=== PATIENT | male | born 1960 | race Caucasian/White ===

== ENCOUNTER 2019-09-05 10:17 | Emergency (ER) | payer OTHER ==
[2019-09-05 10:59] LABS: Urine Blood 2+ (NEG); Urine Glucose NEGATIVE (NEG); Urine Protein 3+ (NEG); Urine Specific Gravity 1.025 (1.005-1.030)
[2019-09-05 11:03] LABS: Absolute Lymphocytes (CBC) 1.2 K/uL (0.7-4.9); Basophils % 0.6 % (0-1.3); Hematocrit 44.5 % (39.6-49.0); Lymphocytes % 8.2 % (15.3-44.8); MPV 7.9 fL (7.6-11.3); RBC Red Blood Cell Count 5.55 M/uL (4.33-5.43)
[2019-09-05] MEDS ORDERED: NA CHLORIDE 0.9% 1,000 ML ONE ×2 (11:03→12:37)
[2019-09-05] MEDS ORDERED: KETOROLAC 30 MG/ML INJ ONE (11:03)
[2019-09-05] MEDS ORDERED: CEFTRIAXONE/SWI 1gm 1 GM/10 ML SYR ONE (11:03)
[2019-09-05 11:14] LABS: Urine Bacteria >50 /HPF (NONE SEEN); Urine RBC >50 /HPF (NONE SEEN)
[2019-09-05 11:30] LABS: Albumin 2.9 g/dL (3.4-5.0); Bilirubin Direct 0.4 mg/dL (0-0.2); Bilirubin Total 1.2 mg/dL (0.2-1.0); Potassium 3.7 mmol/L (3.5-5.1); Protein, Total 7.5 g/dL (6.4-8.2)
--- NOTE | 2019-09-05 13:54 | EDPHYS ---
Physician Documentation [facility] Name: Jeb Franklin Age: 58 yrs Sex: Male : 1960 Arrival Date: 09/05/2019 Time: 10:20 Bed 25 Private MD: [facility] ED Physician James Balbuena HPI: 09/05 11:06 This 58 yrs old Male presents to ER via Ambulatory with complaints of Urinary tw4 Problem. 11:06 The patient presents with urinary symptoms, dysuria, urinary frequency. Onset: The tw4 symptoms/episode began/occurred 1 week(s) ago. Modifying factors: The symptoms are alleviated by nothing, the symptoms are aggravated by nothing. Severity of symptoms: At their worst the symptoms were mild, in the emergency department the symptoms are unchanged. The patient has experienced similar episodes in the past, a few times. 11:15 Associated signs and symptoms: Pertinent positives: dysuria, fever, chills, flank pain tw4 left, Pertinent negatives: abdominal pain, diarrhea. Historical: - Allergies: 10:22 No Known Drug Allergies; sv - PMHx: 10:22 Hypertension; sv - PSHx: 10:22 Gastric Sleeve; Knee surgery; sv - Immunization history:: Adult Immunizations up to date. - Coronavirus screen:: The patient has NOT traveled to [place] in the past 14 days. Proceed with normal triage process as indicated. The patient has NOT had contact with known/suspected case of Coronavirus? Proceed with normal triage procedures. - Social history:: Smoking status: Patient reports the use of cigarette tobacco products, smokes one-half pack cigarettes per day. - Ebola Screening: : No symptoms or risks identified at this time. ROS: 11:15 Constitutional: Negative for fever, chills, and weight loss, Eyes: Negative for injury, tw4 pain, redness, and discharge, Neck: Negative for injury, pain, and swelling, Cardiovascular: Negative for chest pain, palpitations, and edema, Respiratory: Negative for shortness of breath, cough, wheezing, and pleuritic chest pain, Abdomen/GI: Negative for abdominal pain, nausea, vomiting, diarrhea, and constipation, MS/Extremity: Negative for injury and deformity, Skin: Negative for injury, rash, and discoloration. 11:15 : Positive for urinary symptoms, Negative for injury or acute deformity, urinary frequency, small amounts, hematuria, pelvic pain, flank pain, burning with urination, difficulty urinating, bladder incontinence, penile pain, testicular pain Exam: 11:15 Constitutional: This is a well developed, well nourished patient who is awake, alert, tw4 and in no acute distress. Head/Face: Normocephalic, atraumatic. Chest/axilla: Normal chest wall appearance and motion. Nontender with no deformity. No lesions are appreciated. Cardiovascular: Regular rate and rhythm with a normal S1 and S2. No gallops, murmurs, or rubs. Normal PMI, no JVD. No pulse deficits. Respiratory: Lungs have equal breath sounds bilaterally, clear to auscultation and percussion. No rales, rhonchi or wheezes noted. No increased work of breathing, no retractions or nasal flaring. Abdomen/GI: Soft, non-tender, with normal bowel sounds. No distension or tympany. No guarding or rebound. No evidence of tenderness throughout. Back: No spinal tenderness. No costovertebral tenderness. Full range of motion. Male : Normal genitalia with no discharge or lesions. Skin: Warm, dry with normal turgor. Normal color with no rashes, no lesions, and no evidence of cellulitis. MS/ Extremity: Pulses equal, no cyanosis. Neurovascular intact. Full, normal range of motion. Neuro: Awake and alert, GCS 15, oriented to person, place, time, and situation. Cranial nerves II-XII grossly intact. Motor strength 5/5 in all extremities. Sensory grossly intact. Cerebellar exam normal. Normal gait. Vital Signs: 10:23 BP 146 / 65; Pulse 78; Resp 22; Temp 98(O); Pulse Ox 97% ; Weight 43.09 kg; Height 6 sv ft. 0 in. (182.88 cm); 11:00 BP 104 / 50; Pulse 63; Resp 16 S; Pulse Ox 93% on R/A; ca1 11:28 BP 104 / 50; Pulse 57; Resp 17 S; Pulse Ox 90% on R/A; ca1 12:18 BP 94 / 52; Pulse 57; Resp 19 S; Pulse Ox 95% on R/A; ca1 13:11 BP 90 / 50; Pulse 54; Resp 16 S; Temp 98.7(O); Pulse Ox 93% on R/A; ca1 13:43 BP 99 / 52; Pulse 55; Resp 16 S; Pulse Ox 95% on R/A; ca1 10:23 Body Mass Index 12.88 (43.09 kg, 182.88 cm) sv MDM: 10:28 Patient medically screened. tw4 13:54 Differential diagnosis: nonspecific abdominal pain, appendicitis, UTI, urinary tw4 retention. Data reviewed: vital signs, nurses notes. Data reviewed: lab test result(s), CBC, electrolytes, hepatic panel, urinalysis, bacteruria, pyuria. Data interpreted: Pulse oximetry: Interpretation: normal. Counseling: I had a detailed discussion with the patient and/or guardian regarding: the historical points, exam findings, and any diagnostic results supporting the discharge/admit diagnosis, lab results. Medication response: Response to treatment: the patient's symptoms have markedly improved after treatment, and as a result, I will discharge patient, administer antibiotics cipro. Special discussion: I discussed with the patient/guardian in detail that at this point there is no indication for admission to the hospital. It is understood, however, that if the symptoms persist or worsen the patient needs to return immediately for re-evaluation. ED course: Pt awake and alert appears nontoxic, pts BP stable and lactic acid normal doubt septicemia . 09/05 10:35 Order name: Basic Metabolic Panel; Complete Time: 12:05 09/05 12:05 Interpretation: Normal except: GLUC 118; BUN 24; CRE 1.32; GFR 56. 09/05 10:35 Order name: CBC with Diff; Complete Time: 12:05 09/05 12:05 Interpretation: Normal except: WBC 14.9; RBC 5.55; MCH 25.3; MCHC 31.6; RDW 16.8. 09/05 10:35 Order name: Creatinine for Radiology; Complete Time: 12:05 09/05 12:06 Interpretation: Normal except: GFR 57. 09/05 10:35 Order name: Hepatic Function; Complete Time: 12:05 09/05 12:06 Interpretation: Normal except: BILIT 1.2; BILID 0.4; ALB 2.9; GLOB 4.6; A/G 0.6. 09/05 10:35 Order name: Urine Microscopic Only; Complete Time: 12:05 09/05 12:06 Interpretation: Normal except: UWBC >50; URBC >50; UBACT >50. 4 09/05 10:46 Order name: Urine Dipstick--Ancillary (enter results); Complete Time: 12:05 bd 09/05 12:06 Interpretation: Normal except: UBLD 2+; UPROT 3+; U NIT POSITIVE; UESTR 1+. tw4 09/05 10:35 Order name: IV Saline Lock; Complete Time: 10:53 tw 09/05 10:35 Order name: Labs collected and sent; Complete Time: 10:53 tw 09/05 11:18 Order name: Urine Culture [facility] 09/05 12:24 Order name: Lactate; Complete Time: 13:47 [facility] 09/05 10:35 Order name: Urine Dipstick-Ancillary (obtain specimen); Complete Time: 10:53 tw4 Administered Medications: 10:58 Drug: NS 0.9% 1000 ml Route: IV; Rate: 1 bolus; Site: left antecubital; ca1 12:00 Follow up: Response: No adverse reaction; IV Status: Completed infusion ca1 11:00 Drug: Rocephin - (cefTRIAXone) 1 grams Route: IVPB; Infused Over: 30 mins; Site: left ca1 antecubital; 11:57 Follow up: Response: No adverse reaction; IV Status: Completed infusion ca1 11:03 Drug: TORadol 30 mg Route: IVP; Site: left antecubital; ca1 11:56 Follow up: Response: No adverse reaction; Pain is decreased ca1 12:34 Drug: NS 0.9% 1000 ml Route: IV; Rate: 1 bolus; Site: left antecubital; ca1 13:43 Follow up: Response: No adverse reaction; IV Status: Completed infusion ca1 Disposition: 09/05/19 13:52 Discharged to Home. Impression: Urinary tract infection, site not specified. - Condition is Stable. - Discharge Instructions: Urinary Tract Infection, Adult. - Prescriptions for Zofran 4 mg Oral Tablet - take 1 tablet by ORAL route every 12 hours As needed; 20 tablet. Cipro 500 mg Oral Tablet - take 1 tablet by ORAL route every 12 hours for 7 days; 14 tablet. - Medication Reconciliation Form, Thank You Letter, Antibiotic Education, Prescription Opioid Use form. - Follow up: Jamie Escobedo DO; When: Upon discharge from the Emergency Department; Reason: If symptoms return, Recheck today's complaints, Continuance of care, Re-evaluation by your physician. - Problem is new. - Symptoms have improved. Signatures: Dispatcher [employer] Cristal Kumar, RN RN James Ratliff MD MD tw4 Ada Foley RN RN ca1 Corrections: (The following items were deleted from the chart) 12:06 12:06 Normal except: UBLD 2+; UPROT 3+; U NIT POSITIVE. 14:12 13:52 09/05/2019 13:52 Discharged to Home. Impression: Urinary tract infection, site ca1 not specified. Condition is Stable. Forms are Medication Reconciliation Form, Thank You Letter, Antibiotic Education, Prescription Opioid Use. Follow up: Jamie Escobedo; When: Upon discharge from the Emergency Department; Reason: If symptoms return, Recheck today's complaints, Continuance of care, Re-evaluation by your physician. Problem is new. Symptoms have improved. tw4
--- NOTE | 2019-09-05 13:54 | ER ---
Nurse's Notes [facility] Name: Jeb Franklin Age: 58 yrs Sex: Male : 1960 Arrival Date: 09/05/2019 Time: 10:20 Bed 25 Private MD: Jamie Escobedo Diagnosis: Urinary tract infection, site not specified Presentation: 09/05 10:21 Presenting complaint: Patient states: chills, burning with urination x 1 week. c/o sv right flank pain. Transition of care: patient was not received from another setting of care. Onset of symptoms was August 29, 2019. Care prior to arrival: None. 10:21 Method Of Arrival: Ambulatory sv 10:21 Acuity: CHEPE 3 sv 10:35 Risk Assessment: Do you want to hurt yourself or someone else? Patient reports no ca1 desire to harm self or others. Initial Sepsis Screen: Does the patient meet any 2 criteria? No. Patient's initial sepsis screen is negative. Does the patient have a suspected source of infection? No. Patient's initial sepsis screen is negative. Triage Assessment: 10:24 General: Appears uncomfortable, Behavior is calm, cooperative, appropriate for age. sv Pain: Complains of pain in right low back and posterior aspect of right lateral abdomen. Neuro: Level of Consciousness is awake, alert, obeys commands. Respiratory: Respiratory effort is even, unlabored, Respiratory pattern is regular, symmetrical. : Reports burning with urination. Derm: Skin is diaphoretic. Historical: - Allergies: 10:22 No Known Drug Allergies; sv - PMHx: 10:22 Hypertension; sv - PSHx: 10:22 Gastric Sleeve; Knee surgery; sv - Immunization history:: Adult Immunizations up to date. - Coronavirus screen:: The patient has NOT traveled to [place] in the past 14 days. Proceed with normal triage process as indicated. The patient has NOT had contact with known/suspected case of Coronavirus? Proceed with normal triage procedures. - Social history:: Smoking status: Patient reports the use of cigarette tobacco products, smokes one-half pack cigarettes per day. - Ebola Screening: : No symptoms or risks identified at this time. Screenin:35 Abuse screen: Denies threats or abuse. Denies injuries from another. Nutritional ca1 screening: No deficits noted. Tuberculosis screening: No symptoms or risk factors identified. Fall Risk IV access (20 points). Assessment: 10:35 General: Appears in no apparent distress. comfortable, Behavior is calm, cooperative, ca1 appropriate for age. Pain: Complains of pain in posterior aspect of right lateral abdomen and right low back Pain does not radiate. Pain currently is 8 out of 10 on a pain scale. Pain began a week ago Is intermittent. Neuro: Level of Consciousness is awake, alert, obeys commands, Oriented to person, place, time, situation, Appropriate for age. Cardiovascular: Heart tones S1 S2 present Capillary refill < 3 seconds Patient's skin is warm and dry. Respiratory: Airway is patent Respiratory effort is even, unlabored, Respiratory pattern is regular, symmetrical. GI: Abdomen is round non-distended, Bowel sounds present X 4 quads. Abd is soft and non tender X 4 quads. : Reports burning with urination, since a week ago urgency, urinary frequency. EENT: No signs and/or symptoms were reported regarding the EENT system. Derm: Skin is intact, is healthy with good turgor, Skin is pink, warm \T\ dry. Musculoskeletal: Circulation, motion, and sensation intact. Capillary refill < 3 seconds. 11:28 Reassessment: Patient appears in no apparent distress at this time. Patient and/or ca1 family updated on plan of care and expected duration. Pain level reassessed. Patient is alert, oriented x 3, equal unlabored respirations, skin warm/dry/pink. 12:18 Reassessment: Patient appears in no apparent distress at this time. Patient and/or ca1 family updated on plan of care and expected duration. Pain level reassessed. Patient is alert, oriented x 3, equal unlabored respirations, skin warm/dry/pink. 13:11 Reassessment: Patient appears in no apparent distress at this time. Patient and/or ca1 family updated on plan of care and expected duration. Pain level reassessed. Patient is alert, oriented x 3, equal unlabored respirations, skin warm/dry/pink. 13:43 Reassessment: Patient appears in no apparent distress at this time. Patient is alert, ca1 oriented x 3, equal unlabored respirations, skin warm/dry/pink. Vital Signs: 10:23 BP 146 / 65; Pulse 78; Resp 22; Temp 98(O); Pulse Ox 97% ; Weight 43.09 kg; Height 6 sv ft. 0 in. (182.88 cm); 11:00 BP 104 / 50; Pulse 63; Resp 16 S; Pulse Ox 93% on R/A; ca1 11:28 BP 104 / 50; Pulse 57; Resp 17 S; Pulse Ox 90% on R/A; ca1 12:18 BP 94 / 52; Pulse 57; Resp 19 S; Pulse Ox 95% on R/A; ca1 13:11 BP 90 / 50; Pulse 54; Resp 16 S; Temp 98.7(O); Pulse Ox 93% on R/A; ca1 13:43 BP 99 / 52; Pulse 55; Resp 16 S; Pulse Ox 95% on R/A; ca1 10:23 Body Mass Index 12.88 (43.09 kg, 182.88 cm) sv ED Course: 10:20 Patient arrived in ED. mr 10:20 Jamie Escobedo DO is Private Physician. mr 10:21 Arm band placed on. sv 10:22 Triage completed. sv 10:27 James Balbuena MD is Attending Physician. tw4 10:33 Ada Foley, GERMANIA is Primary Nurse. ca1 10:35 Patient has correct armband on for positive identification. Placed in gown. Bed in low ca1 position. Call light in reach. Side rails up X 1. Pulse ox on. NIBP on. Warm blanket given. 10:35 No provider procedures requiring assistance completed. ca1 10:53 Initial lab(s) drawn, by me, sent to lab. Urine collected: clean catch specimen, clear. em1 Inserted saline lock: 20 gauge in left antecubital area, using aseptic technique. Blood collected. 13:47 Jamie Escobedo DO is Referral Physician. tw4 13:58 IV discontinued, intact, bleeding controlled, No redness/swelling at site. Pressure ca1 dressing applied. Administered Medications: 10:58 Drug: NS 0.9% 1000 ml Route: IV; Rate: 1 bolus; Site: left antecubital; ca1 12:00 Follow up: Response: No adverse reaction; IV Status: Completed infusion ca1 11:00 Drug: Rocephin - (cefTRIAXone) 1 grams Route: IVPB; Infused Over: 30 mins; Site: left ca1 antecubital; 11:57 Follow up: Response: No adverse reaction; IV Status: Completed infusion ca1 11:03 Drug: TORadol 30 mg Route: IVP; Site: left antecubital; ca1 11:56 Follow up: Response: No adverse reaction; Pain is decreased ca1 12:34 Drug: NS 0.9% 1000 ml Route: IV; Rate: 1 bolus; Site: left antecubital; ca1 13:43 Follow up: Response: No adverse reaction; IV Status: Completed infusion ca1 Outcome: 13:52 Discharge ordered by . aleena 14:02 Discharged to home ambulatory. ca1 14:02 Condition: stable 14:02 Discharge instructions given to patient, Instructed on discharge instructions, follow up and referral plans. medication usage, Demonstrated understanding of instructions, follow-up care, medications, Prescriptions given X 2. 14:12 Patient left the ED. ca1 Addendum: 09/08/2019 07:19 Addendum: Culture Results: Positive urine culture. No further action required. Bacteria e b sensitive to prescribed antibiotic. Signatures: Cristal Fernandez RN RN Carnes, Joselin Rodriges, [place] 1 James Balbuena MD MD tw4 Donya Villalpando Cheryl, RN RN ca1 Corrections: (The following items were deleted from the chart) 09/05 10:24 10:23 Pulse 78bpm; Resp 22bpm; Pulse Ox 97%; Temp 98F Oral; 43.09 kg; Height 6 ft. 0 sv in.; BMI: 12.8; sv 13:13 13:11 BP 90 / 50; Pulse 51bpm; Resp 16bpm; Spontaneous; Pulse Ox 93% RA; ca1 ca1
[2019-09-05 14:25] VITALS: TEMP 98.7
[2019-09-05 14:27] VITALS: BP 99/52; O2SAT 95
== END 2019-09-05 14:12 | disposition home or self-care (01) ==
LOC: ER 10:17
DX: N39.0 Urinary tract infection, site not specified (principal); I10 Essential (primary) hypertension; F17.210 Nicotine dependence, cigarettes, uncomplicated
CPT/HCPCS: 96365; 96361; 87088; 85025; 87086; 80048; 36415; 80076; 83605; 87077; 87186; 96375; 99284; J0696; J7030 ×2; 81003; 81015

== ENCOUNTER 2019-12-11 13:37 | Inpatient (IN) | payer OTHER ==
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
--- OUTSIDE RECORDS SUMMARY | 2019-12-12 17:55 | XMS REPORT ---
:1960 Author Organization [employer] Care Team Providers Name Role Phone EscobedoJamie Provider Role Unavailable Allergies, Adverse Reactions, Alerts Substance Reaction Event Type N.K.D.A. Info Not Available Non Drug Allergy Problems Problem Type Condition Code Onset Dates Condition Statu s Assessment Vitamin D deficiency E55.9 Active Assessment Vitamin A deficiency E50.9 Active Problem Vitamin D deficiency E55.9 Active Assessment Hyperglycemia R73.9 Active Problem Benign essential HTN I10 Active Assessment Elevated alkaline phosphatase level R74.8 Active Problem Vitamin A deficiency E50.9 Active Problem Hypothyroidism, unspecified type E03.9 Active Problem Chronic congestive heart failure, I50.9 Active unspecified congestive heart failure type Problem Adult BMI 50.0-59.9 kg/sq m Z68.43 Active Problem Hypocalcemia E83.51 Active Assessment Morbid (severe) obesity due to E66.01 Active excess calories Assessment Encounter for long-term (current) Z79.1 Active use of NSAIDs Problem Body mass index (BMI) 50.0-59.9, Z68.43 Active adult Assessment Elevated LFTs R79.89 Active Problem Dorsalgia, unspecified M54.9 Activ e Problem Gastroesophageal reflux disease K21.9 Active without esophagitis Problem 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 Problem Morbid (severe) obesity due to E66.01 Active excess calories Assessment Gastroesophageal reflux disease K21.9 Active without esophagitis Assessment Chronic congestive heart failure, I50.9 Active unspecified congestive heart failure type Assessment Adult BMI 50.0-59.9 kg/sq m Z68.43 Active Assessment 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 Problem Hyperglycemia R73.9 Active Assessment Hypothyroidism, unspecified type E03.9 Active Assessment Benign essential HTN I10 Active Medications Medication Code Code Instructions Start End Status Dosage System Date Date Meloxicam ND 04785702823 15 mg Active TAKE 1 TABLET BY MOUTH EVERY DAY Losartan Potassium ND 29755649179 100 MG Orally Act allyson 1 tablet Once a day Hydrochlorothiazide ND 97548506282 25 MG Orally Act allyson 1 tablet Once a day in the morning Norvasc [facility] 50371695400 10 MG Orally Active 1 table t Once a day Pantoprazole Sodium [facility] 49691151903 40 MG Orally Act allyson 1 tablet Once a day Klor-Con 10 [facility] 08329708271 10 MEQ Orally Active 1 tablet once a day with food Amlodipine Besylate ND 64081269966 10 MG Orally Act allyson 1 tablet Once a day Cozaar [facility] 58783585269 100 MG Orally Active 1 tabl et Once a day Clonidine HCl [facility] 24183630318 0.2 MG Orally Active 1 tablet three times a day Mobic [facility] 00512578904 15 MG Orally Active 1 table t Once a day Potassium Chloride [facility] 47979072011 10 MEQ Orally Act allyson 1 tablet [facility] Twice a day with food Levothyroxine Sodium [facility] 81880583111 25 MCG Orally A ctive 1 tablet Once a day on an empty stomach in the morning Coreg [facility] 90161581277 25 MG Orally Active 1 tab BID Results No Known Results Summary Purpose [employer]ClinicalWorks Submission
--- OUTSIDE RECORDS SUMMARY | 2019-12-12 17:56 | XMS REPORT | Continuity of Care Document ---
:1960 Author Organization [facility] t Address [address] [place] [address] Care Team Providers Name Role Phone Unavailable Unavailable Unavailable Problems Condition Condition Condition Status Onset Resolution Last Treating Co mments Source Name Details Category Date Date Treatment Clinician Date Benign Benign Diagnosis Active [facility] essential essential [facility] - HTN HTN [facility] Chronic Chronic Diagnosis Active [facility] congestive congestive [place] [facility] - heart heart Memoria failure, failure, l unspecifie unspecifie Ou tpati d d ent congestive congestive Cl inics heart heart failure failure type type Vitamin A Vitamin A Problem Active [facility] deficiency deficiency [place] [facility] - [facility] Hypocalcem Hypocalcem Problem Active [facility] ia ia [facility] Adult BMI Adult BMI Diagnosis Active [facility] 50.0-59.9 50.0-59.9 Luke s - kg/sq m kg/sq m [facility] Generalize Generalize Diagnosis Active [facility] - osteoarthr osteoarthr Me moria itis of itis of l multiple multiple Outpat i sites sites ent Clinics Gastroesop Gastroesop Diagnosis Active [facility] hageal hageal [facility] - reflux reflux Memoria disease disease l without without Outpati esophagiti esophagiti en t s s Clinics Hypothyroi Hypothyroi Diagnosis Active [facility] dism, dism, [facility]ukes - unspecifie unspecifie Me moria d type d type l Outpati ent Clinics Morbid Morbid Problem Active [facility] (severe) (severe) Lukes - obesity obesity Memoria due to due to l excess excess Outpati calories calories ent Clinics Dorsalgia, Dorsalgia, Problem Active [facility] unspecifie unspecifie [place] - d d [facility] Hyperglyce Hyperglyce Problem Active [facility] carolee carolee [facility] Vitamin D Vitamin D Problem Active [facility] deficiency deficiency [place] k[facility] - Memoria l [facility] ent Clinics Encounter Encounter Diagnosis Active [facility] for for [facility] - long-term long-term Barney etelvina (current) (current) l use of use of [facility] NSAIDs NSAIDs ent Clinics Elevated Elevated Diagnosis Active [facility] alkaline alkaline [facility] - phosphatas phosphatas Me moria e level e level l [facility] ent Clinics Elevated Elevated Diagnosis Active [facility] LFTs LFTs [facility] - Memoria l [facility] ent Clinics Allergies, Adverse Reactions, Alerts This patient has no known allergies or adverse reactions. Medications Ordered Filled Start Stop Current Ordering Indication Dosage Frequency Signature Comments Components Source Medication Medication Date Date Medication? Clinician (SIG) Name Name Pantoprazol Pantoprazol Yes Jamie [address] [facility] e Sodium e Sodium 07-20 [place] [facility] - 00:00: Memoria 00 l [facility] ent Clinics Mobic Mobic Yes Jamie [address] [facility] [place] [facility] ent Clinics Coreg Coreg Yes Jamie [address] [facility] [place] [facility] ent Clinics Cozaar Cozaar Yes Jamie 1 tablet [facility] [place] [facility] ent Clinics Norvasc Norvasc Yes Jamie [address] [facility] [place] [facility] ent Clinics Levothyroxi Levothyroxi Yes Jamie [address] [facility] ne Sodium ne Sodium [place] on an Aarti es - empty Memoria stomach in l the [facility] morning ent Clinics Clonidine Clonidine Yes Jamie [address] [facility] HCl HCl [place] [facility]oria l [facility] ent Clinics Klor-Con 10 Klor-Con 10 Yes Jamie [address] [facility] [place] with food [facility] - Memoria l [facility] ent Clinics Hydrochloro Hydrochloro Yes Jamie [address] [facility] thiazide thiazide [place] in the Luke s - morning Memoria l [facility] ent Clinics Potassium Potassium Yes Jamie [address] [facility] [facility] Chloride Chloride [place] with food L ukes - Sandy [facility] Memoria l [facility] ent Clinics Amlodipine Amlodipine Yes Jamie [address] [facility] Besylate Besylate [place] [facility] - [facility] l [facility] ent Clinics Losartan Losartan Yes Jamie [address] Potassium Potassium [place] [facility] - Memoria l [facility] ent Clinics Meloxicam Meloxicam Yes Jamie TAKE [address] [place] TABLET BY [facility] - MOUTH [facility] EVERY DAY l Outpati ent Clinics Immunizations Ordered Filled Immunization Date Status Comments Sourc e Immunization Name Name Son Cline - 2019-04-[address] [facility] Procedures This patient has no known procedures. Encounters Start End Encounter Admission Attending Care Care Encounter Source Date/Time Date/Time Type Type Clinicians Facility Department ID 2019-10-24 2019-10-24 [facility] [id number] [facility] 08:30[facility]00 08:30:[address] [facility] Medicine Outpati ent Clinics 2019-07-25 2019-07-25 [facility] [id number] [address] 08:45:00 08:45:[address] [facility] Medicine Outpati ent Clinics 2019-07-17 2019-07-17 [facility] [id number] 16:35:00 16:35:[address] [facility] Medicine Outpati ent Clinics 2019-04-18 2019-04-18 [facility] [id number] 08:15:00 08:15:[address] [facility] Medicine Outpati ent Clinics 2019-01-17 2019-01-17 [facility] [id number] 08:15:00 08:15:[address] [facility] Medicine Outpati ent Clinics 2018-10-18 2018-10-18 [facility] [id number] [address] 08[facility]15[facility]00 08:15:[address] [facility] Medicine Outpati ent Clinics 2018-08-24 2018-08-24 [facility] [id number] 08:30:00 08:30:[address] [facility] Medicine Outpati ent Clinics 2018-07-20 2018-07-20 [facility] [id number] 08:15:00 08:15:[address] [facility] Medicine Outpati ent Clinics Results This patient has no known results.
[2019-12-12] MEDS ORDERED: ACETAMINOPHEN 500 MG TAB PO PRN (18:38)
[2019-12-12] MEDS: ENOXAPARIN 60 MG/0.6 ML SQ SCH (20:00)
[2019-12-12] MEDS: GABAPENTIN 300 MG CAP PO SCH (20:21)
[2019-12-12] MEDS: BACLOFEN 10 MG TAB PO SCH (20:21)
[2019-12-12 20:47] LABS: Urine Appearance CLEAR; Urine Bilirubin NEGATIVE (NEG); Urine Blood NEGATIVE (NEG); Urine Color YELLOW; Urine Glucose NEGATIVE (NEG); Urine Protein TRACE (NEG); Urine Specific Gravity 1.015 (1.005-1.030)
[2019-12-12] MEDS ORDERED: cloNIDine HCL 0.1 MG TAB PO SCH (21:00)
[2019-12-12] MEDS ORDERED: METOPROLOL TAR 25 MG TAB PO SCH (21:00)
[2019-12-12 22:40] LABS: Urine Bacteria <20 /HPF (NONE SEEN); Urine Culture Reflex Order NOT NEEDED; Urine RBC <5 /HPF (NONE SEEN)
[2019-12-13] MEDS: TRAMADOL HCL 50 MG TAB PO PRN ×4 (00:48→19:43)
[2019-12-13 06:02] LABS: Absolute Lymphocytes (CBC) 2.7 K/uL (0.7-4.9); Basophils % 0.7 % (0-1.3); Lymphocytes % 16.5 % (15.3-44.8); MPV 7.1 fL (7.6-11.3); RBC Red Blood Cell Count 2.82 M/uL (4.33-5.43)
[2019-12-13 06:16] LABS: Albumin 2.1 g/dL (3.4-5.0); Magnesium 2.3 mg/dL (1.8-2.4); Potassium 4.3 mmol/L (3.5-5.1); Prealbumin 15.6 mg/dL (20-40)
[2019-12-13] MEDS: LEVOTHYROXINE SOD 0.025 MG TAB PO SCH (06:58)
[2019-12-13] MEDS: PANTOPRAZOLE 40MG TABLET PO SCH (06:58)
[2019-12-13 07:54] LABS: Platelet Estimate INCR; Urine White Blood Cell Casts OK
[2019-12-13 07:55] LABS: Anisocytosis 1+; Blood Morphology Comment NOTED (NOT SEEN); Macrocytosis 1+; Polychromasia 1+
[2019-12-13] MEDS ORDERED: POLYETHYL GLY 3350 17 GM/DOSE PO SCH (08:00)
[2019-12-13] MEDS: LIDOCAINE 4% PATCH TOP SCH (08:43)
[2019-12-13] MEDS: cloNIDine HCL 0.1 MG TAB PO SCH ×2 (08:44→19:43)
[2019-12-13] MEDS: GABAPENTIN 300 MG CAP PO SCH ×2 (08:44→19:43)
[2019-12-13] MEDS: TAMSULOSIN 0.4 MG SR CAP PO SCH (08:45)
[2019-12-13] MEDS: METOPROLOL TAR 25 MG TAB PO SCH ×2 (08:45→19:42)
[2019-12-13] MEDS: ENOXAPARIN 60 MG/0.6 ML SQ SCH ×2 (10:27→19:42)
[2019-12-13] MEDS: ACETAMINOPHEN 500 MG TAB PO PRN (11:26)
--- NOTE | 2019-12-13 11:48 | RAD REPORT ---
EXAM DESCRIPTION: RAD - Hip Right 2 View - 12/13/2019 11:16 am CLINICAL HISTORY: Right hip pain FINDINGS: Compression screws and intramedullary rods have been placed into the the right femur. An intertrochanteric fracture involves greater and lesser trochanters. Fracture fragments are separat ed by 4.7 millimeters. No prior plain films are available for comparison. This could represent a re- fracture or simply be a normal finding if the patient has had a recent surgery. This should be correlated clinically and with prior plain films No dislocation
--- NOTE | 2019-12-13 12:02 | RAD REPORT ---
EXAM DESCRIPTION: Juaquin Single View12/13/2019 11:17 am CLINICAL HISTORY: Leukocytosis COMPARISON: none FINDINGS: The lungs appear clear of acute infiltrate. The heart is mildly enlarged. Mild prominence of mediastinum IMPRESSION: Mild prominence of mediastinum may represent vessels/epicardial fat. Lymphadenopathy can also have this appearance. PA and lateral chest series would be helpful for further evaluation
[2019-12-13] MEDS: FE SULF/FA/VIT B COMP & C TAB PO SCH (12:41)
[2019-12-13] MEDS: FERROUS SULFATE 325 MG TAB PO SCH (12:41)
[2019-12-13] MEDS: PROMOD 30 ML DOSE PO SCH ×2 (12:43→19:43)
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
--- NOTE | 2019-12-13 17:17 | PAPE ---
PATIENT: [facility] MR# [id number] REFERRING DOCTOR MAE ROB PRIMARY CARE PHYSICIAN UNKNOWN EVALUATION DATE AND TIME 12/13/2019 17:15 (CDT) NAME ALISHA LEE DATE OF 1960 AGE 58 PHONE SSN# [id number] GENDER male EVALUATING PHYSICIAN Dr. Mauro Mcclellan M.D. ADMISSION DIAGNOSIS: RIGHT FEMUR FRACTURE DISPLACED FRACTURE OF THE NECK INTERTROCHANTERIC FRACTURE OF RIGHT FEMUR RIGHT OPEN PERIPROSTHETIC FRACTURE FRACRURE OF CERVIVAL SPINOUS PROCESS RIB FRUACTURE ONSET DATE 12/02/2019 POST-ADMISSION FUNCTIONAL/MEDICAL STATUS: - Bladder Same accident frequency: Ind - No accidents in the past 7 days - Bowel Same accident frequency: Ind - No accidents in the past 7 days - Walking Same score based on distance walked: 0(N/A) - Wheelchair Same score based on distance traveled: 0(N/A) STATUS CHANGE EVALUATION: No change in Functional or Medical Status is identified compared with Pre-Admission screening. PATIENT NEEDS CLOSE MEDICAL SUPERVISION BY A REHABILITATION PHYSICIAN FOR: Coordination of Treatment Team Post-Op Complications PATIENT REQUIRES 24X7 REHAB NURSING FOR MEDICAL AND FUNCTIONAL MGT. OF THE FOLLOWING DEFICITS: Disease Management Medication Management Patient/Family Education Providing Safe Environment PATIENT REQUIRES INTENSIVE, COORDINATED INTERDISCIPLINARY APPROACH TO REHAB: Arranging Home Equipment/Services Discharge Planning Family Intervention/Training It Consulting Manager/Case Management LIST OF IDENTIFIED AND POTENTIAL PROBLEMS: Alteration in leisure activities Bladder, Incontinence Bowel, Incontinence Infection, Actual or Potential Mobility Impaired Pain, Alteration in Comfort Self Care Deficit Skin Integrity, Actual or Potential Urinary Tract Infection (UTI), Actual or Potential PATIENT COULD BE AT RISK FOR COMPLICATIONS FROM ADVERSE MEDICAL CONDITIONS DUE TO HIS/HER COMORBIDITI ES AND THE RIGORS OF THE INTENSIVE REHABILLITATION PROGRAM. METHODS OR INTERVENTIONS TO AVOID COMPLIC ATIONS INCLUDE: - Infection Clinical staff to assess and manage the signs and symptoms of infection including fever, redness, war mth, etc. - Urinary Tract Infection - Falls Patient will be evaluated for Fall Precautions and will be placed on Fall Precautions as indicated pe r protocol. - Skin Breakdown Nursing will assess skin daily using assessment tool and will place on Skin Breakdown Precautions as indicated per protocol. - Pain Clinical staff may employ non-medication methods such as massage, distraction, decrease stimulus, etc . as needed. Clinical staff will assess patient's pain level every shift per protocol to assess and e nsure pain management effectiveness. Medications will be given and the pain level re-assessed. PRELIMINARY PLAN OF CARE: - Physical Therapy Patient needs Physical Therapy for a daily minimum of 1.5 hours at least 5 out of 7 days, to improve: Mobility, Strengthening, Transfers, Stretching, ROM, Endurance, Ability to manage stairs, Gait, and Balance. - Speech Therapy Patient needs Speech Therapy for a daily minimum of 0.5 hours at least 5 out of 7 days, to improve: S wallowing, Cognition, Language Skills, and Compensatory Strategies. - Rehabilitation Nursing Patient requires 24x7 Rehabilitation Nursing for: Pain Issues, Identifying and preventing risk factor s, Monitoring and reporting current medical conditions, Assisting with ambulation and transfer, Xiomy ting with all ADL-s, Teaching patients about disease process and medications, Family teaching, Provid ing safe environment, Bowel and Bladder Issues, Skin Integrity, and Medication Management. Patient needs It Consulting Manager and/or Case Management for: Discharge Planning, Arranging Home Equipmen t or Services, and Family Interventions. - Dietary and Nutrition Services Patient needs Dietary and Nutrition Services for: Adequate Nutrition, Nutritional Supplements, and Nu tritional Education. - Occupational Therapy Patient needs Occupational Therapy for a daily minimum of 1.5 hours at least 5 out of 7 days, to impr ove Activities of Daily Living, including: Eating, Grooming, Bathing, Dressing, Toileting, Toilet Tra nsfers, Community Reintegration, Higher functional activities, Adaptive Equipment, Splinting, Househo ld Tasks, and Other activities as determined. QI SCORES: - Self-Care A. Eating 03-Partial/moderate assistance B. Oral hygiene 03-Partial/moderate assistance C. Toileting hygiene 02-Substantial/maximal assistance E. Shower/bathe self 02-Substantial/maximal assistance F. Upper body dressing 03-Partial/moderate assistance G. Lower body dressing 02-Substantial/maximal assistance H. Putting on/taking off footwear 88-Not attempted due to medical condition or safety concerns - Mobility A. Roll left and right 03-Partial/moderate assistance B. Sit to lying 03-Partial/moderate assistance C. Lying to sitting on side of bed 03-Partial/moderate assistance D. Sit to stand 02-Substantial/maximal assistance E. Chair/qwl-te-bdfpo transfer 02-Substantial/maximal assistance F. Toilet transfer 02-Substantial/maximal assistance G. Car transfer 88-Not attempted due to medical condition or safety concerns I. Walk 10 feet 88-Not attempted due to medical condition or safety concerns J. Walk 50 feet with two turns 88-Not attempted due to medical condition or safety concerns K. Walk 150 feet 88-Not attempted due to medical condition or safety concerns L. Walking 10 feet on uneven surfaces 88-Not attempted due to medical condition or safety concerns M. 1 step (curb) 88-Not attempted due to medical condition or safety concerns N. 4 steps 88-Not attempted due to medical condition or safety concerns O. 12 steps 88-Not attempted due to medical condition or safety concerns P. Picking up object 03-Partial/moderate assistance R. Wheel 50 feet with two turns 88-Not attempted due to medical condition or safety concerns S. Wheel 150 feet 88-Not attempted due to medical condition or safety concerns - Bladder and Bowel Bladder continence 0-Always continent Bowel continence 0-Always continent - Endurance Fair - Balance Fair - Safety Awareness Fair POTENTIAL FUNCTIONAL GOALS FOR PATIENT TO ACHIEVE BY DISCHARGE: - Safety Precaution Patient will remain free from falls or injury at time of discharge. - Bed Mobility Patient will perform bed mobility at 4-Fabian level of assistance. - Transfers Patient will complete transfers from bed to chair at 4-Fabian level of assistance. - Mobility Patient will ambulate 150 ft with 4-Fabian level of assistance with RW. PATIENT REHAB POTENTIAL Merlyn LEE is able and expected to receive 3 hours of individualized therapy daily on at least 5 of e very 7 days Merlyn LEE's prognosis for significant practical improvement within a reasonable period of time appea rs Good Expected level of measurable improvement will be of a practical value to Merlyn LEE's functional capa city or adaptations to impairments Has a viable Discharge Plan Medically appropriate; condition is sufficiently stable to participate in intensive rehab program DISCHARGE PLAN: - Estimated Length of Stay (days) 13. - Consensus on plan Discharge plan has been discussed with primary caregiver. Patient/Family is in agreement with the julissa n. Primary caregiver is in agreement with the plan. - Patient/Family Goals Return home independently. - Planned Living Setting Upon Discharge Home, to live alone. Transitional Living. Primary caregiver: Pt self. CONCLUSION ON REHABILITATION NECESSITY: I have evaluated patient's pre-admission functional status and, comparing it to the patient's post-ad mission functional status now, I conclude that the pre-admission assessment was accurate. Patient's c ondition on admission supports the medical necessity of admission to IRF. It is safe to proceed with patient's therapy program. SIGNATURE PANEL: (CDT)
[2019-12-13] MEDS: BACLOFEN 10 MG TAB PO SCH (20:01)
[2019-12-14] MEDS: TRAMADOL HCL 50 MG TAB PO PRN ×4 (02:56→20:16)
[2019-12-14] MEDS: LEVOTHYROXINE SOD 0.025 MG TAB PO SCH (07:10)
[2019-12-14] MEDS: PANTOPRAZOLE 40MG TABLET PO SCH (07:10)
[2019-12-14] MEDS: FERROUS SULFATE 325 MG TAB PO SCH (07:11)
[2019-12-14] MEDS: ENOXAPARIN 60 MG/0.6 ML SQ SCH ×2 (07:11→20:16)
[2019-12-14] MEDS: TAMSULOSIN 0.4 MG SR CAP PO SCH (07:11)
[2019-12-14] MEDS: cloNIDine HCL 0.1 MG TAB PO SCH ×2 (07:11→20:16)
[2019-12-14] MEDS: GABAPENTIN 300 MG CAP PO SCH ×2 (07:11→20:16)
[2019-12-14] MEDS: FE SULF/FA/VIT B COMP & C TAB PO SCH (07:11)
[2019-12-14] MEDS: METOPROLOL TAR 25 MG TAB PO SCH ×2 (07:11→20:16)
[2019-12-14] MEDS: LIDOCAINE 4% PATCH TOP SCH (07:12)
[2019-12-14] MEDS: PROMOD 30 ML DOSE PO SCH ×2 (07:12→20:17)
[2019-12-14 07:23] LABS: Absolute Lymphocytes (CBC) 2.5 K/uL (0.7-4.9); Basophils % 0.6 % (0-1.3); Hematocrit 26.4 % (39.6-49.0); Lymphocytes % 16.1 % (15.3-44.8); MPV 7.4 fL (7.6-11.3); RBC Red Blood Cell Count 2.97 M/uL (4.33-5.43)
--- NOTE | 2019-12-14 12:08 | RAD REPORT ---
EXAM DESCRIPTION: Juaquin Allen (2 Views)12/14/2019 11:46 am CLINICAL HISTORY: Abnormal radiologic exam COMPARISON: December 13, 2019 FINDINGS: The lungs appear clear of acute infiltrate. The heart is mildly enlarged. The mediastinum has a more normal appearance on the current exam
--- NOTE | 2019-12-14 14:40 | FAST ---
SHIFT START DATE/TIME: 12/14/2019 07:00 (CDT) SHIFT END DATE/TIME: 12/14/2019 19:00 (CDT) NAME ALISHA LEE DATE OF : 1960 DATE OF ADMISSION: 12/12/2019 17:53 (CDT) PHONE: AGE: 58 N# [id number] GENDER: Male ENCOUNTER PHYSICIAN: Dr. Mauro Mcclellan M.D. ADMISSION DIAGNOSIS: - Orthopaedic Disorders 08 - Major Multiple Fractures (08.4) RIGHT FEMUR FRACTURE. DISPLACED FRACTURE OF THE NECK. INTERTROCHANTERIC FRACTURE OF RIGHT FEMUR. RIGH T OPEN PERIPROSTHETIC FRACTURE . FRACRURE OF CERVIVAL SPINOUS PROCESS. RIB FRUACTURE. EATING: EATING - STEP 1: Does the patient complete the activity by him/herself with no assistance (physical, verbal/nonverbal cueing, setup/clean-up)? No. EATING - STEP 2: Does the patient need only setup/clean-up assistance from one helper? Yes. 1. [id number] ADMISSION PERFORMANCE: Setup or clean-up assistance CODE: 05 ORAL HYGIENE: ORAL HYGIENE - STEP 1: Does the patient complete the activity by him/herself with no assistance (physical, verbal/nonverbal cueing, setup/clean-up)? No. ORAL HYGIENE - STEP 2: Does the patient need only setup/clean-up assistance from one helper? Yes. 1. [id number] ADMISSION PERFORMANCE: Setup or clean-up assistance CODE: 05 TOILETING HYGIENE: TOILETING HYGIENE - STEP 1: Does the patient complete the activity by him/herself with no assistance (physical, verbal/nonverbal cueing, setup/clean-up)? No. TOILETING HYGIENE - STEP 2: Does the patient need only setup/clean-up assistance from one helper? No. TOILETING HYGIENE - STEP 3: Does the patient need only verbal/nonverbal cueing or touching/steadying/contact guard assistance fro m one helper? No. TOILETING HYGIENE - STEP 4: Does the patient need physical assistance - for example lifting or trunk support from one helper - wi th the helper providing less than half of the effort? No. TOILETING HYGIENE - STEP 5: Does the patient need physical assistance - for example lifting or trunk support from one helper - wi th the helper providing more than half of the effort? Yes. 1. [id number] ADMISSION PERFORMANCE: Substantial/maximal assistance CODE: 02 BATHING: Not assessed/no information CODE: - DRESSING - UPPER BODY: Not assessed/no information CODE: - DRESSING - LOWER BODY: Not assessed/no information CODE: - PUTTING ON/TAKING OFF FOOTWEAR: Not assessed/no information CODE: - ROLL LEFT AND RIGHT: ROLL LEFT AND RIGHT - STEP 1: Does the patient complete the activity by him/herself with no assistance (physical, verbal/nonverbal cueing, setup/clean-up)? No. ROLL LEFT AND RIGHT - STEP 2: Does the patient need only setup/clean-up assistance from one helper? No. ROLL LEFT AND RIGHT - STEP 3: Does the patient need only verbal/nonverbal cueing or touching/steadying/contact guard assistance fro m one helper? No. ROLL LEFT AND RIGHT - STEP 4: Does the patient need physical assistance - for example lifting or trunk support from one helper - wi th the helper providing less than half of the effort? No. ROLL LEFT AND RIGHT - STEP 5: Does the patient need physical assistance - for example lifting or trunk support from one helper - wi th the helper providing more than half of the effort? No. ROLL LEFT AND RIGHT - STEP 6: Does the helper provide all of the effort? OR Is the assistance of two or more helpers required to co mplete the activity? Yes. 1. [id number] ADMISSION PERFORMANCE: Dependent CODE: 01 SIT TO LYING: Not assessed/no information CODE: - LYING TO SITTING: Not assessed/no information CODE: - SIT TO STAND: Not assessed/no information CODE: - TRANSFERS: BED, CHAIR: Not assessed/no information CODE: - TRANSFER TOILET: Not attempted due to medical condition or safety concerns CODE: 88 TRANSFERS: CAR: Not assessed/no information CODE: - WALK 10 FEET: Not attempted due to medical condition or safety concerns CODE: 88 1 STEP (CURB): Not assessed/no information CODE: - PICKING UP OBJECT: Not assessed/no information CODE: - DOES THE PATIENT USE A WHEELCHAIR/SCOOTER? Q1. DOES THE PATIENT USE A WHEELCHAIR/SCOOTER?: No CODE: 0 INDICATE THE TYPE OF WHEELCHAIR/SCOOTER USED: CODE: EXPR INDICATE THE TYPE OF WHEELCHAIR/SCOOTER USED: CODE: EXPR BLADDER AND BOWEL: H350. BLADDER CONTINENCE (3-DAY ASSESSMENT PERIOD): Always continent (no documented incontinence) CODE: 0 H400. BOWEL CONTINENCE (3-DAY ASSESSMENT PERIOD): Always continent CODE: 0 SIGNATURE PANEL: The following modified sections: 1. [id number] Admission Performance, 1. [id number] Admission Performance, 1. [id number] Admission Performance, 1. [id number] Admission Performance, Q1. Does the patient use a wheelc hair/scooter?, H350. Bladder Continence (3-day assessment period), H400. Bowel Continence (3-day asse ssment period) were [electronically] signed by Cathy AngelNNadya on WedDec 14 2019 14:39:42 GMT-0 500 (Central Daylight Time)
--- NOTE | 2019-12-14 18:04 | R.PN ---
ENCOUNTER DATE AND TIME: 12/14/2019 17:51 (CDT) NAME ALISHA LEE DATE OF : 1960 DATE OF ADMISSION: 12/12/2019 17:53 (CDT) RIGHT FEMUR FRACTUREDISPLACED FRACTURE OF THE NECKINTERTROCHANTERIC FRACTURE OF RIGHT FEMURRIGHT OPEN PERIPROSTHETIC FRACTURE FRACRURE OF CERVIVAL SPINOUS PROCESSRIB FRUACTURECHIEF COMPLAINT: Displaced right femur fracture, cervical spinous process fracture, rib fractures SUBJECTIVE: Pt denied any Shortness of Breath. Pt denied any depression. Chest x-ray shows clear lungs. Right hip x-ray from 12/13/19 is not significantly different from post-o p hip x-ray done 12/03/19. WBC 15.3 with neutrophils 70.0, procalcitonin < 0.05, lactic acid 1.0. Ther apeutic exercises done in bed today without restriction. VITAL SIGNS Temperature: 98.6 F SBP/DBP: 157/66 Pulse: 75 Resp: 16 MEDICATION ALLERGIES: No Known Drug Allergies (NKDA) ENVIRONMENTAL ALLERGIES: - Substance Allergies None Known - Other Allergies None Known NURSING: - Shower allowing shower - Skin care per protocol PRECAUTIONS: - Weight Bearing Precaution WBAT right LE ACTIVITIES OOB only with supervision THERAPIES: - Dietary and Nutrition Adequate Nutrition. Nutritional Education. Nutritional Supplements. PHYSICAL EXAM - Gen Alert and awake Lying in bed No apparent distress Oriented to: person, time, and place - Skin No skin breakdown. Mild brusing in the left forehead. - Eyes No abnormalities - ENMT [place] J cervical collar is in place - Neck [place] J cervical collar is in place - CVS RRR - Chest No abnormalities - Abd Obese, soft, nontender - GI + bowel sounds Deferred - No abnormalities - Ext Right femur surgical site has good hemostasis. - MSK 3+/5 weakness in right lower extremity - Neuro 3+/5 weakness in right lower extremity - Psych No abnormalities ASSESSMENT: Pt. is a 58 yo Right-handed white male.On 01/02/2020 he was admitted to Acute care hospital and under went emergency surgery for RIGHT FEMUR FRACTURE (Major Multiple Fractures) by MAE ROB.Pre-mo rbidly, Pt. was independent/mod-I in Safety Awareness, Social Cognition, Transfers Control, Self-Care , and Communication; and he had good Balance, Sphincter Control, and Endurance.Currently, he has defi cits of Safety Awareness, Balance, Transfers Control, Sphincter Control, Self-Care, Communication, En durance, Locomotion, and Social Cognition.Pt. is now referred to [facility] fo r acute in-patient rehabilitation in order to maximize patient's functional independence in activitie s of daily living, strength, ROM, and mobility.- Rehab Goal Patient has realistic goal of being discharged at assistance level 6-Jose to reside at Home with Pt self. Mr. Lee reports hearing a loud pop from his right hip surgical site when he transferred to a christel ding standing position. He felt pain in the right femur. A new x-ray was not done. An x-ray at this h ospital showed a 4.7 mm separation of the right hip fracture site. The post-op x-ray from [facility] l be obtained for comparison. The orthopedic surgeons in [place] will be contacted as necessary for r ecommendations.MDM/PLAN: - Physical Therapy Decreased range of motion - to improve, our physical therapists will perform initial evaluation of p t's status upon admission and devise an individualized program for increasing patient's Range of [place] on. Gait dysfunction - to improve, our physical therapists will perform initial evaluation of pt's statu s upon admission and devise an individualized program for Gait Training, and Wheel Chair mobility Inability to transfer - to improve, our physical therapists will perform initial evaluation of pt's status upon admission and devise an individualized program for Bed mobility Need for home safety evaluation - to improve, our physical therapists will perform initial evaluatio n of pt's status upon admission and devise an individualized program for Home Evaluation Need in caregiver upon discharge - to improve, our physical therapists will perform initial evaluati on of pt's status upon admission and devise an individualized program for Caregiver Training New precaution - to improve, our physical therapists will perform initial evaluation of pt's status upon admission and devise an individualized program for Patient precaution education Poor balance - to improve, our physical therapists will perform initial evaluation of pt's status up on admission and devise an individualized program for Balance Training Poor endurance - to improve, our physical therapists will perform initial evaluation of pt's status upon admission and devise an individualized program for Endurance Training Weakness - to improve, our physical therapists will perform initial evaluation of pt's status upon a dmission and devise an individualized program for Aquatic Therapy, Neuromuscular Reeducation, and Str engthening Achieving independence - to improve, our physical therapists will perform initial evaluation of pt's status upon admission and devise an individualized program for Community Reintegration Activities - Occupational Therapy ADL deficits - to improve, our occupation therapists will perform initial evaluation of pt's status upon admission and devise an individualized program for Bathing, Bed mobility, Community Reintegratio n, Cooking, Dressing, Eating, Fine Motor Skills, Grooming, Homemaking, Kitchen Mobility, Laundry, Pat ient Education, Safety Awareness, Splinting - Positioning, Transfers(Toilet, Tub, Shower), and Wheel Chair Management Cognitive deficits - to improve, our occupation therapists will perform initial evaluation of pt's s tatus upon admission and devise an individualized program for Cognition - orientation Need for career coordinator - to improve, our occupation therapists will perform initial evaluation of pt's status upon admission and devise an individualized program for Caregiver Training Weakness - to improve, our occupation therapists will perform initial evaluation of pt's status upon admission and devise an individualized program for Aquatic Therapy, Balance, Endurance, UE ROM, and UE strengthening - Other See attached MAR (Medication Administration Record) - Diet Type Continue Regular - Diet - Liquid Texture Continue Regular - Tube Feed Continue N/A - Weight Bearing Precaution WBAT right LE - Skin care per protocol - Diet - Solid Texture Continue Regular - Shower allowing shower FUNCTIONAL STATUS: UPDATED AT WEEKLY TEAM CONFERENCE - Bladder Same accident frequency: 7-Ind - No accidents in the past 7 days - Bowel Same accident frequency: 7-Ind - No accidents in the past 7 days - Walking Same score based on distance walked: 0(N/A) - Wheelchair Same score based on distance traveled: 0(N/A) FUNCTIONAL STATUS: - Self-Care A. Eating Ind B. Grooming Ind C. Bathing modA D. Dressing - Upper modA E. Dressing - Lower modA F. Toileting modA - Sphincter Control G. Bladder control modA H. Bowel control modA - Transfers Control I. Bed/Chair/Wheelchair Jose J. Toilet modA K. Tub/Shower maxA - Locomotion L. Walk/Wheelchair (B) maxA M. Stairs ADNO - Communication N. Comprehension (B) Jose O. Expression (B) Jose - Social Cognition P. Social Interaction Jose Q. Problem Solving sup R. Memory Jose - Endurance Fair - Balance Fair - Safety Awareness Fair QI SCORES: - Self-Care A. Eating 03-Partial/moderate assistance B. Oral hygiene 03-Partial/moderate assistance C. Toileting hygiene 02-Substantial/maximal assistance E. Shower/bathe self 02-Substantial/maximal assistance F. Upper body dressing 03-Partial/moderate assistance G. Lower body dressing 02-Substantial/maximal assistance H. Putting on/taking off footwear 88-Not attempted due to medical condition or safety concerns - Mobility A. Roll left and right 03-Partial/moderate assistance B. Sit to lying 03-Partial/moderate assistance C. Lying to sitting on side of bed 03-Partial/moderate assistance D. Sit to stand 02-Substantial/maximal assistance E. Chair/fyc-rd-cwidr transfer 02-Substantial/maximal assistance F. Toilet transfer 02-Substantial/maximal assistance G. Car transfer 88-Not attempted due to medical condition or safety concerns I. Walk 10 feet 88-Not attempted due to medical condition or safety concerns J. Walk 50 feet with two turns 88-Not attempted due to medical condition or safety concerns K. Walk 150 feet 88-Not attempted due to medical condition or safety concerns L. Walking 10 feet on uneven surfaces 88-Not attempted due to medical condition or safety concerns M. 1 step (curb) 88-Not attempted due to medical condition or safety concerns N. 4 steps 88-Not attempted due to medical condition or safety concerns O. 12 steps 88-Not attempted due to medical condition or safety concerns P. Picking up object 03-Partial/moderate assistance R. Wheel 50 feet with two turns 88-Not attempted due to medical condition or safety concerns S. Wheel 150 feet 88-Not attempted due to medical condition or safety concerns - Bladder and Bowel Bladder continence 0-Always continent Bowel continence 0-Always continent - Endurance Fair - Balance Fair - Safety Awareness Fair CURRENT FUNC. DEFICITS: Self-Care, Mobility, Endurance, Balance, and Safety Awareness SIGNATURE PANEL: (CDT)
[2019-12-14] MEDS: MELATONIN 3 MG TABLET PO PRN (20:17)
[2019-12-14] MEDS: BACLOFEN 10 MG TAB PO SCH (20:17)
[2019-12-15] MEDS: LIDOCAINE 4% PATCH TOP SCH (06:59)
[2019-12-15] MEDS: PANTOPRAZOLE 40MG TABLET PO SCH (06:59)
[2019-12-15] MEDS: LEVOTHYROXINE SOD 0.025 MG TAB PO SCH (06:59)
[2019-12-15] MEDS: cloNIDine HCL 0.1 MG TAB PO SCH ×2 (07:00→20:48)
[2019-12-15] MEDS: FERROUS SULFATE 325 MG TAB PO SCH (07:01)
[2019-12-15] MEDS: TAMSULOSIN 0.4 MG SR CAP PO SCH (07:01)
[2019-12-15] MEDS: FE SULF/FA/VIT B COMP & C TAB PO SCH (07:01)
[2019-12-15] MEDS: GABAPENTIN 300 MG CAP PO SCH ×3 (07:01→20:48)
[2019-12-15] MEDS: METOPROLOL TAR 25 MG TAB PO SCH ×2 (07:02→20:48)
[2019-12-15] MEDS: TRAMADOL HCL 50 MG TAB PO PRN ×2 (07:02→12:48)
[2019-12-15] MEDS: ENOXAPARIN 60 MG/0.6 ML SQ SCH ×2 (07:03→20:50)
[2019-12-15] MEDS: PROMOD 30 ML DOSE PO SCH ×2 (08:00→20:00)
--- NOTE | 2019-12-15 09:41 | P.RH.PN ---
Estimated Length of Stay: 21 Expected Discharge Date: 01/01/20 Discharge Disposition Plan: Home Family Support: Yes Halfway Goal: Mobility, Transfers, Self Care Vital Signs: Last Vital Signs Temp 98.6 F 12/15/19 06:27 Pulse 81 12/15/19 07:02 Resp 12 12/15/19 08:02 BP 149/66 H 12/15/19 07:02 Pulse Ox 95 12/15/19 08:02 Laboratory: Laboratory Last Values WBC 15.3 K/uL (4.3-10.9) H 12/14/19 06:14 RBC 2.97 M/uL (4.33-5.43) L 12/14/19 06:14 Hgb 8.5 g/dL (13.6-17.9) L 12/14/19 06:14 Hct 26.4 % (39.6-49.0) L 12/14/19 06:14 MCV 88.8 fL (80-100) 12/14/19 06:14 MCH 28.8 pg (27.0-35.0) 12/14/19 06:14 MCHC 32.4 g/dL (32.0-36.0) 12/14/19 06:14 RDW 16.1 % (12.1-15.2) H 12/14/19 06:14 Plt Count 635 K/uL (152-406) H 12/14/19 06:14 MPV 7.4 fL (7.6-11.3) L 12/14/19 06:14 Neutrophils % 70.0 % (41.7-73.7) 12/14/19 06:14 Lymphocytes % 16.1 % (15.3-44.8) 12/14/19 06:14 Monocytes % 10.8 % (3.3-12.3) 12/14/19 06:14 Eosinophils % 2.5 % (0-4.4) 12/14/19 06:14 Basophils % 0.6 % (0-1.3) 12/14/19 06:14 Absolute Neutrophils 10.7 K/uL (1.8-8.0) H 12/14/19 06:14 Absolute Lymphocytes 2.5 K/uL (0.7-4.9) 12/14/19 06:14 Absolute Monocytes 1.7 K/uL (0.1-1.3) H 12/14/19 06:14 Absolute Eosinophils 0.4 K/uL (0-0.5) 12/14/19 06:14 Absolute Basophils 0.1 K/uL (0-0.5) 12/14/19 06:14 Polychromasia 1+ 12/13/19 05:47 Anisocytosis 1+ 12/13/19 05:47 Macrocytosis 1+ 12/13/19 05:47 Morphology Comment Noted (NOT SEEN) 12/13/19 05:47 Sodium 141 mmol/L (136-145) 12/13/19 05:47 Potassium 4.3 mmol/L (3.5-5.1) 12/13/19 05:47 Chloride 107 mmol/L (98-107) 12/13/19 05:47 Carbon Dioxide 26 mmol/L (21-32) 12/13/19 05:47 BUN 22 mg/dL (7-18) H 12/13/19 05:47 Creatinine 0.96 mg/dL (0.55-1.3) 12/13/19 05:47 Estimated GFR 81 mL/min (=/>90) L 12/13/19 05:47 Glucose 98 mg/dL (74-106) 12/13/19 05:47 Lactic Acid 1.0 mmol/L (0.4-2.0) 12/13/19 14:56 Calcium 8.3 mg/dL (8.5-10.1) L 12/13/19 05:47 Magnesium 2.3 mg/dL (1.8-2.4) 12/13/19 05:47 Albumin 2.1 g/dL (3.4-5.0) L 12/13/19 05:47 Prealbumin 15.6 mg/dL (20-40) L 12/13/19 05:47 Procalcitonin < 0.05 ng/mL (<0.50) 12/13/19 14:56 Urine Color Yellow 12/12/19 17:20 Urine Appearance Clear 12/12/19 17:20 Urine pH 7.0 (5.0-7.0) 12/12/19 17:20 Ur Specific [place] 1.015 (1.005-1.030) 12/12/19 17:20 Glucose (UA)(Auto) Negative (NEG) 12/12/19 17:20 Urine Ketones Negative (NEG) 12/12/19 17:20 Urine Blood Negative (NEG) 12/12/19 17:20 Urine Nitrite Negative (NEG) 12/12/19 17:20 Urine Bilirubin Negative (NEG) 12/12/19 17:20 Urine Urobilinogen 1.0 mg/dL (0.2-1.0) 12/12/19 17:20 Ur Leukocyte Esterase Negative (NEG) 12/12/19 17:20 Urine RBC <5 /HPF (NONE SEEN) 12/12/19 17:20 Urine WBC <5 /HPF (<5) 12/12/19 17:20 Ur Squamous Epith Cells SPACE OPERATIONS OFFICER 12/12/19 17:20 Urine Bacteria <20 /HPF (NONE SEEN) 12/12/19 17:20 Urine Culture Reflexed Not needed 12/12/19 17:20 Urine Total Protein Trace (NEG) 12/12/19 17:20 Weight: 394 lb 12.8 oz Wound Present: No Negative Pressure Wound Therapy Present: No Physician Update: Labs reviewed and are stable. His repeat right hip x-ray shows no change in the 4.7 mm right femur fracture separation since his surgery. He is at total assistance for transfers, toileting. He is motivated to recover. Summary: Patient's care plan and [facility] goals have been reviewed and revised as necessary. Please see the Rehabilitation Signature page for all necessary si gnatures.
[2019-12-15] MEDS: MELATONIN 3 MG TABLET PO PRN (20:49)
[2019-12-15] MEDS: BACLOFEN 10 MG TAB PO SCH (20:49)
--- NOTE | 2019-12-16 02:02 | FAST ---
SHIFT START DATE/TIME: 12/15/2019 19:00 (CDT) SHIFT END DATE/TIME: 12/16/2019 07:00 (CDT) NAME ALISHA LEE DATE OF : 1960 DATE OF ADMISSION: 12/12/2019 17:53 (CDT) PHONE: AGE: 58 N# [id number] GENDER: Male ENCOUNTER PHYSICIAN: Dr. Mauro Mcclellan M.D. ADMISSION DIAGNOSIS: - Orthopaedic Disorders 08 - Major Multiple Fractures (08.4) RIGHT FEMUR FRACTURE. DISPLACED FRACTURE OF THE NECK. INTERTROCHANTERIC FRACTURE OF RIGHT FEMUR. RIGH T OPEN PERIPROSTHETIC FRACTURE . FRACRURE OF CERVIVAL SPINOUS PROCESS. RIB FRUACTURE. EATING: Not assessed/no information CODE: - ORAL HYGIENE: Not assessed/no information CODE: - TOILETING HYGIENE: TOILETING HYGIENE - STEP 1: Does the patient complete the activity by him/herself with no assistance (physical, verbal/nonverbal cueing, setup/clean-up)? No. TOILETING HYGIENE - STEP 2: Does the patient need only setup/clean-up assistance from one helper? No. TOILETING HYGIENE - STEP 3: Does the patient need only verbal/nonverbal cueing or touching/steadying/contact guard assistance fro m one helper? No. TOILETING HYGIENE - STEP 4: Does the patient need physical assistance - for example lifting or trunk support from one helper - wi th the helper providing less than half of the effort? No. TOILETING HYGIENE - STEP 5: Does the patient need physical assistance - for example lifting or trunk support from one helper - wi th the helper providing more than half of the effort? Yes. 1. [id number] ADMISSION PERFORMANCE: Substantial/maximal assistance CODE: 02 BATHING: Not assessed/no information CODE: - DRESSING - UPPER BODY: Not assessed/no information CODE: - DRESSING - LOWER BODY: Not assessed/no information CODE: - PUTTING ON/TAKING OFF FOOTWEAR: Not assessed/no information CODE: - ROLL LEFT AND RIGHT: ROLL LEFT AND RIGHT - STEP 1: Does the patient complete the activity by him/herself with no assistance (physical, verbal/nonverbal cueing, setup/clean-up)? No. ROLL LEFT AND RIGHT - STEP 2: Does the patient need only setup/clean-up assistance from one helper? No. ROLL LEFT AND RIGHT - STEP 3: Does the patient need only verbal/nonverbal cueing or touching/steadying/contact guard assistance fro m one helper? No. ROLL LEFT AND RIGHT - STEP 4: Does the patient need physical assistance - for example lifting or trunk support from one helper - wi th the helper providing less than half of the effort? No. ROLL LEFT AND RIGHT - STEP 5: Does the patient need physical assistance - for example lifting or trunk support from one helper - wi th the helper providing more than half of the effort? Yes. 1. [id number] ADMISSION PERFORMANCE: Substantial/maximal assistance CODE: 02 SIT TO LYING: Not assessed/no information CODE: - LYING TO SITTING: Not assessed/no information CODE: - SIT TO STAND: Not assessed/no information CODE: - TRANSFERS: BED, CHAIR: Not assessed/no information CODE: - TRANSFER TOILET: Not assessed/no information CODE: - TRANSFERS: CAR: Not assessed/no information CODE: - WALK 10 FEET: Not assessed/no information CODE: - 1 STEP (CURB): Not assessed/no information CODE: - PICKING UP OBJECT: Not assessed/no information CODE: - DOES THE PATIENT USE A WHEELCHAIR/SCOOTER? CODE: EXPR WHEEL 50 FEET WITH TWO TURNS: Not assessed/no information CODE: - INDICATE THE TYPE OF WHEELCHAIR/SCOOTER USED: CODE: EXPR WHEEL 150 FEET: Not assessed/no information CODE: - INDICATE THE TYPE OF WHEELCHAIR/SCOOTER USED: CODE: EXPR BLADDER AND BOWEL: H350. BLADDER CONTINENCE (3-DAY ASSESSMENT PERIOD): Always continent (no documented incontinence) CODE: 0 H400. BOWEL CONTINENCE (3-DAY ASSESSMENT PERIOD): Always continent CODE: 0
[2019-12-16] MEDS: TAMSULOSIN 0.4 MG SR CAP PO SCH (07:02)
[2019-12-16] MEDS: cloNIDine HCL 0.1 MG TAB PO SCH ×2 (07:02→20:10)
[2019-12-16] MEDS: PANTOPRAZOLE 40MG TABLET PO SCH (07:02)
[2019-12-16] MEDS: GABAPENTIN 300 MG CAP PO SCH ×3 (07:02→20:10)
[2019-12-16] MEDS: METOPROLOL TAR 25 MG TAB PO SCH ×2 (07:03→20:11)
[2019-12-16] MEDS: TRAMADOL HCL 50 MG TAB PO PRN (07:03)
[2019-12-16] MEDS: LIDOCAINE 4% PATCH TOP SCH (07:04)
[2019-12-16] MEDS: LEVOTHYROXINE SOD 0.025 MG TAB PO SCH (07:04)
[2019-12-16] MEDS: FE SULF/FA/VIT B COMP & C TAB PO SCH (08:00)
[2019-12-16] MEDS: ENOXAPARIN 60 MG/0.6 ML SQ SCH ×2 (08:53→20:10)
[2019-12-16] MEDS: FERROUS SULFATE 325 MG TAB PO SCH (08:54)
[2019-12-16] MEDS: PROMOD 30 ML DOSE PO SCH ×2 (08:54→20:11)
[2019-12-16] MEDS: BACLOFEN 10 MG TAB PO SCH (20:10)
[2019-12-16] MEDS: MELATONIN 3 MG TABLET PO PRN (20:11)
[2019-12-17] MEDS: TRAMADOL HCL 50 MG TAB PO PRN ×2 (03:27→19:26)
[2019-12-17] MEDS: LEVOTHYROXINE SOD 0.025 MG TAB PO SCH (05:28)
[2019-12-17] MEDS: PANTOPRAZOLE 40MG TABLET PO SCH (05:28)
[2019-12-17] MEDS: GABAPENTIN 300 MG CAP PO SCH ×3 (07:32→20:03)
[2019-12-17] MEDS: TAMSULOSIN 0.4 MG SR CAP PO SCH (07:32)
[2019-12-17] MEDS: FE SULF/FA/VIT B COMP & C TAB PO SCH (07:33)
[2019-12-17] MEDS: FERROUS SULFATE 325 MG TAB PO SCH (07:34)
[2019-12-17] MEDS: METOPROLOL TAR 25 MG TAB PO SCH ×2 (07:34→19:26)
[2019-12-17] MEDS: cloNIDine HCL 0.1 MG TAB PO SCH ×2 (07:35→19:25)
[2019-12-17] MEDS: LIDOCAINE 4% PATCH TOP SCH (07:36)
[2019-12-17] MEDS: ENOXAPARIN 60 MG/0.6 ML SQ SCH ×2 (08:48→19:25)
[2019-12-17] MEDS: PROMOD 30 ML DOSE PO SCH ×2 (08:50→19:25)
[2019-12-17 16:44] LABS: Absolute Lymphocytes (CBC) 2.3 K/uL (0.7-4.9); Basophils % 0.7 % (0-1.3); Hematocrit 28.1 % (39.6-49.0); Lymphocytes % 21.9 % (15.3-44.8); MPV 6.9 fL (7.6-11.3); RBC Red Blood Cell Count 3.11 M/uL (4.33-5.43)
[2019-12-17] MEDS: ACETAMINOPHEN 500 MG TAB PO PRN (19:31)
[2019-12-17] MEDS: BACLOFEN 10 MG TAB PO SCH (20:03)
[2019-12-17] MEDS: MELATONIN 3 MG TABLET PO PRN (23:23)
[2019-12-18] MEDS: TRAMADOL HCL 50 MG TAB PO PRN ×3 (03:30→20:32)
[2019-12-18] MEDS: LEVOTHYROXINE SOD 0.025 MG TAB PO SCH (06:51)
[2019-12-18] MEDS: PANTOPRAZOLE 40MG TABLET PO SCH (06:51)
[2019-12-18] MEDS: FERROUS SULFATE 325 MG TAB PO SCH (07:22)
[2019-12-18] MEDS: cloNIDine HCL 0.1 MG TAB PO SCH ×2 (07:22→20:31)
[2019-12-18] MEDS: GABAPENTIN 300 MG CAP PO SCH ×3 (07:22→20:31)
[2019-12-18] MEDS: TAMSULOSIN 0.4 MG SR CAP PO SCH (07:22)
[2019-12-18] MEDS: levoFLOXacin 500 MG TAB PO SCH (07:23)
[2019-12-18] MEDS: METOPROLOL TAR 25 MG TAB PO SCH ×2 (07:23→20:31)
[2019-12-18] MEDS: LIDOCAINE 4% PATCH TOP SCH (07:24)
[2019-12-18] MEDS: ENOXAPARIN 60 MG/0.6 ML SQ SCH (07:26)
[2019-12-18] MEDS: FE SULF/FA/VIT B COMP & C TAB PO SCH (07:28)
[2019-12-18] MEDS: PROMOD 30 ML DOSE PO SCH ×2 (10:52→20:32)
[2019-12-18] MEDS: ACETAMINOPHEN 500 MG TAB PO PRN (10:53)
--- NOTE | 2019-12-18 17:39 | R.PN ---
ENCOUNTER DATE AND TIME: 12/18/2019 17:31 (CDT) NAME ALISHA LEE DATE OF : 1960 DATE OF ADMISSION: 12/12/2019 17:53 (CDT) RIGHT FEMUR FRACTUREDISPLACED FRACTURE OF THE NECKINTERTROCHANTERIC FRACTURE OF RIGHT FEMURRIGHT OPEN PERIPROSTHETIC FRACTURE FRACRURE OF CERVIVAL SPINOUS PROCESSRIB FRUACTURECHIEF COMPLAINT: Displaced right femur fracture, cervical spinous process fracture, rib fractures SUBJECTIVE: Pt denied any Shortness of Breath. Pt denied any depression. Chest x-ray shows clear lungs. Right hip x-ray from 12/13/19 is not significantly different from post-o p hip x-ray done 12/03/19. WBC 10.4 with neutrophils 59.4, procalcitonin < 0.05, lactic acid 1.0. COVI D-19 is negative. Therapeutic exercises done in bed today without restriction. Out of bed sitting 20 minutes, static standing with rolling walker x 2. VITAL SIGNS Temperature: 98.1 F SBP/DBP: 152/72 Pulse: 62 Resp: 16 MEDICATION ALLERGIES: No Known Drug Allergies (NKDA) ENVIRONMENTAL ALLERGIES: - Substance Allergies None Known - Other Allergies None Known NURSING: - Shower allowing shower - Skin care per protocol PRECAUTIONS: - Weight Bearing Precaution WBAT right LE ACTIVITIES OOB only with supervision THERAPIES: - Dietary and Nutrition Adequate Nutrition. Nutritional Education. Nutritional Supplements. PHYSICAL EXAM - Gen Alert and awake Lying in bed No apparent distress Oriented to: person, time, and place - Skin No skin breakdown. Mild brusing in the left forehead. - Eyes No abnormalities - ENMT [place] cervical collar is in place - Neck [place] cervical collar is in place - CVS RRR - Chest No abnormalities - Abd Obese, soft, nontender - GI + bowel sounds Deferred - No abnormalities - Ext Right femur surgical site has good hemostasis. - MSK 3+/5 weakness in right lower extremity - Neuro 3+/5 weakness in right lower extremity - Psych No abnormalities ASSESSMENT: Pt. is a 58 yo Right-handed white male.On 01/02/2020 he was admitted to [facility] and under went emergency surgery for RIGHT FEMUR FRACTURE (Major Multiple Fractures) by MAE ROB.Pre-mo rbidly, Pt. was independent/mod-I in Safety Awareness, Social Cognition, Transfers Control, Self-Care , and Communication; and he had good Balance, Sphincter Control, and Endurance.Currently, he has defi cits of Safety Awareness, Balance, Transfers Control, Sphincter Control, Self-Care, Communication, En durance, Locomotion, and Social Cognition.Pt. is now referred to [facility] fo r acute in-patient rehabilitation in order to maximize patient's functional independence in activitie s of daily living, strength, ROM, and mobility.- Rehab Goal Patient has realistic goal of being discharged at assistance level 6-Jose to reside at Home with Pt self. Mr. Lee reports hearing a loud pop from his right hip surgical site when he transferred to a christel ding standing position. He felt pain in the right femur. A new x-ray was not done. An x-ray at this h ospital showed a 4.7 mm separation of the right hip fracture site. The post-op x-ray from [facility] l be obtained for comparison. The orthopedic surgeons in [place] will be contacted as necessary for r ecommendations.MDM/PLAN: - Physical Therapy Decreased range of motion - to improve, our physical therapists will perform initial evaluation of p t's status upon admission and devise an individualized program for increasing patient's Range of [place] on. Gait dysfunction - to improve, our physical therapists will perform initial evaluation of pt's statu s upon admission and devise an individualized program for Gait Training, and Wheel Chair mobility Inability to transfer - to improve, our physical therapists will perform initial evaluation of pt's status upon admission and devise an individualized program for Bed mobility Need for home safety evaluation - to improve, our physical therapists will perform initial evaluatio n of pt's status upon admission and devise an individualized program for Home Evaluation Need in caregiver upon discharge - to improve, our physical therapists will perform initial evaluati on of pt's status upon admission and devise an individualized program for Caregiver Training New precaution - to improve, our physical therapists will perform initial evaluation of pt's status upon admission and devise an individualized program for Patient precaution education Poor balance - to improve, our physical therapists will perform initial evaluation of pt's status up on admission and devise an individualized program for Balance Training Poor endurance - to improve, our physical therapists will perform initial evaluation of pt's status upon admission and devise an individualized program for Endurance Training Weakness - to improve, our physical therapists will perform initial evaluation of pt's status upon a dmission and devise an individualized program for Aquatic Therapy, Neuromuscular Reeducation, and Str engthening Achieving independence - to improve, our physical therapists will perform initial evaluation of pt's status upon admission and devise an individualized program for Community Reintegration Activities - Occupational Therapy ADL deficits - to improve, our occupation therapists will perform initial evaluation of pt's status upon admission and devise an individualized program for Bathing, Bed mobility, Community Reintegratio n, Cooking, Dressing, Eating, Fine Motor Skills, Grooming, Homemaking, Kitchen Mobility, Laundry, Pat ient Education, Safety Awareness, Splinting - Positioning, Transfers(Toilet, Tub, Shower), and Wheel Chair Management Cognitive deficits - to improve, our occupation therapists will perform initial evaluation of pt's s tatus upon admission and devise an individualized program for Cognition - orientation Need for adult care manager - to improve, our occupation therapists will perform initial evaluation of pt's status upon admission and devise an individualized program for Caregiver Training Weakness - to improve, our occupation therapists will perform initial evaluation of pt's status upon admission and devise an individualized program for Aquatic Therapy, Balance, Endurance, UE ROM, and UE strengthening - Other See attached MAR (Medication Administration Record) - Diet Type Continue Regular - Diet - Liquid Texture Continue Regular - Tube Feed Continue N/A - Weight Bearing Precaution WBAT right LE - Skin care per protocol - Diet - Solid Texture Continue Regular - Shower allowing shower FUNCTIONAL STATUS: UPDATED AT WEEKLY TEAM CONFERENCE - Bladder Same accident frequency: 7-Ind - No accidents in the past 7 days - Bowel Same accident frequency: 7-Ind - No accidents in the past 7 days - Walking Same score based on distance walked: 0(N/A) - Wheelchair Same score based on distance traveled: 0(N/A) FUNCTIONAL STATUS: - Self-Care A. Eating Ind B. Grooming Ind C. Bathing modA D. Dressing - Upper modA E. Dressing - Lower modA F. Toileting modA - Sphincter Control G. Bladder control modA H. Bowel control modA - Transfers Control I. Bed/Chair/Wheelchair Jose J. Toilet modA K. Tub/Shower maxA - Locomotion L. Walk/Wheelchair (B) maxA M. Stairs ADNO - Communication N. Comprehension (B) Jose O. Expression (B) Jose - Social Cognition P. Social Interaction Jose Q. Problem Solving sup R. Memory Jose - Endurance Fair - Balance Fair - Safety Awareness Fair QI SCORES: - Self-Care A. Eating 03-Partial/moderate assistance B. Oral hygiene 03-Partial/moderate assistance C. Toileting hygiene 02-Substantial/maximal assistance E. Shower/bathe self 02-Substantial/maximal assistance F. Upper body dressing 03-Partial/moderate assistance G. Lower body dressing 02-Substantial/maximal assistance H. Putting on/taking off footwear 88-Not attempted due to medical condition or safety concerns - Mobility A. Roll left and right 03-Partial/moderate assistance B. Sit to lying 03-Partial/moderate assistance C. Lying to sitting on side of bed 03-Partial/moderate assistance D. Sit to stand 02-Substantial/maximal assistance E. Chair/[id number] transfer 02-Substantial/maximal assistance F. Toilet transfer 02-Substantial/maximal assistance G. Car transfer 88-Not attempted due to medical condition or safety concerns I. Walk 10 feet 88-Not attempted due to medical condition or safety concerns J. Walk 50 feet with two turns 88-Not attempted due to medical condition or safety concerns K. Walk 150 feet 88-Not attempted due to medical condition or safety concerns L. Walking 10 feet on uneven surfaces 88-Not attempted due to medical condition or safety concerns M. 1 step (curb) 88-Not attempted due to medical condition or safety concerns N. 4 steps 88-Not attempted due to medical condition or safety concerns O. 12 steps 88-Not attempted due to medical condition or safety concerns P. Picking up object 03-Partial/moderate assistance R. Wheel 50 feet with two turns 88-Not attempted due to medical condition or safety concerns S. Wheel 150 feet 88-Not attempted due to medical condition or safety concerns - Bladder and Bowel Bladder continence 0-Always continent Bowel continence 0-Always continent - Endurance Fair - Balance Fair - Safety Awareness Fair CURRENT FUNC. DEFICITS: Self-Care, Mobility, Endurance, Balance, and Safety Awareness SIGNATURE PANEL: (CDT)
[2019-12-18] MEDS: BACLOFEN 10 MG TAB PO SCH (20:32)
[2019-12-18] MEDS: MELATONIN 3 MG TABLET PO PRN (22:52)
[2019-12-19] MEDS: TRAMADOL HCL 50 MG TAB PO PRN ×4 (03:45→22:45)
[2019-12-19] MEDS: LIDOCAINE 4% PATCH TOP SCH ×2 (03:48→07:04)
[2019-12-19] MEDS: LEVOTHYROXINE SOD 0.025 MG TAB PO SCH (06:28)
[2019-12-19] MEDS: PANTOPRAZOLE 40MG TABLET PO SCH (06:28)
[2019-12-19] MEDS: ENOXAPARIN 40 MG/0.4 ML SQ SCH (07:04)
[2019-12-19] MEDS: FERROUS SULFATE 325 MG TAB PO SCH (08:20)
[2019-12-19] MEDS: METOPROLOL TAR 25 MG TAB PO SCH ×2 (08:21→19:11)
[2019-12-19] MEDS: TAMSULOSIN 0.4 MG SR CAP PO SCH (08:21)
[2019-12-19] MEDS: levoFLOXacin 500 MG TAB PO SCH (08:21)
[2019-12-19] MEDS: GABAPENTIN 300 MG CAP PO SCH ×3 (08:21→20:38)
[2019-12-19] MEDS: cloNIDine HCL 0.1 MG TAB PO SCH ×2 (08:21→19:10)
[2019-12-19] MEDS: FE SULF/FA/VIT B COMP & C TAB PO SCH (08:22)
[2019-12-19] MEDS: PROMOD 30 ML DOSE PO SCH ×2 (08:22→19:12)
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
[2019-12-19] MEDS: MAGNESIUM OXIDE 400 MG TAB PO SCH (19:11)
[2019-12-19] MEDS ORDERED: BACLOFEN 10 MG TAB PO SCH (20:00)
[2019-12-19] MEDS: MELATONIN 3 MG TABLET PO PRN (22:45)
[2019-12-20] MEDS: TRAMADOL HCL 50 MG TAB PO PRN ×3 (03:30→20:04)
[2019-12-20] MEDS: LEVOTHYROXINE SOD 0.025 MG TAB PO SCH (06:21)
[2019-12-20] MEDS: PANTOPRAZOLE 40MG TABLET PO SCH (06:21)
[2019-12-20] MEDS: ENOXAPARIN 40 MG/0.4 ML SQ SCH (06:38)
[2019-12-20] MEDS: FERROUS SULFATE 325 MG TAB PO SCH (07:30)
[2019-12-20] MEDS: cloNIDine HCL 0.1 MG TAB PO SCH ×2 (07:30→20:04)
[2019-12-20] MEDS: METOPROLOL TAR 25 MG TAB PO SCH ×2 (07:31→20:05)
[2019-12-20] MEDS: TAMSULOSIN 0.4 MG SR CAP PO SCH (07:31)
[2019-12-20] MEDS: GABAPENTIN 300 MG CAP PO SCH ×3 (07:32→20:04)
[2019-12-20] MEDS: BACLOFEN 10 MG TAB PO SCH ×2 (07:32→20:04)
[2019-12-20] MEDS: levoFLOXacin 500 MG TAB PO SCH (07:32)
[2019-12-20] MEDS: MAGNESIUM OXIDE 400 MG TAB PO SCH ×2 (07:34→20:03)
[2019-12-20] MEDS: FE SULF/FA/VIT B COMP & C TAB PO SCH (07:34)
[2019-12-20] MEDS: PROMOD 30 ML DOSE PO SCH ×2 (07:38→20:05)
[2019-12-20] MEDS: LIDOCAINE 4% PATCH TOP SCH (07:41)
[2019-12-20] MEDS: ACETAMINOPHEN 500 MG TAB PO PRN (11:07)
--- NOTE | 2019-12-20 15:40 | FAST ---
SHIFT START DATE/TIME: 12/20/2019 07:00 (CDT) SHIFT END DATE/TIME: 12/20/2019 19:00 (CDT) NAME ALISHA LEE DATE OF : 1960 DATE OF ADMISSION: 12/12/2019 17:53 (CDT) PHONE: AGE: 58 N# [id number] GENDER: Male ENCOUNTER PHYSICIAN: Dr. Mauro Mcclellan M.D. ADMISSION DIAGNOSIS: - Orthopaedic Disorders 08 - Major Multiple Fractures (08.4) RIGHT FEMUR FRACTURE. DISPLACED FRACTURE OF THE NECK. INTERTROCHANTERIC FRACTURE OF RIGHT FEMUR. RIGH T OPEN PERIPROSTHETIC FRACTURE . FRACRURE OF CERVIVAL SPINOUS PROCESS. RIB FRUACTURE. EATING: EATING - STEP 1: Does the patient complete the activity by him/herself with no assistance (physical, verbal/nonverbal cueing, setup/clean-up)? No. EATING - STEP 2: Does the patient need only setup/clean-up assistance from one helper? Yes. 1. [id number] ADMISSION PERFORMANCE: Setup or clean-up assistance CODE: 05 ORAL HYGIENE: Not assessed/no information ORAL HYGIENE - STEP 1: Does the patient complete the activity by him/herself with no assistance (physical, verbal/nonverbal cueing, setup/clean-up)? No. ORAL HYGIENE - STEP 2: Does the patient need only setup/clean-up assistance from one helper? Yes. 1. [id number] ADMISSION PERFORMANCE: Setup or clean-up assistance CODE: 05 TOILETING HYGIENE: TOILETING HYGIENE - STEP 1: Does the patient complete the activity by him/herself with no assistance (physical, verbal/nonverbal cueing, setup/clean-up)? No. TOILETING HYGIENE - STEP 2: Does the patient need only setup/clean-up assistance from one helper? No. TOILETING HYGIENE - STEP 3: Does the patient need only verbal/nonverbal cueing or touching/steadying/contact guard assistance fro m one helper? Yes. 1. [id number] ADMISSION PERFORMANCE: Supervision or touching assistance CODE: 04 BATHING: Not assessed/no information CODE: - DRESSING - UPPER BODY: DRESSING - UPPER BODY - STEP 1: Does the patient complete the activity by him/herself with no assistance (physical, verbal/nonverbal cueing, setup/clean-up)? No. DRESSING - UPPER BODY - STEP 2: Does the patient need only setup/clean-up assistance from one helper? No. DRESSING - UPPER BODY - STEP 3: Does the patient need only verbal/nonverbal cueing or touching/steadying/contact guard assistance fro m one helper? No. DRESSING - UPPER BODY - STEP 4: Does the patient need physical assistance - for example lifting or trunk support from one helper - wi th the helper providing less than half of the effort? Yes. 1. [id number] ADMISSION PERFORMANCE: Partial/moderate assistance CODE: 03 DRESSING - LOWER BODY: DRESSING - LOWER BODY - STEP 1: Does the patient complete the activity by him/herself with no assistance (physical, verbal/nonverbal cueing, setup/clean-up)? No. DRESSING - LOWER BODY - STEP 2: Does the patient need only setup/clean-up assistance from one helper? No. DRESSING - LOWER BODY - STEP 3: Does the patient need only verbal/nonverbal cueing or touching/steadying/contact guard assistance fro m one helper? No. DRESSING - LOWER BODY - STEP 4: Does the patient need physical assistance - for example lifting or trunk support from one helper - wi th the helper providing less than half of the effort? No. DRESSING - LOWER BODY - STEP 5: Does the patient need physical assistance - for example lifting or trunk support from one helper - wi th the helper providing more than half of the effort? Yes. 1. [id number] ADMISSION PERFORMANCE: Substantial/maximal assistance CODE: 02 PUTTING ON/TAKING OFF FOOTWEAR: Not assessed/no information CODE: - ROLL LEFT AND RIGHT: ROLL LEFT AND RIGHT - STEP 1: Does the patient complete the activity by him/herself with no assistance (physical, verbal/nonverbal cueing, setup/clean-up)? No. ROLL LEFT AND RIGHT - STEP 2: Does the patient need only setup/clean-up assistance from one helper? No. ROLL LEFT AND RIGHT - STEP 3: Does the patient need only verbal/nonverbal cueing or touching/steadying/contact guard assistance fro m one helper? Yes. 1. [id number] ADMISSION PERFORMANCE: Supervision or touching assistance CODE: 04 SIT TO LYING: SIT TO LYING - STEP 1: Does the patient complete the activity by him/herself with no assistance (physical, verbal/nonverbal cueing, setup/clean-up)? No. SIT TO LYING - STEP 2: Does the patient need only setup/clean-up assistance from one helper? No. SIT TO LYING - STEP 3: Does the patient need only verbal/nonverbal cueing or touching/steadying/contact guard assistance fro m one helper? Yes. 1. [id number] ADMISSION PERFORMANCE: Supervision or touching assistance CODE: 04 LYING TO SITTING: LYING TO SITTING ON SIDE OF BED - STEP 1: Does the patient complete the activity by him/herself with no assistance (physical, verbal/nonverbal cueing, setup/clean-up)? No. LYING TO SITTING ON SIDE OF BED - STEP 2: Does the patient need only setup/clean-up assistance from one helper? No. LYING TO SITTING ON SIDE OF BED - STEP 3: Does the patient need only verbal/nonverbal cueing or touching/steadying/contact guard assistance fro m one helper? Yes. 1. [id number] ADMISSION PERFORMANCE: Supervision or touching assistance CODE: 04 SIT TO STAND: SIT TO STAND - STEP 1: Does the patient complete the activity by him/herself with no assistance (physical, verbal/nonverbal cueing, setup/clean-up)? No. SIT TO STAND - STEP 2: Does the patient need only setup/clean-up assistance from one helper? No. SIT TO STAND - STEP 3: Does the patient need only verbal/nonverbal cueing or touching/steadying/contact guard assistance fro m one helper? Yes. 1. [id number] ADMISSION PERFORMANCE: Supervision or touching assistance CODE: 04 TRANSFERS: BED, CHAIR: CHAIR/[id number] TRANSFER - STEP 1: Does the patient complete the activity by him/herself with no assistance (physical, verbal/nonverbal cueing, setup/clean-up)? No. CHAIR/[id number] TRANSFER - STEP 2: Does the patient need only setup/clean-up assistance from one helper? No. CHAIR/[id number] TRANSFER - STEP 3: Does the patient need only verbal/nonverbal cueing or touching/steadying/contact guard assistance fro m one helper? Yes. 1. [id number] ADMISSION PERFORMANCE: Supervision or touching assistance CODE: 04 TRANSFER TOILET: TOILET TRANSFER - STEP 1: Does the patient complete the activity by him/herself with no assistance (physical, verbal/nonverbal cueing, setup/clean-up)? No. TOILET TRANSFER - STEP 2: Does the patient need only setup/clean-up assistance from one helper? No. TOILET TRANSFER - STEP 3: Does the patient need only verbal/nonverbal cueing or touching/steadying/contact guard assistance fro m one helper? Yes. 1. [id number] ADMISSION PERFORMANCE: Supervision or touching assistance CODE: 04 TRANSFERS: CAR: Not assessed/no information CODE: - WALK 10 FEET: Not assessed/no information CODE: - 1 STEP (CURB): Not assessed/no information CODE: - PICKING UP OBJECT: Not assessed/no information CODE: - DOES THE PATIENT USE A WHEELCHAIR/SCOOTER? Q1. DOES THE PATIENT USE A WHEELCHAIR/SCOOTER?: Yes CODE: 1 WHEEL 50 FEET WITH TWO TURNS: WHEEL 50 FEET WITH TWO TURNS - STEP 1: Does the patient complete the activity by him/herself with no assistance (physical, verbal/nonverbal cueing, setup/clean-up)? No. WHEEL 50 FEET WITH TWO TURNS - STEP 2: Does the patient need only setup/clean-up assistance from one helper? No. WHEEL 50 FEET WITH TWO TURNS - STEP 3: Does the patient need only verbal/nonverbal cueing or touching/steadying/contact guard assistance fro m one helper? No. WHEEL 50 FEET WITH TWO TURNS - STEP 4: Does the patient need physical assistance - for example lifting or trunk support from one helper - wi th the helper providing less than half of the effort? Yes. 1. [id number] ADMISSION PERFORMANCE: Partial/moderate assistance CODE: 03 INDICATE THE TYPE OF WHEELCHAIR/SCOOTER USED: RR1. INDICATE THE TYPE OF WHEELCHAIR/SCOOTER USED.: Manual CODE: 1 WHEEL 150 FEET: WHEEL 150 FEET - STEP 1: Does the patient complete the activity by him/herself with no assistance (physical, verbal/nonverbal cueing, setup/clean-up)? No. WHEEL 150 FEET - STEP 2: Does the patient need only setup/clean-up assistance from one helper? No. WHEEL 150 FEET - STEP 3: Does the patient need only verbal/nonverbal cueing or touching/steadying/contact guard assistance fro m one helper? No. WHEEL 150 FEET - STEP 4: Does the patient need physical assistance - for example lifting or trunk support from one helper - wi th the helper providing less than half of the effort? Yes. 1. [id number] ADMISSION PERFORMANCE: Partial/moderate assistance CODE: 03 INDICATE THE TYPE OF WHEELCHAIR/SCOOTER USED: SS1. INDICATE THE TYPE OF WHEELCHAIR/SCOOTER USED.: Manual CODE: 1 BLADDER AND BOWEL: H350. BLADDER CONTINENCE (3-DAY ASSESSMENT PERIOD): Always continent (no documented incontinence) CODE: 0 H400. BOWEL CONTINENCE (3-DAY ASSESSMENT PERIOD): Always continent CODE: 0 SIGNATURE PANEL: The following modified sections: 1. [id number] Admission Performance, 1. [id number] Admission Performance, 1. [id number] Admission Performance, 1. [id number] Admission Performance, 1. [id number] Admission Performance, 1. [id number] Admission Performance, 1. FR7421e Admission Performance, 1. GC2942e Admission Performance , 1. [id number] Admission Performance, 1. [id number] Admission Performance, 1. [id number] Admission Performanc e, 1. [id number] Admission Performance, 1. [id number] Admission Performance, 1. [id number] Admission Performan ce, Q1. Does the patient use a wheelchair/scooter?, 1. [id number] Admission Performance, RR1. Indicate t he type of wheelchair/scooter used., 1. [id number] Admission Performance, Code, SS1. Indicate the type o f wheelchair/scooter used., H350. Bladder Continence (3-day assessment period), H400. Bowel Continenc e (3-day assessment period) were [electronically] signed by Cathy AngelNNadya on WedDec 20 2019 1 5:39:21 T-0500 (Central Daylight Time)
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
[2019-12-20] MEDS: NYSTATIN PWDR 100000 UNIT/GM TOP SCH (20:06)
[2019-12-20] MEDS: MELATONIN 3 MG TABLET PO PRN (22:47)
[2019-12-21] MEDS: TRAMADOL HCL 50 MG TAB PO PRN ×3 (03:17→20:07)
[2019-12-21 06:07] LABS: Absolute Lymphocytes (CBC) 1.6 K/uL (0.7-4.9); Basophils % 0.9 % (0-1.3); Hematocrit 28.9 % (39.6-49.0); Lymphocytes % 22.8 % (15.3-44.8); MPV 6.8 fL (7.6-11.3); RBC Red Blood Cell Count 3.25 M/uL (4.33-5.43)
[2019-12-21 06:32] LABS: Albumin 2.4 g/dL (3.4-5.0); Potassium 4.4 mmol/L (3.5-5.1); Prealbumin 16.5 mg/dL (20-40)
[2019-12-21] MEDS: ENOXAPARIN 40 MG/0.4 ML SQ SCH (06:43)
[2019-12-21] MEDS: LEVOTHYROXINE SOD 0.025 MG TAB PO SCH (06:43)
[2019-12-21] MEDS: PANTOPRAZOLE 40MG TABLET PO SCH (06:43)
[2019-12-21] MEDS: GABAPENTIN 300 MG CAP PO SCH ×3 (07:42→20:08)
[2019-12-21] MEDS: TAMSULOSIN 0.4 MG SR CAP PO SCH (07:42)
[2019-12-21] MEDS: LIDOCAINE 4% PATCH TOP SCH (07:42)
[2019-12-21] MEDS: cloNIDine HCL 0.1 MG TAB PO SCH ×2 (07:43→20:07)
[2019-12-21] MEDS: FE SULF/FA/VIT B COMP & C TAB PO SCH (07:43)
[2019-12-21] MEDS: FERROUS SULFATE 325 MG TAB PO SCH (07:43)
[2019-12-21] MEDS: METOPROLOL TAR 25 MG TAB PO SCH ×2 (07:44→20:07)
[2019-12-21] MEDS: levoFLOXacin 500 MG TAB PO SCH (07:44)
[2019-12-21] MEDS: BACLOFEN 10 MG TAB PO SCH ×2 (07:44→20:07)
[2019-12-21] MEDS: MAGNESIUM OXIDE 400 MG TAB PO SCH ×2 (07:47→20:00)
[2019-12-21] MEDS: PROMOD 30 ML DOSE PO SCH ×2 (07:48→20:08)
[2019-12-21] MEDS: NYSTATIN PWDR 100000 UNIT/GM TOP SCH ×2 (09:16→20:07)
--- NOTE | 2019-12-21 09:25 | RAD REPORT ---
EXAM DESCRIPTION: RAD - Knee Right 2 View - 12/21/2019 9:14 am CLINICAL HISTORY: pain/swollen COMPARISON: No comparisons FINDINGS: AP and cross-table lateral views the right knee were obtained. Right total knee prosthesis in place. No radiographic evidence for loosening. Intramedullary lo is present extending inferiorly to the level of the intercondylar notch. Patient has a transverse fracture at the right femur diaphyseal metaphyseal junction. Small bone frag ments are present at this fracture site.No prior history is available. The presumption is the IM lo is in place due to the distal femur fracture. A new fracture is possible and needs clinical correlati on. At the femur fracture site there is no callus formation identifiable. Patella degenerative changes are present. There are calcifications of the quadriceps tendon near the attachment site and along the anterior margin of the patella tendon. IMPRESSION: Transverse fracture is present at the distal right femur diaphyseal metaphyseal junction . No callus formation. Fracture is not united. Intramedullary lo is in place. It is presumed the lo is in place to fix the femur fracture. The pos sibility of an acute fracture cannot be excluded without full history. Right total knee prosthesis in place with no suspicious finding.
[2019-12-21] MEDS: ACETAMINOPHEN 500 MG TAB PO PRN (14:23)
--- NOTE | 2019-12-21 17:07 | RAD REPORT ---
EXAM DESCRIPTION: US - Extremity Venous Uni Ltd - 12/21/2019 4:51 pm CLINICAL HISTORY: increase swelling, warm Leg swelling and edema. COMPARISON: Knee Right 2 View dated 12/21/2019 FINDINGS: Right lower extremity venous system was interrogated with Doppler technique. Normal flow, compressibility and augmentation was noted. There is no DVT present.Fluid collection is seen in the m edial region probably a hematoma. IMPRESSION: No evidence of right lower extremity deep venous thrombosis.
[2019-12-22] MEDS: MELATONIN 3 MG TABLET PO PRN ×2 (00:44→21:10)
[2019-12-22] MEDS: TRAMADOL HCL 50 MG TAB PO PRN ×4 (04:26→21:12)
[2019-12-22] MEDS: LEVOTHYROXINE SOD 0.025 MG TAB PO SCH (06:31)
[2019-12-22] MEDS: PANTOPRAZOLE 40MG TABLET PO SCH (06:31)
[2019-12-22] MEDS: ENOXAPARIN 40 MG/0.4 ML SQ SCH (06:39)
[2019-12-22] MEDS: cloNIDine HCL 0.1 MG TAB PO SCH ×2 (07:44→21:11)
[2019-12-22] MEDS: FE SULF/FA/VIT B COMP & C TAB PO SCH (07:44)
[2019-12-22] MEDS: TAMSULOSIN 0.4 MG SR CAP PO SCH (07:44)
[2019-12-22] MEDS: METOPROLOL TAR 25 MG TAB PO SCH ×2 (07:45→21:11)
[2019-12-22] MEDS: levoFLOXacin 500 MG TAB PO SCH (07:45)
[2019-12-22] MEDS: BACLOFEN 10 MG TAB PO SCH ×2 (07:45→21:12)
[2019-12-22] MEDS: MAGNESIUM OXIDE 400 MG TAB PO SCH ×2 (07:46→20:00)
[2019-12-22] MEDS: GABAPENTIN 300 MG CAP PO SCH ×3 (07:46→21:10)
[2019-12-22] MEDS: PROMOD 30 ML DOSE PO SCH ×2 (07:47→21:13)
[2019-12-22] MEDS: FERROUS SULFATE 325 MG TAB PO SCH (07:50)
[2019-12-22] MEDS: NYSTATIN PWDR 100000 UNIT/GM TOP SCH ×3 (09:07→21:13)
[2019-12-22] MEDS: LIDOCAINE 4% PATCH TOP SCH ×2 (09:07→10:56)
--- NOTE | 2019-12-22 09:54 | P.RH.PN ---
Estimated Length of Stay: 17 Expected Discharge Date: 12/28/19 Discharge Disposition Plan: Home Family Support: Yes Halfway Goal: Mobility, Transfers, Self Care Vital Signs: Last Vital Signs Temp 98.8 F 12/22/19 07:32 Pulse 62 12/22/19 07:45 Resp 16 12/22/19 08:42 BP 124/69 12/22/19 07:45 Pulse Ox 97 12/22/19 08:42 Laboratory: Laboratory Last Values WBC 7.1 K/uL (4.3-10.9) D 12/21/19 05:45 RBC 3.25 M/uL (4.33-5.43) L 12/21/19 05:45 Hgb 9.0 g/dL (13.6-17.9) L 12/21/19 05:45 Hct 28.9 % (39.6-49.0) L 12/21/19 05:45 MCV 89.0 fL (80-100) 12/21/19 05:45 MCH 27.8 pg (27.0-35.0) 12/21/19 05:45 MCHC 31.3 g/dL (32.0-36.0) L 12/21/19 05:45 RDW 17.7 % (12.1-15.2) H 12/21/19 05:45 Plt Count 577 K/uL (152-406) H 12/21/19 05:45 MPV 6.8 fL (7.6-11.3) L 12/21/19 05:45 Neutrophils % 60.3 % (41.7-73.7) 12/21/19 05:45 Lymphocytes % 22.8 % (15.3-44.8) 12/21/19 05:45 Monocytes % 12.9 % (3.3-12.3) H 12/21/19 05:45 Eosinophils % 3.1 % (0-4.4) 12/21/19 05:45 Basophils % 0.9 % (0-1.3) 12/21/19 05:45 Absolute Neutrophils 4.3 K/uL (1.8-8.0) 12/21/19 05:45 Absolute Lymphocytes 1.6 K/uL (0.7-4.9) 12/21/19 05:45 Absolute Monocytes 0.9 K/uL (0.1-1.3) 12/21/19 05:45 Absolute Eosinophils 0.2 K/uL (0-0.5) 12/21/19 05:45 Absolute Basophils 0.1 K/uL (0-0.5) 12/21/19 05:45 Polychromasia 1+ 12/13/19 05:47 Anisocytosis 1+ 12/13/19 05:47 Macrocytosis 1+ 12/13/19 05:47 Morphology Comment Noted (NOT SEEN) 12/13/19 05:47 Sodium 143 mmol/L (136-145) 12/21/19 05:45 Potassium 4.4 mmol/L (3.5-5.1) 12/21/19 05:45 Chloride 109 mmol/L (98-107) H 12/21/19 05:45 Carbon Dioxide 28 mmol/L (21-32) 12/21/19 05:45 BUN 23 mg/dL (7-18) H 12/21/19 05:45 Creatinine 0.94 mg/dL (0.55-1.3) 12/21/19 05:45 Estimated GFR 83 mL/min (=/>90) L 12/21/19 05:45 Glucose 105 mg/dL (74-106) 12/21/19 05:45 Lactic Acid 1.0 mmol/L (0.4-2.0) 12/13/19 14:56 Calcium 8.3 mg/dL (8.5-10.1) L 12/21/19 05:45 Magnesium 2.3 mg/dL (1.8-2.4) 12/13/19 05:47 Albumin 2.4 g/dL (3.4-5.0) L 12/21/19 05:45 Prealbumin 16.5 mg/dL (20-40) L 12/21/19 05:45 Procalcitonin < 0.05 ng/mL (<0.50) 12/13/19 14:56 Urine Color Yellow 12/12/19 17:20 Urine Appearance Clear 12/12/19 17:20 Urine pH 7.0 (5.0-7.0) 12/12/19 17:20 Ur Specific [place] 1.015 (1.005-1.030) 12/12/19 17:20 Glucose (UA)(Auto) Negative (NEG) 12/12/19 17:20 Urine Ketones Negative (NEG) 12/12/19 17:20 Urine Blood Negative (NEG) 12/12/19 17:20 Urine Nitrite Negative (NEG) 12/12/19 17:20 Urine Bilirubin Negative (NEG) 12/12/19 17:20 Urine Urobilinogen 1.0 mg/dL (0.2-1.0) 12/12/19 17:20 Ur Leukocyte Esterase Negative (NEG) 12/12/19 17:20 Urine RBC <5 /HPF (NONE SEEN) 12/12/19 17:20 Urine WBC <5 /HPF (<5) 12/12/19 17:20 Ur Squamous Epith Cells PHOTOVOLTAIC TECHNICIAN 12/12/19 17:20 Urine Bacteria <20 /HPF (NONE SEEN) 12/12/19 17:20 Urine Culture Reflexed Not needed 12/12/19 17:20 Urine Total Protein Trace (NEG) 12/12/19 17:20 Weight: 380 lb 14.4 oz Wound Present: No Closed Surgical Incision Present: No Negative Pressure Wound Therapy Present: No Physician Update: Labs reviewed and are stable. Knee x-rays show intramedullary lo is in place. No suspicious findings. He is waking about 3' and transfers wi th moderate assistance. He is a moderate amount of swelling in the proximal right thigh. The [facility] surgeons believe the swelling is an expected postop finding. Will get Dr. Arellano to evaluate the patient. Functional Improvement: pt has demonstrated progress throughout the week. He is improving his ability to perform functional transfers while maintaining weight bearing status. pt still requires assist to effectively maintain weight bearing status but his strength and stability are both improving. Skilled PT services continue to be necessary. Summary: Patient's care plan and half-way goals have been reviewed and revised as necessary. Please see the Rehabilitation Signature page for all necessary signatures.
[2019-12-22] MEDS: DOCUSATE NA/SENNA CONC 1 TAB PO PRN (21:12)
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
[2019-12-23] MEDS: TRAMADOL HCL 50 MG TAB PO PRN ×2 (04:34→08:24)
[2019-12-23] MEDS: PANTOPRAZOLE 40MG TABLET PO SCH (06:29)
[2019-12-23] MEDS: LEVOTHYROXINE SOD 0.025 MG TAB PO SCH (06:29)
[2019-12-23] MEDS: ENOXAPARIN 40 MG/0.4 ML SQ SCH (06:30)
[2019-12-23] MEDS: cloNIDine HCL 0.1 MG TAB PO SCH ×2 (07:17→20:22)
[2019-12-23] MEDS: levoFLOXacin 500 MG TAB PO SCH (07:18)
[2019-12-23] MEDS: GABAPENTIN 300 MG CAP PO SCH ×3 (07:19→20:22)
[2019-12-23] MEDS: BACLOFEN 10 MG TAB PO SCH ×2 (07:19→20:22)
[2019-12-23] MEDS: FE SULF/FA/VIT B COMP & C TAB PO SCH (07:19)
[2019-12-23] MEDS: TAMSULOSIN 0.4 MG SR CAP PO SCH (07:19)
[2019-12-23] MEDS: FERROUS SULFATE 325 MG TAB PO SCH (07:21)
[2019-12-23] MEDS: LIDOCAINE 4% PATCH TOP SCH (07:29)
[2019-12-23] MEDS: PROMOD 30 ML DOSE PO SCH ×2 (07:29→20:22)
[2019-12-23] MEDS: MAGNESIUM OXIDE 400 MG TAB PO SCH ×2 (07:33→20:00)
[2019-12-23] MEDS: NYSTATIN PWDR 100000 UNIT/GM TOP SCH ×2 (07:33→20:00)
[2019-12-23] MEDS: METOPROLOL TAR 25 MG TAB PO SCH ×2 (08:24→20:22)
[2019-12-23] MEDS: ACETAMINOPHEN 500 MG TAB PO PRN (11:59)
[2019-12-24] MEDS: MELATONIN 3 MG TABLET PO PRN (00:52)
[2019-12-24] MEDS: TRAMADOL HCL 50 MG TAB PO PRN ×2 (00:52→05:28)
[2019-12-24] MEDS: PANTOPRAZOLE 40MG TABLET PO SCH (05:27)
[2019-12-24] MEDS: LEVOTHYROXINE SOD 0.025 MG TAB PO SCH (05:27)
[2019-12-24] MEDS: LIDOCAINE 4% PATCH TOP SCH (07:21)
[2019-12-24] MEDS: ENOXAPARIN 40 MG/0.4 ML SQ SCH (07:21)
[2019-12-24] MEDS: NYSTATIN PWDR 100000 UNIT/GM TOP SCH ×2 (07:22→20:00)
[2019-12-24] MEDS: TAMSULOSIN 0.4 MG SR CAP PO SCH (07:50)
[2019-12-24] MEDS: METOPROLOL TAR 25 MG TAB PO SCH ×2 (07:51→19:59)
[2019-12-24] MEDS: FERROUS SULFATE 325 MG TAB PO SCH (07:51)
[2019-12-24] MEDS: cloNIDine HCL 0.1 MG TAB PO SCH ×2 (07:51→19:59)
[2019-12-24] MEDS: FE SULF/FA/VIT B COMP & C TAB PO SCH (07:51)
[2019-12-24] MEDS: MAGNESIUM OXIDE 400 MG TAB PO SCH ×2 (07:52→20:00)
[2019-12-24] MEDS: BACLOFEN 10 MG TAB PO SCH ×2 (07:52→19:59)
[2019-12-24] MEDS: levoFLOXacin 500 MG TAB PO SCH (07:52)
[2019-12-24] MEDS: GABAPENTIN 300 MG CAP PO SCH ×3 (07:52→19:58)
[2019-12-24] MEDS: PROMOD 30 ML DOSE PO SCH ×2 (07:53→19:58)
[2019-12-25] MEDS: MELATONIN 3 MG TABLET PO PRN (00:53)
[2019-12-25] MEDS: ACETAMINOPHEN 500 MG TAB PO PRN (05:15)
[2019-12-25] MEDS: ENOXAPARIN 40 MG/0.4 ML SQ SCH (06:34)
[2019-12-25] MEDS: LEVOTHYROXINE SOD 0.025 MG TAB PO SCH (06:34)
[2019-12-25] MEDS: PANTOPRAZOLE 40MG TABLET PO SCH (06:34)
[2019-12-25] MEDS: GABAPENTIN 300 MG CAP PO SCH ×3 (07:32→19:59)
[2019-12-25] MEDS: cloNIDine HCL 0.1 MG TAB PO SCH ×2 (07:33→19:49)
[2019-12-25] MEDS: TAMSULOSIN 0.4 MG SR CAP PO SCH (07:33)
[2019-12-25] MEDS: FE SULF/FA/VIT B COMP & C TAB PO SCH (07:33)
[2019-12-25] MEDS: BACLOFEN 10 MG TAB PO SCH ×2 (07:34→19:50)
[2019-12-25] MEDS: METOPROLOL TAR 25 MG TAB PO SCH ×2 (07:34→19:50)
[2019-12-25] MEDS: FERROUS SULFATE 325 MG TAB PO SCH (07:34)
[2019-12-25] MEDS: TRAMADOL HCL 50 MG TAB PO PRN ×2 (07:34→19:51)
[2019-12-25] MEDS: LIDOCAINE 4% PATCH TOP SCH (07:35)
[2019-12-25] MEDS: PROMOD 30 ML DOSE PO SCH ×2 (07:37→19:51)
[2019-12-25] MEDS: NYSTATIN PWDR 100000 UNIT/GM TOP SCH ×2 (07:37→19:48)
[2019-12-25] MEDS: MAGNESIUM OXIDE 400 MG TAB PO SCH ×2 (07:37→19:50)
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
[2019-12-26] MEDS: TRAMADOL HCL 50 MG TAB PO PRN ×5 (02:38→19:08)
[2019-12-26] MEDS: PANTOPRAZOLE 40MG TABLET PO SCH (06:23)
[2019-12-26] MEDS: ENOXAPARIN 40 MG/0.4 ML SQ SCH (06:24)
[2019-12-26] MEDS: LEVOTHYROXINE SOD 0.025 MG TAB PO SCH (06:24)
[2019-12-26] MEDS: BACLOFEN 10 MG TAB PO SCH ×2 (06:30→19:08)
[2019-12-26] MEDS: ACETAMINOPHEN 500 MG TAB PO PRN (06:30)
--- NOTE | 2019-12-26 06:59 | FAST ---
ENCOUNTER DATE AND TIME: 12/25/2019 08:00 (CDT) NAME ALISHA LEE DATE OF : 1960 DATE OF ADMISSION: 12/12/2019 17:53 (CDT) PHONE: AGE: 58 N# [id number] GENDER: Male ENCOUNTER PHYSICIAN: Dr. Mauro Mcclellan M.D. ADMISSION DIAGNOSIS: - Orthopaedic Disorders 08 - Major Multiple Fractures (08.4) RIGHT FEMUR FRACTURE. DISPLACED FRACTURE OF THE NECK. INTERTROCHANTERIC FRACTURE OF RIGHT FEMUR. RIGH T OPEN PERIPROSTHETIC FRACTURE . FRACRURE OF CERVIVAL SPINOUS PROCESS. RIB FRUACTURE. EATING: Not assessed/no information CODE: - ORAL HYGIENE: ORAL HYGIENE - STEP 1: Does the patient complete the activity by him/herself with no assistance (physical, verbal/nonverbal cueing, setup/clean-up)? Yes. 1. [id number] ADMISSION PERFORMANCE: Independent CODE: 06 TOILETING HYGIENE: TOILETING HYGIENE - STEP 1: Does the patient complete the activity by him/herself with no assistance (physical, verbal/nonverbal cueing, setup/clean-up)? No. TOILETING HYGIENE - STEP 2: Does the patient need only setup/clean-up assistance from one helper? No. TOILETING HYGIENE - STEP 3: Does the patient need only verbal/nonverbal cueing or touching/steadying/contact guard assistance fro m one helper? No. TOILETING HYGIENE - STEP 4: Does the patient need physical assistance - for example lifting or trunk support from one helper - wi th the helper providing less than half of the effort? Yes. 1. [id number] ADMISSION PERFORMANCE: Partial/moderate assistance CODE: 03 BATHING: SHOWER/BATHE SELF - STEP 1: Does the patient complete the activity by him/herself with no assistance (physical, verbal/nonverbal cueing, setup/clean-up)? No. SHOWER/BATHE SELF - STEP 2: Does the patient need only setup/clean-up assistance from one helper? No. SHOWER/BATHE SELF - STEP 3: Does the patient need only verbal/nonverbal cueing or touching/steadying/contact guard assistance fro m one helper? Yes. 1. [id number] ADMISSION PERFORMANCE: Supervision or touching assistance CODE: 04 DRESSING - UPPER BODY: DRESSING - UPPER BODY - STEP 1: Does the patient complete the activity by him/herself with no assistance (physical, verbal/nonverbal cueing, setup/clean-up)? No. DRESSING - UPPER BODY - STEP 2: Does the patient need only setup/clean-up assistance from one helper? Yes. 1. [id number] ADMISSION PERFORMANCE: Setup or clean-up assistance CODE: 05 DRESSING - LOWER BODY: DRESSING - LOWER BODY - STEP 1: Does the patient complete the activity by him/herself with no assistance (physical, verbal/nonverbal cueing, setup/clean-up)? No. DRESSING - LOWER BODY - STEP 2: Does the patient need only setup/clean-up assistance from one helper? No. DRESSING - LOWER BODY - STEP 3: Does the patient need only verbal/nonverbal cueing or touching/steadying/contact guard assistance fro m one helper? Yes. 1. [id number] ADMISSION PERFORMANCE: Supervision or touching assistance CODE: 04 PUTTING ON/TAKING OFF FOOTWEAR: Not assessed/no information CODE: - DOES THE PATIENT USE A WHEELCHAIR/SCOOTER? CODE: EXPR INDICATE THE TYPE OF WHEELCHAIR/SCOOTER USED: CODE: EXPR INDICATE THE TYPE OF WHEELCHAIR/SCOOTER USED: CODE: EXPR BLADDER AND BOWEL: CODE: EXPR CODE: EXPR SIGNATURE PANEL: The following modified sections: 1. [id number] Admission Performance, 1. [id number] Admission Performance, 1. [id number] Admission Performance, 1. [id number] Admission Performance, 1. [id number] Admission Performance were [electronically] signed by BRIDGETT Magana on WedDec 26 2019 06:58:26 T-0500 (Central Daylight Time)
[2019-12-26] MEDS: FE SULF/FA/VIT B COMP & C TAB PO SCH (08:07)
[2019-12-26] MEDS: TAMSULOSIN 0.4 MG SR CAP PO SCH (08:07)
[2019-12-26] MEDS: cloNIDine HCL 0.1 MG TAB PO SCH ×2 (08:08→19:08)
[2019-12-26] MEDS: GABAPENTIN 300 MG CAP PO SCH ×3 (08:08→20:04)
[2019-12-26] MEDS: METOPROLOL TAR 25 MG TAB PO SCH ×2 (08:08→19:10)
[2019-12-26] MEDS: FERROUS SULFATE 325 MG TAB PO SCH (08:08)
[2019-12-26] MEDS: MAGNESIUM OXIDE 400 MG TAB PO SCH ×2 (08:09→19:08)
[2019-12-26] MEDS: LIDOCAINE 4% PATCH TOP SCH (08:09)
[2019-12-26] MEDS: NYSTATIN PWDR 100000 UNIT/GM TOP SCH ×2 (08:14→19:07)
[2019-12-26] MEDS: PROMOD 30 ML DOSE PO SCH ×2 (08:14→19:08)
--- NOTE | 2019-12-26 15:25 | FAST ---
SHIFT START DATE/TIME: 12/26/2019 07:00 (CDT) SHIFT END DATE/TIME: 12/26/2019 19:00 (CDT) NAME ALISHA LEE DATE OF : 1960 DATE OF ADMISSION: 12/12/2019 17:53 (CDT) PHONE: AGE: 58 N# [id number] GENDER: Male ENCOUNTER PHYSICIAN: Dr. Mauro Mcclellan M.D. ADMISSION DIAGNOSIS: - Orthopaedic Disorders 08 - Major Multiple Fractures (08.4) RIGHT FEMUR FRACTURE. DISPLACED FRACTURE OF THE NECK. INTERTROCHANTERIC FRACTURE OF RIGHT FEMUR. RIGH T OPEN PERIPROSTHETIC FRACTURE . FRACRURE OF CERVIVAL SPINOUS PROCESS. RIB FRUACTURE. EATING: EATING - STEP 1: Does the patient complete the activity by him/herself with no assistance (physical, verbal/nonverbal cueing, setup/clean-up)? No. EATING - STEP 2: Does the patient need only setup/clean-up assistance from one helper? Yes. 1. [id number] ADMISSION PERFORMANCE: Setup or clean-up assistance CODE: 05 ORAL HYGIENE: ORAL HYGIENE - STEP 1: Does the patient complete the activity by him/herself with no assistance (physical, verbal/nonverbal cueing, setup/clean-up)? No. ORAL HYGIENE - STEP 2: Does the patient need only setup/clean-up assistance from one helper? Yes. 1. [id number] ADMISSION PERFORMANCE: Setup or clean-up assistance CODE: 05 TOILETING HYGIENE: TOILETING HYGIENE - STEP 1: Does the patient complete the activity by him/herself with no assistance (physical, verbal/nonverbal cueing, setup/clean-up)? No. TOILETING HYGIENE - STEP 2: Does the patient need only setup/clean-up assistance from one helper? No. TOILETING HYGIENE - STEP 3: Does the patient need only verbal/nonverbal cueing or touching/steadying/contact guard assistance fro m one helper? No. TOILETING HYGIENE - STEP 4: Does the patient need physical assistance - for example lifting or trunk support from one helper - wi th the helper providing less than half of the effort? Yes. 1. [id number] ADMISSION PERFORMANCE: Partial/moderate assistance CODE: 03 BATHING: Not assessed/no information CODE: - DRESSING - UPPER BODY: DRESSING - UPPER BODY - STEP 1: Does the patient complete the activity by him/herself with no assistance (physical, verbal/nonverbal cueing, setup/clean-up)? No. DRESSING - UPPER BODY - STEP 2: Does the patient need only setup/clean-up assistance from one helper? Yes. 1. [id number] ADMISSION PERFORMANCE: Setup or clean-up assistance CODE: 05 DRESSING - LOWER BODY: DRESSING - LOWER BODY - STEP 1: Does the patient complete the activity by him/herself with no assistance (physical, verbal/nonverbal cueing, setup/clean-up)? No. DRESSING - LOWER BODY - STEP 2: Does the patient need only setup/clean-up assistance from one helper? No. DRESSING - LOWER BODY - STEP 3: Does the patient need only verbal/nonverbal cueing or touching/steadying/contact guard assistance fro m one helper? Yes. 1. [id number] ADMISSION PERFORMANCE: Supervision or touching assistance CODE: 04 PUTTING ON/TAKING OFF FOOTWEAR: Not attempted due to medical condition or safety concerns CODE: 88 TRANSFERS: CAR: Not assessed/no information CODE: - WALK 10 FEET: Not attempted due to medical condition or safety concerns CODE: 88 1 STEP (CURB): Not attempted due to medical condition or safety concerns CODE: 88 PICKING UP OBJECT: Not assessed/no information CODE: - DOES THE PATIENT USE A WHEELCHAIR/SCOOTER? Q1. DOES THE PATIENT USE A WHEELCHAIR/SCOOTER?: Yes CODE: 1 WHEEL 50 FEET WITH TWO TURNS: WHEEL 50 FEET WITH TWO TURNS - STEP 1: Does the patient complete the activity by him/herself with no assistance (physical, verbal/nonverbal cueing, setup/clean-up)? No. WHEEL 50 FEET WITH TWO TURNS - STEP 2: Does the patient need only setup/clean-up assistance from one helper? Yes. 1. [id number] ADMISSION PERFORMANCE: Setup or clean-up assistance CODE: 05 INDICATE THE TYPE OF WHEELCHAIR/SCOOTER USED: RR1. INDICATE THE TYPE OF WHEELCHAIR/SCOOTER USED.: Manual CODE: 1 WHEEL 150 FEET: WHEEL 150 FEET - STEP 1: Does the patient complete the activity by him/herself with no assistance (physical, verbal/nonverbal cueing, setup/clean-up)? No. WHEEL 150 FEET - STEP 2: Does the patient need only setup/clean-up assistance from one helper? Yes. 1. [id number] ADMISSION PERFORMANCE: Setup or clean-up assistance CODE: 05 INDICATE THE TYPE OF WHEELCHAIR/SCOOTER USED: SS1. INDICATE THE TYPE OF WHEELCHAIR/SCOOTER USED.: Manual CODE: 1 BLADDER AND BOWEL: H350. BLADDER CONTINENCE (3-DAY ASSESSMENT PERIOD): Always continent (no documented incontinence) CODE: 0 H400. BOWEL CONTINENCE (3-DAY ASSESSMENT PERIOD): Always continent CODE: 0 SIGNATURE PANEL: The following modified sections: 1. [id number] Admission Performance, 1. [id number] Admission Performance, 1. [id number] Admission Performance, 1. [id number] Admission Performance, 1. [id number] Admission Performance, 1. [id number] Admission Performance, Q1. Does the patient use a wheelchair/scooter?, 1. [id number] Admissi on Performance, RR1. Indicate the type of wheelchair/scooter used., 1. [id number] Admission Performance, Code, SS1. Indicate the type of wheelchair/scooter used., H350. Bladder Continence (3-day assessment period), H400. Bowel Continence (3-day assessment period) were [electronically] signed by Raya Quintanilla in, C.N.A. on WedDec 26 2019 15:24:36 GMT-0500 (Central Daylight Time)
[2019-12-26] MEDS: MELATONIN 3 MG TABLET PO PRN ×2 (20:04→23:15)
[2019-12-26] MEDS: DOCUSATE NA/SENNA CONC 1 TAB PO PRN (20:04)
[2019-12-27] MEDS: ACETAMINOPHEN 500 MG TAB PO PRN ×2 (04:58→23:55)
[2019-12-27] MEDS: PANTOPRAZOLE 40MG TABLET PO SCH (06:48)
[2019-12-27] MEDS: ENOXAPARIN 40 MG/0.4 ML SQ SCH (06:48)
[2019-12-27] MEDS: LEVOTHYROXINE SOD 0.025 MG TAB PO SCH (06:48)
[2019-12-27] MEDS: TRAMADOL HCL 50 MG TAB PO PRN ×2 (07:28→12:03)
[2019-12-27] MEDS: GABAPENTIN 300 MG CAP PO SCH ×3 (07:30→20:16)
[2019-12-27] MEDS: cloNIDine HCL 0.1 MG TAB PO SCH ×2 (07:30→20:16)
[2019-12-27] MEDS: BACLOFEN 10 MG TAB PO SCH ×2 (07:31→20:15)
[2019-12-27] MEDS: MAGNESIUM OXIDE 400 MG TAB PO SCH ×2 (07:31→20:00)
[2019-12-27] MEDS: FE SULF/FA/VIT B COMP & C TAB PO SCH (07:31)
[2019-12-27] MEDS: TAMSULOSIN 0.4 MG SR CAP PO SCH (07:31)
[2019-12-27] MEDS: METOPROLOL TAR 25 MG TAB PO SCH ×2 (07:31→20:15)
[2019-12-27] MEDS: FERROUS SULFATE 325 MG TAB PO SCH (07:31)
[2019-12-27] MEDS: PROMOD 30 ML DOSE PO SCH ×2 (07:32→20:17)
[2019-12-27] MEDS: LIDOCAINE 4% PATCH TOP SCH (09:36)
[2019-12-27] MEDS: NYSTATIN PWDR 100000 UNIT/GM TOP SCH ×2 (09:37→20:16)
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
[2019-12-27] MEDS: MELATONIN 3 MG TABLET PO PRN (23:55)
[2019-12-28] MEDS: PANTOPRAZOLE 40MG TABLET PO SCH (04:26)
[2019-12-28] MEDS: LEVOTHYROXINE SOD 0.025 MG TAB PO SCH (04:27)
[2019-12-28] MEDS: TRAMADOL HCL 50 MG TAB PO PRN ×3 (04:27→20:28)
--- NOTE | 2019-12-28 07:40 | FAST ---
ENCOUNTER DATE AND TIME: 12/27/2019 08:00 (CDT) NAME ALISHA LEE DATE OF : 1960 DATE OF ADMISSION: 12/12/2019 17:53 (CDT) PHONE: AGE: 58 N# [id number] GENDER: Male ENCOUNTER PHYSICIAN: Dr. Mauro Mcclellan M.D. ADMISSION DIAGNOSIS: - Orthopaedic Disorders 08 - Major Multiple Fractures (08.4) RIGHT FEMUR FRACTURE. DISPLACED FRACTURE OF THE NECK. INTERTROCHANTERIC FRACTURE OF RIGHT FEMUR. RIGH T OPEN PERIPROSTHETIC FRACTURE . FRACRURE OF CERVIVAL SPINOUS PROCESS. RIB FRUACTURE. EATING: Not assessed/no information CODE: - ORAL HYGIENE: ORAL HYGIENE - STEP 1: Does the patient complete the activity by him/herself with no assistance (physical, verbal/nonverbal cueing, setup/clean-up)? Yes. 1. [id number] ADMISSION PERFORMANCE: Independent CODE: 06 TOILETING HYGIENE: TOILETING HYGIENE - STEP 1: Does the patient complete the activity by him/herself with no assistance (physical, verbal/nonverbal cueing, setup/clean-up)? No. TOILETING HYGIENE - STEP 2: Does the patient need only setup/clean-up assistance from one helper? No. TOILETING HYGIENE - STEP 3: Does the patient need only verbal/nonverbal cueing or touching/steadying/contact guard assistance fro m one helper? Yes. 1. [id number] ADMISSION PERFORMANCE: Supervision or touching assistance CODE: 04 BATHING: SHOWER/BATHE SELF - STEP 1: Does the patient complete the activity by him/herself with no assistance (physical, verbal/nonverbal cueing, setup/clean-up)? No. SHOWER/BATHE SELF - STEP 2: Does the patient need only setup/clean-up assistance from one helper? No. SHOWER/BATHE SELF - STEP 3: Does the patient need only verbal/nonverbal cueing or touching/steadying/contact guard assistance fro m one helper? Yes. 1. [id number] ADMISSION PERFORMANCE: Supervision or touching assistance CODE: 04 DRESSING - UPPER BODY: DRESSING - UPPER BODY - STEP 1: Does the patient complete the activity by him/herself with no assistance (physical, verbal/nonverbal cueing, setup/clean-up)? No. DRESSING - UPPER BODY - STEP 2: Does the patient need only setup/clean-up assistance from one helper? Yes. 1. [id number] ADMISSION PERFORMANCE: Setup or clean-up assistance CODE: 05 DRESSING - LOWER BODY: DRESSING - LOWER BODY - STEP 1: Does the patient complete the activity by him/herself with no assistance (physical, verbal/nonverbal cueing, setup/clean-up)? No. DRESSING - LOWER BODY - STEP 2: Does the patient need only setup/clean-up assistance from one helper? No. DRESSING - LOWER BODY - STEP 3: Does the patient need only verbal/nonverbal cueing or touching/steadying/contact guard assistance fro m one helper? Yes. 1. [id number] ADMISSION PERFORMANCE: Supervision or touching assistance CODE: 04 PUTTING ON/TAKING OFF FOOTWEAR: Not assessed/no information CODE: - DOES THE PATIENT USE A WHEELCHAIR/SCOOTER? CODE: EXPR INDICATE THE TYPE OF WHEELCHAIR/SCOOTER USED: CODE: EXPR INDICATE THE TYPE OF WHEELCHAIR/SCOOTER USED: CODE: EXPR BLADDER AND BOWEL: CODE: EXPR CODE: EXPR SIGNATURE PANEL: The following modified sections: 1. [id number] Admission Performance, 1. [id number] Admission Performance, 1. [id number] Admission Performance, 1. [id number] Admission Performance, 1. [id number] Admission Performance were [electronically] signed by BRIDGETT Magana on WedDec 28 2019 07:40:33 T-0500 (Central Daylight Time)
[2019-12-28] MEDS: FE SULF/FA/VIT B COMP & C TAB PO SCH (07:56)
[2019-12-28] MEDS: FERROUS SULFATE 325 MG TAB PO SCH (07:56)
[2019-12-28] MEDS: GABAPENTIN 300 MG CAP PO SCH ×3 (07:56→20:27)
[2019-12-28] MEDS: LIDOCAINE 4% PATCH TOP SCH (07:56)
[2019-12-28] MEDS: MAGNESIUM OXIDE 400 MG TAB PO SCH ×2 (07:57→20:27)
[2019-12-28] MEDS: BACLOFEN 10 MG TAB PO SCH ×2 (07:57→20:28)
[2019-12-28] MEDS: METOPROLOL TAR 25 MG TAB PO SCH ×2 (07:57→20:28)
[2019-12-28] MEDS: cloNIDine HCL 0.1 MG TAB PO SCH ×2 (07:57→20:27)
[2019-12-28] MEDS: ACETAMINOPHEN 500 MG TAB PO PRN (07:58)
[2019-12-28] MEDS: TAMSULOSIN 0.4 MG SR CAP PO SCH (07:59)
[2019-12-28 08:05] LABS: Absolute Lymphocytes (CBC) 1.4 K/uL (0.7-4.9); Basophils % 0.9 % (0-1.3); Hematocrit 37.8 % (39.6-49.0); Lymphocytes % 23.1 % (15.3-44.8); MPV 7.2 fL (7.6-11.3); RBC Red Blood Cell Count 4.24 M/uL (4.33-5.43)
[2019-12-28 08:12] LABS: Potassium 4.3 mmol/L (3.5-5.1); Prealbumin 25.3 mg/dL (20-40)
[2019-12-28] MEDS: NYSTATIN PWDR 100000 UNIT/GM TOP SCH ×2 (09:46→20:27)
[2019-12-28] MEDS: PROMOD 30 ML DOSE PO SCH ×2 (09:46→20:28)
[2019-12-28] MEDS: ENOXAPARIN 40 MG/0.4 ML SQ SCH (12:24)
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
[2019-12-29] MEDS: ACETAMINOPHEN 500 MG TAB PO PRN (05:04)
[2019-12-29] MEDS: LEVOTHYROXINE SOD 0.025 MG TAB PO SCH (05:04)
[2019-12-29] MEDS: PANTOPRAZOLE 40MG TABLET PO SCH (05:04)
[2019-12-29] MEDS: ENOXAPARIN 40 MG/0.4 ML SQ SCH (06:50)
[2019-12-29] MEDS: LIDOCAINE 4% PATCH TOP SCH (06:51)
[2019-12-29] MEDS: TRAMADOL HCL 50 MG TAB PO PRN ×2 (07:53→19:39)
[2019-12-29] MEDS: NYSTATIN PWDR 100000 UNIT/GM TOP SCH ×2 (07:54→19:36)
[2019-12-29] MEDS: cloNIDine HCL 0.1 MG TAB PO SCH ×2 (07:54→19:34)
[2019-12-29] MEDS: TAMSULOSIN 0.4 MG SR CAP PO SCH (07:55)
[2019-12-29] MEDS: METOPROLOL TAR 25 MG TAB PO SCH ×2 (07:55→19:34)
[2019-12-29] MEDS: FE SULF/FA/VIT B COMP & C TAB PO SCH (07:56)
[2019-12-29] MEDS: PROMOD 30 ML DOSE PO SCH ×3 (07:56→19:40)
[2019-12-29] MEDS: BACLOFEN 10 MG TAB PO SCH ×2 (07:56→19:34)
[2019-12-29] MEDS: MAGNESIUM OXIDE 400 MG TAB PO SCH ×2 (07:56→19:35)
[2019-12-29] MEDS: GABAPENTIN 300 MG CAP PO SCH ×3 (07:56→21:00)
[2019-12-29] MEDS: FERROUS SULFATE 325 MG TAB PO SCH (07:56)
--- NOTE | 2019-12-29 10:10 | P.RH.PN ---
Estimated Length of Stay: 24 Expected Discharge Date: 01/04/20 Discharge Disposition Plan: Home Family Support: Yes Usp Goal: Mobility, Transfers, Self Care Vital Signs: Last Vital Signs Temp 97.5 F 12/29/19 09:22 Pulse 62 12/29/19 09:22 Resp 18 12/29/19 09:22 BP 124/62 12/29/19 09:22 Pulse Ox 95 12/29/19 09:22 Laboratory: Laboratory Last Values WBC 6.0 K/uL (4.3-10.9) D 12/28/19 07:35 RBC 4.24 M/uL (4.33-5.43) L D 12/28/19 07:35 Hgb 11.8 g/dL (13.6-17.9) L D 12/28/19 07:35 Hct 37.8 % (39.6-49.0) L D 12/28/19 07:35 MCV 89.2 fL (80-100) 12/28/19 07:35 MCH 27.7 pg (27.0-35.0) 12/28/19 07:35 MCHC 31.1 g/dL (32.0-36.0) L 12/28/19 07:35 RDW 17.6 % (12.1-15.2) H 12/28/19 07:35 Plt Count 534 K/uL (152-406) H 12/28/19 07:35 MPV 7.2 fL (7.6-11.3) L 12/28/19 07:35 Neutrophils % 59.1 % (41.7-73.7) 12/28/19 07:35 Lymphocytes % 23.1 % (15.3-44.8) 12/28/19 07:35 Monocytes % 12.2 % (3.3-12.3) 12/28/19 07:35 Eosinophils % 4.7 % (0-4.4) H 12/28/19 07:35 Basophils % 0.9 % (0-1.3) 12/28/19 07:35 Absolute Neutrophils 3.6 K/uL (1.8-8.0) 12/28/19 07:35 Absolute Lymphocytes 1.4 K/uL (0.7-4.9) 12/28/19 07:35 Absolute Monocytes 0.7 K/uL (0.1-1.3) 12/28/19 07:35 Absolute Eosinophils 0.3 K/uL (0-0.5) 12/28/19 07:35 Absolute Basophils 0.1 K/uL (0-0.5) 12/28/19 07:35 Polychromasia 1+ 12/13/19 05:47 Anisocytosis 1+ 12/13/19 05:47 Macrocytosis 1+ 12/13/19 05:47 Morphology Comment Noted (NOT SEEN) 12/13/19 05:47 Sodium 141 mmol/L (136-145) 12/28/19 07:35 Potassium 4.3 mmol/L (3.5-5.1) 12/28/19 07:35 Chloride 106 mmol/L (98-107) 12/28/19 07:35 Carbon Dioxide 28 mmol/L (21-32) 12/28/19 07:35 BUN 23 mg/dL (7-18) H 12/28/19 07:35 Creatinine 0.99 mg/dL (0.55-1.3) 12/28/19 07:35 Estimated GFR 78 mL/min (=/>90) L 12/28/19 07:35 Glucose 96 mg/dL (74-106) 12/28/19 07:35 Lactic Acid 1.0 mmol/L (0.4-2.0) 12/13/19 14:56 Calcium 8.8 mg/dL (8.5-10.1) 12/28/19 07:35 Magnesium 2.3 mg/dL (1.8-2.4) 12/13/19 05:47 Albumin 3.0 g/dL (3.4-5.0) L 12/28/19 07:35 Prealbumin 25.3 mg/dL (20-40) 12/28/19 07:35 Procalcitonin < 0.05 ng/mL (<0.50) 12/13/19 14:56 Urine Color Yellow 12/12/19 17:20 Urine Appearance Clear 12/12/19 17:20 Urine pH 7.0 (5.0-7.0) 12/12/19 17:20 Ur Specific [place] 1.015 (1.005-1.030) 12/12/19 17:20 Glucose (UA)(Auto) Negative (NEG) 12/12/19 17:20 Urine Ketones Negative (NEG) 12/12/19 17:20 Urine Blood Negative (NEG) 12/12/19 17:20 Urine Nitrite Negative (NEG) 12/12/19 17:20 Urine Bilirubin Negative (NEG) 12/12/19 17:20 Urine Urobilinogen 1.0 mg/dL (0.2-1.0) 12/12/19 17:20 Ur Leukocyte Esterase Negative (NEG) 12/12/19 17:20 Urine RBC <5 /HPF (NONE SEEN) 12/12/19 17:20 Urine WBC <5 /HPF (<5) 12/12/19 17:20 Ur Squamous Epith Cells ZONING ADMINISTRATOR 12/12/19 17:20 Urine Bacteria <20 /HPF (NONE SEEN) 12/12/19 17:20 Urine Culture Reflexed Not needed 12/12/19 17:20 Urine Total Protein Trace (NEG) 12/12/19 17:20 Weight: 380 lb 9.6 oz Wound Present: No Closed Surgical Incision Present: No Negative Pressure Wound Therapy Present: No Physician Update: Labs reviewed and are stable. He is walking 14' with standby assistance. He is moderate assistance with transfers. Standby assistance with most ADLs. He is independent with wheelchair mobilization. Functional Improvement: pt has demonstrated progress throughout the week. He is improving his ability to perform functional transfers while maintaining weight bearing status. pt still requires assist to effectively maintain weight bearing status but his strength and stability are both improving. Skilled PT services continue to be necessary. Summary: Patient's care plan and continuous churn buttermaker goals have been reviewed and revised as necessary. Please see the Rehabilitation Signature page for all necessary signatures.
[2019-12-29] MEDS: DOCUSATE NA/SENNA CONC 1 TAB PO PRN (19:37)
[2019-12-29] MEDS: MELATONIN 3 MG TABLET PO PRN (23:19)
[2019-12-30] MEDS: ACETAMINOPHEN 500 MG TAB PO PRN (04:38)
[2019-12-30 05:44] VITALS: BMI 53.5
[2019-12-30] MEDS: PANTOPRAZOLE 40MG TABLET PO SCH (06:51)
[2019-12-30] MEDS: LEVOTHYROXINE SOD 0.025 MG TAB PO SCH (06:51)
[2019-12-30] MEDS: ENOXAPARIN 40 MG/0.4 ML SQ SCH (06:51)
[2019-12-30] MEDS: BACLOFEN 10 MG TAB PO SCH ×2 (08:04→20:57)
[2019-12-30] MEDS: TAMSULOSIN 0.4 MG SR CAP PO SCH (08:04)
[2019-12-30] MEDS: cloNIDine HCL 0.1 MG TAB PO SCH ×2 (08:04→20:56)
[2019-12-30] MEDS: MAGNESIUM OXIDE 400 MG TAB PO SCH ×2 (08:04→20:57)
[2019-12-30] MEDS: FERROUS SULFATE 325 MG TAB PO SCH (08:05)
[2019-12-30] MEDS: METOPROLOL TAR 25 MG TAB PO SCH ×2 (08:05→20:57)
[2019-12-30] MEDS: GABAPENTIN 300 MG CAP PO SCH ×3 (08:05→20:57)
[2019-12-30] MEDS: FE SULF/FA/VIT B COMP & C TAB PO SCH (08:05)
[2019-12-30] MEDS: PROMOD 30 ML DOSE PO SCH ×2 (08:06→20:57)
[2019-12-30] MEDS: LIDOCAINE 4% PATCH TOP SCH (08:06)
[2019-12-30] MEDS: NYSTATIN PWDR 100000 UNIT/GM TOP SCH ×2 (08:07→20:00)
[2019-12-30] MEDS: TRAMADOL HCL 50 MG TAB PO PRN (12:14)
[2019-12-31] MEDS: MELATONIN 3 MG TABLET PO PRN (00:12)
[2019-12-31] MEDS: TRAMADOL HCL 50 MG TAB PO PRN ×3 (00:12→14:04)
[2019-12-31] MEDS: LEVOTHYROXINE SOD 0.025 MG TAB PO SCH (05:25)
[2019-12-31] MEDS: PANTOPRAZOLE 40MG TABLET PO SCH (05:26)
[2019-12-31] MEDS: ENOXAPARIN 40 MG/0.4 ML SQ SCH (06:56)
[2019-12-31] MEDS: MAGNESIUM OXIDE 400 MG TAB PO SCH ×2 (07:41→20:20)
[2019-12-31] MEDS: GABAPENTIN 300 MG CAP PO SCH ×3 (07:42→20:22)
[2019-12-31] MEDS: FERROUS SULFATE 325 MG TAB PO SCH (07:42)
[2019-12-31] MEDS: FE SULF/FA/VIT B COMP & C TAB PO SCH (07:42)
[2019-12-31] MEDS: METOPROLOL TAR 25 MG TAB PO SCH ×2 (07:42→20:22)
[2019-12-31] MEDS: cloNIDine HCL 0.1 MG TAB PO SCH ×2 (07:42→20:21)
[2019-12-31] MEDS: TAMSULOSIN 0.4 MG SR CAP PO SCH (07:42)
[2019-12-31] MEDS: BACLOFEN 10 MG TAB PO SCH ×2 (07:42→20:21)
[2019-12-31] MEDS: PROMOD 30 ML DOSE PO SCH ×2 (07:43→20:00)
[2019-12-31] MEDS: NYSTATIN PWDR 100000 UNIT/GM TOP SCH ×2 (07:44→20:22)
[2019-12-31] MEDS: LIDOCAINE 4% PATCH TOP SCH ×3 (08:00→13:55)
[2019-12-31] MEDS: DOCUSATE NA/SENNA CONC 1 TAB PO PRN (20:21)
[2020-01-01] MEDS: MELATONIN 3 MG TABLET PO PRN ×2 (01:00→20:05)
[2020-01-01] MEDS: ACETAMINOPHEN 500 MG TAB PO PRN (01:00)
[2020-01-01] MEDS: ENOXAPARIN 40 MG/0.4 ML SQ SCH (06:19)
[2020-01-01] MEDS: LEVOTHYROXINE SOD 0.025 MG TAB PO SCH (06:19)
[2020-01-01] MEDS: PANTOPRAZOLE 40MG TABLET PO SCH (06:19)
[2020-01-01] MEDS: TRAMADOL HCL 50 MG TAB PO PRN ×2 (06:33→13:37)
[2020-01-01] MEDS: TAMSULOSIN 0.4 MG SR CAP PO SCH (08:07)
[2020-01-01] MEDS: cloNIDine HCL 0.1 MG TAB PO SCH ×2 (08:07→20:05)
[2020-01-01] MEDS: GABAPENTIN 300 MG CAP PO SCH ×3 (08:07→20:06)
[2020-01-01] MEDS: FERROUS SULFATE 325 MG TAB PO SCH (08:08)
[2020-01-01] MEDS: BACLOFEN 10 MG TAB PO SCH ×2 (08:08→20:05)
[2020-01-01] MEDS: MAGNESIUM OXIDE 400 MG TAB PO SCH ×2 (08:08→20:06)
[2020-01-01] MEDS: METOPROLOL TAR 25 MG TAB PO SCH ×2 (08:08→20:05)
[2020-01-01] MEDS: FE SULF/FA/VIT B COMP & C TAB PO SCH (08:08)
[2020-01-01] MEDS: LIDOCAINE 4% PATCH TOP SCH (08:09)
[2020-01-01] MEDS: PROMOD 30 ML DOSE PO SCH ×2 (08:10→20:06)
[2020-01-01] MEDS: NYSTATIN PWDR 100000 UNIT/GM TOP SCH ×2 (08:12→20:06)
--- NOTE | 2020-01-01 14:23 | FAST ---
ENCOUNTER DATE AND TIME: 01/01/2020 08:00 (CDT) NAME ALISHA LEE DATE OF : 1960 DATE OF ADMISSION: 12/12/2019 17:53 (CDT) PHONE: AGE: 58 N# [id number] GENDER: Male ENCOUNTER PHYSICIAN: Dr. Mauro Mcclellan M.D. ADMISSION DIAGNOSIS: - Orthopaedic Disorders 08 - Major Multiple Fractures (08.4) RIGHT FEMUR FRACTURE. DISPLACED FRACTURE OF THE NECK. INTERTROCHANTERIC FRACTURE OF RIGHT FEMUR. RIGH T OPEN PERIPROSTHETIC FRACTURE . FRACRURE OF CERVIVAL SPINOUS PROCESS. RIB FRUACTURE. EATING: Not assessed/no information CODE: - ORAL HYGIENE: ORAL HYGIENE - STEP 1: Does the patient complete the activity by him/herself with no assistance (physical, verbal/nonverbal cueing, setup/clean-up)? Yes. 1. [id number] ADMISSION PERFORMANCE: Independent CODE: 06 TOILETING HYGIENE: Not assessed/no information CODE: - BATHING: SHOWER/BATHE SELF - STEP 1: Does the patient complete the activity by him/herself with no assistance (physical, verbal/nonverbal cueing, setup/clean-up)? No. SHOWER/BATHE SELF - STEP 2: Does the patient need only setup/clean-up assistance from one helper? No. SHOWER/BATHE SELF - STEP 3: Does the patient need only verbal/nonverbal cueing or touching/steadying/contact guard assistance fro m one helper? Yes. 1. [id number] ADMISSION PERFORMANCE: Supervision or touching assistance CODE: 04 DRESSING - UPPER BODY: DRESSING - UPPER BODY - STEP 1: Does the patient complete the activity by him/herself with no assistance (physical, verbal/nonverbal cueing, setup/clean-up)? No. DRESSING - UPPER BODY - STEP 2: Does the patient need only setup/clean-up assistance from one helper? Yes. 1. [id number] ADMISSION PERFORMANCE: Setup or clean-up assistance CODE: 05 DRESSING - LOWER BODY: DRESSING - LOWER BODY - STEP 1: Does the patient complete the activity by him/herself with no assistance (physical, verbal/nonverbal cueing, setup/clean-up)? No. DRESSING - LOWER BODY - STEP 2: Does the patient need only setup/clean-up assistance from one helper? No. DRESSING - LOWER BODY - STEP 3: Does the patient need only verbal/nonverbal cueing or touching/steadying/contact guard assistance fro m one helper? Yes. 1. [id number] ADMISSION PERFORMANCE: Supervision or touching assistance CODE: 04 PUTTING ON/TAKING OFF FOOTWEAR: Not assessed/no information CODE: - DOES THE PATIENT USE A WHEELCHAIR/SCOOTER? CODE: EXPR INDICATE THE TYPE OF WHEELCHAIR/SCOOTER USED: CODE: EXPR INDICATE THE TYPE OF WHEELCHAIR/SCOOTER USED: CODE: EXPR BLADDER AND BOWEL: CODE: EXPR CODE: EXPR SIGNATURE PANEL: The following modified sections: 1. [id number] Admission Performance, 1. [id number] Admission Performance, 1. [id number] Admission Performance, 1. [id number] Admission Performance were [electronically] signed by BRIDGETT Irizarry on WedJan 01 2020 14:22:39 GMT-0500 (Central Daylight Time)
--- NOTE | 2020-01-01 17:51 | R.PN ---
ENCOUNTER DATE AND TIME: 01/01/2020 17:47 (CDT) NAME ALISHA LEE DATE OF : 1960 DATE OF ADMISSION: 12/12/2019 17:53 (CDT) RIGHT FEMUR FRACTUREDISPLACED FRACTURE OF THE NECKINTERTROCHANTERIC FRACTURE OF RIGHT FEMURRIGHT OPEN PERIPROSTHETIC FRACTURE FRACRURE OF CERVIVAL SPINOUS PROCESSRIB FRUACTURECHIEF COMPLAINT: Displaced right femur fracture, cervical spinous process fracture, rib fractures SUBJECTIVE: Pt denied any Shortness of Breath. Pt denied any depression. Patient states that pain is under control. He has three small hematomas on the left biceps likely due to trauma at the time of his accident. He reports muscle spasms around the hematomas. Continue baclofen 5 mg twice daily and magnesium 400 mg t wice daily. Bathing done with minimum assistance. Bed transfers done with moderate assistance. Therapeutic exerc ises done with supervision. WBC 6.0, Hgb 11.8, Plt 534, prealbumin 25.3, Purchaser 0.99. Ambulated 24' with standby assistance using a rolling walker. VITAL SIGNS Temperature: 97.2 F SBP/DBP: 145/80 Pulse: 64 Resp: 16 MEDICATION ALLERGIES: No Known Drug Allergies (NKDA) ENVIRONMENTAL ALLERGIES: - Substance Allergies None Known - Other Allergies None Known NURSING: - Shower allowing shower - Skin care per protocol PRECAUTIONS: - Weight Bearing Precaution WBAT right LE ACTIVITIES OOB only with supervision THERAPIES: - Dietary and Nutrition Adequate Nutrition. Nutritional Education. Nutritional Supplements. PHYSICAL EXAM - Gen Alert and awake Lying in bed No apparent distress Oriented to: person, time, and place - Skin No skin breakdown. Mild brusing in the left forehead. - Eyes No abnormalities - ENMT [place] cervical collar is in place - Neck [place] cervical collar is in place - CVS RRR - Chest No abnormalities - Abd Obese, soft, nontender - GI + bowel sounds Deferred - No abnormalities - Ext Right femur surgical site has good hemostasis. - MSK 3+/5 weakness in right lower extremity - Neuro 3+/5 weakness in right lower extremity - Psych No abnormalities ASSESSMENT: Pt. is a 58 yo Right-handed white male.On 01/02/2020 [facility] and under went emergency surgery for RIGHT FEMUR FRACTURE (Major Multiple Fractures) by PLESSNER,MAE.Pre-mo rbidly, Pt. was independent/mod-I in Safety Awareness, Social Cognition, Transfers Control, Self-Care , and Communication; and he had good Balance, Sphincter Control, and Endurance.Currently, he has defi cits of Safety Awareness, Balance, Transfers Control, Sphincter Control, Self-Care, Communication, En durance, Locomotion, and Social Cognition.Pt. is now referred to [facility] fo r acute in-patient rehabilitation in order to maximize patient's functional independence in activitie s of daily living, strength, ROM, and mobility.- Rehab Goal Patient has realistic goal of being discharged at assistance level 6-Jose to reside at Home with Pt self. Mr. Lee reports hearing a loud pop from his right hip surgical site when he transferred to a christel ding standing position. He felt pain in the right femur. A new x-ray was not done. An x-ray at this h ospital showed a 4.7 mm separation of the right hip fracture site. The post-op x-ray from [facility] l be obtained for comparison. The orthopedic surgeons in [place] will be contacted as necessary for r ecommendations.MDM/PLAN: - Physical Therapy Decreased range of motion - to improve, our physical therapists will perform initial evaluation of p t's status upon admission and devise an individualized program for increasing patient's Range of Ken[place] on. Gait dysfunction - to improve, our physical therapists will perform initial evaluation of pt's statu s upon admission and devise an individualized program for Gait Training, and Wheel Chair mobility Inability to transfer - to improve, our physical therapists will perform initial evaluation of pt's status upon admission and devise an individualized program for Bed mobility Need for home safety evaluation - to improve, our physical therapists will perform initial evaluatio n of pt's status upon admission and devise an individualized program for Home Evaluation Need in caregiver upon discharge - to improve, our physical therapists will perform initial evaluati on of pt's status upon admission and devise an individualized program for Caregiver Training New precaution - to improve, our physical therapists will perform initial evaluation of pt's status upon admission and devise an individualized program for Patient precaution education Poor balance - to improve, our physical therapists will perform initial evaluation of pt's status up on admission and devise an individualized program for Balance Training Poor endurance - to improve, our physical therapists will perform initial evaluation of pt's status upon admission and devise an individualized program for Endurance Training Weakness - to improve, our physical therapists will perform initial evaluation of pt's status upon a dmission and devise an individualized program for Aquatic Therapy, Neuromuscular Reeducation, and Str engthening Achieving independence - to improve, our physical therapists will perform initial evaluation of pt's status upon admission and devise an individualized program for Community Reintegration Activities - Occupational Therapy ADL deficits - to improve, our occupation therapists will perform initial evaluation of pt's status upon admission and devise an individualized program for Bathing, Bed mobility, Community Reintegratio n, Cooking, Dressing, Eating, Fine Motor Skills, Grooming, Homemaking, Kitchen Mobility, Laundry, Pat ient Education, Safety Awareness, Splinting - Positioning, Transfers(Toilet, Tub, Shower), and Wheel Chair Management Cognitive deficits - to improve, our occupation therapists will perform initial evaluation of pt's s tatus upon admission and devise an individualized program for Cognition - orientation Need for resident caregiver - to improve, our occupation therapists will perform initial evaluation of pt's status upon admission and devise an individualized program for Caregiver Training Weakness - to improve, our occupation therapists will perform initial evaluation of pt's status upon admission and devise an individualized program for Aquatic Therapy, Balance, Endurance, UE ROM, and UE strengthening - Other See attached MAR (Medication Administration Record) - Diet Type Continue Regular - Diet - Liquid Texture Continue Regular - Tube Feed Continue N/A - Weight Bearing Precaution WBAT right LE - Skin care per protocol - Diet - Solid Texture Continue Regular - Shower allowing shower FUNCTIONAL STATUS: UPDATED AT WEEKLY TEAM CONFERENCE - Bladder Same accident frequency: 7-Ind - No accidents in the past 7 days - Bowel Same accident frequency: 7-Ind - No accidents in the past 7 days - Walking Same score based on distance walked: 0(N/A) - Wheelchair Same score based on distance traveled: 0(N/A) FUNCTIONAL STATUS: - Self-Care A. Eating Ind B. Grooming Ind C. Bathing modA D. Dressing - Upper modA E. Dressing - Lower modA F. Toileting modA - Sphincter Control G. Bladder control modA H. Bowel control modA - Transfers Control I. Bed/Chair/Wheelchair Jose J. Toilet modA K. Tub/Shower maxA - Locomotion L. Walk/Wheelchair (B) maxA M. Stairs ADNO - Communication N. Comprehension (B) Jose O. Expression (B) Jose - Social Cognition P. Social Interaction Jose Q. Problem Solving sup R. Memory Jose - Endurance Fair - Balance Fair - Safety Awareness Fair QI SCORES: - Self-Care A. Eating 03-Partial/moderate assistance B. Oral hygiene 03-Partial/moderate assistance C. Toileting hygiene 02-Substantial/maximal assistance E. Shower/bathe self 02-Substantial/maximal assistance F. Upper body dressing 03-Partial/moderate assistance G. Lower body dressing 02-Substantial/maximal assistance H. Putting on/taking off footwear 88-Not attempted due to medical condition or safety concerns - Mobility A. Roll left and right 03-Partial/moderate assistance B. Sit to lying 03-Partial/moderate assistance C. Lying to sitting on side of bed 03-Partial/moderate assistance D. Sit to stand 02-Substantial/maximal assistance E. Chair/[id number] transfer 02-Substantial/maximal assistance F. Toilet transfer 02-Substantial/maximal assistance G. Car transfer 88-Not attempted due to medical condition or safety concerns I. Walk 10 feet 88-Not attempted due to medical condition or safety concerns J. Walk 50 feet with two turns 88-Not attempted due to medical condition or safety concerns K. Walk 150 feet 88-Not attempted due to medical condition or safety concerns L. Walking 10 feet on uneven surfaces 88-Not attempted due to medical condition or safety concerns M. 1 step (curb) 88-Not attempted due to medical condition or safety concerns N. 4 steps 88-Not attempted due to medical condition or safety concerns O. 12 steps 88-Not attempted due to medical condition or safety concerns P. Picking up object 03-Partial/moderate assistance R. Wheel 50 feet with two turns 88-Not attempted due to medical condition or safety concerns S. Wheel 150 feet 88-Not attempted due to medical condition or safety concerns - Bladder and Bowel Bladder continence 0-Always continent Bowel continence 0-Always continent - Endurance Fair - Balance Fair - Safety Awareness Fair CURRENT FUNC. DEFICITS: Self-Care, Mobility, Endurance, Balance, and Safety Awareness SIGNATURE PANEL: (CDT)
[2020-01-01] MEDS: DOCUSATE NA/SENNA CONC 1 TAB PO PRN (20:05)
[2020-01-02] MEDS: TRAMADOL HCL 50 MG TAB PO PRN ×2 (05:10→14:07)
[2020-01-02] MEDS: LEVOTHYROXINE SOD 0.025 MG TAB PO SCH (06:35)
[2020-01-02] MEDS: ENOXAPARIN 40 MG/0.4 ML SQ SCH (06:35)
[2020-01-02] MEDS: PANTOPRAZOLE 40MG TABLET PO SCH (06:35)
[2020-01-02] MEDS: LIDOCAINE 4% PATCH TOP SCH (06:45)
[2020-01-02] MEDS: FE SULF/FA/VIT B COMP & C TAB PO SCH (08:43)
[2020-01-02] MEDS: TAMSULOSIN 0.4 MG SR CAP PO SCH (08:44)
[2020-01-02] MEDS: NYSTATIN PWDR 100000 UNIT/GM TOP SCH ×2 (08:44→20:18)
[2020-01-02] MEDS: MAGNESIUM OXIDE 400 MG TAB PO SCH ×2 (08:44→20:18)
[2020-01-02] MEDS: GABAPENTIN 300 MG CAP PO SCH ×3 (08:44→20:18)
[2020-01-02] MEDS: FERROUS SULFATE 325 MG TAB PO SCH (08:44)
[2020-01-02] MEDS: cloNIDine HCL 0.1 MG TAB PO SCH ×2 (08:44→20:18)
[2020-01-02] MEDS: BACLOFEN 10 MG TAB PO SCH ×2 (08:44→20:18)
[2020-01-02] MEDS: METOPROLOL TAR 25 MG TAB PO SCH ×2 (08:45→20:18)
[2020-01-02] MEDS: PROMOD 30 ML DOSE PO SCH ×2 (08:45→20:28)
--- NOTE | 2020-01-02 17:59 | R.PN ---
ENCOUNTER DATE AND TIME: 01/02/2020 17:56 (CDT) NAME ALISHA LEE DATE OF : 1960 DATE OF ADMISSION: 12/12/2019 17:53 (CDT) RIGHT FEMUR FRACTUREDISPLACED FRACTURE OF THE NECKINTERTROCHANTERIC FRACTURE OF RIGHT FEMURRIGHT OPEN PERIPROSTHETIC FRACTURE FRACRURE OF CERVIVAL SPINOUS PROCESSRIB FRUACTURECHIEF COMPLAINT: Displaced right femur fracture, cervical spinous process fracture, rib fractures SUBJECTIVE: Pt denied any Shortness of Breath. Pt denied any depression. Patient states that pain is under control. He has three small hematomas on the left biceps likely due to trauma at the time of his accident. He reports muscle spasms around the hematomas. Continue baclofen 5 mg twice daily and magnesium 400 mg t wice daily. Bathing done with minimum assistance. Bed transfers done with moderate assistance. Therapeutic exerc ises done with supervision. WBC 6.0, Hgb 11.8, Plt 534, prealbumin 25.3, Employee Communications Coordinator 0.99. Ambulated 103' with standby assistance using a rolling walker. Self-propelled a wheelchair 750 feet w ith independence. VITAL SIGNS Temperature: 97.62 F SBP/DBP: 145/78 Pulse: 74 Resp: 14 MEDICATION ALLERGIES: No Known Drug Allergies (NKDA) ENVIRONMENTAL ALLERGIES: - Substance Allergies None Known - Other Allergies None Known NURSING: - Shower allowing shower - Skin care per protocol PRECAUTIONS: - Weight Bearing Precaution WBAT right LE ACTIVITIES OOB only with supervision THERAPIES: - Dietary and Nutrition Adequate Nutrition. Nutritional Education. Nutritional Supplements. PHYSICAL EXAM - Gen Alert and awake Lying in bed No apparent distress Oriented to: person, time, and place - Skin No skin breakdown. Mild brusing in the left forehead. - Eyes No abnormalities - ENMT [place] J cervical collar is in place - Neck [place] cervical collar is in place - CVS RRR - Chest No abnormalities - Abd Obese, soft, nontender - GI + bowel sounds Deferred - No abnormalities - Ext Right femur surgical site has good hemostasis. - MSK 3+/5 weakness in right lower extremity - Neuro 3+/5 weakness in right lower extremity - Psych No abnormalities ASSESSMENT: Pt. is a 58 yo Right-handed white male.On 01/02/2020 he was [facility] and under went emergency surgery for RIGHT FEMUR FRACTURE (Major Multiple Fractures) by MAE ROB.Pre-mo rbidly, Pt. was independent/mod-I in Safety Awareness, Social Cognition, Transfers Control, Self-Care , and Communication; and he had good Balance, Sphincter Control, and Endurance.Currently, he has defi cits of Safety Awareness, Balance, Transfers Control, Sphincter Control, Self-Care, Communication, En durance, Locomotion, and Social Cognition.Pt. is now referred to [facility] fo r acute in-patient rehabilitation in order to maximize patient's functional independence in activitie s of daily living, strength, ROM, and mobility.- Rehab Goal Patient has realistic goal of being discharged at assistance level 6-Jose to reside at Home with Pt self. Mr. Lee reports hearing a loud pop from his right hip surgical site when he transferred to a christel ding standing position. He felt pain in the right femur. A new x-ray was not done. An x-ray at this h ospital showed a 4.7 mm separation of the right hip fracture site. The post-op x-ray from [facility] l be obtained for comparison. The orthopedic surgeons in [place] will be contacted as necessary for r ecommendations.MDM/PLAN: - Physical Therapy Decreased range of motion - to improve, our physical therapists will perform initial evaluation of p t's status upon admission and devise an individualized program for increasing patient's Range of [place] on. Gait dysfunction - to improve, our physical therapists will perform initial evaluation of pt's statu s upon admission and devise an individualized program for Gait Training, and Wheel Chair mobility Inability to transfer - to improve, our physical therapists will perform initial evaluation of pt's status upon admission and devise an individualized program for Bed mobility Need for home safety evaluation - to improve, our physical therapists will perform initial evaluatio n of pt's status upon admission and devise an individualized program for Home Evaluation Need in caregiver upon discharge - to improve, our physical therapists will perform initial evaluati on of pt's status upon admission and devise an individualized program for Caregiver Training New precaution - to improve, our physical therapists will perform initial evaluation of pt's status upon admission and devise an individualized program for Patient precaution education Poor balance - to improve, our physical therapists will perform initial evaluation of pt's status up on admission and devise an individualized program for Balance Training Poor endurance - to improve, our physical therapists will perform initial evaluation of pt's status upon admission and devise an individualized program for Endurance Training Weakness - to improve, our physical therapists will perform initial evaluation of pt's status upon a dmission and devise an individualized program for Aquatic Therapy, Neuromuscular Reeducation, and Str engthening Achieving independence - to improve, our physical therapists will perform initial evaluation of pt's status upon admission and devise an individualized program for Community Reintegration Activities - Occupational Therapy ADL deficits - to improve, our occupation therapists will perform initial evaluation of pt's status upon admission and devise an individualized program for Bathing, Bed mobility, Community Reintegratio n, Cooking, Dressing, Eating, Fine Motor Skills, Grooming, Homemaking, Kitchen Mobility, Laundry, Pat ient Education, Safety Awareness, Splinting - Positioning, Transfers(Toilet, Tub, Shower), and Wheel Chair Management Cognitive deficits - to improve, our occupation therapists will perform initial evaluation of pt's s tatus upon admission and devise an individualized program for Cognition - orientation Need for skin care instructor - to improve, our occupation therapists will perform initial evaluation of pt's status upon admission and devise an individualized program for Caregiver Training Weakness - to improve, our occupation therapists will perform initial evaluation of pt's status upon admission and devise an individualized program for Aquatic Therapy, Balance, Endurance, UE ROM, and UE strengthening - Other See attached MAR (Medication Administration Record) - Diet Type Continue Regular - Diet - Liquid Texture Continue Regular - Tube Feed Continue N/A - Weight Bearing Precaution WBAT right LE - Skin care per protocol - Diet - Solid Texture Continue Regular - Shower allowing shower FUNCTIONAL STATUS: UPDATED AT WEEKLY TEAM CONFERENCE - Bladder Same accident frequency: 7-Ind - No accidents in the past 7 days - Bowel Same accident frequency: 7-Ind - No accidents in the past 7 days - Walking Same score based on distance walked: 0(N/A) - Wheelchair Same score based on distance traveled: 0(N/A) FUNCTIONAL STATUS: - Self-Care A. Eating Ind B. Grooming Ind C. Bathing modA D. Dressing - Upper modA E. Dressing - Lower modA F. Toileting modA - Sphincter Control G. Bladder control modA H. Bowel control modA - Transfers Control I. Bed/Chair/Wheelchair Jose J. Toilet modA K. Tub/Shower maxA - Locomotion L. Walk/Wheelchair (B) maxA M. Stairs ADNO - Communication N. Comprehension (B) Jose O. Expression (B) Jose - Social Cognition P. Social Interaction Jose Q. Problem Solving sup R. Memory Jose - Endurance Fair - Balance Fair - Safety Awareness Fair QI SCORES: - Self-Care A. Eating 03-Partial/moderate assistance B. Oral hygiene 03-Partial/moderate assistance C. Toileting hygiene 02-Substantial/maximal assistance E. Shower/bathe self 02-Substantial/maximal assistance F. Upper body dressing 03-Partial/moderate assistance G. Lower body dressing 02-Substantial/maximal assistance H. Putting on/taking off footwear 88-Not attempted due to medical condition or safety concerns - Mobility A. Roll left and right 03-Partial/moderate assistance B. Sit to lying 03-Partial/moderate assistance C. Lying to sitting on side of bed 03-Partial/moderate assistance D. Sit to stand 02-Substantial/maximal assistance E. Chair/[id number] transfer 02-Substantial/maximal assistance F. Toilet transfer 02-Substantial/maximal assistance G. Car transfer 88-Not attempted due to medical condition or safety concerns I. Walk 10 feet 88-Not attempted due to medical condition or safety concerns J. Walk 50 feet with two turns 88-Not attempted due to medical condition or safety concerns K. Walk 150 feet 88-Not attempted due to medical condition or safety concerns L. Walking 10 feet on uneven surfaces 88-Not attempted due to medical condition or safety concerns M. 1 step (curb) 88-Not attempted due to medical condition or safety concerns N. 4 steps 88-Not attempted due to medical condition or safety concerns O. 12 steps 88-Not attempted due to medical condition or safety concerns P. Picking up object 03-Partial/moderate assistance R. Wheel 50 feet with two turns 88-Not attempted due to medical condition or safety concerns S. Wheel 150 feet 88-Not attempted due to medical condition or safety concerns - Bladder and Bowel Bladder continence 0-Always continent Bowel continence 0-Always continent - Endurance Fair - Balance Fair - Safety Awareness Fair CURRENT FUNC. DEFICITS: Self-Care, Mobility, Endurance, Balance, and Safety Awareness SIGNATURE PANEL: (CDT)
[2020-01-02] MEDS: DOCUSATE NA/SENNA CONC 1 TAB PO PRN (20:18)
[2020-01-02] MEDS: ACETAMINOPHEN 500 MG TAB PO PRN (20:27)
[2020-01-03] MEDS: PANTOPRAZOLE 40MG TABLET PO SCH (06:25)
[2020-01-03] MEDS: LEVOTHYROXINE SOD 0.025 MG TAB PO SCH (06:25)
[2020-01-03] MEDS: TRAMADOL HCL 50 MG TAB PO PRN ×3 (06:26→19:24)
[2020-01-03] MEDS: ENOXAPARIN 40 MG/0.4 ML SQ SCH (08:03)
[2020-01-03] MEDS: MAGNESIUM OXIDE 400 MG TAB PO SCH ×2 (08:03→19:23)
[2020-01-03] MEDS: LIDOCAINE 4% PATCH TOP SCH (08:03)
[2020-01-03] MEDS: TAMSULOSIN 0.4 MG SR CAP PO SCH (08:03)
[2020-01-03] MEDS: cloNIDine HCL 0.1 MG TAB PO SCH ×2 (08:04→19:22)
[2020-01-03] MEDS: METOPROLOL TAR 25 MG TAB PO SCH ×2 (08:04→19:22)
[2020-01-03] MEDS: BACLOFEN 10 MG TAB PO SCH ×2 (08:04→19:23)
[2020-01-03] MEDS: FERROUS SULFATE 325 MG TAB PO SCH (08:05)
[2020-01-03] MEDS: FE SULF/FA/VIT B COMP & C TAB PO SCH (08:05)
[2020-01-03] MEDS: GABAPENTIN 300 MG CAP PO SCH ×3 (08:05→21:06)
[2020-01-03] MEDS: PROMOD 30 ML DOSE PO SCH ×2 (08:06→19:22)
[2020-01-03] MEDS: NYSTATIN PWDR 100000 UNIT/GM TOP SCH ×2 (08:07→19:21)
[2020-01-03] MEDS: ACETAMINOPHEN 500 MG TAB PO PRN ×2 (10:55→22:22)
--- NOTE | 2020-01-03 14:59 | FAST ---
ENCOUNTER DATE AND TIME: 01/03/2020 08:00 (CDT) NAME ALISHA LEE DATE OF : 1960 DATE OF ADMISSION: 12/12/2019 17:53 (CDT) PHONE: AGE: 58 N# [id number] GENDER: Male ENCOUNTER PHYSICIAN: Dr. Mauro Mcclellan M.D. ADMISSION DIAGNOSIS: - Orthopaedic Disorders 08 - Major Multiple Fractures (08.4) RIGHT FEMUR FRACTURE. DISPLACED FRACTURE OF THE NECK. INTERTROCHANTERIC FRACTURE OF RIGHT FEMUR. RIGH T OPEN PERIPROSTHETIC FRACTURE . FRACRURE OF CERVIVAL SPINOUS PROCESS. RIB FRUACTURE. EATING: Not assessed/no information CODE: - ORAL HYGIENE: ORAL HYGIENE - STEP 1: Does the patient complete the activity by him/herself with no assistance (physical, verbal/nonverbal cueing, setup/clean-up)? Yes. 1. [id number] ADMISSION PERFORMANCE: Independent CODE: 06 TOILETING HYGIENE: Not assessed/no information CODE: - BATHING: SHOWER/BATHE SELF - STEP 1: Does the patient complete the activity by him/herself with no assistance (physical, verbal/nonverbal cueing, setup/clean-up)? No. SHOWER/BATHE SELF - STEP 2: Does the patient need only setup/clean-up assistance from one helper? No. SHOWER/BATHE SELF - STEP 3: Does the patient need only verbal/nonverbal cueing or touching/steadying/contact guard assistance fro m one helper? Yes. 1. [id number] ADMISSION PERFORMANCE: Supervision or touching assistance CODE: 04 DRESSING - UPPER BODY: DRESSING - UPPER BODY - STEP 1: Does the patient complete the activity by him/herself with no assistance (physical, verbal/nonverbal cueing, setup/clean-up)? No. DRESSING - UPPER BODY - STEP 2: Does the patient need only setup/clean-up assistance from one helper? Yes. 1. [id number] ADMISSION PERFORMANCE: Setup or clean-up assistance CODE: 05 DRESSING - LOWER BODY: DRESSING - LOWER BODY - STEP 1: Does the patient complete the activity by him/herself with no assistance (physical, verbal/nonverbal cueing, setup/clean-up)? No. DRESSING - LOWER BODY - STEP 2: Does the patient need only setup/clean-up assistance from one helper? No. DRESSING - LOWER BODY - STEP 3: Does the patient need only verbal/nonverbal cueing or touching/steadying/contact guard assistance fro m one helper? Yes. 1. [id number] ADMISSION PERFORMANCE: Supervision or touching assistance CODE: 04 PUTTING ON/TAKING OFF FOOTWEAR: Not assessed/no information CODE: - DOES THE PATIENT USE A WHEELCHAIR/SCOOTER? CODE: EXPR INDICATE THE TYPE OF WHEELCHAIR/SCOOTER USED: CODE: EXPR INDICATE THE TYPE OF WHEELCHAIR/SCOOTER USED: CODE: EXPR BLADDER AND BOWEL: CODE: EXPR CODE: EXPR SIGNATURE PANEL: The following modified sections: 1. [id number] Admission Performance, 1. [id number] Admission Performance, 1. [id number] Admission Performance, 1. [id number] Admission Performance were [electronically] signed by BRIDGETT Irizarry on WedJan 03 2020 14:59:11 T-0500 (Central Daylight Time)
--- NOTE | 2020-01-03 15:31 | FAST ---
SHIFT START DATE/TIME: 01/03/2020 07:00 (CDT) SHIFT END DATE/TIME: 01/03/2020 19:00 (CDT) NAME ALISHA LEE DATE OF : 1960 DATE OF ADMISSION: 12/12/2019 17:53 (CDT) PHONE: AGE: 58 N# [id number] GENDER: Male ENCOUNTER PHYSICIAN: Dr. Mauro Mcclellan M.D. ADMISSION DIAGNOSIS: - Orthopaedic Disorders 08 - Major Multiple Fractures (08.4) RIGHT FEMUR FRACTURE. DISPLACED FRACTURE OF THE NECK. INTERTROCHANTERIC FRACTURE OF RIGHT FEMUR. RIGH T OPEN PERIPROSTHETIC FRACTURE . FRACRURE OF CERVIVAL SPINOUS PROCESS. RIB FRUACTURE. EATING: EATING - STEP 1: Does the patient complete the activity by him/herself with no assistance (physical, verbal/nonverbal cueing, setup/clean-up)? No. EATING - STEP 2: Does the patient need only setup/clean-up assistance from one helper? Yes. 1. [id number] ADMISSION PERFORMANCE: Setup or clean-up assistance CODE: 05 ORAL HYGIENE: ORAL HYGIENE - STEP 1: Does the patient complete the activity by him/herself with no assistance (physical, verbal/nonverbal cueing, setup/clean-up)? No. ORAL HYGIENE - STEP 2: Does the patient need only setup/clean-up assistance from one helper? Yes. 1. [id number] ADMISSION PERFORMANCE: Setup or clean-up assistance CODE: 05 TOILETING HYGIENE: TOILETING HYGIENE - STEP 1: Does the patient complete the activity by him/herself with no assistance (physical, verbal/nonverbal cueing, setup/clean-up)? No. TOILETING HYGIENE - STEP 2: Does the patient need only setup/clean-up assistance from one helper? No. TOILETING HYGIENE - STEP 3: Does the patient need only verbal/nonverbal cueing or touching/steadying/contact guard assistance fro m one helper? Yes. 1. [id number] ADMISSION PERFORMANCE: Supervision or touching assistance CODE: 04 BATHING: Not assessed/no information CODE: - DRESSING - UPPER BODY: DRESSING - UPPER BODY - STEP 1: Does the patient complete the activity by him/herself with no assistance (physical, verbal/nonverbal cueing, setup/clean-up)? No. DRESSING - UPPER BODY - STEP 2: Does the patient need only setup/clean-up assistance from one helper? Yes. 1. [id number] ADMISSION PERFORMANCE: Setup or clean-up assistance CODE: 05 DRESSING - LOWER BODY: DRESSING - LOWER BODY - STEP 1: Does the patient complete the activity by him/herself with no assistance (physical, verbal/nonverbal cueing, setup/clean-up)? No. DRESSING - LOWER BODY - STEP 2: Does the patient need only setup/clean-up assistance from one helper? Yes. 1. [id number] ADMISSION PERFORMANCE: Setup or clean-up assistance CODE: 05 PUTTING ON/TAKING OFF FOOTWEAR: Not attempted due to medical condition or safety concerns CODE: 88 ROLL LEFT AND RIGHT: ROLL LEFT AND RIGHT - STEP 1: Does the patient complete the activity by him/herself with no assistance (physical, verbal/nonverbal cueing, setup/clean-up)? No. ROLL LEFT AND RIGHT - STEP 2: Does the patient need only setup/clean-up assistance from one helper? Yes. 1. [id number] ADMISSION PERFORMANCE: Setup or clean-up assistance CODE: 05 SIT TO LYING: SIT TO LYING - STEP 1: Does the patient complete the activity by him/herself with no assistance (physical, verbal/nonverbal cueing, setup/clean-up)? No. SIT TO LYING - STEP 2: Does the patient need only setup/clean-up assistance from one helper? Yes. 1. [id number] ADMISSION PERFORMANCE: Setup or clean-up assistance CODE: 05 LYING TO SITTING: LYING TO SITTING ON SIDE OF BED - STEP 1: Does the patient complete the activity by him/herself with no assistance (physical, verbal/nonverbal cueing, setup/clean-up)? No. LYING TO SITTING ON SIDE OF BED - STEP 2: Does the patient need only setup/clean-up assistance from one helper? Yes. 1. [id number] ADMISSION PERFORMANCE: Setup or clean-up assistance CODE: 05 SIT TO STAND: SIT TO STAND - STEP 1: Does the patient complete the activity by him/herself with no assistance (physical, verbal/nonverbal cueing, setup/clean-up)? No. SIT TO STAND - STEP 2: Does the patient need only setup/clean-up assistance from one helper? Yes. 1. [id number] ADMISSION PERFORMANCE: Setup or clean-up assistance CODE: 05 TRANSFERS: BED, CHAIR: CHAIR/[id number] TRANSFER - STEP 1: Does the patient complete the activity by him/herself with no assistance (physical, verbal/nonverbal cueing, setup/clean-up)? No. CHAIR/[id number] TRANSFER - STEP 2: Does the patient need only setup/clean-up assistance from one helper? Yes. 1. [id number] ADMISSION PERFORMANCE: Setup or clean-up assistance CODE: 05 TRANSFER TOILET: TOILET TRANSFER - STEP 1: Does the patient complete the activity by him/herself with no assistance (physical, verbal/nonverbal cueing, setup/clean-up)? No. TOILET TRANSFER - STEP 2: Does the patient need only setup/clean-up assistance from one helper? Yes. 1. [id number] ADMISSION PERFORMANCE: Setup or clean-up assistance CODE: 05 TRANSFERS: CAR: Not assessed/no information CODE: - WALK 10 FEET: Not assessed/no information CODE: - 1 STEP (CURB): Not assessed/no information CODE: - PICKING UP OBJECT: Not assessed/no information CODE: - DOES THE PATIENT USE A WHEELCHAIR/SCOOTER? Q1. DOES THE PATIENT USE A WHEELCHAIR/SCOOTER?: Yes CODE: 1 WHEEL 50 FEET WITH TWO TURNS: WHEEL 50 FEET WITH TWO TURNS - STEP 1: Does the patient complete the activity by him/herself with no assistance (physical, verbal/nonverbal cueing, setup/clean-up)? No. WHEEL 50 FEET WITH TWO TURNS - STEP 2: Does the patient need only setup/clean-up assistance from one helper? Yes. 1. [id number] ADMISSION PERFORMANCE: Setup or clean-up assistance CODE: 05 INDICATE THE TYPE OF WHEELCHAIR/SCOOTER USED: RR1. INDICATE THE TYPE OF WHEELCHAIR/SCOOTER USED.: Manual CODE: 1 WHEEL 150 FEET: WHEEL 150 FEET - STEP 1: Does the patient complete the activity by him/herself with no assistance (physical, verbal/nonverbal cueing, setup/clean-up)? No. WHEEL 150 FEET - STEP 2: Does the patient need only setup/clean-up assistance from one helper? Yes. 1. [id number] ADMISSION PERFORMANCE: Setup or clean-up assistance CODE: 05 INDICATE THE TYPE OF WHEELCHAIR/SCOOTER USED: SS1. INDICATE THE TYPE OF WHEELCHAIR/SCOOTER USED.: Manual CODE: 1 BLADDER AND BOWEL: H350. BLADDER CONTINENCE (3-DAY ASSESSMENT PERIOD): Always continent (no documented incontinence) CODE: 0 H400. BOWEL CONTINENCE (3-DAY ASSESSMENT PERIOD): Always continent CODE: 0 SIGNATURE PANEL: The following modified sections: 1. [id number] Admission Performance, 1. [id number] Admission Performance, 1. [id number] Admission Performance, 1. AL2971a Admission Performance, 1. [id number] Admission Performance, 1. [id number] Admission Performance, 1. [id number] Admission Performance, 1. [id number] Admission Performance , 1. [id number] Admission Performance, 1. [id number] Admission Performance, 1. [id number] Admission Performanc e, 1. LC1416U Admission Performance, Q1. Does the patient use a wheelchair/scooter?, 1. [id number] Admis danielle Performance, RR1. Indicate the type of wheelchair/scooter used., 1. [id number] Admission Performanc e, Code, SS1. Indicate the type of wheelchair/scooter used., H350. Bladder Continence (3-day assessme nt period), H400. Bowel Continence (3-day assessment period) were [electronically] signed by Cathy LuceroNNadya on WedJan 03 2020 15:29:52 GMT-0500 (Central Daylight Time)
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
[2020-01-03] MEDS: MELATONIN 3 MG TABLET PO PRN (21:06)
[2020-01-04] MEDS: TRAMADOL HCL 50 MG TAB PO PRN ×2 (05:42→12:17)
[2020-01-04 06:04] LABS: Absolute Lymphocytes (CBC) 2.2 K/uL (0.7-4.9); Basophils % 0.7 % (0-1.3); Hematocrit 35.4 % (39.6-49.0); Lymphocytes % 33.5 % (15.3-44.8); MPV 7.6 fL (7.6-11.3); RBC Red Blood Cell Count 4.01 M/uL (4.33-5.43)
[2020-01-04 06:09] LABS: Albumin 2.7 g/dL (3.4-5.0); Potassium 4.9 mmol/L (3.5-5.1); Prealbumin 18.6 mg/dL (20-40)
[2020-01-04] MEDS: LEVOTHYROXINE SOD 0.025 MG TAB PO SCH (06:12)
[2020-01-04] MEDS: PANTOPRAZOLE 40MG TABLET PO SCH (06:12)
[2020-01-04] MEDS: ENOXAPARIN 40 MG/0.4 ML SQ SCH (06:12)
[2020-01-04 07:14] VITALS: BP 152/73; TEMP 97.8
[2020-01-04] MEDS: LIDOCAINE 4% PATCH TOP SCH (08:38)
[2020-01-04] MEDS: FE SULF/FA/VIT B COMP & C TAB PO SCH (08:39)
[2020-01-04] MEDS: cloNIDine HCL 0.1 MG TAB PO SCH (08:39)
[2020-01-04] MEDS: TAMSULOSIN 0.4 MG SR CAP PO SCH (08:39)
[2020-01-04] MEDS: GABAPENTIN 300 MG CAP PO SCH (08:39)
[2020-01-04] MEDS: BACLOFEN 10 MG TAB PO SCH (08:40)
[2020-01-04] MEDS: FERROUS SULFATE 325 MG TAB PO SCH (08:40)
[2020-01-04] MEDS: MAGNESIUM OXIDE 400 MG TAB PO SCH (08:40)
[2020-01-04] MEDS: METOPROLOL TAR 25 MG TAB PO SCH (08:40)
[2020-01-04] MEDS: PROMOD 30 ML DOSE PO SCH (08:41)
[2020-01-04] MEDS: NYSTATIN PWDR 100000 UNIT/GM TOP SCH (08:41)
== END 2020-01-04 13:20 | disposition home health service (06) | DRG 561 ==
LOC: 5TH 12-12 17:53
PROVIDERS: ADMIT Psychiatry & Neurology Neurology with Special Qualifications in Child Neurology; ATTEND Psychiatry & Neurology Neurology with Special Qualifications in Child Neurology
DX: S72.141D Displaced intertrochanteric fracture of right femur, subsequent encounter for closed fracture with routine healing (principal); I10 Essential (primary) hypertension; Z98.84 Bariatric surgery status; Z20.828 Contact with and (suspected) exposure to other viral communicable diseases; Z60.2 Problems related to living alone
CPT/HCPCS: 36415; 71045; 71046; 80048; 81001; 82040; 83605; 83735; 84134; 84145; 85025; 87040; 87077; 87086; 87088; 87186; 87205; 93971; 97110; 97112; 97116; 97124; 97161; 97530; 97542; J1650; U0002

== ENCOUNTER 2021-12-13 14:03 | Inpatient (IN) | payer OTHER ==
--- NOTE | 2021-12-15 10:26 | R.PREADM ---
PRE-ADMISSION SCREENING FORM SCREENING DATE AND TIME 12/15/2021 16:06 (CDT) ANTICIPATED REHAB ADMISSION DATE 12/15/2021 REFERRING FACILITY [facility] REFERRAL DATE AND TIME 12/11/2021 16:06 (CDT) ACUTE ADMIT DATE 12/06/2021 Previous Rehabilitation(s): No. 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 Mauro Mcclellan M.D. MR# [id number] NAME ALISHA LEE ADDRESS [address] [place] [address] [address] [phone] DATE OF 1960 AGE 60 SSN# [id number] GENDER male MARITAL STATUS RACE unknown race PREF. LANGUAGE (IF NON-COSTA RICAN) Malay ADMIT FROM 02 - [facility] PRE-HOSPITAL LIVING SETTING 01 - Home (private home/apt. board/care, assisted living, residential, transitional living) HOME TYPE AND DETAILS Type of home: single family house # of levels in the residence: 1 # of steps within the residence: 0 # of steps to enter the residence: 0 PRE-HOSPITAL LIVING WITH Alone FAMILY SUPPORT Yes PRIMARY FAMILY CONTACT NAME Yonas Lee PRIMARY FAMILY CONTACT PHONE PHONE PRIMARY FAMILY CONTACT ON ADM.? no IS PRIMARY FAMILY CONTACT AUTH. REP.? no 1ST EMERGENCY CONTACT Yonas Lee 1ST CONTACT PHONE PHONE 1ST CONTACT ON ADM. no IS 1ST CONTACT AUTH. REP.? no PHONE 2ND CONTACT ON ADM.? 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 No ANOTHER [employer] RESPONSIBLE? No PRIMARY REHAB/ACUTE DIAGNOSIS: Sepsis MSSA bacteremia ONSET DATE 12/06/2021 REHAB IMPAIRMENT CATEGORY (SIRISHA): 20 Miscellaneous (Misc) does NOT meet 60% rule PRIMARY DIAGNOSIS-RELATED SURGERIES: R flank hernia repair w prolene mesh,drain placement (11/24/21) readmitted w TONY/sepsis and R flank abscess s/p IR drain (12/06/21) TTE: LVEF 55-60%, RV systolic function depressed (12/07/21) Extreme obesity, BMI 54. COMORBID REHAB/ACUTE DIAGNOSES: - Tier 3 Morbid (severe) obesity due to excess calories (E66.01) Sepsis, unspecified organism (A41.9) INTERVENTIONS: - Sepsis Monitor pt v/s regularly Monitor for increased s/s infection Administer antibiotics as indicated Manage and maintain pt PICC line - Afib Administer prescribed anticoagulants and monitor effectiveness Monitor pt cardiac and respiratory status regularly Vitals will be monitored regularly and IV medications administered as indicated by Physician Marianela pt labs - LE Edema Monitor respiratory/cardiac status Gentle diuresis per MD order - Hypertension Provide comfort measures Promote regular physical activity Monitor patient B/P regularly Implement healthy diet Administer medications indicated by physician and monitor for effectiveness. - Pain Administer prescribed pain medications Anticipate the need for pain medication for optimal pain managment Educate pt on relaxation techniques and deep breathing Monitor for headaches Non pharmacological pain management - Hypothyroidism Administer medications as indicated Daily weights Implement proper diet RISK FOR COMPLICATIONS: - DVT Active and Passive ROM exercises Assist patient with frequent position changes Elevate BLE - Skin Breakdown Encourage ambulation as tolerated Repositioning q 2 hours Use of pillows or foam wedges while in bed - Seizure Administer prescribed medications Administer prescribed medications and supplemental O2 Identify risk factors Provide safety measures - Pain Anticipate the need for pain medication for optimal pain managment Administer prescribed pain medication as needed Educate patient on relaxation and deep breathing techniques Assist patient with frequent position changes at least every 2 hours - Falls Maintain call light within patient reach for easy access to nursing assistance Provide assistance getting out of bed and with ambulation Provide assistive devices - Stroke Monitor and maintain patient pain level Monitor patient blood pressure - Fluid Overload Administer prescribed diuretics - Bleeding Maintain pt safety Monitor pt for injury - Infection Monitor pt v/s Assess pt response to antibiotics Assess for s/s of infection SUMMARY OF ACUTE HOSPITALIZATION: Pt. is a 60 yo male of unknown race. On 12/06/2021 he was admitted to [facility] with diagnosis Sepsis MSSA bacteremia. His impairment category is Medically Complex Conditions 17 - Infections (17.1). Pre-morbidly, Pt. was independent/mod-I in Locomotion, Safety Awareness, Social Cognition, and Balanc e; and he had good Transfers Control, Sphincter Control, Self-Care, Communication, and Endurance. Currently, he has deficits of Locomotion, Safety Awareness, Social Cognition, Balance, Transfers Cont rol, Sphincter Control, Self-Care, Communication, and Endurance. Pt. is now referred to [facility] for acute in-patient rehabilitation in order to maximize patient's functional independence in activities of daily living, strength, ROM, and mobi lity. Patient has realistic goal of being discharged at assistance level 7-Ind to reside at Home with Pt s elf. Pt is 60 yo male with PMH of HTN, hypothyroidism, CHF, Afib, gastric sleeve, prior traumatic flank hernia repair (2019) with reoccurrence s/p repair 11/24/21 who presented to the ER 12/06 with increased flank pain. Pt noted with new purulence from surgical JABARI drain and decreased urine output and found to have leukocytosis 18.4, TONY with Cr 4 from baseline 1.[address] showing a 13.5 x16.3 x 8cm fluid collection with gas in the R posterior abdominal wall surgical site infection s/p drain placed 12/06. Wound and blood cultures were positive for MSSA and pigtail cath was inserted by IR. Case is complicated by Afib with RVR. PICC line placed 12/09/21 for antibiotic therapy. Per PT, pt demonstrates fair progress with functional mobility. Pt requires Min-Mod A x2 persons for transfers. PT indicates pt requires Mod A for bed mobility as well. Pt using rollator to take turning steps to WC, WC mobility 220ft with BLE for pushing. Barriers are BLE weakness/instability and body habitus. Pt noted with decrease in balance, strength, transfers, ambulation, functional mobility, activity tolerance and safety. Due to the decline in the patients condition he is not currently safe to remain in his current living arrangement due to reductions in balance, strength, endurance, and an inability to independently perform the necessary activities of daily living and self-care required. Pt is at risk for skin breakdown, DVT, pain, falls, stroke and infection. Our goal is for the patient to become stronger in order for him to safely return home and live independently. Patient would most directly benefit from aggressive 3 hours of daily therapy split between physical therapy and occupational therapy as well as speech therapy if warranted in the acute inpatient rehab setting.He is medically stable with relatively stable labs. He will require 24 hour nursing, doctor supervision SPT) due to his current medical condition and PHM. The patient is reasonably expected to participate in 3 hours of therapy a day/15 hours per week and receive care with an intensive interdisciplinary approach. COVID-19 screening performed; Patient denies new onset of fever, cough, difficulty breathing, sore throat, body aches and non-allergy nasal congestion in the past 24 hours. Patient denies travel outside of [place] in the past 14 days. Patient denies any contact with someone who has a confirmed diagnosis of or is under investigation for COVID-19 in the past 14 days. PAST MEDICAL HISTORY Morbid (severe) obesity due to excess calories (E66.01) Sepsis, unspecified organism (A41.9) CHF AFIB HTN HYPOTHYRODISM CHRONIC BACK PAIN PAST SURGICAL HISTORY: GASTRIC SLEEVE 2012 PROIR TRAUMATIC FLANK HERNIA REPAIR 2019 JABARI DRAIN MEDICATION ALLERGIES: No Known Drug Allergies (NKDA) ENVIRONMENTAL ALLERGIES: - Substance Allergies None Known - Other Allergies None Known CODE STATUS: Not Available WEIGHT/HEIGHT/BMI: WEIGHT 403 lbs HEIGHT 6' 0" BMI 54.7 DIET: - Diet Type Regular - Diet - Solid Texture Regular - Diet - Liquid Texture Regular - Tube Feed N/A SKIN DIAGRAM: on Abdomen; extent - small; stage - NS(Not Stageable). Treatment - . REVIEW OF SYSTEMS: - Gen Alert and awake Lying in bed No apparent distress Oriented to: person, time, and place - Vital Signs Temperature: 98.2 F SBP/DBP: 118/82 Pulse: 94 Resp: 16 Vital signs stable, afebrile - CVS RRR VITAL SIGNS Temperature: 98.2 F SBP/DBP: 118/82 Pulse: 94 Resp: 16 Vital signs stable, afebrile MEDICATIONS/TREATMENT: Other- See attached MAR (Medication Administration Record). CURRENT SPHINCTER CONTROL: Pre-hospital bladder status: unspecified # of bladder accidents in the last 7 days prior to screenin Pre-hospital bowel status: unspecified # of bowel accidents in the last 7 days prior to screenin Last Bowel Movement Date: 12/14/2021 CURRENT LOCOMOTION STATUS: distance walked 3-4 feet with rollator DETAILED CURRENT FUNCTIONAL STATUS: - Bladder accident frequency: 7-Ind - No accidents in the past 7 days - Bowel accident frequency: 7-Ind - No accidents in the past 7 days - Walking score based on distance walked: 0(N/A) score based on distance walked: 1(<=50ft) - Wheelchair score based on distance traveled: 0(N/A) QI SCORES: - Self-Care A. Eating 03-Partial/moderate assistance B. Oral hygiene 03-Partial/moderate assistance C. Toileting hygiene 03-Partial/moderate assistance E. Shower/bathe self 03-Partial/moderate assistance F. Upper body dressing 03-Partial/moderate assistance G. Lower body dressing 03-Partial/moderate assistance H. Putting on/taking off footwear 88-Not attempted due to medical condition or safety concerns - Mobility A. Roll left and right 03-Partial/moderate assistance B. Sit to lying 03-Partial/moderate assistance C. Lying to sitting on side of bed 03-Partial/moderate assistance D. Sit to stand 03-Partial/moderate assistance E. Chair/[id number] transfer 03-Partial/moderate assistance F. Toilet transfer 03-Partial/moderate assistance G. Car transfer 88-Not attempted due to medical condition or safety concerns I. Walk 10 feet 03-Partial/moderate assistance J. Walk 50 feet with two turns 88-Not attempted due to medical condition or safety concerns K. Walk 150 feet 88-Not attempted due to medical condition or safety concerns L. Walking 10 feet on uneven surfaces 88-Not attempted due to medical condition or safety concerns M. 1 step (curb) 88-Not attempted due to medical condition or safety concerns N. 4 steps 88-Not attempted due to medical condition or safety concerns O. 12 steps 88-Not attempted due to medical condition or safety concerns P. Picking up object 88-Not attempted due to medical condition or safety concerns R. Wheel 50 feet with two turns 88-Not attempted due to medical condition or safety concerns S. Wheel 150 feet 88-Not attempted due to medical condition or safety concerns - Bladder and Bowel Bladder continence Bowel continence - Endurance Fair - Balance Fair - Safety Awareness Fair CURRENT FUNC. DEFICITS: Self-Care, Mobility, Endurance, Balance, and Safety Awareness CURRENT / PREVIOUS ASSISTIVE DEVICES: Rolling Walker HISTORY OF FALLS. HAS THE PATIENT HAD TWO OR MORE FALLS IN THE PAST YEAR OR ANY FALL WITH INJURY IN T HE PAST YEAR?: Yes PRIOR SURGERY. DID THE PATIENT HAVE MAJOR SURGERY DURING THE 100 DAYS PRIOR TO ADMISSION?: Yes THERAPY NOTES FROM ACUTE CARE: Attached. SPECIAL NEEDS: - Safety Concerns Skin breakdown precautions needed due to skin breakdown risk PRECAUTIONS: - Fall Precaution SAFTY AND FALL PATIENT NEEDS ACTIVE AND ONGOING THERAPEUTIC INTERVENTION OF MULTIPLE THERAPY DISCIPLINES, INCLUDING: - Dietary and Nutrition Adequate Nutrition. Nutritional Education. Nutritional Supplements. Evaluate and Treat. - Occupational Therapy Cognitive Retraining. Patient needs Occupational Therapy for a daily minimum of 1.5 hours at least 5 out of 7 days, to improve Activities of Daily Living, including: Eating, Grooming, Bathing, Dressing, Toileting, Toilet Transfers, Community Reintegration, Higher functional activities, Adaptive Equipme nt, Splinting, Household Tasks, and Other activities as determined. Visual Perceptual Training. Evalu ate and Treat. Safety Awareness. Patient/Family Education. Household Tasks. Transfer Training. ADL Tr aining. - Speech Therapy Cognitive Training. Expressive Language Skills. Memory Strategies. Patient needs Speech Therapy for a daily minimum of 1.5 hours at least 5 out of 7 days, to improve: Swallowing, Cognition, Language Ski lls, and Compensatory Strategies. Receptive Language Skills. Speech Intelligibility Training. Evaluat e and Treat. - Physical Therapy Patient needs Physical Therapy for a daily minimum of 1.5 hours at least 5 out of 7 days, to improve: Mobility, Strengthening, Transfers, Stretching, ROM, Endurance, Ability to manage stairs, Gait, and Balance. Balance Training. Evaluate and Treat. Patient/Family Education. Transfer Training. Safety Aw areness. Gait Training. PATIENT NEEDS CLOSE MEDICAL SUPERVISION BY A REHABILITATION PHYSICIAN FOR: Coordination of Treatment Team Medical and Co-Morbidity Management Wound Care PATIENT REQUIRES 24X7 REHAB NURSING FOR MEDICAL AND FUNCTIONAL MGT. OF THE FOLLOWING DEFICITS: Disease Management Medication Management Patient requires 24x7 Rehabilitation Nursing for: Pain Issues, Identifying and preventing risk factor s, Monitoring and reporting current medical conditions, Assisting with ambulation and transfer, Xiomy ting with all ADL-s, Teaching patients about disease process and medications, Family teaching, Provid ing safe environment, Bowel and Bladder Issues, Skin Integrity, and Medication Management Patient/Family Education Providing Safe Environment Skin Integrity PATIENT REQUIRES INTENSIVE, COORDINATED INTERDISCIPLINARY APPROACH TO REHAB: Arranging Home Equipment/Services Discharge Planning Family Intervention/Training Patient needs Dietary and Nutrition Services for: Adequate Nutrition, Nutritional Supplements, and Nu tritional Education Patient needs Can Filling And Closing Machine Tender and/or Case Management for: Discharge Planning, Arranging Home Equipmen t or Services, and Family Interventions Can Filling And Closing Machine Tender/Case Management PATIENT REHAB POTENTIAL: Merlyn LEE is able and expected to receive 3 hours of individualized therapy daily on at least 5 of e very 7 days Merlyn LEE's prognosis for significant practical improvement within a reasonable period of time appea rs Good Expected level of measurable improvement will be of a practical value to Merlyn LEE's functional capa city or adaptations to impairments Has a viable Discharge Plan Medically appropriate; condition is sufficiently stable to participate in intensive rehab program DISCHARGE PLAN: - Estimated Length of Stay (days) 13. - Consensus on plan Discharge plan has been discussed with primary caregiver. Patient/Family is in agreement with the julissa n. Primary caregiver is in agreement with the plan. - Patient/Family Goals Return home independently. - Planned Living Setting Upon Discharge Home, to live alone. Transitional Living. Primary caregiver: Pt self. RECOMMENDED CARE LEVEL: IRF RECOMMENDATION DETAILS: Recommended Admission to Comprehensive Rehabilitation Program to Increase Functional Brooks SCREENER'S COMPLETENESS CONFIRMATION: - Screening Confirmation The patient data collection on this preadmission screening form is finished PHYSICIANS REVIEW AND ADMISSION DETERMINATION Admit - Based on my review of the Pre-Admission Screening results, in my medical judgment and experie nce, I concur with the findings and recommend admission to [facility], as this patient requires an IRF level of care. SIGNATURE PANEL: Puppet Developer - [electronically] signed by Krystle Fonseca on 12/15/2021 at 09:25 (CDT) Puppet Developer - [electronically] signed by Jose Hooper PT on 12/15/2021 at 10:05 (CDT) Physician Reviewer - [electronically] signed by Dr. Mauro Mcclellan M.D. on 12/15/2021 at 10:25 (CDT )
--- OUTSIDE RECORDS SUMMARY | 2021-12-15 14:47 | XMS REPORT | Continuity of Care Document ---
:1960 Author Organization [facility] t Address [address] [place] [address] Care Team Providers Name Role Phone Reyes Escobedo DO Primary Care Physician Darlene Escobedo Attending Clinician Unavailable WALESKA GAMEZ Attending Clinician Unavailable RISA Attending Clinician Unavailable RADHA Attending Clinician Unavailable Cedrick Bermeo Attending Clinician PARAS BHATT Attending Clinician Unavailable PARAS BHATT Attending Clinician Unavailable MESFIN Attending Clinician Unavailable NATASHA Attending Clinician Unavailable JIM Attending Clinician Unavailable IMELDA GAMEZITROKYLIE Admitting Clinician Unavailable YVES GARRISON Admitting Clinician Unavailable PARAS BHATT Admitting Clinician Unavailable Payers Payer Name Policy Type Policy Number Effective Date Expiration Date S polo MEDICARE A B [id number] 2010 00:00:00 Problems Condition Condition Condition Status Onset Resolution Last Treating Co mments Source Name Details Category Date Date Treatment Clinician Date Essential Essential Problem Active [place] (primary) (primary) Phys ici hypertensi hypertensi an s on on Other type Other type Problem Active U T I or II I or II Physici open open ans fracture fracture of distal of distal end of end of right right femur, femur, initial initial encounter encounter Closed Closed Problem Active [facility] nondisplac nondisplac Ph ysici ed ed ans intertroch intertroch anteric anteric fracture fracture of right of right femur, femur, initial initial encounter encounter Allergies, Adverse Reactions, Alerts Allergy Allergy Status Severity Reaction(s) Onset Inactive Treating Comm ents Source Name Type Date Date Clinician Hydrocod Propensi Active Other (See 2019-07 [facility] to Comments) 0-28 pain College adverse 00:00: of reaction 00 Medicin s to e drug HYDROCOD Allergy Active High Other 2019-[address] [facility] HYDROCOD Allergy Active [facility] Hydrocod Propensi Active Other [facility] ty to 12-11 reaction( College adverse 00:00: s): of reaction 00 Nausea/Vo Medic in s to miting e drug NO KNOWN Allergy [facility] Social History Social Habit Start Date Stop Date Quantity Comments Source History [facility] Alcohol Std Drinks of Med icine History [facility] ge Alcohol Binge of Medicine History [facility] Alcohol Comment of Medici ne History of tobacco Cigarette Smoker [facility] use of Medicine Cigarettes smoked 2021-12-04 2021-12-04 [facility] current (pack per 00:00:00 00:00:00 of [employer] day) - Reported Cigarette 2021-12-04 2021-12-04 [facility] pack-years 00:00:00 00:00:00 of Medicine Tobacco use and 2021-12-04 2021-12-04 Smokeless tobacco [facility] exposure 00:00:00 00:00:00 non-user of Medicine Alcohol intake 2021-12-04 2021-12-04 Lifetime [facility] Col lege 00:00:00 00:00:00 non-drinker of Medicine (finding) History [facility] 2021-10-14 2021-10-14 1 [facility] ge Alcohol Frequency 00:00:00 00:00:00 [employer] Sex Ass[birth year] At [birth year] M [facility] Co llege 00:00:00 00:00:00 of Medicine Smoking Status Start Date Stop Date Source Ex-smoker (finding) [facility] Physician s Smokes tobacco daily 2021-12-04 00:00:00 [facility] Medications Ordered Filled Start Stop Current Ordering Indication Dosage Frequency Signature Comments Components Source Medication Medication Date Date Medication? Clinician (SIG) Name Name sulfamethox 2021- Yes 1{tbl} Take 1 [facility] azole-trime 12-04 Tablet by Co salty thoprim 00:00: 04:59 mouth two of (BACTRIM 00 :00 times Medicin DS) 800-160 daily for e MG per 5 days. tablet gabapentin Yes 300mg Take 300 [facility] (NEURONTIN) 3-22 mg by [place] 300 MG 00:00: mouth of capsule 00 daily. Medicin e gabapentin Yes 300mg Take 300 [facility] (NEURONTIN) 3-22 mg by [place] 300 MG 00:00: mouth of capsule 00 daily. Medicin e clonidine Yes .2mg Take 0.2 [facility] (CATAPRESS) 3-09 mg by [place] 0.2 MG 00:00: mouth of tablet 00 daily. Medicin e clonidine Yes .2mg Take 0.2 [facility] (CATAPRESS) 3-09 mg by [place] 0.2 MG 00:00: mouth of tablet 00 daily. Medicin e baclofen Yes 10mg Take 10 mg [place] [facility] (LIORESAL) 3-07 by mouth Colle ge 10 MG 00:00: daily. of tablet 00 Medicin e amlodipine Yes 10mg Take 10 mg [facility] (NORVASC) 3-07 by mouth Colleg e 10 MG 00:00: daily. of tablet 00 Medicin e baclofen 2021-0 Yes 10mg Take 10 mg [place] rachel (LIORESAL) 3-07 by mouth Colle ge 10 MG 00:00: daily. of tablet 00 Medicin e amlodipine 2021-0 Yes 10mg Take 10 mg [facility] (NORVASC) 3-07 by mouth Colleg e 10 MG 00:00: daily. of tablet 00 Medicin e potassium 2022-0 Yes 10meq Take 10 [facility] chloride 2-08 mEq by College (KDUR) 10 00:00: mouth of MEQ tablet 00 daily. Medicin e potassium 2021-0 Yes 10meq Take 10 [facility] chloride 2-08 mEq by College (KDUR) 10 00:00: mouth of MEQ tablet 00 daily. Medicin e carvedilol 2021-0 Yes 25mg Take 25 mg [facility] (COREG) 25 2-07 by mouth Colle ge MG tablet 00:00: daily. of 00 Medicin e hydrochloro 2021-0 Yes 25mg Take 25 mg Stephen thiazide 2-07 by mouth College (HYDRODIURI 00:00: daily. of L) 25 MG 00 Medicin tablet e carvedilol 2021-0 Yes 25mg Take 25 mg [facility] (COREG) 25 2-07 by mouth Colle ge MG tablet 00:00: daily. of 00 Medicin e hydrochloro 2021-0 Yes 25mg Take 25 mg [facility] thiazide 2-07 by mouth College (HYDRODIURI 00:00: daily. of L) 25 MG 00 Medicin tablet e levothyroxi 0 Yes 25ug Take 25 [place] rachel ne 2-06 mcg by [place] (SYNTHROID) 00:00: mouth of 25 MCG 00 daily. Medicin tablet e meloxicam 0 Yes 15mg Take 15 mg [facility] (MOBIC) 15 2-06 by mouth Colle ge MG tablet 00:00: daily. of 00 Medicin e levothyroxi 2021-0 Yes 25ug Take 25 [place] rachel ne 2-06 mcg by College (SYNTHROID) 00:00: mouth of 25 MCG 00 daily. Medicin tablet e meloxicam 2021-0 Yes 15mg Take 15 mg [facility] (MOBIC) 15 2-06 by mouth Colle ge MG tablet 00:00: daily. of 00 Medicin e pantoprazol 0 Yes 40mg Take 40 mg [facility] e 1-10 by mouth College (PROTONIX) 00:00: daily. of 40 MG 00 Medicin tablet e pantoprazol 2021-0 Yes 40mg Take 40 mg [facility] e 1-10 by mouth [place] (PROTONIX) 00:00: daily. of 40 MG 00 Medicin tablet e clonidine 2019-07 Yes TK 1 T PO [place] [facility] (CATAPRESS) 0-19 TID College 0.2 MG 00:00: of tablet 00 Medicin e baclofen 2020- Yes TK 1 T PO [facility] (LIORESAL) 0-19 BID WF OR Starr ege 10 MG 00:00: MILK of tablet 00 Medicin e amlodipine 2020- Yes TK 1 T PO [facility] (NORVASC) 0-19 QHS College 10 MG 00:00: of tablet 00 Medicin e gabapentin 2020-0 Yes TK 1 C PO [facility] (NEURONTIN) 924 BID College 300 MG 00:00: of capsule 00 Medicin e pantoprazol 2020-0 Yes TK 1 T PO [facility] e 9-19 QD College (PROTONIX) 00:00: of 40 MG 00 Medicin tablet e levothyroxi 2019- Yes TK 1 T PO [facility] ne 9-18 QD IN THE [place] (SYNTHROID) 00:00: MORNING of 25 MCG 00 OES Medicin tablet e hydrochloro 2020-0 Yes TK 1 T PO [facility] thiazide 03-12 QD [place] (HYDRODIURI 00:00: of L) 25 MG 00 Medicin tablet e carvedilol 2020-0 Yes [facility] (COREG) 25 03-12 College MG tablet 00:00: of 00 Medicin e losartan 2020-0 2021- No [facility] (COZAAR) 03-12 05-26 College 100 MG 00:00: 00:00 of tablet 00 :00 Medicin e potassium 2020-0 Yes TK 1 T PO [place] [facility] chloride 8-31 QD College (KDUR) 10 00:00: of MEQ tablet 00 Medicin e meloxicam 2019-0 Yes TK 1 T PO [place] [facility] (MOBIC) 15 8-19 QD College MG tablet 00:00: of 00 Medicin e Triamterene Triamterene 2012-07 Yes POYEE TUNG 1 QD TAKE 1 UT -HCTZ -HCTZ 1-14 M.D. TABLET Physici 37.5-25 MG 37.5-25 MG 00:00: DAILY. ans Oral Tablet Oral Tablet 00 cloNIDine cloNIDine Yes 1 Q0.3333D TAKE 1 UT HCl - 0.2 HCl - 0.2 6-16 TABLET 3 P hysici MG Oral MG Oral 00:00: TIMES ans Tablet Tablet 00 DAILY Levothyroxi Levothyroxi Yes TAKE 1 UT ne Sodium ne Sodium 6-16 TABLET BY Physici 50 MCG Oral 50 MCG Oral 00:00: MOUTH ans Tablet Tablet 00 DAILY Lisinopril Lisinopril Yes EBONY PUGA TAKE 1 UT 40 MG Oral 40 MG Oral 5-05 M.D. TABLET BY Physici Tablet Tablet 00:00: MOUTH ans 00 TWICE DAILY Protonix Protonix Yes Jamie 1 tablet C ommon [facility] Immunizations Ordered Immunization Filled Immunization Date Status Commen ts Source Name Name Riox - Riox - 2019-04-18 Completed Common Spiri t multidose vial multidose vial 00:00:00 [facility] Vital Signs Vital Name Observation Time Observation Value Comments Source WEIGHT 2021-12-08 06:00:00 182.97 kg HEIGHT 2021-12-06 04:41:00 182.9 cm WEIGHT 2021-12-06 04:41:00 181.439 kg WEIGHT 2021-12-08 06:00:00 182.97 kg HEIGHT 2021-12-06 04:41:00 182.9 cm WEIGHT 2021-12-06 04:41:00 181.439 kg Systolic blood 2021-12-04 18:58:00 99 mm[Hg] [facility] pressure Medicine Diastolic blood 2021-12-04 18:58:00 46 mm[Hg] [facility] pressure Medicine Heart rate 2021-12-04 18:58:00 72 /min [facility] Body temperature 2021-12-04 18:58:00 36.72 Radha [facility] Body height 2021-12-04 18:58:00 182.9 cm [facility] Body weight 2021-12-04 18:58:00 181.439 kg [facility] BMI 2021-12-04 18:58:00 54.25 kg/m2 [facility] HEIGHT 2021-11-24 08:28:00 182.9 cm WEIGHT 2021-11-24 08:28:00 185.1 kg HEIGHT 2021-11-21 10:36:00 182.9 cm WEIGHT 2021-11-21 10:36:00 181.439 kg HEIGHT 2021-11-24 08:28:00 182.9 cm WEIGHT 2021-11-24 08:28:00 185.1 kg HEIGHT 2021-11-21 10:36:00 182.9 cm WEIGHT 2021-11-21 10:36:00 181.439 kg Systolic blood 2021-10-14 15:37:00 131 mm[Hg] [facility] Medicine Diastolic blood 2021-10-14 15:37:00 92 mm[Hg] [facility] Medicine Heart rate 2021-10-14 15:37:00 104 /min [facility] Body temperature 2021-10-14 15:37:00 36.44 Radha [facility] Respiratory rate 2021-10-14 15:37:00 16 /min [facility] Body height 2021-10-14 15:37:00 182.9 cm [facility] Body weight 2021-10-14 15:37:00 18.597 kg [facility] BMI 2021-10-14 15:37:00 5.56 kg/m2 [facility] HEIGHT 2020-04-25 00:14:00 182.9 cm WEIGHT 2020-04-25 00:14:00 163.29 kg HEIGHT 2020-04-24 13:28:00 182.9 cm WEIGHT 2020-04-24 13:28:00 163.295 kg HEIGHT 2020-04-25 00:14:00 182.9 cm WEIGHT 2020-04-25 00:14:00 163.29 kg HEIGHT 2020-04-24 13:28:00 182.9 cm WEIGHT 2020-04-24 13:28:00 163.295 kg Procedures Procedure Date / Time Performed Performing Clinician Sour e Post Op Promis 29 Survey 2020-01-02 00:00:00 [facility] Plan of Care Planned Activity Planned Date Details Comments Source Future Scheduled 2021-12-04 BMI FOLLOW UP PLAN [facility] Test 14:02:51 [code = BMI FOLLOW UP of Med icine PLAN] Future Scheduled 2021-12-04 Screening for malignant [facility] Test 13:57:17 neoplasm of colon of Medicin e (procedure) [code = 102016069] Future Scheduled 2021-12-04 COVID-19 Vaccine (#1) Ba [facility] Test 13:57:17 [code = COVID-19 of Medicine Vaccine (#1)] Future Scheduled 2021-12-04 Pneumococcal Combined Ba [facility] Test 13:57:17 (1 - PCV) [code = of Medicin e Pneumococcal Combined (1 - PCV)] Future Scheduled 2021-12-04 TETANUS SHOT (ADULT) [place] [facility] Test 13:57:17 [code = TETANUS SHOT of Medi cine (ADULT)] Future Scheduled 2021-12-04 Hepatitis C screening Ba [facility] Test 13:57:17 (procedure) [code = of Medic ine 979508305] Future Scheduled 2021-12-04 Human immunodeficiency B [facility] Test 13:57:17 virus screening of Medicine (procedure) [code = 943430426] Future Scheduled 2021-12-04 ZOSTER VACCINE (1 of 2) [facility] Test 13:57:17 [code = ZOSTER VACCINE of Me dicine (1 of 2)] Future Scheduled 2021-12-04 MEDICARE AWV (Initial) [facility] Test 13:57:17 [code = MEDICARE AWV of Medi cine (Initial)] Future Scheduled 2021-12-04 FLU VACCINE > 6 MONTHS B [facility] Test 13:57:17 [code = FLU VACCINE > 6 of M edicine MONTHS] Diagnostic Test 2021-12-04 CT CHEST ABDOMEN PELVIS Expected: B [facility] Pending 00:00:00 WO CONTRAST [code = 12/04/2021, of Medic ine 74096] Expires: 12/04/2022 Future Scheduled 2021-11-06 Screening for malignant [facility] Test 18:29:43 neoplasm of colon of Medicin e (procedure) [code = 986732513] Future Scheduled 2021-11-06 COVID-19 Vaccine (1) [place] [facility] Test 18:29:43 [code = COVID-19 of Medicine Vaccine (1)] Future Scheduled 2021-11-06 Pneumococcal Combined Ba [facility] Test 18:29:43 (1 of 2 - PPSV23) [code of M edicine = Pneumococcal Combined (1 of 2 - PPSV23)] Future Scheduled 2021-11-06 TETANUS SHOT (ADULT) [place] [facility] Test 18:29:43 [code = TETANUS SHOT of Medi cine (ADULT)] Future Scheduled 2021-11-06 BMI FOLLOW UP PLAN [facility] Test 18:29:43 [code = BMI FOLLOW UP of Med icine PLAN] Future Scheduled 2021-11-06 Hepatitis C screening Ba [facility] Test 18:29:43 (procedure) [code = of Medic ine 900354363] Future Scheduled 2021-11-06 Human immunodeficiency [facility] Test 18:29:43 virus screening of Medicine (procedure) [code = 634788884] Future Scheduled 2021-11-06 MEDICARE AWV (Initial) [facility] Test 18:29:43 [code = MEDICARE AWV of Medi cine (Initial)] Future Scheduled 2021-11-06 ZOSTER VACCINE (1 of 2) [facility] Test 18:29:43 [code = ZOSTER VACCINE of Me dicine (1 of 2)] Future Scheduled 2021-11-06 FLU VACCINE > 6 MONTHS B [facility] Test 18:29:43 [code = FLU VACCINE > 6 of M edicine MONTHS] Encounters Start End Encounter Admission Attending Care Care Encounter Source Date/Time Date/Time Type Type Clinicians Facility Department ID 2021-12-01 Outpatient Escobedo, [facility] Common 11:29:02 Jamie [facility] 2021-11-13 [facility] Common 09:53:00 Jamie [facility] 2021-08-06 Out[facility], [facility] Common 14[facility]30:16 [facility] 2021-08-06 Out[facility], [facility] Common 13:55:13 Jamie [facility] 2021-08-06 Outpatient [facility]edo, [facility] Common 13:53:10 Jamie [facility] 2021-08-06 Outpatient Escobedo, [facility] Common 12:35:34 Jamie [facility] 2021-08-06 Outpatient Escobedo, [facility] [id number] Common 12:34:49 Jamie [id number] [facility] 2021-08-06 Outpatient Escobedo, [facility] [id number] Common 12:29:08 Jamie [id number] [facility] 2021-08-06 Outpatient Escobedo, [facility] [id number] Common 12:07:59 Jamie [id number] [facility] 2021-08-06 Outpatient Escobedo, [facility] [id number] Common 12:07:03 Jamie [id number] [facility] 2021-08-06 Outpatient Escobedo, [facility] [id number] Common 12:05:38 Jamie [id number] [facility] 2021-08-06 Outpatient Escobedo, [facility] [id number] Common 11:55:06 Jamie [id number] [facility] 2021-08-06 Outpatient Escobedo, [facility] [id number] Common 11:30:54 Jamie [id number] [facility] 2021-08-06 Outpatient Escobedo, [facility] [id number] Common 11:17:40 Jamie [id number] [facility] 2021-08-06 Outpatient Escobedo, [facility] [id number] Common 11:00:20 Jamie [id number] [facility] 2021-08-06 Outpatient Escobedo, [facility] [id number] Common 10:58:28 Jamie [id number] [facility] 2021-04-16 Inpatient TONEVA, [facility] Surgery [id number] [facility] 10:44:49 ELBA 2021-12-06 2021-12-15 Inpatient ER RISA, [facility] Emergency [id number] [facility] 04:30:00 13:26:00 DEANNA 2021-12-13 2021-12-13 Outpatient [facility] [id number] [facility] 11:45:00 23:59:00 Colleg e of Medicin e 2021-12-06 2021-12-06 Outpatient [facility] [id number] [facility] 00:00:00 23:59:00 Colleg e of Medicin e 2021-12-05 2021-12-05 ambulatory [facility] [id number] Common 00:00:00 00:00:00 [facility] 2021-12-04 2021-12-04 Office MICHELLE Bee [id number] [place] [address] 13:30:00 13:45:00 Visit Emily Philip AMBULATOR [id number] College Y [id number] of [id number] [facility] 815 e 2021-12-04 2021-12-04 ambulatory [facility] [id number] Common 00:00:00 00:00:00 [facility] 2021-11-27 2021-11-27 ambulatory [facility] [id number] Common 00:00:00 00:00:00 [facility] 2021-11-24 2021-11-26 Inpatient TAYLOR BHATT [facility] Surgery [id number] [facility] 07:40:00 12:03:00 TEN 2021-11-21 2021-11-21 [facility] [id number] [facility] 11:00:45 23:59:00 2021-10-14 2021-10-14 Office MILLER BEAUDarlene [id number] [facility] 10:29:14 13:29:01 Visit TEN AMBULATOR [id number] College Y [id number] of [id number] [facility] 815 e 2021-07-15 2021-07-15 ambulatory [facility] [id number] Common 00:00:00 00:00:00 [facility] 2021-04-07 2021-04-07 Outpatient [facility] [id number] Common 00:00:00 00:00:00 [facility] 2021-03-28 2021-03-28 Outpatient [facility] [id number] Common 00:00:00 00:00:00 [facility] 2020-12-26 2020-12-26 Outpatient [facility] [id number] Common 00:00:00 00:00:00 [facility] 2020-09-10 2020-09-10 Outpatient [facility] [id number] Common 00:00:00 00:00:00 [facility] 2020-09-01 2020-09-01 Outpatient [facility] [id number] Common 00:00:00 00:00:00 [facility] 2020-08-20 2020-08-20 Outpatient [facility] [id number] Common 00:00:00 00:00:00 [facility] 2020-08-20 2020-08-20 Outpatient [facility] [id number] Common 00:00:00 00:00:00 [facility] 2020-06-04 2020-06-04 Outpatient [facility] [id number] Common 00:00:00 00:00:00 [facility] 2020-06-03 2020-06-03 Outpatient [facility] [id number] Common 00:00:00 00:00:00 [facility] 2020-05-30 2020-05-30 AppointDELFINO [facility] [id number] [place] 10:30:00 10:30:00 t; JENY TOURE, Trauma Ph ibeth FERMIN M.D. [facility] Penny [facility] 2020-05-27 2020-05-27 Outpatient [facility] [id number] Common 00:00:00 00:00:00 [facility] 2020-04-30 2020-04-30 Outpatient [facility] [id number] Common 00:00:00 00:00:00 [facility] 2020-04-24 2020-04-24 Emergency ER [facility] [id number] [facility] 13:14:00 13:14:00 2020-04-23 2020-04-23 Outpatient [facility] [id number] Common 00:00:00 00:00:00 [facility] 2020-04-11 2020-04-11 Outpatient [facility] [id number] Common 00:00:00 00:00:00 [facility] 2020-03-29 2020-03-29 Out[facility] [id number] Common 14:46:00 14:46:[address] [facility] 2020-03-29 2020-03-29 Out[facility] [id number] Common 07:03:00 07:03:[address] [facility] 2020-02-29 2020-02-29 Appointmen DELFINO TOURE [facility] [id number] [place] 10:45:00 10:45:00 t; JENY TOURE, Ph Penny Rodriguez MPrincess. 2020-02-05 2020-02-05 [facility] [id number] Common 10:14:00 10:14:[address] [facility] 2020-01-22 2020-01-22 Out[facility] [id number] Common 16:15:00 16:15:[address] [facility] 2020-01-18 2020-01-18 [facility] [id number] [place] 09:00:00 09:00:00 t; JENY TOURE, Penny Rhodes MClaritaDClarita 2019-12-28 2019-12-28 [facility] DELFINO FERNANDEZ UTP [id number] [place] 10:15:00 10:15:00 t; JULIANA SHEIKH [facility] hammad FERNANDEZ APRN 2019-12-06 2019-12-06 [facility] [id number] [place] 10:30:00 10:30:00 t; JENY TOURE, Penny Rhodes MBuzz 2019-12-03 2019-12-03 Appointmen DELFINO TOURE [id number] [place] 12:30:00 12:30:00 t; JENY TOURE, Penny Rhodes M.D. 2019-10-24 2019-10-24 Out[facility] [id number] Common 08:30:00 08:30:[address] [facility] 2019-07-25 2019-07-25 Out[facility] [id number] Common 08:45:00 08:45:[address] [facility] 2019-07-17 2019-07-17 Out[facility] [id number] Common 16:35:00 16:35:[address] [facility] 2019-04-18 2019-04-18 Outpatient [facility] [id number] Common 08:15:00 08:15:[address] [facility] 2019-01-17 2019-01-17 Out[facility] [id number] Common 08:15:00 08:15:[address] [facility] 2018-10-18 2018-10-18 Out[facility] [id number] Common 08:15:00 08:15:[address] [facility] 2018-08-24 2018-08-24 Outpatient [facility] [id number] Common 08:30:00 08:30:[address] [facility] 2018-07-20 2018-07-20 Out[facility] [id number] Common 08:15:00 08:15:[address] [facility] Results Test Description Test Time Test Comments Results Result Comments Source MAGNESIUM 2021-12-15 06:00:00 Test Item Value Reference Range Interpretation Comme nts MAGNESIUM (BEAKER) (test code = 627) 1.8 mg/dL 1.6-2.6 [employer] Coordinator ID - [id number] 06:00:00 Test Item Value Reference Range Interpretation Comments PHOSPHORUS (BEAKER) (test code = 4.1 mg/dL 2.3-4.7 604) [employer] Coordinator ID - DBBASIC METABOLIC [id number] 05:59:59 Test Item Value Reference Range Interpretation Comments SODIUM (BEAKER) 138 meq/L 136-145 (test code = 381) POTASSIUM (BEAKER) 3.7 meq/L 3.5-5.1 (test code = 379) CHLORIDE (BEAKER) 96 meq/L 98-107 L (test code = 382) CO2 (BEAKER) (test 33 meq/L 22-29 H code = 355) BLOOD UREA NITROGEN 10 mg/dL 7-21 (BEAKER) (test code = 354) CREATININE (BEAKER) 0.84 mg/dL 0.57-1.25 (test code = 358) GLUCOSE RANDOM 91 mg/dL 70-105 (BEAKER) (test code = 652) CALCIUM (BEAKER) 8.7 mg/dL 8.4-10.2 (test code = 697) EGFR (BEAKER) (test 94 mL/min/1.73 ESTIMA BUCK GFR IS code = 1092) sq m NOT ACCURATE CREATININE CLEARANCE IN PREDICTING GLOMERULAR FILTRATION RATE . ESTIMATED GFR I S NOT APPLICABLE FOR DIALYSIS PATIEN TS. [employer] Coordinator ID - DBCBC W/PLT COUNT & AUTO [id number] 05:27:40 Test Item Value Reference Range Interpretation Comments WHITE BLOOD CELL COUNT (BEAKER) 12.1 K/ L 3.5-10.5 H (test code = 775) RED BLOOD CELL COUNT (BEAKER) 4.58 M/ L 4.63-6.08 L (test code = 761) HEMOGLOBIN (BEAKER) (test code = 12.4 GM/DL 13.7-17.5 L 410) HEMATOCRIT (BEAKER) (test code = 42.0 % 40.1-51.0 411) MEAN CORPUSCULAR VOLUME (BEAKER) 91.7 fL 79.0-92.2 (test code = 753) MEAN CORPUSCULAR HEMOGLOBIN 27.1 pg 25.7-32.2 (BEAKER) (test code = 751) MEAN CORPUSCULAR HEMOGLOBIN CONC 29.5 GM/DL 32.3-36.5 L (BEAKER) (test code = 752) RED CELL DISTRIBUTION WIDTH 16.9 % 11.6-14.4 H (BEAKER) (test code = 412) PLATELET COUNT (BEAKER) (test 513 K/CU MM 150-450 H code = 756) MEAN PLATELET VOLUME (BEAKER) 8.8 fL 9.4-12.4 L (test code = 754) NUCLEATED RED BLOOD CELLS 0 /100 WBC 0-0 (BEAKER) (test code = 413) NEUTROPHILS RELATIVE PERCENT 69 % (BEAKER) (test code = 429) LYMPHOCYTES RELATIVE PERCENT 15 % (BEAKER) (test code = 430) MONOCYTES RELATIVE PERCENT 11 % (BEAKER) (test code = 431) EOSINOPHILS RELATIVE PERCENT 4 % (BEAKER) (test code = 432) BASOPHILS RELATIVE PERCENT 0 % (BEAKER) (test code = 437) NEUTROPHILS ABSOLUTE COUNT 8.28 K/ L 1.78-5.38 H (BEAKER) (test code = 670) LYMPHOCYTES ABSOLUTE COUNT 1.76 K/ L 1.32-3.57 (BEAKER) (test code = 414) MONOCYTES ABSOLUTE COUNT (BEAKER) 1.27 K/ L 0.30-0.82 H (test code = 415) EOSINOPHILS ABSOLUTE COUNT 0.52 K/ L 0.04-0.54 (BEAKER) (test code = 416) BASOPHILS ABSOLUTE COUNT (BEAKER) 0.05 K/ L 0.01-0.08 (test code = 417) IMMATURE GRANULOCYTES-RELATIVE 2 % 0-1 H PERCENT (BEAKER) (test code = 2801) [id number] 05:17:40 Test Item Value Reference Range Interpretation Comments PHOSPHORUS (BEAKER) (test code = 4.1 mg/dL 2.3-4.7 604) [employer] Coordinator ID - PIAYA LBASIC METABOLIC [id number] 05:17:39 Test Item Value Reference Range Interpretation Comments SODIUM (BEAKER) 143 meq/L 136-145 (test code = 381) POTASSIUM (BEAKER) 4.0 meq/L 3.5-5.1 (test code = 379) CHLORIDE (BEAKER) 103 meq/L 98-107 (test code = 382) CO2 (BEAKER) (test 32 meq/L 22-29 H code = 355) BLOOD UREA NITROGEN 11 mg/dL 7-21 (BEAKER) (test code = 354) CREATININE (BEAKER) 0.81 mg/dL 0.57-1.25 (test code = 358) GLUCOSE RANDOM 92 mg/dL 70-105 (BEAKER) (test code = 652) CALCIUM (BEAKER) 9.0 mg/dL 8.4-10.2 (test code = 697) EGFR (BEAKER) (test 98 mL/min/1.73 ESTIMA BUCK GFR IS code = 1092) sq m NOT ACCURATE CREATININE CLEARANCE IN PREDICTING GLOMERULAR FILTRATION RATE . ESTIMATED GFR I S NOT APPLICABLE FOR DIALYSIS PATIEN TS. [employer] Coordinator ID - GEORGE [id number] 05:17:39 Test Item Value Reference Range Interpretation Comments MAGNESIUM (BEAKER) (test code = 2.0 mg/dL 1.6-2.6 627) [employer] Coordinator ID - GEORGE LCBC W/PLT COUNT & AUTO [id number] 04:53:31 Test Item Value Reference Range Interpretation Comments WHITE BLOOD CELL COUNT (BEAKER) 11.2 K/ L 3.5-10.5 H (test code = 775) RED BLOOD CELL COUNT (BEAKER) 4.51 M/ L 4.63-6.08 L (test code = 761) HEMOGLOBIN (BEAKER) (test code = 12.3 GM/DL 13.7-17.5 L 410) HEMATOCRIT (BEAKER) (test code = 40.6 % 40.1-51.0 411) MEAN CORPUSCULAR VOLUME (BEAKER) 90.0 fL 79.0-92.2 (test code = 753) MEAN CORPUSCULAR HEMOGLOBIN 27.3 pg 25.7-32.2 (BEAKER) (test code = 751) MEAN CORPUSCULAR HEMOGLOBIN CONC 30.3 GM/DL 32.3-36.5 L (BEAKER) (test code = 752) RED CELL DISTRIBUTION WIDTH 16.8 % 11.6-14.4 H (BEAKER) (test code = 412) PLATELET COUNT (BEAKER) (test 551 K/CU MM 150-450 H code = 756) MEAN PLATELET VOLUME (BEAKER) 8.7 fL 9.4-12.4 L (test code = 754) NUCLEATED RED BLOOD CELLS 0 /100 WBC 0-0 (BEAKER) (test code = 413) NEUTROPHILS RELATIVE PERCENT 68 % (BEAKER) (test code = 429) LYMPHOCYTES RELATIVE PERCENT 15 % (BEAKER) (test code = 430) MONOCYTES RELATIVE PERCENT 9 % (BEAKER) (test code = 431) EOSINOPHILS RELATIVE PERCENT 6 % (BEAKER) (test code = 432) BASOPHILS RELATIVE PERCENT 1 % (BEAKER) (test code = 437) NEUTROPHILS ABSOLUTE COUNT 7.55 K/ L 1.78-5.38 H (BEAKER) (test code = 670) LYMPHOCYTES ABSOLUTE COUNT 1.66 K/ L 1.32-3.57 (BEAKER) (test code = 414) MONOCYTES ABSOLUTE COUNT (BEAKER) 1.00 K/ L 0.30-0.82 H (test code = 415) EOSINOPHILS ABSOLUTE COUNT 0.61 K/ L 0.04-0.54 H (BEAKER) (test code = 416) BASOPHILS ABSOLUTE COUNT (BEAKER) 0.07 K/ L 0.01-0.08 (test code = 417) IMMATURE GRANULOCYTES-RELATIVE 2 % 0-1 H PERCENT (BEAKER) (test code = 2801) SARS-COV2/RT-PCR ([facility])2021-12-13 14:19:28 Test Item Value Reference Range Interpretation Comments SARS-COV2/RT-PCR Negative Negative The SARS-Co V-2 target (test code = nucleic acids a re not 6340026) detected in thi s specimen. Negative result s do not preclude SARS-C oV-2 infection and s hould not be used as the ely e basis for patient managem ent decisions. Nega tive results must be combine d with clinical observ ations, patient history , and epidemiological information. A false negativ e result may occur if a spec imen is improperly starr ected, transported or handled. This SARS CoV-2 test is a rapid, real-hayder e RT-PCR test intended for th e qualitative detection of nu cleic acid from SARS-CoV-2 in a nasopharyngeal swab specimen collected from individuals suspected of CO VID-19 by their healthcar e provider. This test has been authorized by FDA under an EUA for use by authorized laboratories. This test is only authorized for the duration of the declaration that circumstances exist justifying the authorization of emergency use of in vitro diagnostic tests for detection and/or diagnosis of COVID-19 under Section 564(b)(1) of the Federal Food, Drug and Cosmetic Act, 21 U.S.C. 360bbb- 3(b)(1), unless the authorization is terminated or revoked sooner. Fact Sheet for Healthcare Providers: https://www.[employer]/Documents/Xpert%20Xpress%20SARS%20CoV-2/Fact%20Sheets/302-3802%20SARS-COV -2%20HEALTHCARE%20PROVIDERS%20FACT%20SHEET.pdf Fact Sheet for Healthcare Patients: https://www.[employer]/Documents/Xpert %20Xpress%20SARS%20CoV-2/Fact%20Sheets/302-3801%96TBTB-HEN-0%20PATIENT%20FACT%20 SHEET.[id number] 08:43:42 Test Item Value Reference Range Interpretation Comments MAGNESIUM (BEAKER) (test code = 2.0 mg/dL 1.6-2.6 627) [employer] Coordinator ID - ANT [id number] 08:43:42 Test Item Value Reference Range Interpretation Comments PHOSPHORUS (BEAKER) (test code = 4.0 mg/dL 2.3-4.7 604) [employer] Coordinator ID - ANT MBASIC METABOLIC [id number] 08:43:41 Test Item Value Reference Range Interpretation Comments SODIUM (BEAKER) 137 meq/L 136-145 (test code = 381) POTASSIUM (BEAKER) 4.3 meq/L 3.5-5.1 (test code = 379) CHLORIDE (BEAKER) 102 meq/L 98-107 (test code = 382) CO2 (BEAKER) (test 28 meq/L 22-29 code = 355) BLOOD UREA NITROGEN 13 mg/dL 7-21 (BEAKER) (test code = 354) CREATININE (BEAKER) 0.78 mg/dL 0.57-1.25 (test code = 358) GLUCOSE RANDOM 96 mg/dL 70-105 (BEAKER) (test code = 652) CALCIUM (BEAKER) 8.4 mg/dL 8.4-10.2 (test code = 697) EGFR (BEAKER) (test 102 mL/min/1.73 ESTIM ATED GFR IS code = 1092) sq m NOT ACCURATE CREATININE CLEARANCE IN PREDICTING GLOMERULAR FILTRATION RATE . ESTIMATED GFR I S NOT APPLICABLE FOR DIALYSIS PATIEN TS. [employer] Coordinator ID - ANT MCBC W/PLT COUNT & AUTO [id number] 08:15:16 Test Item Value Reference Range Interpretation Comments WHITE BLOOD CELL COUNT (BEAKER) 11.2 K/ L 3.5-10.5 H (test code = 775) RED BLOOD CELL COUNT (BEAKER) 4.36 M/ L 4.63-6.08 L (test code = 761) HEMOGLOBIN (BEAKER) (test code = 11.9 GM/DL 13.7-17.5 L 410) HEMATOCRIT (BEAKER) (test code = 39.4 % 40.1-51.0 L 411) MEAN CORPUSCULAR VOLUME (BEAKER) 90.4 fL 79.0-92.2 (test code = 753) MEAN CORPUSCULAR HEMOGLOBIN 27.3 pg 25.7-32.2 (BEAKER) (test code = 751) MEAN CORPUSCULAR HEMOGLOBIN CONC 30.2 GM/DL 32.3-36.5 L (BEAKER) (test code = 752) RED CELL DISTRIBUTION WIDTH 16.8 % 11.6-14.4 H (BEAKER) (test code = 412) PLATELET COUNT (BEAKER) (test 539 K/CU MM 150-450 H code = 756) MEAN PLATELET VOLUME (BEAKER) 8.6 fL 9.4-12.4 L (test code = 754) NUCLEATED RED BLOOD CELLS 0 /100 WBC 0-0 (BEAKER) (test code = 413) NEUTROPHILS RELATIVE PERCENT 68 % (BEAKER) (test code = 429) LYMPHOCYTES RELATIVE PERCENT 15 % (BEAKER) (test code = 430) MONOCYTES RELATIVE PERCENT 8 % (BEAKER) (test code = 431) EOSINOPHILS RELATIVE PERCENT 4 % (BEAKER) (test code = 432) BASOPHILS RELATIVE PERCENT 1 % (BEAKER) (test code = 437) NEUTROPHILS ABSOLUTE COUNT 7.63 K/ L 1.78-5.38 H (BEAKER) (test code = 670) LYMPHOCYTES ABSOLUTE COUNT 1.72 K/ L 1.32-3.57 (BEAKER) (test code = 414) MONOCYTES ABSOLUTE COUNT (BEAKER) 0.84 K/ L 0.30-0.82 H (test code = 415) EOSINOPHILS ABSOLUTE COUNT 0.47 K/ L 0.04-0.54 (BEAKER) (test code = 416) BASOPHILS ABSOLUTE COUNT (BEAKER) 0.07 K/ L 0.01-0.08 (test code = 417) IMMATURE GRANULOCYTES-RELATIVE 4 % 0-1 H PERCENT (BEAKER) (test code = 2801) BLOOD [id number] 08:01:38 Test Item Value Reference Range Interpretation Comments CULTURE (BEAKER) (test No growth in 5 days code = 1095) The specimen volume collected for this blood culture was below the optimum (10 mL per bottle or 20 mL total). Use of lower volumes may adversely affect recovery and/or detection times of some organisms.BLOOD [id number] 08:01:38 Test Item Value Reference Range Interpretation Comments CULTURE (BEAKER) (test No growth in 5 days code = 1095) SARS-COV2/RT-PCR ([facility])2021-12-13 05:35:17 Test Item Value Reference Range Interpretation Comments SARS-COV2/RT-PCR (test Negative Not Detected, Negative, code = 4035757) See external report for linked test SARS-COV-2 PERFORMING LAB [facility] (test code = 7179304) Negative result for this test determines that SARS-CoV-2 RNA was not present in the specimen above the Limit of Detection (LOD). However, Negative results do not preclude SARS-CoV-2 infection and should not be used as the sole basis for treatment or patient management decisions. Negative results mustbe combined with clinical observations, patient history, and epidemiological information. A false negative result may occur if a specimen is improperly collected, transported or handled. A false negative result should be considered if patient's recent exposures or clinical presentation indicate that COVID-19 (SARS-CoV-2) is likely and diagnostic tests for other causes of illness are negative. Re-testing should be considered in cases of suspected false negatives.The limit of detection for this assay is 800 copies/mL.This SARS CoV-2 test is a real-time RT-PCR test intended for the qualitative detection of nucleic acid from SARS-CoV-2 in a nasopharyngeal swab specimen collected from individuals susp ected of COVID-19 by their healthcare provider.This test has not been Food and Drug Administration (FDA) cleared or approved. This is a modified version of an approved Emergency Use Authorization (EUA) and is in the process of review by the FDA. Once authorized by the FDA, the issued EUA will be effective until the declaration that circumstances exist justifying the authorization of the emergency use of in vitro diagnostic tests for detection and/or diagnosis of COVID-19 is terminated under Section 564(b)(2) of the Act or the EUA is revoked under Section 564(g) of the Act.Fact Sheet for Healthcare Providers:https://www.[employer]/sites/default/files/product/documents/Fact_Shejose mcmillanh_QX_Bdqadmhrl_Mhcy_PFFL-AvW-4.pdfFact Sheet for Healthcare Patients:https://www.[employer]/sites/default/files/product/ documents/Nfwx_Otcxn_Exlqvwez_Zizt_BEYR-NlQ-1.pdfPerforming Laboratory:[facility], [place] [id number] 13:10:59 Test Item Value Reference Range Interpretation Comments PARTIAL THROMBOPLASTIN TIME 35.2 seconds 22.5-36.0 (BEAKER) (test code = 760) [id number] 06:01:17 Test Item Value Reference Range Interpretation Comments MAGNESIUM (BEAKER) (test code = 1.9 mg/dL 1.6-2.6 627) [employer] Coordinator ID - [id number] 06:01:17 Test Item Value Reference Range Interpretation Comments PHOSPHORUS (BEAKER) (test code = 4.1 mg/dL 2.3-4.7 604) [employer] Coordinator ID - BSBASIC METABOLIC [id number] 06:01:16 Test Item Value Reference Range Interpretation Comments SODIUM (BEAKER) 139 meq/L 136-145 (test code = 381) POTASSIUM (BEAKER) 4.2 meq/L 3.5-5.1 (test code = 379) CHLORIDE (BEAKER) 104 meq/L 98-107 (test code = 382) CO2 (BEAKER) (test 28 meq/L 22-29 code = 355) BLOOD UREA NITROGEN 13 mg/dL 7-21 (BEAKER) (test code = 354) CREATININE (BEAKER) 0.81 mg/dL 0.57-1.25 (test code = 358) GLUCOSE RANDOM 97 mg/dL 70-105 (BEAKER) (test code = 652) CALCIUM (BEAKER) 8.6 mg/dL 8.4-10.2 (test code = 697) EGFR (BEAKER) (test 98 mL/min/1.73 ESTIMA BUCK GFR IS code = 1092) sq m NOT ACCURATE CREATININE CLEARANCE IN PREDICTING GLOMERULAR FILTRATION RATE . ESTIMATED GFR I S NOT APPLICABLE FOR DIALYSIS PATIEN TS. [employer] Coordinator ID - [id number] 05:23:02 Test Item Value Reference Range Interpretation Comments PARTIAL THROMBOPLASTIN TIME 37.7 seconds 22.5-36.0 H (BEAKER) (test code = 760) CBC W/PLT COUNT & AUTO [id number] 05:14:05 Test Item Value Reference Range Interpretation Comments WHITE BLOOD CELL COUNT (BEAKER) 14.0 K/ L 3.5-10.5 H (test code = 775) RED BLOOD CELL COUNT (BEAKER) 4.49 M/ L 4.63-6.08 L (test code = 761) HEMOGLOBIN (BEAKER) (test code = 12.2 GM/DL 13.7-17.5 L 410) HEMATOCRIT (BEAKER) (test code = 40.0 % 40.1-51.0 L 411) MEAN CORPUSCULAR VOLUME (BEAKER) 89.1 fL 79.0-92.2 (test code = 753) MEAN CORPUSCULAR HEMOGLOBIN 27.2 pg 25.7-32.2 (BEAKER) (test code = 751) MEAN CORPUSCULAR HEMOGLOBIN CONC 30.5 GM/DL 32.3-36.5 L (BEAKER) (test code = 752) RED CELL DISTRIBUTION WIDTH 16.7 % 11.6-14.4 H (BEAKER) (test code = 412) PLATELET COUNT (BEAKER) (test 556 K/CU MM 150-450 H code = 756) MEAN PLATELET VOLUME (BEAKER) 8.7 fL 9.4-12.4 L (test code = 754) NUCLEATED RED BLOOD CELLS 0 /100 WBC 0-0 (BEAKER) (test code = 413) NEUTROPHILS RELATIVE PERCENT 64 % (BEAKER) (test code = 429) LYMPHOCYTES RELATIVE PERCENT 17 % (BEAKER) (test code = 430) MONOCYTES RELATIVE PERCENT 8 % (BEAKER) (test code = 431) EOSINOPHILS RELATIVE PERCENT 5 % (BEAKER) (test code = 432) BASOPHILS RELATIVE PERCENT 1 % (BEAKER) (test code = 437) NEUTROPHILS ABSOLUTE COUNT 8.96 K/ L 1.78-5.38 H (BEAKER) (test code = 670) LYMPHOCYTES ABSOLUTE COUNT 2.35 K/ L 1.32-3.57 (BEAKER) (test code = 414) MONOCYTES ABSOLUTE COUNT (BEAKER) 1.14 K/ L 0.30-0.82 H (test code = 415) EOSINOPHILS ABSOLUTE COUNT 0.66 K/ L 0.04-0.54 H (BEAKER) (test code = 416) BASOPHILS ABSOLUTE COUNT (BEAKER) 0.09 K/ L 0.01-0.08 H (test code = 417) IMMATURE GRANULOCYTES-RELATIVE 5 % 0-1 H PERCENT (BEAKER) (test code = 2801) [id number] 21:19:52 Test Item Value Reference Range Interpretation Comments PARTIAL THROMBOPLASTIN TIME 41.7 seconds 22.5-36.0 H (BEAKER) (test code = 760) [id number] 14:28:16 Test Item Value Reference Range Interpretation Comments PARTIAL THROMBOPLASTIN TIME 34.2 seconds 22.5-36.0 (BEAKER) (test code = 760) [id number] 07:02:11 Test Item Value Reference Range Interpretation Comments MAGNESIUM (BEAKER) (test code = 1.8 mg/dL 1.6-2.6 627) [employer] Coordinator ID - [id number] 07:02:11 Test Item Value Reference Range Interpretation Comments PHOSPHORUS (BEAKER) (test code = 4.1 mg/dL 2.3-4.7 604) [employer] Coordinator ID - BSBASIC METABOLIC [id number] 07:02:10 Test Item Value Reference Range Interpretation Comments SODIUM (BEAKER) 137 meq/L 136-145 (test code = 381) POTASSIUM (BEAKER) 4.2 meq/L 3.5-5.1 (test code = 379) CHLORIDE (BEAKER) 103 meq/L 98-107 (test code = 382) CO2 (BEAKER) (test 27 meq/L 22-29 code = 355) BLOOD UREA NITROGEN 16 mg/dL 7-21 (BEAKER) (test code = 354) CREATININE (BEAKER) 0.82 mg/dL 0.57-1.25 (test code = 358) GLUCOSE RANDOM 114 mg/dL 70-105 H (BEAKER) (test code = 652) CALCIUM (BEAKER) 8.5 mg/dL 8.4-10.2 (test code = 697) EGFR (BEAKER) (test 96 mL/min/1.73 ESTIMA BUCK GFR IS code = 1092) sq m NOT ACCURATE CREATININE CLEARANCE IN PREDICTING GLOMERULAR FILTRATION RATE . ESTIMATED GFR I S NOT APPLICABLE FOR DIALYSIS PATIEN TS. [employer] Coordinator ID - BSCBC W/PLT COUNT & AUTO [id number] 06:45:07 Test Item Value Reference Range Interpretation Comments WHITE BLOOD CELL COUNT (BEAKER) 12.7 K/ L 3.5-10.5 H (test code = 775) RED BLOOD CELL COUNT (BEAKER) 4.55 M/ L 4.63-6.08 L (test code = 761) HEMOGLOBIN (BEAKER) (test code = 12.3 GM/DL 13.7-17.5 L 410) HEMATOCRIT (BEAKER) (test code = 40.9 % 40.1-51.0 411) MEAN CORPUSCULAR VOLUME (BEAKER) 89.9 fL 79.0-92.2 (test code = 753) MEAN CORPUSCULAR HEMOGLOBIN 27.0 pg 25.7-32.2 (BEAKER) (test code = 751) MEAN CORPUSCULAR HEMOGLOBIN CONC 30.1 GM/DL 32.3-36.5 L (BEAKER) (test code = 752) RED CELL DISTRIBUTION WIDTH 16.9 % 11.6-14.4 H (BEAKER) (test code = 412) PLATELET COUNT (BEAKER) (test 588 K/CU MM 150-450 H code = 756) MEAN PLATELET VOLUME (BEAKER) 8.8 fL 9.4-12.4 L (test code = 754) NUCLEATED RED BLOOD CELLS 0 /100 WBC 0-0 (BEAKER) (test code = 413) NEUTROPHILS RELATIVE PERCENT 67 % (BEAKER) (test code = 429) LYMPHOCYTES RELATIVE PERCENT 15 % (BEAKER) (test code = 430) MONOCYTES RELATIVE PERCENT 8 % (BEAKER) (test code = 431) EOSINOPHILS RELATIVE PERCENT 4 % (BEAKER) (test code = 432) BASOPHILS RELATIVE PERCENT 1 % (BEAKER) (test code = 437) NEUTROPHILS ABSOLUTE COUNT 8.47 K/ L 1.78-5.38 H (BEAKER) (test code = 670) LYMPHOCYTES ABSOLUTE COUNT 1.95 K/ L 1.32-3.57 (BEAKER) (test code = 414) MONOCYTES ABSOLUTE COUNT (BEAKER) 1.06 K/ L 0.30-0.82 H (test code = 415) EOSINOPHILS ABSOLUTE COUNT 0.48 K/ L 0.04-0.54 (BEAKER) (test code = 416) BASOPHILS ABSOLUTE COUNT (BEAKER) 0.08 K/ L 0.01-0.08 (test code = 417) IMMATURE GRANULOCYTES-RELATIVE 5 % 0-1 H PERCENT (BEAKER) (test code = 2801) [id number] 05:45:02 Test Item Value Reference Range Interpretation Comments PHOSPHORUS (BEAKER) (test code = 4.1 mg/dL 2.3-4.7 604) [employer] Coordinator ID - GEORGE LBASIC METABOLIC [id number] 05:45:01 Test Item Value Reference Range Interpretation Comments SODIUM (BEAKER) 141 meq/L 136-145 (test code = 381) POTASSIUM (BEAKER) 4.4 meq/L 3.5-5.1 (test code = 379) CHLORIDE (BEAKER) 106 meq/L 98-107 (test code = 382) CO2 (BEAKER) (test 30 meq/L 22-29 H code = 355) BLOOD UREA NITROGEN 23 mg/dL 7-21 H (BEAKER) (test code = 354) CREATININE (BEAKER) 0.83 mg/dL 0.57-1.25 (test code = 358) GLUCOSE RANDOM 92 mg/dL 70-105 (BEAKER) (test code = 652) CALCIUM (BEAKER) 8.9 mg/dL 8.4-10.2 (test code = 697) EGFR (BEAKER) (test 95 mL/min/1.73 ESTIMA BUCK GFR IS code = 1092) sq m NOT ACCURATE CREATININE CLEARANCE IN PREDICTING GLOMERULAR FILTRATION RATE . ESTIMATED GFR I S NOT APPLICABLE FOR DIALYSIS PATIEN TS. [employer] Coordinator ID - GEORGE [id number] 05:45:01 Test Item Value Reference Range Interpretation Comments MAGNESIUM (BEAKER) (test code = 1.9 mg/dL 1.6-2.6 627) [employer] Coordinator ID - GEORGE LCBC W/PLT COUNT & AUTO [id number] 05:34:22 Test Item Value Reference Range Interpretation Comments WHITE BLOOD CELL COUNT (BEAKER) 12.7 K/ L 3.5-10.5 H (test code = 775) RED BLOOD CELL COUNT (BEAKER) 4.38 M/ L 4.63-6.08 L (test code = 761) HEMOGLOBIN (BEAKER) (test code = 12.0 GM/DL 13.7-17.5 L 410) HEMATOCRIT (BEAKER) (test code = 39.2 % 40.1-51.0 L 411) MEAN CORPUSCULAR VOLUME (BEAKER) 89.5 fL 79.0-92.2 (test code = 753) MEAN CORPUSCULAR HEMOGLOBIN 27.4 pg 25.7-32.2 (BEAKER) (test code = 751) MEAN CORPUSCULAR HEMOGLOBIN CONC 30.6 GM/DL 32.3-36.5 L (BEAKER) (test code = 752) RED CELL DISTRIBUTION WIDTH 17.1 % 11.6-14.4 H (BEAKER) (test code = 412) PLATELET COUNT (BEAKER) (test 599 K/CU MM 150-450 H code = 756) MEAN PLATELET VOLUME (BEAKER) 9.3 fL 9.4-12.4 L (test code = 754) NUCLEATED RED BLOOD CELLS 0 /100 WBC 0-0 (BEAKER) (test code = 413) NEUTROPHILS RELATIVE PERCENT 61 % (BEAKER) (test code = 429) LYMPHOCYTES RELATIVE PERCENT 18 % (BEAKER) (test code = 430) MONOCYTES RELATIVE PERCENT 11 % (BEAKER) (test code = 431) EOSINOPHILS RELATIVE PERCENT 3 % (BEAKER) (test code = 432) BASOPHILS RELATIVE PERCENT 1 % (BEAKER) (test code = 437) NEUTROPHILS ABSOLUTE COUNT 7.77 K/ L 1.78-5.38 H (BEAKER) (test code = 670) LYMPHOCYTES ABSOLUTE COUNT 2.29 K/ L 1.32-3.57 (BEAKER) (test code = 414) MONOCYTES ABSOLUTE COUNT (BEAKER) 1.43 K/ L 0.30-0.82 H (test code = 415) EOSINOPHILS ABSOLUTE COUNT 0.43 K/ L 0.04-0.54 (BEAKER) (test code = 416) BASOPHILS ABSOLUTE COUNT (BEAKER) 0.10 K/ L 0.01-0.08 H (test code = 417) IMMATURE GRANULOCYTES-RELATIVE 5 % 0-1 H PERCENT (BEAKER) (test code = 2801) BLOOD [id number] 12:45:16 Test Item Value Reference Range Interpretation Comments CULTURE A From Aerobic An d (BEAKER) (test Anaerobic Bot tles Same code = 1095) organism has be en isolated from cultures(s) of the same body site and collection date . Repeat identification and susceptibility testing performed only after consultation wi th the clinical microb iology laboratory.Refe r to previous cultur e ofStaphylococcu s aureus GRAM STAIN From aerobic and RESULT (BEAKER) anaerobic (test code = bottles: gram 1123) positive cocci in clusters BLOOD [id number] 12:44:00 Test Item Value Reference Interpretation Comments Range CULTURE (BEAKER) STAPHYLOCOCCUS A From Aero bic And (test code = 1095) AUREUS Anaerobic Bottles Staphylococcus aureus Clindamycin (test S code = 10) Erythromycin (test S code = 4) Linezolid (test code S = 40) Nitrofurantoin (test S code = 23) Oxacillin (test code S = 14) Rifampin (test code = S 43) Tetracycline (test S code = 2) Trimethoprim + S Sulfamethoxazole (test code = 47) Vancomycin (test code S = 13) GRAM STAIN RESULT From aerobic and (BEAKER) (test code = anaerobic bottles: 1123) gram positive cocci in clusters WOUND CULTURE + GRAM [id number] 10:19:27 Test Item Value Reference Interpretation Comments Range CULTURE (BEAKER) STAPHYLOCOCCUS A 4+ Staphy lococcus (test code = 1095) AUREUS aureus Clindamycin (test S code = 10) Erythromycin (test S code = 4) Linezolid (test code S = 40) Nitrofurantoin (test S code = 23) Oxacillin (test code S = 14) Rifampin (test code = S 43) Tetracycline (test S code = 2) Trimethoprim + S Sulfamethoxazole (test code = 47) Vancomycin (test code S = 13) GRAM STAIN RESULT 3+ WBCs (BEAKER) (test code = 1123) GRAM STAIN RESULT 2+ gram positive (BEAKER) (test code = cocci in clusters [id number]) HEPATITIS C [id number] 05:36:45 Test Item Value Reference Range Interpretation Comments HEPATITIS C ANTIBODY (BEAKER) Nonreactive Nonreactive (test code = 367) [employer] Coordinator ID - DBHIV-1 ANTIGEN WITH HIV-1/2 [id number] 05:36:45 Test Item Value Reference Range Interpretation Comments HIV-1 ANTIGEN WITH HIV 1\\T\\2 Nonreactive Nonreactive ANTIBODY (2) (BEAKER) (test code = 2586) [employer] Coordinator ID - [id number] 05:17:37 Test Item Value Reference Range Interpretation Comments MAGNESIUM (BEAKER) (test code = 2.0 mg/dL 1.6-2.6 627) [employer] Coordinator ID - GEORGE [id number] 05:17:37 Test Item Value Reference Range Interpretation Comments PHOSPHORUS (BEAKER) (test code = 3.6 mg/dL 2.3-4.7 604) [employer] Coordinator ID - GEORGE LBASIC METABOLIC [id number] 05:17:36 Test Item Value Reference Range Interpretation Comments SODIUM (BEAKER) 143 meq/L 136-145 (test code = 381) POTASSIUM (BEAKER) 4.9 meq/L 3.5-5.1 (test code = 379) CHLORIDE (BEAKER) 107 meq/L 98-107 (test code = 382) CO2 (BEAKER) (test 29 meq/L 22-29 code = 355) BLOOD UREA NITROGEN 31 mg/dL 7-21 H (BEAKER) (test code = 354) CREATININE (BEAKER) 0.94 mg/dL 0.57-1.25 (test code = 358) GLUCOSE RANDOM 102 mg/dL 70-105 (BEAKER) (test code = 652) CALCIUM (BEAKER) 9.4 mg/dL 8.4-10.2 (test code = 697) EGFR (BEAKER) (test 82 mL/min/1.73 ESTIMA BUCK GFR IS code = 1092) sq m NOT ACCURATE CREATININE CLEARANCE IN PREDICTING GLOMERULAR FILTRATION RATE . ESTIMATED GFR I S NOT APPLICABLE FOR DIALYSIS PATIEN TS. [employer] Coordinator ID - GEORGE LCBC W/PLT COUNT & AUTO [id number] 04:59:21 Test Item Value Reference Range Interpretation Comments WHITE BLOOD CELL COUNT (BEAKER) 11.1 K/ L 3.5-10.5 H (test code = 775) RED BLOOD CELL COUNT (BEAKER) 4.67 M/ L 4.63-6.08 (test code = 761) HEMOGLOBIN (BEAKER) (test code = 12.6 GM/DL 13.7-17.5 L 410) HEMATOCRIT (BEAKER) (test code = 40.5 % 40.1-51.0 411) MEAN CORPUSCULAR VOLUME (BEAKER) 86.7 fL 79.0-92.2 (test code = 753) MEAN CORPUSCULAR HEMOGLOBIN 27.0 pg 25.7-32.2 (BEAKER) (test code = 751) MEAN CORPUSCULAR HEMOGLOBIN CONC 31.1 GM/DL 32.3-36.5 L (BEAKER) (test code = 752) RED CELL DISTRIBUTION WIDTH 16.9 % 11.6-14.4 H (BEAKER) (test code = 412) PLATELET COUNT (BEAKER) (test 596 K/CU MM 150-450 H code = 756) MEAN PLATELET VOLUME (BEAKER) 8.7 fL 9.4-12.4 L (test code = 754) NUCLEATED RED BLOOD CELLS 0 /100 WBC 0-0 (BEAKER) (test code = 413) NEUTROPHILS RELATIVE PERCENT 61 % (BEAKER) (test code = 429) LYMPHOCYTES RELATIVE PERCENT 15 % (BEAKER) (test code = 430) MONOCYTES RELATIVE PERCENT 13 % (BEAKER) (test code = 431) EOSINOPHILS RELATIVE PERCENT 5 % (BEAKER) (test code = 432) BASOPHILS RELATIVE PERCENT 1 % (BEAKER) (test code = 437) NEUTROPHILS ABSOLUTE COUNT 6.73 K/ L 1.78-5.38 H (BEAKER) (test code = 670) LYMPHOCYTES ABSOLUTE COUNT 1.68 K/ L 1.32-3.57 (BEAKER) (test code = 414) MONOCYTES ABSOLUTE COUNT (BEAKER) 1.42 K/ L 0.30-0.82 H (test code = 415) EOSINOPHILS ABSOLUTE COUNT 0.57 K/ L 0.04-0.54 H (BEAKER) (test code = 416) BASOPHILS ABSOLUTE COUNT (BEAKER) 0.09 K/ L 0.01-0.08 H (test code = 417) IMMATURE GRANULOCYTES-RELATIVE 5 % 0-1 H PERCENT (BEAKER) (test code = 2801) (CELLAVISION MANUAL DIFF)2021-12-08 07:17:23 Test Item Value Reference Range Interpretation Comments NEUTROPHILS - REL 66 % (CELLAVISION)(BEAKER) (test code = 2816) LYMPHOCYTES - REL 14 % (CELLAVISION)(BEAKER) (test code = 2817) MONOCYTES - REL 14 % (CELLAVISION)(BEAKER) (test code = 2818) EOSINOPHILS - REL 1 % (CELLAVISION)(BEAKER) (test code = 2819) BASOPHILS - REL 1 % (CELLAVISION)(BEAKER) (test code = 2820) BANDS - REL (CELLAVISION)(BEAKER) 1 % 0-10 (test code = 2826) ATYPICAL LYMPHOCYTES - REL 2 % 0-0 H (CELLAVISION)(BEAKER) (test code = 2829) NEUTROPHILS - ABS 7.39 K/ul 1.78-5.38 H (CELLAVISION)(BEAKER) (test code = 2830) LYMPHOCYTES - ABS 1.57 K/ul 1.32-3.57 (CELLAVISION)(BEAKER) (test code = 2831) MONOCYTES - ABS 1.57 K/uL 0.30-0.82 H (CELLAVISION)(BEAKER) (test code = 2832) EOSINOPHILS - ABS 0.11 K/uL 0.04-0.54 (CELLAVISION)(BEAKER) (test code = 2834) BASOPHILS - ABS 0.11 K/uL 0.01-0.08 H (CELLAVISION)(BEAKER) (test code = 2835) BANDS - ABS (CELLAVISION)(BEAKER) 0.11 K/uL 0.00-0.80 (test code = 2840) ATYPICAL LYMPHOCYTES - ABS 0.22 K/uL 0.00-0.00 H (CELLAVISION)(BEAKER) (test code = 3248) TOTAL COUNTED (BEAKER) (test code = 100 1351) PLT MORPHOLOGY (BEAKER) (test code Normal = 486) SMUDGE CELLS (BEAKER) (test code = Present 1371) HYPERSEGMENTATION Present (CELLAVISION)(BEAKER) (test code = 9255) POLYCHROMATOPHILLIC RBCS(BEAKER) 1+ few (test code = 478) POIKILOCYTES (BEAKER) (test code = 1+ few 966) PLATELET CONCENTRATION Increased (CELLAVISION)(BEAKER) (test code = 3438) [employer] Coordinator ID - Patsy OverholtUser comments: Slide comments:CBC W/PLT COUNT & AUTO [id number] 07:17:12 Test Item Value Reference Range Interpretation Comments WHITE BLOOD CELL COUNT (BEAKER) 11.2 K/ L 3.5-10.5 H (test code = 775) RED BLOOD CELL COUNT (BEAKER) 4.37 M/ L 4.63-6.08 L (test code = 761) HEMOGLOBIN (BEAKER) (test code = 11.9 GM/DL 13.7-17.5 L 410) HEMATOCRIT (BEAKER) (test code = 36.9 % 40.1-51.0 L 411) MEAN CORPUSCULAR VOLUME (BEAKER) 84.4 fL 79.0-92.2 (test code = 753) MEAN CORPUSCULAR HEMOGLOBIN 27.2 pg 25.7-32.2 (BEAKER) (test code = 751) MEAN CORPUSCULAR HEMOGLOBIN CONC 32.2 GM/DL 32.3-36.5 L (BEAKER) (test code = 752) RED CELL DISTRIBUTION WIDTH 16.5 % 11.6-14.4 H (BEAKER) (test code = 412) PLATELET COUNT (BEAKER) (test 534 K/CU MM 150-450 H code = 756) MEAN PLATELET VOLUME (BEAKER) 9.0 fL 9.4-12.4 L (test code = 754) NUCLEATED RED BLOOD CELLS 0 /100 WBC 0-0 (BEAKER) (test code = 413) POCT-GLUCOSE [id number] 05:50:00 Test Item Value Reference Range Interpretation Comments POC-GLUCOSE METER 108 mg/dL 70-110 : TESTED A T [facility] [address] (BEAKER) (test code = [place], 1538) [id number]: Crystal Mach[employer] Coordinator/Techni faiza ID = [id number] for Alivia mendietakeelyWade [id number] 04:18:25 Test Item Value Reference Range Interpretation Comments PHOSPHORUS (BEAKER) (test code = 2.7 mg/dL 2.3-4.7 604) [employer] Coordinator ID - ROWENA WBASIC METABOLIC [id number] 04:18:24 Test Item Value Reference Range Interpretation Comments SODIUM (BEAKER) 143 meq/L 136-145 (test code = 381) POTASSIUM (BEAKER) 4.3 meq/L 3.5-5.1 (test code = 379) CHLORIDE (BEAKER) 108 meq/L 98-107 H (test code = 382) CO2 (BEAKER) (test 26 meq/L 22-29 code = 355) BLOOD UREA NITROGEN 39 mg/dL 7-21 H (BEAKER) (test code = 354) CREATININE (BEAKER) 1.26 mg/dL 0.57-1.25 H (test code = 358) GLUCOSE RANDOM 96 mg/dL 70-105 (BEAKER) (test code = 652) CALCIUM (BEAKER) 9.4 mg/dL 8.4-10.2 (test code = 697) EGFR (BEAKER) (test 59 mL/min/1.73 ESTIMA BUCK GFR IS code = 1092) sq m NOT ACCURATE CREATININE CLEARANCE IN PREDICTING GLOMERULAR FILTRATION RATE . ESTIMATED GFR I S NOT APPLICABLE FOR DIALYSIS PATIEN TS. [employer] Coordinator ID - ROWENA [id number] 04:18:24 Test Item Value Reference Range Interpretation Comments MAGNESIUM (BEAKER) (test code = 1.9 mg/dL 1.6-2.6 627) Crystal Mach[employer] Coordinator ID - ROWENA WPOCT-GLUCOSE [id number] 01:43:19 Test Item Value Reference Range Interpretation Comments POC-GLUCOSE METER 102 mg/dL 70-110 : [facility] (BEAKER) (test code = [place], 1538) [address]: Crystal Machining Coordinator/Techni faiza ID = [id number] for Wade More CBC (HEMOGRAM ONLY)2021-12-07 19:05:19 Test Item Value Reference Range Interpretation Comments WHITE BLOOD CELL COUNT (BEAKER) 10.6 K/ L 3.5-10.5 H (test code = 775) RED BLOOD CELL COUNT (BEAKER) 4.45 M/ L 4.63-6.08 L (test code = 761) HEMOGLOBIN (BEAKER) (test code = 12.1 GM/DL 13.7-17.5 L 410) HEMATOCRIT (BEAKER) (test code = 37.7 % 40.1-51.0 L 411) MEAN CORPUSCULAR VOLUME (BEAKER) 84.7 fL 79.0-92.2 (test code = 753) MEAN CORPUSCULAR HEMOGLOBIN 27.2 pg 25.7-32.2 (BEAKER) (test code = 751) MEAN CORPUSCULAR HEMOGLOBIN CONC 32.1 GM/DL 32.3-36.5 L (BEAKER) (test code = 752) RED CELL DISTRIBUTION WIDTH 16.4 % 11.6-14.4 H (BEAKER) (test code = 412) PLATELET COUNT (BEAKER) (test 517 K/CU MM 150-450 H code = 756) MEAN PLATELET VOLUME (BEAKER) 9.5 fL 9.4-12.4 (test code = 754) NUCLEATED RED BLOOD CELLS 0 /100 WBC 0-0 (BEAKER) (test code = 413) POCT-GLUCOSE [id number] 16:08:34 Test Item Value Reference Range Interpretation Comments POC-GLUCOSE METER 92 mg/dL 70-110 : TESTED A T [facility] [address] (BEAKER) (test code = [place], 1538) [address]: [employer] Coordinator/Techni faiza ID = [id number] for Katharine Cohn [id number] 15:02:30 Test Item Value Reference Range Interpretation Comments PHOSPHORUS (BEAKER) 2.7 mg/dL 2.3-4.7 Specimen slightly (test code = 604) hemolyzed [employer] Coordinator ID - ROWENA WBASIC METABOLIC [id number] 15:02:30 Test Item Value Reference Range Interpretation Comments SODIUM (BEAKER) 141 meq/L 136-145 (test code = 381) POTASSIUM (BEAKER) 4.2 meq/L 3.5-5.1 Specimen slightly (test code = 379) hemolyzed CHLORIDE (BEAKER) 106 meq/L 98-107 (test code = 382) CO2 (BEAKER) (test 26 meq/L 22-29 code = 355) BLOOD UREA NITROGEN 49 mg/dL 7-21 H (BEAKER) (test code = 354) CREATININE (BEAKER) 1.84 mg/dL 0.57-1.25 H Specimen slightly (test code = 358) hemolyzed GLUCOSE RANDOM 97 mg/dL 70-105 (BEAKER) (test code = 652) CALCIUM (BEAKER) 9.5 mg/dL 8.4-10.2 (test code = 697) EGFR (BEAKER) (test 38 mL/min/1.73 ESTIMA BUCK GFR IS code = 1092) sq m NOT ACCURATE CREATININE CLEARANCE IN PREDICTING GLOMERULAR FILTRATION RATE . ESTIMATED GFR I S NOT APPLICABLE FOR DIALYSIS PATIEN TS. [employer] Coordinator ID - ROWENA [id number] 15:02:29 Test Item Value Reference Range Interpretation Comments MAGNESIUM (BEAKER) 2.1 mg/dL 1.6-2.6 Specimen slightly (test code = 627) hemolyzed [employer] Coordinator ID - ROWENA WVANCOMYCIN LEVEL, [id number] 12:15:03 Test Item Value Reference Range Interpretation Comments VANCOMYCIN RANDOM (BEAKER) (test 9.3 ug/mL code = 523) Reference Range: No NormalsOperator ID - ROWENA WPOCT-GLUCOSE [id number] 12:03:27 Test Item Value Reference Range Interpretation Comments POC-GLUCOSE METER 102 mg/dL 70-110 : TESTED A T [facility] [address] (BEAKER) (test code = [place], 1538) [address]: [employer] Mach[employer] Coordinator/Techni faiza ID = [id number] for Po Reina ramirez (CELLAVISION MANUAL DIFF)2021-12-07 09:39:31 Test Item Value Reference Range Interpretation Comments NEUTROPHILS - REL 82 % (CELLAVISION)(BEAKER) (test code = 2816) LYMPHOCYTES - REL 8 % (CELLAVISION)(BEAKER) (test code = 2817) MONOCYTES - REL 10 % (CELLAVISION)(BEAKER) (test code = 2818) NEUTROPHILS - ABS 10.17 K/ul 1.78-5.38 H (CELLAVISION)(BEAKER) (test code = 2830) LYMPHOCYTES - ABS 0.99 K/ul 1.32-3.57 L (CELLAVISION)(BEAKER) (test code = 2831) MONOCYTES - ABS 1.24 K/uL 0.30-0.82 H (CELLAVISION)(BEAKER) (test code = 2832) TOTAL COUNTED (BEAKER) (test code 100 = 1351) RBC MORPHOLOGY (BEAKER) (test code Normal = 762) WBC MORPHOLOGY (BEAKER) (test code Normal = 487) PLT MORPHOLOGY (BEAKER) (test code Normal = 486) POLYCHROMATOPHILLIC RBCS(BEAKER) 3+ many (test code = 478) ANISOCYTOSIS (BEAKER) (test code = 1+ few 961) MACROCYTES (BEAKER) (test code = 1+ few 964) POIKILOCYTES (BEAKER) (test code = 1+ few 966) OVALOCYTES (BEAKER) (test code = 1+ few 477) TAMIKO CELLS (BEAKER) (test code = 1+ few 474) ARTIFACT (CELLAVISION)(BEAKER) Present (test code = 3432) PLATELET CONCENTRATION Increased (CELLAVISION)(BEAKER) (test code = 3438) [employer] Coordinator ID - Nita comments: Slide comments:CBC W/PLT COUNT & AUTO [id number] 09:39:30 Test Item Value Reference Range Interpretation Comments WHITE BLOOD CELL COUNT (BEAKER) 12.4 K/ L 3.5-10.5 H (test code = 775) RED BLOOD CELL COUNT (BEAKER) 4.37 M/ L 4.63-6.08 L (test code = 761) HEMOGLOBIN (BEAKER) (test code = 11.9 GM/DL 13.7-17.5 L 410) HEMATOCRIT (BEAKER) (test code = 37.7 % 40.1-51.0 L 411) MEAN CORPUSCULAR VOLUME (BEAKER) 86.3 fL 79.0-92.2 (test code = 753) MEAN CORPUSCULAR HEMOGLOBIN 27.2 pg 25.7-32.2 (BEAKER) (test code = 751) MEAN CORPUSCULAR HEMOGLOBIN CONC 31.6 GM/DL 32.3-36.5 L (BEAKER) (test code = 752) RED CELL DISTRIBUTION WIDTH 16.7 % 11.6-14.4 H (BEAKER) (test code = 412) PLATELET COUNT (BEAKER) (test 477 K/CU MM 150-450 H code = 756) MEAN PLATELET VOLUME (BEAKER) 9.4 fL 9.4-12.4 (test code = 754) NUCLEATED RED BLOOD CELLS 0 /100 WBC 0-0 (BEAKER) (test code = 413) BASIC METABOLIC [id number] 07:37:10 Test Item Value Reference Range Interpretation Comments SODIUM (BEAKER) 139 meq/L 136-145 (test code = 381) POTASSIUM (BEAKER) 4.4 meq/L 3.5-5.1 Specimen slightly (test code = 379) hemolyzed CHLORIDE (BEAKER) 105 meq/L 98-107 (test code = 382) CO2 (BEAKER) (test 23 meq/L 22-29 code = 355) BLOOD UREA NITROGEN 53 mg/dL 7-21 H (BEAKER) (test code = 354) CREATININE (BEAKER) 2.17 mg/dL 0.57-1.25 H Specimen slightly (test code = 358) hemolyzed GLUCOSE RANDOM 91 mg/dL 70-105 (BEAKER) (test code = 652) CALCIUM (BEAKER) 9.3 mg/dL 8.4-10.2 (test code = 697) EGFR (BEAKER) (test 31 mL/min/1.73 ESTIMA BUCK GFR IS code = 1092) sq m NOT ACCURATE CREATININE CLEARANCE IN PREDICTING GLOMERULAR FILTRATION RATE . ESTIMATED GFR I S NOT APPLICABLE FOR DIALYSIS PATIEN TS. [employer] Mach[employer] Coordinator ID - ROWENA WHEPATIC FUNCTION [id number] 07:37:10 Test Item Value Reference Range Interpretation Comments TOTAL PROTEIN (BEAKER) 6.1 gm/dL 6.0-8.3 Speci men slightly (test code = 770) hemolyzed ALBUMIN (BEAKER) (test 2.6 g/dL 3.5-5.0 L Speci men slightly code = 1145) hemolyzed BILIRUBIN TOTAL 1.2 mg/dL 0.2-1.2 Specimen sli ghtly (BEAKER) (test code = hemoly zed 377) BILIRUBIN DIRECT 0.8 mg/dL 0.1-0.5 H Specimen sl ightly (BEAKER) (test code = hemoly zed 706) ALKALINE PHOSPHATASE 124 U/L 40-150 (BEAKER) (test code = 346) AST (SGOT) (BEAKER) 17 U/L 5-34 Specimen slightly (test code = 353) hemolyzed ALT (SGPT) (BEAKER) 23 U/L 6-55 Specimen slightly (test code = 347) hemolyzed [employer] Coordinator ID - ROWENA WCREATININE, RANDOM [id number] 04:23:33 Test Item Value Reference Range Interpretation Comments CREATININE URINE (BEAKER) (test 142.4 mg/dL code = 375) Reference Range: No NormalsOperator ID - [id number], RANDOM URINE 2021-12-07 04:14:09 Test Item Value Reference Range Interpretation Comments SODIUM URINE (BEAKER) (test code = 51 meq/L 243) Reference Range: No NormalsOperator ID - [id number], RANDOM URINE 2021-12-07 02:07:41 Test Item Value Reference Range Interpretation Comments CREATININE URINE (BEAKER) (test 251.9 mg/dL code = 375) Reference Range: No NormalsOperator ID - [id number], RANDOM URINE 2021-12-07 02:07:25 Test Item Value Reference Range Interpretation Comments SODIUM URINE (BEAKER) (test code = < meq/L 243) Reference Range: No NormalsOperator ID - [id number] CULTURE IDENTIFICATION [id number] 01:49:48 Test Item Value Reference Interpretation Comments Range LISTERIA MONOCYTOGENES Not Not detected (test code = 20160413) detected STAPHYLOCOCCUS (test Detected Not detected A code = 7724492) STAPHYLOCOCCUS AUREUS Detected Not detected A Methic illin-susceptible (test code = 20160617) S. aur eus (MSSA)First-bharti e therapy: Cefazolin or Ox acillin (Oxacillin pref erred if SPLUNK DEVELOPER involvement ) ID CONSULTATION REQUIREDStaphyl ococcus aureus DETECTED MecA NOT DETECTED Refere nce Range: Not Detected STREPTOCOCCUS (test Not Not detected code = 20160618) detected STREPTOCOCCUS Not Not detected AGALACTIAE (GROUP B) detected (test code = 4332803) STREPTOCOCCUS Not Not detected PNEUMONIAE (test code detected = 4308545) STREPTOCOCCUS PYOGENES Not Not detected (GROUP A) (test code = detected 1248276) ACINETOBACTER Not Not detected BAUMANNII (test code = detected 2479986) HAEMOPHILUS INFLUENZAE Not Not detected (test code = 4064285) detected NEISSERIA MENINGITIDIS Not Not detected (test code = 7026009) detected ENTEROBACTERIACEAE Not Not detected (test code = 5861830) detected ENTEROBACTER CLOACOE Not Not detected COMPLEX (test code = detected 9319462) KLEBSIELLA OXYTOCA Not Not detected (test code = 9394494) detected KLEBSIELLA PNEUMONIAE Not Not detected (test code = 0) detected PROTEUS (test code = Not Not detected 1140630) detected SERRATIA MARCESCENS Not Not detected (test code = 0365630) detected ARCHANA ALBICANS (test Not Not detected code = 5545530) detected ARCHANA GLABRATA (test Not Not detected code = 2205334) detected ARCHANA KRUSEI (test Not Not detected code = 9313363) detected ARCHANA PARAPSILOSIS Not Not detected (test code = 2789647) detected ARCHANA TROPICALIS Not Not detected (test code = 8982919) detected ESCHERICHIA COLI (test Not Not detected code = 6034611) detected METHICILLIN-RESISTANCE Not Not detected Note: Antimicrobial GENE (test code = detected resistance can occur via 0209776) multiple mechan isms. A Not Detected re sult for the [employer] antimicrobial r esistance gene assays cantrell s not indicate antimi crobial susceptibility. Subculturing is required for species identification and susceptibility testing of isolates. VANCOMYCIN-RESISTANCE GENE (test code = 3469127) CARBAPENEM-RESISTANCE GENE (test code = 0643345) ENTEROCOCCUS-BEAKER Not Not detected (test code = 4184394) detected PSEUDOMONAS Not Not detected AERUGINOSA-BEAKER detected (test code = 6530196) Other bacteria and resistance markers not targeted by this PCR panel cannot be excluded; therefore clinical correlation and follow up of serology, culture results, and other molecular studies is required. The results are not intended to be used as the sole means for clinical diagnosis or patient management decisions. This sample was tested at the [facility] Molecular Diagnostics Laboratory using the Sentiment Blood Culture ID Panel. It is FDA cleared and has been verified and approved by the [facility] Molecular Diagnostics Laboratory for clinical use. This laboratory is CLIA-certified and College ofAmerican Pathologists (CAP)-accredited to perform high complexity testing.LACTIC ACID, [id number] 00:31:47 Test Item Value Reference Range Interpretation Comments LACTATE BLOOD VENOUS (2) (BEAKER) 0.86 mmol/L 0.50-2.20 (test code = 2872) Crystal Mach[employer] Coordinator ID - ROWENA WT4, [id number] 22:16:28 Test Item Value Reference Range Interpretation Comments FREE T4 (BEAKER) (test code = 655) 0.85 ng/dL 0.70-1.48 Crystal Machining Coordinator ID - CASSI WTSH/FREE T4 IF [id number] 21:29:01 Test Item Value Reference Range Interpretation Comments THYROID STIMULATING HORMONE 0.275 uIU/mL 0.350-4.940 L (BEAKER) (test code = 772) Crystal Machining Coordinator ID - CASSI WLACTIC ACID, [id number] 21:12:20 Test Item Value Reference Range Interpretation Comments LACTATE BLOOD VENOUS (2) (BEAKER) 0.95 mmol/L 0.50-2.20 (test code = 2872) Crystal Mach[employer] Coordinator ID Tulio YE WBASIC METABOLIC [id number] 21:01:29 Test Item Value Reference Range Interpretation Comments SODIUM (BEAKER) 139 meq/L 136-145 (test code = 381) POTASSIUM (BEAKER) 4.2 meq/L 3.5-5.1 (test code = 379) CHLORIDE (BEAKER) 104 meq/L 98-107 (test code = 382) CO2 (BEAKER) (test 24 meq/L 22-29 code = 355) BLOOD UREA NITROGEN 67 mg/dL 7-21 H (BEAKER) (test code = 354) CREATININE (BEAKER) 3.22 mg/dL 0.57-1.25 H (test code = 358) GLUCOSE RANDOM 99 mg/dL 70-105 (BEAKER) (test code = 652) CALCIUM (BEAKER) 9.5 mg/dL 8.4-10.2 (test code = 697) EGFR (BEAKER) (test 20 mL/min/1.73 ESTIMA BUCK GFR IS code = 1092) sq m NOT ACCURATE CREATININE CLEARANCE IN PREDICTING GLOMERULAR FILTRATION RATE . ESTIMATED GFR I S NOT APPLICABLE FOR DIALYSIS PATIEN TS. [employer] Mach[employer] Coordinator ID Tulio YE [id number] 21:01:01 Test Item Value Reference Range Interpretation Comments PHOSPHORUS (BEAKER) (test code = 5.2 mg/dL 2.3-4.7 H 604) Crystal Machining Coordinator ALONSO YE WCREATINE KINASE (CK)2021-12-06 21:01:01 Test Item Value Reference Range Interpretation Comments CREATINE KINASE TOTAL (BEAKER) (test 47 U/L 29-200 code = 380) Crystal Mach[employer] Coordinator ID Tulio YE [id number] 21:01:00 Test Item Value Reference Range Interpretation Comments MAGNESIUM (BEAKER) (test code = 2.2 mg/dL 1.6-2.6 627) Crystal Machining Coordinator ALONSO YE WCBC W/PLT COUNT & AUTO [id number] 20:47:19 Test Item Value Reference Range Interpretation Comments WHITE BLOOD CELL COUNT (BEAKER) 15.2 K/ L 3.5-10.5 H (test code = 775) RED BLOOD CELL COUNT (BEAKER) 4.59 M/ L 4.63-6.08 L (test code = 761) HEMOGLOBIN (BEAKER) (test code = 12.6 GM/DL 13.7-17.5 L 410) HEMATOCRIT (BEAKER) (test code = 40.1 % 40.1-51.0 411) MEAN CORPUSCULAR VOLUME (BEAKER) 87.4 fL 79.0-92.2 (test code = 753) MEAN CORPUSCULAR HEMOGLOBIN 27.5 pg 25.7-32.2 (BEAKER) (test code = 751) MEAN CORPUSCULAR HEMOGLOBIN CONC 31.4 GM/DL 32.3-36.5 L (BEAKER) (test code = 752) RED CELL DISTRIBUTION WIDTH 16.7 % 11.6-14.4 H (BEAKER) (test code = 412) PLATELET COUNT (BEAKER) (test 459 K/CU MM 150-450 H code = 756) MEAN PLATELET VOLUME (BEAKER) 9.5 fL 9.4-12.4 (test code = 754) NUCLEATED RED BLOOD CELLS 0 /100 WBC 0-0 (BEAKER) (test code = 413) CALCIUM, [id number] 20:40:31 Test Item Value Reference Range Interpretation Comments CALCIUM IONIZED (BEAKER) (test 1.17 mmol/L 1.12-1.27 code = 698) PH, BLOOD (BEAKER) (test code = 7.33 1810) [id number] 13:54:06 Test Item Value Reference Range Interpretation Comments PARTIAL THROMBOPLASTIN TIME 35.1 seconds 22.5-36.0 (BEAKER) (test code = 760) PROTHROMBIN [id number] 13:53:24 Test Item Value Reference Range Interpretation Comments PROTIME (BEAKER) 16.0 seconds 11.9-14.2 H (test code = 759) INR (BEAKER) (test 1.30 See_Comment [Automat ed message] code = 370) The system [employer] generated this result transmitted ref erence range: <=5.90. The reference range was not used to int erpret this result as normal/abnormal . RECOMMENDED COUMADIN/WARFARIN INR THERAPY RANGESSTANDARD DOSE: 2.0 - 3.0 Includes: PROPHYLAXIS forvenous thrombosis, systemic embolization; TREATMENT for venous thrombosis and/or pulmonary embolus.HIGH RISK: Target INR is 2.5-3.5 for patients with mechanical heart valves.SARS-COV2/RT-PCR ([facility]) 2021-12-06 08:56:40 Test Item Value Reference Range Interpretation Comments SARS-COV2/RT-PCR Negative Negative The SARS-Co V-2 target (test code = nucleic acids a re not 1533177) detected in thi s specimen. Negative result s do not preclude SARS-C oV-2 infection and s hould not be used as the ely e basis for patient managem ent decisions. Nega tive results must be combine d with clinical observ ations, patient history , and epidemiological information. A false negativ e result may occur if a spec imen is improperly starr ected, transported or handled. This SARS CoV-2 test is a rapid, real-hayder e RT-PCR test intended for th e qualitative detection of nu cleic acid from SARS-CoV-2 in a nasopharyngeal swab specimen collected from individuals suspected of CO VID-19 by their healthcar e provider. This test has been authorized by FDA under an EUA for use by authorized laboratories. This test is only authorized for the duration of the declaration that circumstances exist justifying the authorization of emergency use of in vitro diagnostic tests for detection and/or diagnosis of COVID-19 under Section 564(b)(1) of the Federal Food, Drug and Cosmetic Act, 21 U.S.C. 360bbb- 3(b)(1), unless the authorization is terminated or revoked sooner. Fact Sheet for Healthcare Providers: https://www.[employer] id.[employer]/Documents/Xpert%20Xpress%20SARS%20CoV-2/Fact%20Sheets/713-7172%20SARS-COV -2%20HEALTHCARE%20PROVIDERS%20FACT%20SHEET.pdf Fact Sheet for Healthcare Patients: https://www.1-800-DOCTORS.Taigen/Documents/Xpert %20Xpress%20SARS%20CoV-2/Fact%20Sheets/3023801%55GPKR-EAJ-8%20PATIENT%20FACT%20 SHEET.pdfURINALYSIS W/ REFLEX URINE [id number] 08:49:59 Test Item Value Reference Range Interpretation Comments COLOR (BEAKER) (test code = 470) [place] CLARITY (BEAKER) (test code = 469) Hazy SPECIFIC GRAVITY UA (BEAKER) (test 1.035 1.001-1.035 code = 468) PH UA (BEAKER) (test code = 467) 5.5 5.0-8.0 PROTEIN UA (BEAKER) (test code = 70 mg/dL Negative A 464) GLUCOSE UA (BEAKER) (test code = Negative Negative 365) KETONES UA (BEAKER) (test code = Negative Negative 371) BILIRUBIN UA (BEAKER) (test code = Negative Negative 462) BLOOD UA (BEAKER) (test code = 461) Negative Negative NITRITE UA (BEAKER) (test code = Negative Negative 465) LEUKOCYTE ESTERASE UA (BEAKER) Small Negative A (test code = 466) UROBILINOGEN UA (BEAKER) (test code 6.0 mg/dL 0.2-1.0 H = 463) RBC UA (BEAKER) (test code = 519) 8 /HPF WBC UA (BEAKER) (test code = 520) 8 /HPF BACTERIA (BEAKER) (test code = 517) None Seen MUCUS (BEAKER) (test code = 1574) Rare SQUAMOUS EPITHELIAL (BEAKER) (test 1 /HPF code = 516) HYALINE CASTS (BEAKER) (test code = 17 /LPF 514) CRYSTALS, URINE (BEAKER) (test code None Seen = 1521) AMORPHOUS CRYSTALS (BEAKER) (test Rare code = 1584) SOURCE(BEAKER) (test code = 2795) [employer] Coordinator ID - [auto][employer] Coordinator ID - tech(CELLAVISION MANUAL DIFF)2021-12-06 08:38:46 Test Item Value Reference Range Interpretation Comments NEUTROPHILS - REL 84 % (CELLAVISION)(BEAKER) (test code = 2816) LYMPHOCYTES - REL 3 % (CELLAVISION)(BEAKER) (test code = 2817) MONOCYTES - REL 6 % (CELLAVISION)(BEAKER) (test code = 2818) EOSINOPHILS - REL 3 % (CELLAVISION)(BEAKER) (test code = 2819) BASOPHILS - REL 1 % (CELLAVISION)(BEAKER) (test code = 2820) BANDS - REL (CELLAVISION)(BEAKER) 2 % 0-10 (test code = 2826) ATYPICAL LYMPHOCYTES - REL 1 % 0-0 H (CELLAVISION)(BEAKER) (test code = 2829) NEUTROPHILS - ABS 15.46 K/ul 1.78-5.38 H (CELLAVISION)(BEAKER) (test code = 2830) LYMPHOCYTES - ABS 0.55 K/ul 1.32-3.57 L (CELLAVISION)(BEAKER) (test code = 2831) MONOCYTES - ABS 1.10 K/uL 0.30-0.82 H (CELLAVISION)(BEAKER) (test code = 2832) EOSINOPHILS - ABS 0.55 K/uL 0.04-0.54 H (CELLAVISION)(BEAKER) (test code = 2834) BASOPHILS - ABS 0.18 K/uL 0.01-0.08 H (CELLAVISION)(BEAKER) (test code = 2835) BANDS - ABS (CELLAVISION)(BEAKER) 0.37 K/uL 0.00-0.80 (test code = 2840) ATYPICAL LYMPHOCYTES - ABS 0.18 K/uL 0.00-0.00 H (CELLAVISION)(BEAKER) (test code = 2858) TOTAL COUNTED (BEAKER) (test code 100 = 1351) SMUDGE CELLS (BEAKER) (test code Present = 1371) GIANT PLATELETS (BEAKER) (test Present code = 313) POLYCHROMATOPHILLIC RBCS(BEAKER) 3+ many (test code = 478) ANISOCYTOSIS (BEAKER) (test code 1+ few = 961) MACROCYTES (BEAKER) (test code = 1+ few 964) POIKILOCYTES (BEAKER) (test code 3+ many = 966) ROULEAUX (BEAKER) (test code = 1+ few 763) TARGET CELLS (BEAKER) (test code 1+ few = 480) SCHISTOCYTES (BEAKER) (test code 1+ few = 765) ELLIPTOCYTES (BEAKER) (test code 2+ moderate = 962) OVALOCYTES (BEAKER) (test code = 3+ many 477) TAMIKO CELLS (BEAKER) (test code = 3+ many 474) PLATELET CONCENTRATION Increased (CELLAVISION)(BEAKER) (test code = 3438) [employer] Coordinator ID - Reza Dominguez comments: Slide comments:CBC W/PLT COUNT & AUTO [id number] 08:38:45 Test Item Value Reference Range Interpretation Comments WHITE BLOOD CELL COUNT (BEAKER) 18.4 K/ L 3.5-10.5 H (test code = 775) RED BLOOD CELL COUNT (BEAKER) 4.57 M/ L 4.63-6.08 L (test code = 761) HEMOGLOBIN (BEAKER) (test code = 12.4 GM/DL 13.7-17.5 L 410) HEMATOCRIT (BEAKER) (test code = 40.0 % 40.1-51.0 L 411) MEAN CORPUSCULAR VOLUME (BEAKER) 87.5 fL 79.0-92.2 (test code = 753) MEAN CORPUSCULAR HEMOGLOBIN 27.1 pg 25.7-32.2 (BEAKER) (test code = 751) MEAN CORPUSCULAR HEMOGLOBIN CONC 31.0 GM/DL 32.3-36.5 L (BEAKER) (test code = 752) RED CELL DISTRIBUTION WIDTH 16.6 % 11.6-14.4 H (BEAKER) (test code = 412) PLATELET COUNT (BEAKER) (test 457 K/CU MM 150-450 H code = 756) MEAN PLATELET VOLUME (BEAKER) 9.5 fL 9.4-12.4 (test code = 754) NUCLEATED RED BLOOD CELLS 0 /100 WBC 0-0 (BEAKER) (test code = 413) COMPREHENSIVE METABOLIC [id number] 06:57:10 Test Item Value Reference Range Interpretation Comments TOTAL PROTEIN 6.6 gm/dL 6.0-8.3 (BEAKER) (test code = 770) ALBUMIN (BEAKER) 2.9 g/dL 3.5-5.0 L (test code = 1145) ALKALINE PHOSPHATASE 161 U/L 40-150 H (BEAKER) (test code = 346) BILIRUBIN TOTAL 1.4 mg/dL 0.2-1.2 H (BEAKER) (test code = 377) SODIUM (BEAKER) (test 136 meq/L 136-145 code = 381) POTASSIUM (BEAKER) 4.5 meq/L 3.5-5.1 (test code = 379) CHLORIDE (BEAKER) 101 meq/L 98-107 (test code = 382) CO2 (BEAKER) (test 22 meq/L 22-29 code = 355) BLOOD UREA NITROGEN 70 mg/dL 7-21 H (BEAKER) (test code = 354) CREATININE (BEAKER) 4.06 mg/dL 0.57-1.25 H (test code = 358) GLUCOSE RANDOM 115 mg/dL 70-105 H (BEAKER) (test code = 652) CALCIUM (BEAKER) 9.4 mg/dL 8.4-10.2 (test code = 697) AST (SGOT) (BEAKER) 15 U/L 5-34 (test code = 353) ALT (SGPT) (BEAKER) 30 U/L 6-55 (test code = 347) EGFR (BEAKER) (test 15 mL/min/1.73 ESTIMA BUCK GFR IS code = 1092) sq m NOT ACCURATE CREATININE CLEARANCE IN PREDICTING GLOMERULAR FILTRATION RATE . ESTIMATED GFR I S NOT APPLICABLE FOR DIALYSIS PATIEN TS. [employer] Coordinator ID - ANT [id number] 06:57:10 Test Item Value Reference Range Interpretation Comments LIPASE (BEAKER) (test code = 749) < U/L 8-78 L [employer] Coordinator ID - ANT MLACTIC ACID, [id number] 06:31:22 Test Item Value Reference Range Interpretation Comments LACTATE BLOOD VENOUS 1.01 mmol/L 0.50-2.20 Specime n slightly (2) (BEAKER) (test hemolyzed code = 8112) [employer] Coordinator ID - ANT MHEMOGLOBIN [id number] 14:27:51 Test Item Value Reference Range Interpretation Comments HEMOGLOBIN A1C 5.9 % See_Comment H [Automated m essage] ELECTROPHORESIS (BEAKER) The system which (test code = 3811) generated this result transmitted ref erence range: <=5.6%. The reference range was not used to int erpret this result as normal/abnormal . "The A1c is measured using a NGSP-certified method. HbA1c value equal to or greater than 6.5% as thediagnosis cutoff for diabetes. An HbA1c value of 5.7- 6.4% indicates increased risk for diabetes (prediabetes)."[employer] Coordinator ID - ADMCBC W/PLT COUNT & AUTO [id number] 06:35:41 Test Item Value Reference Range Interpretation Comments WHITE BLOOD CELL COUNT (BEAKER) 12.2 K/ L 3.5-10.5 H (test code = 775) RED BLOOD CELL COUNT (BEAKER) 5.49 M/ L 4.63-6.08 (test code = 761) HEMOGLOBIN (BEAKER) (test code = 14.9 GM/DL 13.7-17.5 410) HEMATOCRIT (BEAKER) (test code = 49.5 % 40.1-51.0 411) MEAN CORPUSCULAR VOLUME (BEAKER) 90.2 fL 79.0-92.2 (test code = 753) MEAN CORPUSCULAR HEMOGLOBIN 27.1 pg 25.7-32.2 (BEAKER) (test code = 751) MEAN CORPUSCULAR HEMOGLOBIN CONC 30.1 GM/DL 32.3-36.5 L (BEAKER) (test code = 752) RED CELL DISTRIBUTION WIDTH 17.4 % 11.6-14.4 H (BEAKER) (test code = 412) PLATELET COUNT (BEAKER) (test 281 K/CU MM 150-450 code = 756) MEAN PLATELET VOLUME (BEAKER) 9.8 fL 9.4-12.4 (test code = 754) NUCLEATED RED BLOOD CELLS 0 /100 WBC 0-0 (BEAKER) (test code = 413) NEUTROPHILS RELATIVE PERCENT 72 % (BEAKER) (test code = 429) LYMPHOCYTES RELATIVE PERCENT 13 % (BEAKER) (test code = 430) MONOCYTES RELATIVE PERCENT 11 % (BEAKER) (test code = 431) EOSINOPHILS RELATIVE PERCENT 4 % (BEAKER) (test code = 432) BASOPHILS RELATIVE PERCENT 0 % (BEAKER) (test code = 437) NEUTROPHILS ABSOLUTE COUNT 8.74 K/ L 1.78-5.38 H (BEAKER) (test code = 670) LYMPHOCYTES ABSOLUTE COUNT 1.54 K/ L 1.32-3.57 (BEAKER) (test code = 414) MONOCYTES ABSOLUTE COUNT (BEAKER) 1.38 K/ L 0.30-0.82 H (test code = 415) EOSINOPHILS ABSOLUTE COUNT 0.44 K/ L 0.04-0.54 (BEAKER) (test code = 416) BASOPHILS ABSOLUTE COUNT (BEAKER) 0.05 K/ L 0.01-0.08 (test code = 417) IMMATURE GRANULOCYTES-RELATIVE 0 % 0-1 PERCENT (BEAKER) (test code = 2801) [id number] 05:04:53 Test Item Value Reference Range Interpretation Comments PHOSPHORUS (BEAKER) (test code = 2.9 mg/dL 2.3-4.7 604) [employer] Coordinator ID - REZA GBASIC METABOLIC [id number] 05:04:52 Test Item Value Reference Range Interpretation Comments SODIUM (BEAKER) 144 meq/L 136-145 (test code = 381) POTASSIUM (BEAKER) 5.0 meq/L 3.5-5.1 (test code = 379) CHLORIDE (BEAKER) 105 meq/L 98-107 (test code = 382) CO2 (BEAKER) (test 31 meq/L 22-29 H code = 355) BLOOD UREA NITROGEN 34 mg/dL 7-21 H (BEAKER) (test code = 354) CREATININE (BEAKER) 1.24 mg/dL 0.57-1.25 (test code = 358) GLUCOSE RANDOM 87 mg/dL 70-105 (BEAKER) (test code = 652) CALCIUM (BEAKER) 9.1 mg/dL 8.4-10.2 (test code = 697) EGFR (BEAKER) (test 60 mL/min/1.73 ESTIMA BUCK GFR IS code = 1092) sq m NOT ACCURATE CREATININE CLEARANCE IN PREDICTING GLOMERULAR FILTRATION RATE . ESTIMATED GFR I S NOT APPLICABLE FOR DIALYSIS PATIEN TS. [employer] Coordinator ID - REZA [id number] 05:04:52 Test Item Value Reference Range Interpretation Comments MAGNESIUM (BEAKER) (test code = 2.2 mg/dL 1.6-2.6 627) [employer] Coordinator ID - REZA GBASIC METABOLIC [id number] 14:02:20 Test Item Value Reference Range Interpretation Comments SODIUM (BEAKER) 138 meq/L 136-145 (test code = 381) POTASSIUM (BEAKER) 4.2 meq/L 3.5-5.1 (test code = 379) CHLORIDE (BEAKER) 103 meq/L 98-107 (test code = 382) CO2 (BEAKER) (test 30 meq/L 22-29 H code = 355) BLOOD UREA NITROGEN 38 mg/dL 7-21 H (BEAKER) (test code = 354) CREATININE (BEAKER) 1.42 mg/dL 0.57-1.25 H (test code = 358) GLUCOSE RANDOM 150 mg/dL 70-105 H (BEAKER) (test code = 652) CALCIUM (BEAKER) 8.8 mg/dL 8.4-10.2 (test code = 697) EGFR (BEAKER) (test 51 mL/min/1.73 ESTIMA BUCK GFR IS code = 1092) sq m NOT ACCURATE CREATININE CLEARANCE IN PREDICTING GLOMERULAR FILTRATION RATE . ESTIMATED GFR I S NOT APPLICABLE FOR DIALYSIS PATIEN TS. [employer] Coordinator ID - DBHEMOGLOBIN [id number] 09:44:42 Test Item Value Reference Range Interpretation Comments HEMOGLOBIN A1C 5.8 % See_Comment H [Automated m essage] ELECTROPHORESIS (BEAKER) The system which (test code = 3811) generated this result transmitted ref erence range: <=5.6%. The reference range was not used to int erpret this result as normal/abnormal . "The A1c is measured using a NGSP-certified method. HbA1c value equal to or greater than 6.5% as thediagnosis cutoff for diabetes. An HbA1c value of 5.7- 6.4% indicates increased risk for diabetes (prediabetes)."[employer] Coordinator ID - ADM [id number] 05:43:52 Test Item Value Reference Range Interpretation Comments PHOSPHORUS (BEAKER) (test code = 4.6 mg/dL 2.3-4.7 604) [employer] Coordinator ID - PIAYA LBASIC METABOLIC [id number] 05:43:51 Test Item Value Reference Range Interpretation Comments SODIUM (BEAKER) 140 meq/L 136-145 (test code = 381) POTASSIUM (BEAKER) 5.0 meq/L 3.5-5.1 (test code = 379) CHLORIDE (BEAKER) 106 meq/L 98-107 (test code = 382) CO2 (BEAKER) (test 26 meq/L 22-29 code = 355) BLOOD UREA NITROGEN 33 mg/dL 7-21 H (BEAKER) (test code = 354) CREATININE (BEAKER) 1.24 mg/dL 0.57-1.25 (test code = 358) GLUCOSE RANDOM 111 mg/dL 70-105 H (BEAKER) (test code = 652) CALCIUM (BEAKER) 9.0 mg/dL 8.4-10.2 (test code = 697) EGFR (BEAKER) (test 60 mL/min/1.73 ESTIMA BUCK GFR IS code = 1092) sq m NOT ACCURATE CREATININE CLEARANCE IN PREDICTING GLOMERULAR FILTRATION RATE . ESTIMATED GFR I S NOT APPLICABLE FOR DIALYSIS PATIEN TS. [employer] Coordinator ID - GEORGE [id number] 05:43:51 Test Item Value Reference Range Interpretation Comments MAGNESIUM (BEAKER) (test code = 2.0 mg/dL 1.6-2.6 627) [employer] Coordinator ID - GEORGE LCBC (HEMOGRAM ONLY)[id number] 05:11:19 Test Item Value Reference Range Interpretation Comments WHITE BLOOD CELL COUNT (BEAKER) 14.6 K/ L 3.5-10.5 H (test code = 775) RED BLOOD CELL COUNT (BEAKER) 5.61 M/ L 4.63-6.08 (test code = 761) HEMOGLOBIN (BEAKER) (test code = 15.4 GM/DL 13.7-17.5 410) HEMATOCRIT (BEAKER) (test code = 50.1 % 40.1-51.0 411) MEAN CORPUSCULAR VOLUME (BEAKER) 89.3 fL 79.0-92.2 (test code = 753) MEAN CORPUSCULAR HEMOGLOBIN 27.5 pg 25.7-32.2 (BEAKER) (test code = 751) MEAN CORPUSCULAR HEMOGLOBIN CONC 30.7 GM/DL 32.3-36.5 L (BEAKER) (test code = 752) RED CELL DISTRIBUTION WIDTH 17.2 % 11.6-14.4 H (BEAKER) (test code = 412) PLATELET COUNT (BEAKER) (test 301 K/CU MM 150-450 code = 756) MEAN PLATELET VOLUME (BEAKER) 10.1 fL 9.4-12.4 (test code = 754) NUCLEATED RED BLOOD CELLS 0 /100 WBC 0-0 (BEAKER) (test code = 413) BASIC METABOLIC [id number] 09:35:09 Test Item Value Reference Range Interpretation Comments SODIUM (BEAKER) 140 meq/L 136-145 (test code = 381) POTASSIUM (BEAKER) 4.5 meq/L 3.5-5.1 Specimen slightly (test code = 379) hemolyzed CHLORIDE (BEAKER) 103 meq/L 98-107 (test code = 382) CO2 (BEAKER) (test 28 meq/L 22-29 code = 355) BLOOD UREA NITROGEN 25 mg/dL 7-21 H (BEAKER) (test code = 354) CREATININE (BEAKER) 1.00 mg/dL 0.57-1.25 Specimen slightly (test code = 358) hemolyzed GLUCOSE RANDOM 92 mg/dL 70-105 (BEAKER) (test code = 652) CALCIUM (BEAKER) 9.5 mg/dL 8.4-10.2 (test code = 697) EGFR (BEAKER) (test 76 mL/min/1.73 ESTIMA BUCK GFR IS code = 1092) sq m NOT ACCURATE CREATININE CLEARANCE IN PREDICTING GLOMERULAR FILTRATION RATE . ESTIMATED GFR I S NOT APPLICABLE FOR DIALYSIS PATIEN TS. [employer] Coordinator ID - RMCBC W/PLT COUNT & AUTO [id number] 09:19:15 Test Item Value Reference Range Interpretation Comments WHITE BLOOD CELL COUNT (BEAKER) 8.5 K/ L 3.5-10.5 (test code = 775) RED BLOOD CELL COUNT (BEAKER) 6.15 M/ L 4.63-6.08 H (test code = 761) HEMOGLOBIN (BEAKER) (test code = 16.7 GM/DL 13.7-17.5 410) HEMATOCRIT (BEAKER) (test code = 54.0 % 40.1-51.0 H 411) MEAN CORPUSCULAR VOLUME (BEAKER) 87.8 fL 79.0-92.2 (test code = 753) MEAN CORPUSCULAR HEMOGLOBIN 27.2 pg 25.7-32.2 (BEAKER) (test code = 751) MEAN CORPUSCULAR HEMOGLOBIN CONC 30.9 GM/DL 32.3-36.5 L (BEAKER) (test code = 752) RED CELL DISTRIBUTION WIDTH 17.7 % 11.6-14.4 H (BEAKER) (test code = 412) PLATELET COUNT (BEAKER) (test 325 K/CU MM 150-450 code = 756) MEAN PLATELET VOLUME (BEAKER) 9.8 fL 9.4-12.4 (test code = 754) NUCLEATED RED BLOOD CELLS 0 /100 WBC 0-0 (BEAKER) (test code = 413) NEUTROPHILS RELATIVE PERCENT 61 % (BEAKER) (test code = 429) LYMPHOCYTES RELATIVE PERCENT 25 % (BEAKER) (test code = 430) MONOCYTES RELATIVE PERCENT 11 % (BEAKER) (test code = 431) EOSINOPHILS RELATIVE PERCENT 2 % (BEAKER) (test code = 432) BASOPHILS RELATIVE PERCENT 1 % (BEAKER) (test code = 437) NEUTROPHILS ABSOLUTE COUNT 5.20 K/ L 1.78-5.38 (BEAKER) (test code = 670) LYMPHOCYTES ABSOLUTE COUNT 2.10 K/ L 1.32-3.57 (BEAKER) (test code = 414) MONOCYTES ABSOLUTE COUNT (BEAKER) 0.94 K/ L 0.30-0.82 H (test code = 415) EOSINOPHILS ABSOLUTE COUNT 0.15 K/ L 0.04-0.54 (BEAKER) (test code = 416) BASOPHILS ABSOLUTE COUNT (BEAKER) 0.06 K/ L 0.01-0.08 (test code = 417) IMMATURE GRANULOCYTES-RELATIVE 0 % 0-1 PERCENT (BEAKER) (test code = 2801) TSH/FREE T4 IF [id number] 12:43:00 Test Item Value Reference Range Interpretation Comments THYROID STIMULATING HORMONE 2.134 uIU/mL 0.350-4.940 (BEAKER) (test code = 772) [employer] Coordinator ID - DAMARIS FPOCT-GLUCOSE [id number] 11:32:00 Test Item Value Reference Range Interpretation Comments POC-GLUCOSE METER 76 mg/dL 70-110 : TESTED A T [facility] 6720 (BEAKER) (test code = TISHA Cherry [facility], 1538) [address]: [employer] Coordinator/Techni faiza ID = [id number] for ORACIO GILBERT RAD, CHEST, 1 VIEW, NON [id number] 08:39:00Reason for exam:->Post-opShould this be performed at the bedside?->Yes [facility] 1960 Sex: MFINAL REPORT RAD, CHEST, 1 VIEW, NON DEPT INDICATION: Post-op COMPARIS ON: Prior day's exam FINDINGS: Portable frontal view of the chest. IMPRESSION: Support Lines: None. Lungs and pleura: No significant change in the appearance of the air spaces. No pneumothorax.Heartand mediastinum: Stable contours. Additional findings: Unchanged small volume pneumoperitoneum. Signed: JR Quiñonez Robert MDReport Verified Date/Time: 04/29/2020 08:39:51 Reading Location: [facility] Radiology Reading Room POCT-GLUCOSE [id number] 07:14:00 Test Item Value Reference Range Interpretation Comments POC-GLUCOSE METER 106 mg/dL 70-110 : TESTED A T [facility] 6720 (BEAKER) (test code = [facility]RADHA Cherry [facility], 1538) [id number]: [employer] Coordinator/Techni faiza ID = [id number] for ORACIO BURNHAM BASIC METABOLIC [id number] 06:30:00 Test Item Value Reference Range Interpretation Comments SODIUM (BEAKER) 139 meq/L 136-145 (test code = 381) POTASSIUM (BEAKER) 3.7 meq/L 3.5-5.1 (test code = 379) CHLORIDE (BEAKER) 105 meq/L 98-107 (test code = 382) CO2 (BEAKER) (test 28 meq/L 22-29 code = 355) BLOOD UREA NITROGEN 12 mg/dL 7-21 (BEAKER) (test code = 354) CREATININE (BEAKER) 0.80 mg/dL 0.57-1.25 (test code = 358) GLUCOSE RANDOM 104 mg/dL 70-105 (BEAKER) (test code = 652) CALCIUM (BEAKER) 8.3 mg/dL 8.4-10.2 L (test code = 697) EGFR (BEAKER) (test 99 mL/min/1.73 ESTIMA BUCK GFR IS code = 1092) sq m NOT ACCURATE CREATININE CLEARANCE IN PREDICTING GLOMERULAR FILTRATION RATE . ESTIMATED GFR I S NOT APPLICABLE FOR DIALYSIS PATIEN TS. [employer] Coordinator ID - [id number] 06:30:00 Test Item Value Reference Range Interpretation Comments MAGNESIUM (BEAKER) (test code = 1.7 mg/dL 1.6-2.6 627) [employer] Coordinator ID - [id number] 06:30:00 Test Item Value Reference Range Interpretation Comments PHOSPHORUS (BEAKER) (test code = 3.4 mg/dL 2.3-4.7 604) Crystal [employer] Coordinator ID - DBCBC W/PLT COUNT & AUTO [id number] 06:03:00 Test Item Value Reference Range Interpretation Comments WHITE BLOOD CELL COUNT (BEAKER) 8.1 K/ L 3.5-10.5 (test code = 775) RED BLOOD CELL COUNT (BEAKER) 5.12 M/ L 4.63-6.08 (test code = 761) HEMOGLOBIN (BEAKER) (test code = 13.3 GM/DL 13.7-17.5 L 410) HEMATOCRIT (BEAKER) (test code = 43.0 % 40.1-51.0 411) MEAN CORPUSCULAR VOLUME (BEAKER) 84.0 fL 79.0-92.2 (test code = 753) MEAN CORPUSCULAR HEMOGLOBIN 26.0 pg 25.7-32.2 (BEAKER) (test code = 751) MEAN CORPUSCULAR HEMOGLOBIN CONC 30.9 GM/DL 32.3-36.5 L (BEAKER) (test code = 752) RED CELL DISTRIBUTION WIDTH 17.5 % 11.6-14.4 H (BEAKER) (test code = 412) PLATELET COUNT (BEAKER) (test 316 K/CU MM 150-450 code = 756) MEAN PLATELET VOLUME (BEAKER) 9.4 fL 9.4-12.4 (test code = 754) NUCLEATED RED BLOOD CELLS 0 /100 WBC 0-0 (BEAKER) (test code = 413) NEUTROPHILS RELATIVE PERCENT 63 % (BEAKER) (test code = 429) LYMPHOCYTES RELATIVE PERCENT 22 % (BEAKER) (test code = 430) MONOCYTES RELATIVE PERCENT 11 % (BEAKER) (test code = 431) EOSINOPHILS RELATIVE PERCENT 4 % (BEAKER) (test code = 432) BASOPHILS RELATIVE PERCENT 0 % (BEAKER) (test code = 437) NEUTROPHILS ABSOLUTE COUNT 5.02 K/ L 1.78-5.38 (BEAKER) (test code = 670) LYMPHOCYTES ABSOLUTE COUNT 1.75 K/ L 1.32-3.57 (BEAKER) (test code = 414) MONOCYTES ABSOLUTE COUNT (BEAKER) 0.88 K/ L 0.30-0.82 H (test code = 415) EOSINOPHILS ABSOLUTE COUNT 0.35 K/ L 0.04-0.54 (BEAKER) (test code = 416) BASOPHILS ABSOLUTE COUNT (BEAKER) 0.02 K/ L 0.01-0.08 (test code = 417) IMMATURE GRANULOCYTES-RELATIVE 0 % 0-1 PERCENT (BEAKER) (test code = 2801) POCT-GLUCOSE [id number] 20:53:00 Test Item Value Reference Range Interpretation Comments POC-GLUCOSE METER 130 mg/dL 70-110 H : TESTED A T [facility] 6720 (BEAKER) (test code = [facility], 1538) [address]: Crystal Mach[employer] Coordinator/Techni faiza ID = [id number] for AN NOR, FELICIA POCT-GLUCOSE [id number] 16:39:00 Test Item Value Reference Range Interpretation Comments POC-GLUCOSE METER 114 mg/dL 70-110 H : TESTED A T [facility] 6720 (BEAKER) (test code = [facility], 1538) [address]: Crystal Mach[employer] Coordinator/Techni faiza ID = [id number] for RA MOS, [place] POCT-GLUCOSE [id number] 11:46:00 Test Item Value Reference Range Interpretation Comments POC-GLUCOSE METER 127 mg/dL 70-110 H : TESTED A T [facility] 6720 (BEAKER) (test code = [facility], 1538) [address]: Crystal Mach[employer] Coordinator/Techni faiza ID = [id number] for RA MOS, [place] RAD, CHEST, 1 VIEW, NON [id number] 10:55:00Reason for exam:->Post-opShould this be performed at the bedside?->Yes [facility] 1960 Sex: MFINAL REPORT X-ray chest AP portable COMPARISON: 04/27/2020 HISTORY: P ostop FINDINGS:Technical adequacy: AdequateLines and Tubes: NoneCentral airways: UnremarkableHeart: UnremarkableGreat vessels: UnremarkableMediastinum: UnremarkableLungs: Increasing pulmonary interstitial edema. Right upper lobe perihilar opacity. Part of this edema and might represent airspace edema.Pleura: Right costophrenic angle is not clearly seen. A small right pleural effusion is not ruled out.Skeletal structures: UnremarkableBody wall: UnremarkableUpper abdomen: Unremarkable Impression: Possible worsening interstitial and alveolar pulmonary edema as above. Signed: Juan Lambepblake Verified Date/Time: 04/28/2020 10:55:02 Reading Location: [address] Consult Reading Room POCT- GLUCOSE [id number] 08:05:00 Test Item Value Reference Range Interpretation Comments POC-GLUCOSE METER 117 mg/dL 70-110 H : TESTED A T [facility] 6720 (BEAKER) (test code = TISHA Jo Ann [facility], 1538) [address]: Crystal Machining Coordinator/Techni faiza ID = [id number] for RA MOS, [place] BASIC METABOLIC [id number] 06:49:00 Test Item Value Reference Range Interpretation Comments SODIUM (BEAKER) 141 meq/L 136-145 (test code = 381) POTASSIUM (BEAKER) 4.2 meq/L 3.5-5.1 (test code = 379) CHLORIDE (BEAKER) 107 meq/L 98-107 (test code = 382) CO2 (BEAKER) (test 28 meq/L 22-29 code = 355) BLOOD UREA NITROGEN 14 mg/dL 7-21 (BEAKER) (test code = 354) CREATININE (BEAKER) 0.83 mg/dL 0.57-1.25 (test code = 358) GLUCOSE RANDOM 83 mg/dL 70-105 (BEAKER) (test code = 652) CALCIUM (BEAKER) 7.8 mg/dL 8.4-10.2 L (test code = 697) EGFR (BEAKER) (test 95 mL/min/1.73 ESTIMA BUCK GFR IS code = 1092) sq m NOT ACCURATE CREATININE CLEARANCE IN PREDICTING GLOMERULAR FILTRATION RATE . ESTIMATED GFR I S NOT APPLICABLE FOR DIALYSIS PATIEN TS. [employer] Coordinator ID - [id number] 06:46:00 Test Item Value Reference Range Interpretation Comments MAGNESIUM (BEAKER) (test code = 1.8 mg/dL 1.6-2.6 627) [employer] Coordinator ID - [id number] 06:46:00 Test Item Value Reference Range Interpretation Comments PHOSPHORUS (BEAKER) (test code = 3.2 mg/dL 2.3-4.7 604) [employer] Coordinator ID - EDASICBC W/PLT COUNT & AUTO [id number] 06:02:00 Test Item Value Reference Range Interpretation Comments WHITE BLOOD CELL COUNT (BEAKER) 8.3 K/ L 3.5-10.5 (test code = 775) RED BLOOD CELL COUNT (BEAKER) 4.95 M/ L 4.63-6.08 (test code = 761) HEMOGLOBIN (BEAKER) (test code = 12.9 GM/DL 13.7-17.5 L 410) HEMATOCRIT (BEAKER) (test code = 42.3 % 40.1-51.0 411) MEAN CORPUSCULAR VOLUME (BEAKER) 85.5 fL 79.0-92.2 (test code = 753) MEAN CORPUSCULAR HEMOGLOBIN 26.1 pg 25.7-32.2 (BEAKER) (test code = 751) MEAN CORPUSCULAR HEMOGLOBIN CONC 30.5 GM/DL 32.3-36.5 L (BEAKER) (test code = 752) RED CELL DISTRIBUTION WIDTH 17.7 % 11.6-14.4 H (BEAKER) (test code = 412) PLATELET COUNT (BEAKER) (test 269 K/CU MM 150-450 code = 756) MEAN PLATELET VOLUME (BEAKER) 10.1 fL 9.4-12.4 (test code = 754) NUCLEATED RED BLOOD CELLS 0 /100 WBC 0-0 (BEAKER) (test code = 413) NEUTROPHILS RELATIVE PERCENT 64 % (BEAKER) (test code = 429) LYMPHOCYTES RELATIVE PERCENT 18 % (BEAKER) (test code = 430) MONOCYTES RELATIVE PERCENT 13 % (BEAKER) (test code = 431) EOSINOPHILS RELATIVE PERCENT 4 % (BEAKER) (test code = 432) BASOPHILS RELATIVE PERCENT 0 % (BEAKER) (test code = 437) NEUTROPHILS ABSOLUTE COUNT 5.26 K/ L 1.78-5.38 (BEAKER) (test code = 670) LYMPHOCYTES ABSOLUTE COUNT 1.52 K/ L 1.32-3.57 (BEAKER) (test code = 414) MONOCYTES ABSOLUTE COUNT (BEAKER) 1.07 K/ L 0.30-0.82 H (test code = 415) EOSINOPHILS ABSOLUTE COUNT 0.36 K/ L 0.04-0.54 (BEAKER) (test code = 416) BASOPHILS ABSOLUTE COUNT (BEAKER) 0.02 K/ L 0.01-0.08 (test code = 417) IMMATURE GRANULOCYTES-RELATIVE 0 % 0-1 PERCENT (BEAKER) (test code = 2801) LACTIC ACID, [id number] 05:52:00 Test Item Value Reference Range Interpretation Comments LACTATE BLOOD VENOUS (2) (BEAKER) 0.61 mmol/L 0.50-2.20 (test code = 2872) [employer] Coordinator ID - DBRAD, CHEST, 1 VIEW, NON [id number] 01:01:00Reason for exam:- >oxygen requirementsShould this be performed at the bedside?->Yes [facility] : 1960 Sex: MFINAL REPORT RAD, CHEST, 1 VIEW, NON DEPT INDICATION: oxygen requireme nts COMPARISON: Prior day's exam FINDINGS: Portable frontal view of the chest. IMPRESSION: Support Lines: None. Lungs and pleura: Change elevation of right hemidiaphragm. Interval increase in coarseinterstitial airspace opacities bilaterally suggestive of worsening interstitial pulmonary edema andpulmonary vascular congestion. Unchanged small right pleural effusion. No pneumothorax.Heart and mediastinum: Stable contours. Additional findings: None. Signed: Larisa Barclay Verified Date/Time: 04/28/2020 01:01:46 -GLUCOSE [id number] 22:33:00 Test Item Value Reference Range Interpretation Comments POC-GLUCOSE METER 106 mg/dL 70-110 : TESTED A T [facility] 6720 (BEAKER) (test code = [place], 1538) [address]: [employer] Coordinator/Techni faiza ID = [id number] for AN FELICIA MALIK RAD, CHEST, 1 VIEW, NON [id number] 18:29:00Reason for exam:->chest tube removalShould this be performed at the bedside?->Yes [facility] 1960 Sex: MFINAL REPORT RAD, CHEST, 1 VIEW, NON DEPT INDICATION: chest tube remov al COMPARISON: Same day's exam FINDINGS: Portable frontal view of the chest. IMPRESSION: Support Lines: Interval removal of the previously seen right-sided chest tube. Lungs and pleura: Unchanged airspace and pleural opacities. Since the along the right hemidiaphragm may represent a small basilar pneumothorax however recommend continued close attention on follow-up imaging.Heart and mediastinum: Stable contours. Additional findings: Stable surgical changes. Signed: Larisa Barclay Verified Date/Time: 04/27/2020 18:29:02 -GLUCOSE [id number] 17:29:00 Test Item Value Reference Range Interpretation Comments POC-GLUCOSE METER 106 mg/dL 70-110 : TESTED A T [facility] 6720 ([employer]) (test code = [employer] [facility], 1538) [address]: [employer] Coordinator/Techni faiza ID = [id number] for FE LDER, FADUMO POCT-GLUCOSE [id number] 12:00:00 Test Item Value Reference Range Interpretation Comments POC-GLUCOSE METER 102 mg/dL 70-110 : TESTED A T [facility] 6720 (BEAKER) (test code = [employer] [facility], 1538) [address]: [employer] Coordinator/Techni faiza ID = [id number] for FE LDER, FADUMO RAD, CHEST, 1 VIEW, NON [id number] 09:47:00Reason for exam:->Post-opShould this be performed at the bedside?->Yes [facility] 1960 Sex: MFINAL REPORT AP view of the chest dated 04/27/2020 COMPARISON: 2019 CLINICAL INFORMATION: Post-op Comment: Heart is normal in size. Pulmonary vasculature is unremarkable. Subsegmental atelectasis is seen in both lung bases. The rest of lungs are clear. No pulmonary infiltrate or pleural effusion is present. Right hemidiaphragm is elevated. Impression: Bibasilar subsegmental atelectasis. Signed: Pauline Velazquezeport Verified Date/Time: 04/27/2020 09:47:16 Reading Location: [facility] C013X Ortho Consult Reading Room POCT-GLUCOSE [id number] 08:14:00 Test Item Value Reference Range Interpretation Comments POC-GLUCOSE METER 142 mg/dL 70-110 H : TESTED A T [facility] 6720 (BEAKER) (test code = MADDIRADHA Cherry [facility], 1538) [address]: Crystal Machining Coordinator/Techni faiza ID = [id number] for FE LDER, FADUMO CBC W/PLT COUNT & AUTO [id number] 04:22:00 Test Item Value Reference Range Interpretation Comments WHITE BLOOD CELL COUNT (BEAKER) 10.8 K/ L 3.5-10.5 H (test code = 775) RED BLOOD CELL COUNT (BEAKER) 5.21 M/ L 4.63-6.08 (test code = 761) HEMOGLOBIN (BEAKER) (test code = 13.4 GM/DL 13.7-17.5 L 410) HEMATOCRIT (BEAKER) (test code = 44.3 % 40.1-51.0 411) MEAN CORPUSCULAR VOLUME (BEAKER) 85.0 fL 79.0-92.2 (test code = 753) MEAN CORPUSCULAR HEMOGLOBIN 25.7 pg 25.7-32.2 (BEAKER) (test code = 751) MEAN CORPUSCULAR HEMOGLOBIN CONC 30.2 GM/DL 32.3-36.5 L (BEAKER) (test code = 752) RED CELL DISTRIBUTION WIDTH 17.6 % 11.6-14.4 H (BEAKER) (test code = 412) PLATELET COUNT (BEAKER) (test 266 K/CU MM 150-450 code = 756) MEAN PLATELET VOLUME (BEAKER) 9.8 fL 9.4-12.4 (test code = 754) NUCLEATED RED BLOOD CELLS 0 /100 WBC 0-0 (BEAKER) (test code = 413) NEUTROPHILS RELATIVE PERCENT 75 % (BEAKER) (test code = 429) LYMPHOCYTES RELATIVE PERCENT 11 % (BEAKER) (test code = 430) MONOCYTES RELATIVE PERCENT 10 % (BEAKER) (test code = 431) EOSINOPHILS RELATIVE PERCENT 3 % (BEAKER) (test code = 432) BASOPHILS RELATIVE PERCENT 0 % (BEAKER) (test code = 437) NEUTROPHILS ABSOLUTE COUNT 8.16 K/ L 1.78-5.38 H (BEAKER) (test code = 670) LYMPHOCYTES ABSOLUTE COUNT 1.19 K/ L 1.32-3.57 L (BEAKER) (test code = 414) MONOCYTES ABSOLUTE COUNT (BEAKER) 1.08 K/ L 0.30-0.82 H (test code = 415) EOSINOPHILS ABSOLUTE COUNT 0.36 K/ L 0.04-0.54 (BEAKER) (test code = 416) BASOPHILS ABSOLUTE COUNT (BEAKER) 0.02 K/ L 0.01-0.08 (test code = 417) IMMATURE GRANULOCYTES-RELATIVE 0 % 0-1 PERCENT (BEAKER) (test code = 2801) TROPONIN [id number] 04:19:00 Test Item Value Reference Range Interpretation Comments TROPONIN I (BEAKER) (test code = 397) < ng/mL 0.00-0.03 Troponin I (TnI) levels must be interpreted in the context of the presenting symptoms and the clinical findings. Elevated TnI levels indicate myocardial damage, but are not specific for ischemic heart disease. Elevated TnI levels are seen in patients with other cardiac conditions (including myocarditis and congestive heart failure), and slight TnI elevations occur in patients with other conditions, including sepsis, renal failure, acidosis, acute neurological disease, and persistent tachyarrhythmia.Crystal Mach[employer] Coordinator ID - EDASIBASIC METABOLIC PANEL 2020-04-27 04:11:00 Test Item Value Reference Range Interpretation Comments SODIUM (BEAKER) 139 meq/L 136-145 (test code = 381) POTASSIUM (BEAKER) 4.6 meq/L 3.5-5.1 (test code = 379) CHLORIDE (BEAKER) 105 meq/L 98-107 (test code = 382) CO2 (BEAKER) (test 30 meq/L 22-29 H code = 355) BLOOD UREA NITROGEN 20 mg/dL 7-21 (BEAKER) (test code = 354) CREATININE (BEAKER) 1.06 mg/dL 0.57-1.25 (test code = 358) GLUCOSE RANDOM 96 mg/dL 70-105 (BEAKER) (test code = 652) CALCIUM (BEAKER) 7.8 mg/dL 8.4-10.2 L (test code = 697) EGFR (BEAKER) (test 72 mL/min/1.73 ESTIMA BUCK GFR IS code = 1092) sq m NOT ACCURATE CREATININE CLEARANCE IN PREDICTING GLOMERULAR FILTRATION RATE . ESTIMATED GFR I S NOT APPLICABLE FOR DIALYSIS PATIEN TS. [employer] Coordinator ID - [id number] 04:10:00 Test Item Value Reference Range Interpretation Comments MAGNESIUM (BEAKER) (test code = 1.9 mg/dL 1.6-2.6 627) Crystal Mach[employer] Coordinator ID - [id number] 04:10:00 Test Item Value Reference Range Interpretation Comments PHOSPHORUS (BEAKER) (test code = 3.0 mg/dL 2.3-4.7 604) Crystal Machining Coordinator ID - EDASIPOCT-GLUCOSE [id number] 22:13:00 Test Item Value Reference Range Interpretation Comments POC-GLUCOSE METER 131 mg/dL 70-110 H : TESTED A T [facility] 6720 (BEAKER) (test code = [place], 1538) [id number]: Crystal Machining Coordinator/Techni faiza ID = [id number] for CH UA BOWEN TROPONIN [id number] 19:14:00 Test Item Value Reference Range Interpretation Comments TROPONIN I (BEAKER) (test code = 397) < ng/mL 0.00-0.03 Troponin I (TnI) levels must be interpreted in the context of the presenting symptoms and the clinical findings. Elevated TnI levels indicate myocardial damage, but are not specific for ischemic heart disease. Elevated TnI levels are seen in patients with other cardiac conditions (including myocarditis and congestive heart failure), and slight TnI elevations occur in patients with other conditions, including sepsis, renal failure, acidosis, acute neurological disease, and persistent tachyarrhythmia.Crystal Mach[employer] Coordinator ID - DBBLOOD GAS, VENOUS 2020-04-26 14:18:00 Test Item Value Reference Range Interpretation Comments PH VENOUS (BEAKER) (test code = 7.34 7.32-7.42 701) PCO2 VENOUS (BEAKER) (test code = 50 mm Hg 41-51 755) PO2 VENOUS (BEAKER) (test code = 99 mm Hg 25-40 H 702) O2 SATURATION VENOUS (BEAKER) 97.1 % 40.0-70.0 H (test code = 703) HCO3 VENOUS (BEAKER) (test code = 26 mmol/L 21-29 705) BASE EXCESS VENOUS (BEAKER) (test -0.2 mmol/L -2.0-3.0 code = 704) PATIENT TEMPERATURE (BEAKER) 37.0 (test code = 1818) FIO2 (BEAKER) (test code = 1819) 21.0 POCT-GLUCOSE [id number] 12:22:00 Test Item Value Reference Range Interpretation Comments POC-GLUCOSE METER 138 mg/dL 70-110 H : TESTED A T [facility] 6720 (BEAKER) (test code = MADDIRADHA Cherry [facility], 1538) [id number]: Crystal Machining Coordinator/Techni faiza ID = [id number] for URI LI TROPONIN [id number] 11:46:00 Test Item Value Reference Range Interpretation Comments TROPONIN I (BEAKER) (test code = 397) < ng/mL 0.00-0.03 Troponin I (TnI) levels must be interpreted in the context of the presenting symptoms and the clinical findings. Elevated TnI levels indicate myocardial damage, but are not specific for ischemic heart disease. Elevated TnI levels are seen in patients with other cardiac conditions (including myocarditis and congestive heart failure), and slight TnI elevations occur in patients with other conditions, including sepsis, renal failure, acidosis, acute neurological disease, and persistent tachyarrhythmia.Crystal Mach[employer] Coordinator ID - ROBYN, CHEST, 1 VIEW, NON [id number] 09:07:00Reason for exam:->Post-opShould this be performed at the bedside?->Yes [facility] 1960 Sex: MFINAL REPORT CHEST AP PORTABLE COMPARISON STUDY: 04/25/2020 History pr ovided: Postop evaluation Degree of inspiration is poor. Coarsened interstitial markings persist predominating in the left lung, with atelectatic change at the right base. Signed: Ramos Izaguirre MDReportVerified Date/Time: 04/26/2020 09:07:44 Reading Location: [facility] Diagnostic Imaging Reading Room - [facility] 1310.12 -GLUCOSE [id number] 07:56:00 Test Item Value Reference Range Interpretation Comments POC-GLUCOSE METER 100 mg/dL 70-110 : TESTED A T [facility] 6720 (BEAKER) (test code = TIS[facility], 1538) [address]: Crystal Machining Coordinator/Techni faiza ID = [id number] for URI LI BASIC METABOLIC [id number] 06:10:00 Test Item Value Reference Range Interpretation Comments SODIUM (BEAKER) 141 meq/L 136-145 (test code = 381) POTASSIUM (BEAKER) 4.4 meq/L 3.5-5.1 (test code = 379) CHLORIDE (BEAKER) 107 meq/L 98-107 (test code = 382) CO2 (BEAKER) (test 26 meq/L 22-29 code = 355) BLOOD UREA NITROGEN 22 mg/dL 7-21 H (BEAKER) (test code = 354) CREATININE (BEAKER) 1.11 mg/dL 0.57-1.25 (test code = 358) GLUCOSE RANDOM 123 mg/dL 70-105 H (BEAKER) (test code = 652) CALCIUM (BEAKER) 8.1 mg/dL 8.4-10.2 L (test code = 697) EGFR (BEAKER) (test 68 mL/min/1.73 ESTIMA BUCK GFR IS code = 1092) sq m NOT ACCURATE CREATININE CLEARANCE IN PREDICTING GLOMERULAR FILTRATION RATE . ESTIMATED GFR I S NOT APPLICABLE FOR DIALYSIS PATIEN TS. [employer] Coordinator ID - [id number] 06:10:00 Test Item Value Reference Range Interpretation Comments MAGNESIUM (BEAKER) (test code = 1.8 mg/dL 1.6-2.6 627) Crystal [employer] Coordinator ID - [id number] 06:10:00 Test Item Value Reference Range Interpretation Comments PHOSPHORUS (BEAKER) (test code = 4.5 mg/dL 2.3-4.7 604) Crystal Mach[employer] Coordinator ID - EDASICBC W/PLT COUNT & AUTO [id number] 05:17:00 Test Item Value Reference Range Interpretation Comments WHITE BLOOD CELL COUNT (BEAKER) 15.7 K/ L 3.5-10.5 H (test code = 775) RED BLOOD CELL COUNT (BEAKER) 5.79 M/ L 4.63-6.08 (test code = 761) HEMOGLOBIN (BEAKER) (test code = 15.0 GM/DL 13.7-17.5 410) HEMATOCRIT (BEAKER) (test code = 49.2 % 40.1-51.0 411) MEAN CORPUSCULAR VOLUME (BEAKER) 85.0 fL 79.0-92.2 (test code = 753) MEAN CORPUSCULAR HEMOGLOBIN 25.9 pg 25.7-32.2 (BEAKER) (test code = 751) MEAN CORPUSCULAR HEMOGLOBIN CONC 30.5 GM/DL 32.3-36.5 L (BEAKER) (test code = 752) RED CELL DISTRIBUTION WIDTH 18.2 % 11.6-14.4 H (BEAKER) (test code = 412) PLATELET COUNT (BEAKER) (test 290 K/CU MM 150-450 code = 756) MEAN PLATELET VOLUME (BEAKER) 10.1 fL 9.4-12.4 (test code = 754) NUCLEATED RED BLOOD CELLS 0 /100 WBC 0-0 (BEAKER) (test code = 413) NEUTROPHILS RELATIVE PERCENT 83 % (BEAKER) (test code = 429) LYMPHOCYTES RELATIVE PERCENT 7 % (BEAKER) (test code = 430) MONOCYTES RELATIVE PERCENT 9 % (BEAKER) (test code = 431) EOSINOPHILS RELATIVE PERCENT 0 % (BEAKER) (test code = 432) BASOPHILS RELATIVE PERCENT 0 % (BEAKER) (test code = 437) NEUTROPHILS ABSOLUTE COUNT 13.08 K/ L 1.78-5.38 H (BEAKER) (test code = 670) LYMPHOCYTES ABSOLUTE COUNT 1.12 K/ L 1.32-3.57 L (BEAKER) (test code = 414) MONOCYTES ABSOLUTE COUNT (BEAKER) 1.39 K/ L 0.30-0.82 H (test code = 415) EOSINOPHILS ABSOLUTE COUNT 0.00 K/ L 0.04-0.54 L (BEAKER) (test code = 416) BASOPHILS ABSOLUTE COUNT (BEAKER) 0.05 K/ L 0.01-0.08 (test code = 417) IMMATURE GRANULOCYTES-RELATIVE 0 % 0-1 PERCENT (BEAKER) (test code = 2801) POCT-GLUCOSE [id number] 23:05:00 Test Item Value Reference Range Interpretation Comments POC-GLUCOSE METER 135 mg/dL 70-110 H : TESTED A T [facility] 6720 (BEAKER) (test code = [place], 1538) [id number]: Crystal Mach[employer] Coordinator/Techni faiza ID = [id number] for SHARDA KINGSLEY (CELLAVISION MANUAL DIFF)2020-04-25 21:58:00 Test Item Value Reference Range Interpretation Comments NEUTROPHILS - REL 83 % (CELLAVISION)(BEAKER) (test code = 2816) LYMPHOCYTES - REL 5 % (CELLAVISION)(BEAKER) (test code = 2817) MONOCYTES - REL 7 % (CELLAVISION)(BEAKER) (test code = 2818) EOSINOPHILS - REL 1 % (CELLAVISION)(BEAKER) (test code = 2819) BANDS - REL (CELLAVISION)(BEAKER) 4 % 0-10 (test code = 2826) NEUTROPHILS - ABS 13.45 K/ul 1.78-5.38 H (CELLAVISION)(BEAKER) (test code = 2830) LYMPHOCYTES - ABS 0.81 K/ul 1.32-3.57 L (CELLAVISION)(BEAKER) (test code = 2831) MONOCYTES - ABS 1.13 K/uL 0.30-0.82 H (CELLAVISION)(BEAKER) (test code = 2832) EOSINOPHILS - ABS 0.16 K/uL 0.04-0.54 (CELLAVISION)(BEAKER) (test code = 2834) BANDS - ABS (CELLAVISION)(BEAKER) 0.65 K/uL 0.00-0.80 (test code = 2840) TOTAL COUNTED (BEAKER) (test code 100 = 1351) WBC MORPHOLOGY (BEAKER) (test Normal code = 487) PLT MORPHOLOGY (BEAKER) (test Normal code = 486) ANISOCYTOSIS (BEAKER) (test code 1+ few = 961) MACROCYTES (BEAKER) (test code = 1+ few 964) POIKILOCYTES (BEAKER) (test code 3+ many = 966) TAMIKO CELLS (BEAKER) (test code = 2+ moderate 474) ARTIFACT (CELLAVISION)(BEAKER) Present (test code = 3432) PLATELET CONCENTRATION Adequate (CELLAVISION)(BEAKER) (test code = 3438) Crystal Mach[employer] Coordinator ID - Corina Flores comments: Slide comments:BASIC METABOLIC PANEL 2020-04-25 21:41:00 Test Item Value Reference Range Interpretation Comments SODIUM (BEAKER) 138 meq/L 136-145 (test code = 381) POTASSIUM (BEAKER) 4.9 meq/L 3.5-5.1 Specimen moderately (test code = 379) hemolyzed CHLORIDE (BEAKER) 107 meq/L 98-107 (test code = 382) CO2 (BEAKER) (test 22 meq/L 22-29 code = 355) BLOOD UREA NITROGEN 20 mg/dL 7-21 (BEAKER) (test code = 354) CREATININE (BEAKER) 1.03 mg/dL 0.57-1.25 Specimen moderately (test code = 358) hemolyzed GLUCOSE RANDOM 140 mg/dL 70-105 H (BEAKER) (test code = 652) CALCIUM (BEAKER) 8.5 mg/dL 8.4-10.2 (test code = 697) EGFR (BEAKER) (test 74 mL/min/1.73 ESTIMA BUCK GFR IS code = 1092) sq m NOT ACCURATE CREATININE CLEARANCE IN PREDICTING GLOMERULAR FILTRATION RATE . ESTIMATED GFR I S NOT APPLICABLE FOR DIALYSIS PATIEN TS. Crystal Mach[employer] Coordinator ALONSO - ANT MSpecimen slightly ictericCBC W/PLT COUNT & AUTO [id number] 21:35:00 Test Item Value Reference Range Interpretation Comments WHITE BLOOD CELL COUNT (BEAKER) 16.2 K/ L 3.5-10.5 H (test code = 775) RED BLOOD CELL COUNT (BEAKER) 6.09 M/ L 4.63-6.08 H (test code = 761) HEMOGLOBIN (BEAKER) (test code = 15.7 GM/DL 13.7-17.5 410) HEMATOCRIT (BEAKER) (test code = 51.2 % 40.1-51.0 H 411) MEAN CORPUSCULAR VOLUME (BEAKER) 84.1 fL 79.0-92.2 (test code = 753) MEAN CORPUSCULAR HEMOGLOBIN 25.8 pg 25.7-32.2 (BEAKER) (test code = 751) MEAN CORPUSCULAR HEMOGLOBIN CONC 30.7 GM/DL 32.3-36.5 L (BEAKER) (test code = 752) RED CELL DISTRIBUTION WIDTH 18.1 % 11.6-14.4 H (BEAKER) (test code = 412) PLATELET COUNT (BEAKER) (test 316 K/CU MM 150-450 code = 756) MEAN PLATELET VOLUME (BEAKER) 9.9 fL 9.4-12.4 (test code = 754) NUCLEATED RED BLOOD CELLS 0 /100 WBC 0-0 (BEAKER) (test code = 413) RAD, CHEST, 1 VIEW, NON [id number] 19:36:00Reason for exam:->Post-opShould this be performed at the bedside?->Yes [facility] 1960 Sex: MFINAL REPORT TECHNIQUE: Frontal view of the chest. INDICATION: Post-op COMPARISON: CT abdomen pelvis 04/24/2020. FINDINGS: LINES/TUBES: None. LUNGS: Lung volumes are low. There is mild elevation of the right hemidiaphragm.. Linear opacities in the bilateral lungs likelyrepresenting atelectasis.. PLEURA: No pneumothorax or significant pleural effusion. HEART AND MEDIASTINUM: The cardiomediastinal silhouette is enlarged. SOFT TISSUES AND BONES: Unremarkable. Surgical drain projects over the right upper quadrant of the abdomen. IMPRESSION:Postsurgical changes in the right upper quadrant of the abdomen. Stable elevation right hemidiaphragm. Bilateral atelectasis. Signed: Elizabeth Martin Verified Date/Time: 04/25/2020 19:36:02 Reading Location: [address] Transitional Reading Room 07:36 PMPOCT-GLUCOSE [id number] 19:00:00 Test Item Value Reference Range Interpretation Comments POC-GLUCOSE METER 118 mg/dL 70-110 H : TESTED A T [facility] 6720 (BEAKER) (test code = [facility], 1538) [address]: Crystal Machining Coordinator/Techni faiza ID = [id number] for JING PUTNAM BASIC METABOLIC [id number] 06:01:00 Test Item Value Reference Range Interpretation Comments SODIUM (BEAKER) 142 meq/L 136-145 (test code = 381) POTASSIUM (BEAKER) 4.1 meq/L 3.5-5.1 (test code = 379) CHLORIDE (BEAKER) 105 meq/L 98-107 (test code = 382) CO2 (BEAKER) (test 29 meq/L 22-29 code = 355) BLOOD UREA NITROGEN 21 mg/dL 7-21 (BEAKER) (test code = 354) CREATININE (BEAKER) 1.21 mg/dL 0.57-1.25 (test code = 358) GLUCOSE RANDOM 94 mg/dL 70-105 (BEAKER) (test code = 652) CALCIUM (BEAKER) 8.5 mg/dL 8.4-10.2 (test code = 697) EGFR (BEAKER) (test 62 mL/min/1.73 ESTIMA BUCK GFR IS code = 1092) sq m NOT ACCURATE CREATININE CLEARANCE IN PREDICTING GLOMERULAR FILTRATION RATE . ESTIMATED GFR I S NOT APPLICABLE FOR DIALYSIS PATIEN TS. Crystal Mach[employer] Coordinator ID - ANT [id number] 06:01:00 Test Item Value Reference Range Interpretation Comments MAGNESIUM (BEAKER) (test code = 2.0 mg/dL 1.6-2.6 627) Crystal Machining Coordinator ID - ANT [id number] 06:01:00 Test Item Value Reference Range Interpretation Comments PHOSPHORUS (BEAKER) (test code = 4.6 mg/dL 2.3-4.7 604) Crystal Machining Coordinator ID - ANT MHEPATIC FUNCTION [id number] 06:01:00 Test Item Value Reference Range Interpretation Comments TOTAL PROTEIN (BEAKER) (test code = 6.2 gm/dL 6.0-8.3 770) ALBUMIN (BEAKER) (test code = 1145) 3.3 g/dL 3.5-5.0 L BILIRUBIN TOTAL (BEAKER) (test code 0.5 mg/dL 0.2-1.2 = 377) BILIRUBIN DIRECT (BEAKER) (test 0.3 mg/dL 0.1-0.5 code = 706) ALKALINE PHOSPHATASE (BEAKER) (test 111 U/L 40-150 code = 346) AST (SGOT) (BEAKER) (test code = 18 U/L 5-34 353) ALT (SGPT) (BEAKER) (test code = 15 U/L 6-55 347) Crystal Machining Coordinator ID - ANT MCBC W/PLT COUNT & AUTO [id number] 05:43:00 Test Item Value Reference Range Interpretation Comments WHITE BLOOD CELL COUNT (BEAKER) 9.2 K/ L 3.5-10.5 (test code = 775) RED BLOOD CELL COUNT (BEAKER) 5.75 M/ L 4.63-6.08 (test code = 761) HEMOGLOBIN (BEAKER) (test code = 15.0 GM/DL 13.7-17.5 410) HEMATOCRIT (BEAKER) (test code = 48.1 % 40.1-51.0 411) MEAN CORPUSCULAR VOLUME (BEAKER) 83.7 fL 79.0-92.2 (test code = 753) MEAN CORPUSCULAR HEMOGLOBIN 26.1 pg 25.7-32.2 (BEAKER) (test code = 751) MEAN CORPUSCULAR HEMOGLOBIN CONC 31.2 GM/DL 32.3-36.5 L (BEAKER) (test code = 752) RED CELL DISTRIBUTION WIDTH 17.8 % 11.6-14.4 H (BEAKER) (test code = 412) PLATELET COUNT (BEAKER) (test 308 K/CU MM 150-450 code = 756) MEAN PLATELET VOLUME (BEAKER) 10.1 fL 9.4-12.4 (test code = 754) NUCLEATED RED BLOOD CELLS 0 /100 WBC 0-0 (BEAKER) (test code = 413) NEUTROPHILS RELATIVE PERCENT 56 % (BEAKER) (test code = 429) LYMPHOCYTES RELATIVE PERCENT 31 % (BEAKER) (test code = 430) MONOCYTES RELATIVE PERCENT 11 % (BEAKER) (test code = 431) EOSINOPHILS RELATIVE PERCENT 2 % (BEAKER) (test code = 432) BASOPHILS RELATIVE PERCENT 1 % (BEAKER) (test code = 437) NEUTROPHILS ABSOLUTE COUNT 5.11 K/ L 1.78-5.38 (BEAKER) (test code = 670) LYMPHOCYTES ABSOLUTE COUNT 2.85 K/ L 1.32-3.57 (BEAKER) (test code = 414) MONOCYTES ABSOLUTE COUNT (BEAKER) 1.00 K/ L 0.30-0.82 H (test code = 415) EOSINOPHILS ABSOLUTE COUNT 0.18 K/ L 0.04-0.54 (BEAKER) (test code = 416) BASOPHILS ABSOLUTE COUNT (BEAKER) 0.05 K/ L 0.01-0.08 (test code = 417) IMMATURE GRANULOCYTES-RELATIVE 0 % 0-1 PERCENT (BEAKER) (test code = 2801) LACTIC ACID, [id number] 05:38:00 Test Item Value Reference Range Interpretation Comments LACTATE BLOOD VENOUS 0.77 mmol/L 0.50-2.20 Specime n slightly (2) (BEAKER) (test hemolyzed code = 2872) Crystal Machining Coordinator ID - ANT MSARS-COV2/RT-PCR ([facility])2020-04-25 01:59:00 Test Item Value Reference Range Interpretation Comments SARS-COV2/RT-PCR (test Negative Not Detected, Negative, code = 7525535) See external report for linked test SARS-COV-2 PERFORMING LAB [facility] KARLA (test code = 2092939) Negative result for this test determines that SARS-CoV-2 RNA was not present in the specimen above the Limit of Detection (LOD). However, Negative results do not preclude SARS-CoV-2 infection and should not be used as the sole basis for treatment or patient management decisions. Negative results mustbe combined with clinical observations, patient history, and epidemiological information. A false negative result may occur if a specimen is improperly collected, transported or handled. A false negative result should be considered if patient's recent exposures or clinical presentation indicate that COVID-19 (SARS-CoV-2) is likely and diagnostic tests for other causes of illness are negative. Re-testing should be considered in cases of suspected false negatives.The limit of detection for this assay is 800 copies/mL.This SARS CoV-2 test is a real-time RT-PCR test intended for the qualitative detection of nucleic acid from SARS-CoV-2 in a nasopharyngeal swab specimen collected from individuals susp ected of COVID-19 by their healthcare provider.This test has not been Food and Drug Administration (FDA) cleared or approved. This is a modified version of an approved Emergency Use Authorization (EUA) and is in the process of review by the FDA. Once authorized by the FDA, the issued EUA will be effective until the declaration that circumstances exist justifying the authorization of the emergency use of in vitro diagnostic tests for detection and/or diagnosis of COVID-19 is terminated under Section 564(b)(2) of the Act or the EUA is revoked under Section 564(g) of the Act.Fact Sheet for Healthcare Providers:https://www.[employer].com/sites/default/files/product/documents/Fact_Shee f_MZ_Xpzzxujjp_Vyei_HHBK-XrU-3.pdfFact Sheet for Healthcare Patients:https://www.[employer].com/sites/default/files/product/ documents/Megq_Svdtp_Qcqhmqtp_Xygh_FXQQ-TeE-1.pdfPerforming Laboratory:[facility], [place] [address]CP, [id number] 17:24:00Unlisted Reason for Exam - Click Yes and Enter Reason Below->No [facility] : 1960 Sex: MFINAL REPORT ABDOMINAL AND PELVIS CT DATED 04/24/2020 CLINICAL INFORM ATION: Abdominal distension TECHNIQUE: Axial images of the abdomen and pelvis were obtained from diaphragm to the pubic symphysis with intravenous contrast. This exam was performed according to our departmental dose-optimization program, which includes automated exposure control, adjustment of the mA and/or kV according to patient size and/or use of interactive reconstruction technique. COMMENT: Small to moderate size hiatal hernia is noted. Liver and spleen are normal in size without focal abnormality. Gallbladder is noted visualized. No biliary dilatation is noted. Pancreas and adrenals are unremarkable. Both kidneys are normal in size and functioning. No hydronephrosis, hydroureter, urolithiasis is seen. Right lateral abdominal hernia is present with herniation of the right hepatic lobeand a segment of the large bowel. No small or large bowel dilatation is seen to suggest mechanical obstruction or ileus. Diverticular disease is seen in the large bowel without diverticulitis. The small bowel is normal in caliber. Appendix is not visualized. Prostate is normal in size. The urinary bladder is contracted. No mass, adenopathy or ascites is present. IMPRESSION: 1. Right lateral abdominal hernia with herniation right hepatic lobe and a segment of the large bowel.2. Diverticulosis without diverticulitis.3. Hiatal hernia. Signed: Pauline Velazquez Verified Date/Time: 04/24/2020 17:24:07 Reading Location: [address] Body Reading Room REHENSIVE METABOLIC [id number] 15:38:00 Test Item Value Reference Range Interpretation Comments TOTAL PROTEIN 6.8 gm/dL 6.0-8.3 (BEAKER) (test code = 770) ALBUMIN (BEAKER) 3.6 g/dL 3.5-5.0 (test code = 1145) ALKALINE PHOSPHATASE 124 U/L 40-150 (BEAKER) (test code = 346) BILIRUBIN TOTAL 0.5 mg/dL 0.2-1.2 (BEAKER) (test code = 377) SODIUM (BEAKER) (test 141 meq/L 136-145 code = 381) POTASSIUM (BEAKER) 4.2 meq/L 3.5-5.1 (test code = 379) CHLORIDE (BEAKER) 107 meq/L 98-107 (test code = 382) CO2 (BEAKER) (test 25 meq/L 22-29 code = 355) BLOOD UREA NITROGEN 20 mg/dL 7-21 (BEAKER) (test code = 354) CREATININE (BEAKER) 1.20 mg/dL 0.57-1.25 (test code = 358) GLUCOSE RANDOM 103 mg/dL 70-105 (BEAKER) (test code = 652) CALCIUM (BEAKER) 8.6 mg/dL 8.4-10.2 (test code = 697) AST (SGOT) (BEAKER) 14 U/L 5-34 (test code = 353) ALT (SGPT) (BEAKER) 14 U/L 6-55 (test code = 347) EGFR (BEAKER) (test INSUFFIC IENT CLINICAL code = 1092) DATA TO CALCULA TE ESTIMATED GFR. [employer] Coordinator ID - [id number] 15:31:00 Test Item Value Reference Range Interpretation Comments LIPASE (BEAKER) (test code = 749) 14 U/L 8-78 [employer] Coordinator ID - [id number] 15:29:00 Test Item Value Reference Range Interpretation Comments PROTIME (BEAKER) (test code = 14.0 seconds 11.9-14.2 759) INR (BEAKER) (test code = 370) 1.11 <=5.90 PARTIAL THROMBOPLASTIN TIME 34.0 seconds 22.5-36.0 (BEAKER) (test code = 760) Effective 12/07/2018: PT Reference Range ChangeNew: 11.9-14.2 Previous: 11.7- 14.7RECOMMENDED COUMADIN/WARFARIN INR THERAPY RANGESSTANDARD DOSE: 2.0-3.0 Includes: PROPHYLAXIS for venous thrombosis, systemic embolization; TREATMENT for venous thrombosis and/or pulmonary embolus.HIGH RISK: Target INR is2.5-3.5 for patients wiht mechanical heart valves.CBC W/PLT COUNT & AUTO [id number] 15:12:00 Test Item Value Reference Range Interpretation Comments WHITE BLOOD CELL COUNT (BEAKER) 9.7 K/ L 3.5-10.5 (test code = 775) RED BLOOD CELL COUNT (BEAKER) 5.99 M/ L 4.63-6.08 (test code = 761) HEMOGLOBIN (BEAKER) (test code = 15.6 GM/DL 13.7-17.5 410) HEMATOCRIT (BEAKER) (test code = 49.7 % 40.1-51.0 411) MEAN CORPUSCULAR VOLUME (BEAKER) 83.0 fL 79.0-92.2 (test code = 753) MEAN CORPUSCULAR HEMOGLOBIN 26.0 pg 25.7-32.2 (BEAKER) (test code = 751) MEAN CORPUSCULAR HEMOGLOBIN CONC 31.4 GM/DL 32.3-36.5 L (BEAKER) (test code = 752) RED CELL DISTRIBUTION WIDTH 18.2 % 11.6-14.4 H (BEAKER) (test code = 412) PLATELET COUNT (BEAKER) (test 339 K/CU MM 150-450 code = 756) MEAN PLATELET VOLUME (BEAKER) 10.1 fL 9.4-12.4 (test code = 754) NUCLEATED RED BLOOD CELLS 0 /100 WBC 0-0 (BEAKER) (test code = 413) NEUTROPHILS RELATIVE PERCENT 55 % (BEAKER) (test code = 429) LYMPHOCYTES RELATIVE PERCENT 32 % (BEAKER) (test code = 430) MONOCYTES RELATIVE PERCENT 10 % (BEAKER) (test code = 431) EOSINOPHILS RELATIVE PERCENT 2 % (BEAKER) (test code = 432) BASOPHILS RELATIVE PERCENT 1 % (BEAKER) (test code = 437) NEUTROPHILS ABSOLUTE COUNT 5.34 K/ L 1.78-5.38 (BEAKER) (test code = 670) LYMPHOCYTES ABSOLUTE COUNT 3.09 K/ L 1.32-3.57 (BEAKER) (test code = 414) MONOCYTES ABSOLUTE COUNT (BEAKER) 0.94 K/ L 0.30-0.82 H (test code = 415) EOSINOPHILS ABSOLUTE COUNT 0.22 K/ L 0.04-0.54 (BEAKER) (test code = 416) BASOPHILS ABSOLUTE COUNT (BEAKER) 0.05 K/ L 0.01-0.08 (test code = 417) IMMATURE GRANULOCYTES-RELATIVE 0 % 0-1 PERCENT (BEAKER) (test code = 2801)
[2021-12-15] MEDS ORDERED: IPRATROPIUM BROM 0.5MG/2.5ML NEB PRN (15:46)
[2021-12-15] MEDS ORDERED: ACETAMINOPHEN 500 MG TAB PO PRN ×2 (15:51→18:15)
[2021-12-15] MEDS ORDERED: ONDANSETRON 4 MG (ODT) TAB PO PRN (15:52)
[2021-12-15] MEDS ORDERED: MELATONIN 3 MG TABLET PO PRN ×2 (15:53→18:14)
[2021-12-15] MEDS ORDERED: OXACILLIN SODIUM 2 GM in NA CHLORIDE 0.9% 100 ML IV SCH (16:00)
[2021-12-15] MEDS ORDERED: OXACILLIN IV SCH (16:00)
[2021-12-15] MEDS: TRAMADOL HCL 50 MG TAB PO PRN (16:50)
[2021-12-15] MEDS: carvediloL 25 MG TAB PO SCH (16:51)
[2021-12-15] MEDS: OXACILLIN SODIUM 2 GM in NA CHLORIDE 0.9% 100 ML IV SCH ×2 (16:52→20:23)
[2021-12-15 18:43] LABS: Urine Appearance Clear (Clear); Urine Blood 3+ (Negative); Urine Color Yellow (Yellow); Urine Glucose Negative (Negative); Urine Protein 1+ (Negative); Urine Specific Gravity 1.025 (1.005-1.030); Urine Urobilinogen >=8.0 mg/dL (0.2-1.0)
[2021-12-15] MEDS ORDERED: NA CHLORIDE 0.9% 1,000 ML ONE (19:06)
[2021-12-15 19:26] LABS: Urine Microscopic Reflex ORDER UMIC
[2021-12-15 19:27] LABS: Urine Bacteria <20 /HPF (NONE SEEN)
[2021-12-15 19:28] LABS: Urine Bilirubin 1+ (Negative)
[2021-12-15] MEDS: POLYETHYL GLY 3350 17 GM/DOSE PO SCH ×2 (20:00→20:23)
[2021-12-15] MEDS: DOCUSATE NA/SENNA CONC 1 TAB PO SCH ×2 (20:00→20:23)
[2021-12-15] MEDS: NYSTATIN PWDR 100000 UNIT/GM TOP SCH (20:23)
[2021-12-15] MEDS: APIXABAN 5 MG TABLET PO SCH (20:23)
[2021-12-15] MEDS: SODIUM CHLORIDE 0.9% 10ML INJ IV SCH (20:23)
[2021-12-15] MEDS: BACLOFEN 10 MG TAB PO SCH (20:23)
[2021-12-15] MEDS: GABAPENTIN 300 MG CAP PO SCH (20:23)
[2021-12-16] MEDS: OXACILLIN SODIUM 2 GM in NA CHLORIDE 0.9% 100 ML IV SCH ×6 (00:38→19:05)
[2021-12-16 02:19] VITALS: BMI 54.6
[2021-12-16 04:36] LABS: Absolute Lymphocytes (CBC) 1.6 K/uL (0.7-4.9); Hematocrit 38.5 % (39.6-49.0); Lymphocytes % 15.8 % (15.3-44.8); MCV 86.5 fL (80-100); MPV 6.9 fL (7.6-11.3); RBC Red Blood Cell Count 4.44 M/uL (4.33-5.43)
[2021-12-16 04:58] LABS: Albumin 1.8 g/dL (3.4-5.0); Magnesium 2.1 mg/dL (1.8-2.4); Potassium 3.9 mmol/L (3.5-5.1); Prealbumin 11.2 mg/dL (20-40)
[2021-12-16] MEDS: carvediloL 25 MG TAB PO SCH ×2 (05:25→17:07)
[2021-12-16] MEDS: LEVOTHYROXINE SOD 0.025 MG TAB PO SCH (06:26)
[2021-12-16] MEDS: PANTOPRAZOLE 40MG TABLET PO SCH (06:48)
[2021-12-16] MEDS: POLYETHYL GLY 3350 17 GM/DOSE PO SCH ×3 (07:35→19:05)
[2021-12-16] MEDS: APIXABAN 5 MG TABLET PO SCH ×2 (07:35→19:12)
[2021-12-16] MEDS: NYSTATIN PWDR 100000 UNIT/GM TOP SCH ×2 (07:36→20:24)
[2021-12-16] MEDS: LOSARTAN POTASSIUM 50 MG TABLET PO SCH (07:36)
[2021-12-16] MEDS: GABAPENTIN 300 MG CAP PO SCH ×2 (07:36→19:04)
[2021-12-16] MEDS: DOCUSATE NA/SENNA CONC 1 TAB PO SCH ×3 (07:36→19:04)
[2021-12-16] MEDS: BACLOFEN 10 MG TAB PO SCH ×2 (07:37→19:04)
[2021-12-16] MEDS: FUROSEMIDE 40 MG TABLET PO SCH (07:37)
[2021-12-16] MEDS ORDERED: FUROSEMIDE 40 MG TABLET PO SCH (08:00)
[2021-12-16] MEDS ORDERED: LIDOCAINE 4% PATCH TOP SCH (08:00)
[2021-12-16] MEDS: TRAMADOL HCL 50 MG TAB PO PRN (08:31)
[2021-12-16] MEDS: SODIUM CHLORIDE 0.9% 10ML INJ IV SCH ×2 (09:11→20:25)
--- NOTE | 2021-12-16 17:30 | R.HP ---
HISTORY AND PHYSICAL FACILITY: [facility] ENCOUNTER DATE AND TIME: 12/16/2021 12:23 (CDT) MR#: [id number] NAME ALISHA LEE ADDRESS: [address] [place] [address] CITY: [place] ZIP [id number] PHONE: DATE OF : 1960 AGE: 60 SSN# [id number] GENDER: Male DEXTERITY Unknown dexterity MARITAL STATUS RACE Unknown race PRE-HOSPITAL LIVING SETTING 01 - Home (private home/apt. board/care, assisted living, residential, transitional living) PRE-HOSPITAL LIVING WITH Alone ENCOUNTER PHYSICIAN: Dr. Mauro Mcclellan M.D. REFERRING DOCTOR: DEANNA LORD MD DATE OF ADMISSION: 12/15/2021 14:40 (CDT) REFERRING FACILITY [facility] HOME TYPE AND DETAILS: Type of home: single family house # of levels in the residence: 1 # of steps within the residence: 0 # of steps to enter the residence: 0 ONSET DATE: 12/06/2021 PRIMARY DIAGNOSIS-RELATED SURGERIES: R flank hernia repair w prolene mesh,drain placement (11/24/21) readmitted w TONY/sepsis and R flank abscess s/p IR drain (12/06/21) TTE: LVEF 55-60%, RV systolic function depressed (12/07/21) Extreme obesity, BMI 54. SECONDARY/COMORBID DIAGNOSES (TIERED): - Tier 3 Morbid (severe) obesity due to excess calories (E66.01) Sepsis, unspecified organism (A41.9) HISTORY OF PRESENT ILLNESS (HPI): Pt. is a 60 yo male of unknown race. On 12/06/2021 he was admitted to [facility] with diagnosis Sepsis MSSA bacteremia. His impairment category is Medically Complex Conditions 17 - Infections (17.1). Pre-morbidly, Pt. was independent/mod-I in Locomotion, Safety Awareness, Social Cognition, and Balanc e; and he had good Transfers Control, Sphincter Control, Self-Care, Communication, and Endurance. Currently, he has deficits of Locomotion, Safety Awareness, Social Cognition, Balance, Transfers Cont rol, Sphincter Control, Self-Care, Communication, and Endurance. Pt. is now referred to [facility] for acute in-patient rehabilitation in order to maximize patient's functional independence in activities of daily living, strength, ROM, and mobi lity. Patient has realistic goal of being discharged at assistance level 7-Ind to reside at Home with Pt s elf. Pt is 60 yo male with PMH of HTN, hypothyroidism, CHF, Afib, gastric sleeve, prior traumatic flank hernia repair (2019) with reoccurrence s/p repair 11/24/21 who presented to the ER 12/06 with increased flank pain. Pt noted with new purulence from surgical JABARI drain and decreased urine output and found to have leukocytosis 18.4, TONY with Cr 4 from baseline 1.[address] showing a 13.5 x16.3 x 8cm fluid collection with gas in the R posterior abdominal wall surgical site infection s/p drain placed 12/06. Wound and blood cultures were positive for MSSA and pigtail cath was inserted by IR. Case is complicated by Afib with RVR. PICC line placed 12/09/21 for antibiotic therapy. Per PT, pt demonstrates fair progress with functional mobility. Pt requires Min-Mod A x2 persons for transfers. PT indicates pt requires Mod A for bed mobility as well. Pt using rollator to take turning steps to WC, WC mobility 220ft with BLE for pushing. Barriers are BLE weakness/instability and body habitus. Pt noted with decrease in balance, strength, transfers, ambulation, functional mobility, activity tolerance and safety. Due to the decline in the patients condition he is not currently safe to remain in his current living arrangement due to reductions in balance, strength, endurance, and an inability to independently perform the necessary activities of daily living and self-care required. Pt is at risk for skin breakdown, DVT, pain, falls, stroke and infection. Our goal is for the patient to become stronger in order for him to safely return home and live independently. Patient would most directly benefit from aggressive 3 hours of daily therapy split between physical therapy and occupational therapy as well as speech therapy if warranted in the acute inpatient rehab setting.He is medically stable with relatively stable labs. He will require 24 hour nursing, doctor supervision SPT) due to his current medical condition and PHM. The patient is reasonably expected to participate in 3 hours of therapy a day/15 hours per week and receive care with an intensive interdisciplinary approach. COVID-19 screening performed; Patient denies new onset of fever, cough, difficulty breathing, sore throat, body aches and non-allergy nasal congestion in the past 24 hours. Patient denies travel outside of [place] in the past 14 days. Patient denies any contact with someone who has a confirmed diagnosis of or is under investigation for COVID-19 in the past 14 days. MEDICATION ALLERGIES: No Known Drug Allergies (NKDA) ENVIRONMENTAL ALLERGIES: - Substance Allergies None Known - Other Allergies None Known PAST MEDICAL HISTORY: Morbid (severe) obesity due to excess calories (E66.01) Sepsis, unspecified organism (A41.9) CHF AFIB HTN HYPOTHYRODISM CHRONIC BACK PAIN PAST SURGICAL HISTORY: GASTRIC SLEEVE 2012 PROIR TRAUMATIC FLANK HERNIA REPAIR 2019 JABARI DRAIN SOCIAL HISTORY: - Home Living Alone REVIEW OF SYSTEMS: - Gen No Chills Fatigue No Fever - Eyes No Double Vision No itchiness - ENMT No Difficulty Swallowing - CVS No Chest Discomfort No Chest Pain Fatigue No Weight Gain - Resp No Cough No Shortness of Breath - GI Continent No Abdominal Pain No Constipation No Diarrhea - Continent No Kidney Pain No Painful Urination No Urinary Urgency - MSK Joint Pain Muscle Cramps Stiffness - Skin No Itching No Rash No Suspicious Lesions - Neuro Coordination Difficulty No Difficulty with Concentration No Memory Loss No Seizures Weakness - Psych No Anxiety No Depression No HIV Exposure No Persistent Infections No Seasonal Allergies - Endo No Cold/Heat Intolerance No Excessive Hunger No Excessive Thirst No Excessive Urination PHYSICAL EXAM - Gen Alert and awake Lying in bed No apparent distress Oriented to: person, time, and place - Skin No skin breakdown. No abnormalities - Eyes No abnormalities - ENMT No abnormalities - Neck No abnormalities - CVS RRR - Chest No abnormalities - Resp No wheezing - Abd +bowel sounds - GI Soft Deferred - No abnormalities - Ext No significant edema - MSK 4+/5 weakness in both lower extremities. - Neuro No focal deficits - Psych No abnormalities VITAL SIGNS Temperature: 97.6F SBP/DBP: 127/63 Pulse: 75 Resp: 16 NURSING: - Shower allowing shower PRECAUTIONS: - Fall Precaution SAFTY AND FALL ACTIVITIES OOB only with supervision QI SCORES: - Self-Care A. Eating 03-Partial/moderate assistance B. Oral hygiene 03-Partial/moderate assistance C. Toileting hygiene 03-Partial/moderate assistance E. Shower/bathe self 03-Partial/moderate assistance F. Upper body dressing 03-Partial/moderate assistance G. Lower body dressing 03-Partial/moderate assistance H. Putting on/taking off footwear 88-Not attempted due to medical condition or safety concerns - Mobility A. Roll left and right 03-Partial/moderate assistance B. Sit to lying 03-Partial/moderate assistance C. Lying to sitting on side of bed 03-Partial/moderate assistance D. Sit to stand 03-Partial/moderate assistance E. Chair/[id number] transfer 03-Partial/moderate assistance F. Toilet transfer 03-Partial/moderate assistance G. Car transfer 88-Not attempted due to medical condition or safety concerns I. Walk 10 feet 03-Partial/moderate assistance J. Walk 50 feet with two turns 88-Not attempted due to medical condition or safety concerns K. Walk 150 feet 88-Not attempted due to medical condition or safety concerns L. Walking 10 feet on uneven surfaces 88-Not attempted due to medical condition or safety concerns M. 1 step (curb) 88-Not attempted due to medical condition or safety concerns N. 4 steps 88-Not attempted due to medical condition or safety concerns O. 12 steps 88-Not attempted due to medical condition or safety concerns P. Picking up object 88-Not attempted due to medical condition or safety concerns R. Wheel 50 feet with two turns 88-Not attempted due to medical condition or safety concerns S. Wheel 150 feet 88-Not attempted due to medical condition or safety concerns - Bladder and Bowel Bladder continence Bowel continence - Endurance Fair - Balance Fair - Safety Awareness Fair CURRENT FUNC. DEFICITS: Self-Care, Mobility, Endurance, Balance, and Safety Awareness MEDICATIONS: - Other See attached MAR (Medication Administration Record) ASSESSMENT: Pt. is a 60 yo male of unknown race.On 12/06/2021 he was admitted to [facility] with diagnosis Sepsis MSSA bacteremia.His impairment category is Medically Complex Conditions 17 - Infections (17.1 ).Pre-morbidly, Pt. was independent/mod-I in Locomotion, Safety Awareness, Social Cognition, and Guero nce; and he had good Transfers Control, Sphincter Control, Self-Care, Communication, and Endurance.Cu rrently, he has deficits of Locomotion, Safety Awareness, Social Cognition, Balance, Transfers Contro l, Sphincter Control, Self-Care, Communication, and Endurance.Pt. is now referred to [facility] for acute in-patient rehabilitation in order to maximize patient's functional indep endence in activities of daily living, strength, ROM, and mobility.- Rehab Goal Patient has realistic goal of being discharged at assistance level 7-Ind to reside at Home with Pt s elf. Pt is 60 yo male with PMH of HTN, hypothyroidism, CHF, Afib, gastric sleeve, prior traumatic flank hernia repair (2019) with reoccurrence s/p repair 11/24/21 who presented to the ER 12/06 with increased flank pain. Pt noted with new purulence from surgical JABARI drain and decreased urine output and found to have leukocytosis 18.4, TONY with Cr 4 from baseline 1.[address] showing a 13.5 x16.3 x 8cm fluid collection with gas in the R posterior abdominal wall surgical site infection s/p drain placed 12/06. Wound and blood cultures were positive for MSSA and pigtail cath was inserted by IR. Case is complicated by Afib with RVR. PICC line placed 12/09/21 for antibiotic therapy. Per PT, pt demonstrates fair progress with functional mobility. Pt requires Min-Mod A x2 persons for transfers. PT indicates pt requires Mod A for bed mobility as well. Pt using rollator to take turning steps to WC, WC mobility 220ft with BLE for pushing. Barriers are BLE weakness/instability and body habitus. Pt noted with decrease in balance, strength, transfers, ambulation, functional mobility, activity tolerance and safety. Due to the decline in the patients condition he is not currently safe to remain in his current living arrangement due to reductions in balance, strength, endurance, and an inability to independently perform the necessary activities of daily living and self-care required. Pt is at risk for skin breakdown, DVT, pain, falls, stroke and infection. Our goal is for the patient to become stronger in order for him to safely return home and live independently. Patient would most directly benefit from aggressive 3 hours of daily therapy split between physical therapy and occupational therapy as well as speech therapy if warranted in the acute inpatient rehab setting.He is medically stable with relatively stable labs. He will require 24 hour nursing, doctor supervision SPT) due to his current medical condition and PHM. The patient is reasonably expected to participate in 3 hours of therapy a day/15 hours per week and receive care with an intensive interdisciplinary approach. COVID-19 screening performed; Patient denies new onset of fever, cough, difficulty breathing, sore throat, body aches and non-allergy nasal congestion in the past 24 hours. Patient denies travel outside of [place] in the past 14 days. Patient denies any contact with someone who has a confirmed diagnosis of or is under investigation for COVID-19 in the past 14 days.REHAB PLAN: - Physical Therapy Gait dysfunction - to improve, our physical therapists will perform initial evaluation of pt's status upon admission and devise an individualized program for Gait Training, and Wheel Chair mobility Inability to transfer - to improve, our physical therapists will perform initial evaluation of pt's s tatus upon admission and devise an individualized program for Bed mobility Need for home safety evaluation - to improve, our physical therapists will perform initial evaluation of pt's status upon admission and devise an individualized program for Home Evaluation Need in caregiver upon discharge - to improve, our physical therapists will perform initial evaluatio n of pt's status upon admission and devise an individualized program for Caregiver Training New precaution - to improve, our physical therapists will perform initial evaluation of pt's status u makayla admission and devise an individualized program for Patient precaution education Edema - to improve, our physical therapists will perform initial evaluation of pt's status upon admi ssion and devise an individualized program for Elevation Training, and Lymphedema Therapy Poor balance - to improve, our physical therapists will perform initial evaluation of pt's status upo n admission and devise an individualized program for Balance Training Poor endurance - to improve, our physical therapists will perform initial evaluation of pt's status u makayla admission and devise an individualized program for Endurance Training Weakness - to improve, our physical therapists will perform initial evaluation of pt's status upon ad mission and devise an individualized program for Aquatic Therapy, Neuromuscular Reeducation, and Stre ngthening Achieving independence - to improve, our physical therapists will perform initial evaluation of pt's status upon admission and devise an individualized program for Community Reintegration Activities - Occupational Therapy ADL deficits - to improve, our occupation therapists will perform initial evaluation of pt's status u makayla admission and devise an individualized program for Bathing, Bed mobility, Community Reintegration , Cooking, Dressing, Eating, Fine Motor Skills, Grooming, Homemaking, Kitchen Mobility, Laundry, Pau ent Education, Safety Awareness, Splinting - Positioning, Transfers(Toilet, Tub, Shower), and Wheel C hair Management Cognitive deficits - to improve, our occupation therapists will perform initial evaluation of pt's st atus upon admission and devise an individualized program for Cognition - orientation Need for laboratory animal care veterinarian - to improve, our occupation therapists will perform initial evaluation of pt's s tatus upon admission and devise an individualized program for Caregiver Training Weakness - to improve, our occupation therapists will perform initial evaluation of pt's status upon admission and devise an individualized program for Aquatic Therapy, Balance, Endurance, UE ROM, and U E strengthening MEDICAL PLAN: - Diet Type Start Regular - Diet - Liquid Texture Start Regular - Tube Feed Start N/A - Fall Precaution SAFTY AND FALL - Other See attached MAR (Medication Administration Record) - Diet - Solid Texture Regular - Shower shower DISCHARGE PLAN: - Estimated Length of Stay (days) 13. - Consensus on plan Discharge plan has been discussed with primary caregiver. Patient/Family is in agreement with the julissa n. Primary caregiver is in agreement with the plan. - Patient/Family Goals Return home independently. - Planned Living Setting Upon Discharge Home, to live alone. Transitional Living. Primary caregiver: Pt self. SIGNATURE PANEL: (CDT)
--- NOTE | 2021-12-16 17:30 | PAPE ---
POST ADMISSION PHYSICIAN EVALUATION PATIENT: [facility] MR# [id number] REFERRING DOCTOR DEANNA LORD MD EVALUATION DATE AND TIME 12/16/2021 17:29 (CDT) NAME ALISHA LEE DATE OF 1960 AGE 60 PHONE N# [id number] GENDER male EVALUATING PHYSICIAN Dr. Mauro Mcclellan M.D. ADMISSION DIAGNOSIS: Sepsis MSSA bacteremia ONSET DATE 12/06/2021 SECONDARY/COMORBID DIAGNOSES TIERED: - Tier 3 Morbid (severe) obesity due to excess calories (E66.01) Sepsis, unspecified organism (A41.9) POST-ADMISSION FUNCTIONAL/MEDICAL STATUS: - Bladder Same accident frequency: 7-Ind - No accidents in the past 7 days - Bowel Same accident frequency: 7-Ind - No accidents in the past 7 days - Walking Same score based on distance walked: 0(N/A) Same score based on distance walked: 1(<=50ft) - Wheelchair Same score based on distance traveled: 0(N/A) STATUS CHANGE EVALUATION: No change in Functional or Medical Status is identified compared with Pre-Admission screening. PATIENT NEEDS CLOSE MEDICAL SUPERVISION BY A REHABILITATION PHYSICIAN FOR: Coordination of Treatment Team Medical and Co-Morbidity Management Wound Care PATIENT REQUIRES 24X7 REHAB NURSING FOR MEDICAL AND FUNCTIONAL MGT. OF THE FOLLOWING DEFICITS: Disease Management Medication Management Patient requires 24x7 Rehabilitation Nursing for: Pain Issues, Identifying and preventing risk factor s, Monitoring and reporting current medical conditions, Assisting with ambulation and transfer, Xiomy ting with all ADL-s, Teaching patients about disease process and medications, Family teaching, Provid ing safe environment, Bowel and Bladder Issues, Skin Integrity, and Medication Management Patient/Family Education Providing Safe Environment Skin Integrity PATIENT REQUIRES INTENSIVE, COORDINATED INTERDISCIPLINARY APPROACH TO REHAB: Arranging Home Equipment/Services Discharge Planning Family Intervention/Training Patient needs Dietary and Nutrition Services for: Adequate Nutrition, Nutritional Supplements, and Nu tritional Education Patient needs Hotel Maintenance Worker and/or Case Management for: Discharge Planning, Arranging Home Equipmen t or Services, and Family Interventions Hotel Maintenance Worker/Case Management LIST OF IDENTIFIED AND POTENTIAL PROBLEMS: Alteration in leisure activities Bladder, Incontinence Bowel, Incontinence Infection, Actual or Potential Mobility Impaired Pain, Alteration in Comfort Self Care Deficit Skin Integrity, Actual or Potential Urinary Tract Infection (UTI), Actual or Potential RISK FOR COMPLICATIONS - DVT Active and Passive ROM exercises. Assist patient with frequent position changes. Elevate BLE. - Skin Breakdown Encourage ambulation as tolerated. Repositioning q 2 hours. Use of pillows or foam wedges while in be d. - Seizure Administer prescribed medications. Administer prescribed medications and supplemental O2. Identify ri sk factors. Provide safety measures. - Pain Anticipate the need for pain medication for optimal pain managment. Administer prescribed pain medica tion as needed. Educate patient on relaxation and deep breathing techniques. Assist patient with freq uent position changes at least every 2 hours. - Falls Maintain call light within patient reach for easy access to nursing assistance. Provide assistance ge tting out of bed and with ambulation. Provide assistive devices. - Stroke Monitor and maintain patient pain level. Monitor patient blood pressure. - Fluid Overload Administer prescribed diuretics. - Bleeding Maintain pt safety. Monitor pt for injury. - Infection Monitor pt v/s. Assess pt response to antibiotics. Assess for s/s of infection. INTERVENTIONS - Sepsis Monitor pt v/s regularly. Monitor for increased s/s infection. Administer antibiotics as indicated. M anage and maintain pt PICC line. - Afib Administer prescribed anticoagulants and monitor effectiveness. Monitor pt cardiac and respiratory st atus regularly. Vitals will be monitored regularly and IV medications administered as indicated by Ph ysician. Mojitor pt labs. - LE Edema Monitor respiratory/cardiac status. Gentle diuresis per MD order. - Hypertension Provide comfort measures. Promote regular physical activity. Monitor patient B/P regularly. Implement healthy diet. Administer medications indicated by physician and monitor for effectiveness. - Pain Administer prescribed pain medications. Anticipate the need for pain medication for optimal pain nany gment. Educate pt on relaxation techniques and deep breathing. Monitor for headaches. Non pharmacolog ical pain management. - Hypothyroidism Administer medications as indicated. Daily weights. Implement proper diet. PATIENT COULD BE AT RISK FOR COMPLICATIONS FROM ADVERSE MEDICAL CONDITIONS DUE TO HIS/HER COMORBIDITI ES AND THE RIGORS OF THE INTENSIVE REHABILLITATION PROGRAM. METHODS OR INTERVENTIONS TO AVOID COMPLIC ATIONS INCLUDE: - Bleeding Assess lab values and manage abnormalities. Nursing to teach precautions for anti-coagulation therapy . Wound to be assessed every shift. - Infection Clinical staff to assess and manage the signs and symptoms of infection including fever, redness, war mth, etc. - Urinary Tract Infection - Falls Patient will be evaluated for Fall Precautions and will be placed on Fall Precautions as indicated pe r protocol. - Skin Breakdown Nursing will assess skin daily using assessment tool and will place on Skin Breakdown Precautions as indicated per protocol. - Pain Clinical staff may employ non-medication methods such as massage, distraction, decrease stimulus, etc . as needed. Clinical staff will assess patient's pain level every shift per protocol to assess and e nsure pain management effectiveness. Medications will be given and the pain level re-assessed. PRELIMINARY PLAN OF CARE: - Physical Therapy Patient needs Physical Therapy for a daily minimum of 1.5 hours at least 5 out of 7 days, to improve: Mobility, Strengthening, Transfers, Stretching, ROM, Endurance, Ability to manage stairs, Gait, and Balance. - Rehabilitation Nursing Patient requires 24x7 Rehabilitation Nursing for: Pain Issues, Identifying and preventing risk factor s, Monitoring and reporting current medical conditions, Assisting with ambulation and transfer, Xiomy ting with all ADL-s, Teaching patients about disease process and medications, Family teaching, Provid ing safe environment, Bowel and Bladder Issues, Skin Integrity, and Medication Management. Patient needs Hotel Maintenance Worker and/or Case Management for: Discharge Planning, Arranging Home Equipmen t or Services, and Family Interventions. - Dietary and Nutrition Services Patient needs Dietary and Nutrition Services for: Adequate Nutrition, Nutritional Supplements, and Nu tritional Education. - Occupational Therapy Patient needs Occupational Therapy for a daily minimum of 1.5 hours at least 5 out of 7 days, to impr ove Activities of Daily Living, including: Eating, Grooming, Bathing, Dressing, Toileting, Toilet Tra nsfers, Community Reintegration, Higher functional activities, Adaptive Equipment, Splinting, Househo ld Tasks, and Other activities as determined. QI SCORES: - Self-Care A. Eating 03-Partial/moderate assistance B. Oral hygiene 03-Partial/moderate assistance C. Toileting hygiene 03-Partial/moderate assistance E. Shower/bathe self 03-Partial/moderate assistance F. Upper body dressing 03-Partial/moderate assistance G. Lower body dressing 03-Partial/moderate assistance H. Putting on/taking off footwear 88-Not attempted due to medical condition or safety concerns - Mobility A. Roll left and right 03-Partial/moderate assistance B. Sit to lying 03-Partial/moderate assistance C. Lying to sitting on side of bed 03-Partial/moderate assistance D. Sit to stand 03-Partial/moderate assistance E. Chair/pzg-tk-wwnri transfer 03-Partial/moderate assistance F. Toilet transfer 03-Partial/moderate assistance G. Car transfer 88-Not attempted due to medical condition or safety concerns I. Walk 10 feet 03-Partial/moderate assistance J. Walk 50 feet with two turns 88-Not attempted due to medical condition or safety concerns K. Walk 150 feet 88-Not attempted due to medical condition or safety concerns L. Walking 10 feet on uneven surfaces 88-Not attempted due to medical condition or safety concerns M. 1 step (curb) 88-Not attempted due to medical condition or safety concerns N. 4 steps 88-Not attempted due to medical condition or safety concerns O. 12 steps 88-Not attempted due to medical condition or safety concerns P. Picking up object 88-Not attempted due to medical condition or safety concerns R. Wheel 50 feet with two turns 88-Not attempted due to medical condition or safety concerns S. Wheel 150 feet 88-Not attempted due to medical condition or safety concerns - Bladder and Bowel Bladder continence Bowel continence - Endurance Fair - Balance Fair - Safety Awareness Fair POTENTIAL FUNCTIONAL GOALS FOR PATIENT TO ACHIEVE BY DISCHARGE: - Safety Precaution Patient will remain free from falls or injury at time of discharge. - Bed Mobility Patient will perform bed mobility at 4-Fabian level of assistance. - Transfers Patient will complete transfers from bed to chair at 4-Fabian level of assistance. - Mobility Patient will ambulate 150 ft with 4-Fabian level of assistance with RW. PATIENT REHAB POTENTIAL Merlyn LEE is able and expected to receive 3 hours of individualized therapy daily on at least 5 of e very 7 days Merlyn LEE's prognosis for significant practical improvement within a reasonable period of time appea rs Good Expected level of measurable improvement will be of a practical value to Merlyn LEE's functional capa city or adaptations to impairments Has a viable Discharge Plan Medically appropriate; condition is sufficiently stable to participate in intensive rehab program DISCHARGE PLAN: - Estimated Length of Stay (days) 13. - Consensus on plan Discharge plan has been discussed with primary caregiver. Patient/Family is in agreement with the julissa n. Primary caregiver is in agreement with the plan. - Patient/Family Goals Return home independently. - Planned Living Setting Upon Discharge Home, to live alone. Transitional Living. Primary caregiver: Pt self. CONCLUSION ON REHABILITATION NECESSITY: I have evaluated patient's pre-admission functional status and, comparing it to the patient's post-ad mission functional status now, I conclude that the pre-admission assessment was accurate. Patient's c ondition on admission supports the medical necessity of admission to IRF. It is safe to proceed with patient's therapy program. SIGNATURE PANEL: (CDT)
[2021-12-16] MEDS: CRANBERRY FRUIT EXTRACT 400 MG CAP PO SCH (19:04)
[2021-12-16] MEDS ORDERED: ACETAMINOPHEN 500 MG TAB PO PRN (20:49)
[2021-12-16] MEDS: ACETAMINOPHEN 500 MG TAB PO PRN (21:01)
[2021-12-17] MEDS: OXACILLIN SODIUM 2 GM in NA CHLORIDE 0.9% 100 ML IV SCH ×6 (00:29→20:18)
[2021-12-17] MEDS: carvediloL 25 MG TAB PO SCH ×2 (05:21→16:55)
[2021-12-17] MEDS: ACETAMINOPHEN 500 MG TAB PO PRN (05:32)
[2021-12-17] MEDS: LEVOTHYROXINE SOD 0.025 MG TAB PO SCH (05:35)
[2021-12-17] MEDS ORDERED: POLYETHYL GLY 3350 17 GM/DOSE PO PRN (06:01)
[2021-12-17] MEDS ORDERED: DOCUSATE NA/SENNA CONC 1 TAB PO PRN (06:02)
[2021-12-17] MEDS: PANTOPRAZOLE 40MG TABLET PO SCH (07:20)
[2021-12-17] MEDS: NYSTATIN PWDR 100000 UNIT/GM TOP SCH ×2 (07:52→20:17)
[2021-12-17] MEDS: APIXABAN 5 MG TABLET PO SCH ×2 (07:52→20:17)
[2021-12-17] MEDS: GABAPENTIN 300 MG CAP PO SCH ×2 (07:53→20:17)
[2021-12-17] MEDS: LOSARTAN POTASSIUM 50 MG TABLET PO SCH (07:53)
[2021-12-17] MEDS: FUROSEMIDE 40 MG TABLET PO SCH (07:53)
[2021-12-17] MEDS: BACLOFEN 10 MG TAB PO SCH ×2 (07:53→20:17)
[2021-12-17] MEDS: CRANBERRY FRUIT EXTRACT 400 MG CAP PO SCH ×2 (07:53→20:17)
[2021-12-17] MEDS: SODIUM CHLORIDE 0.9% 10ML INJ IV SCH ×2 (08:48→20:18)
--- NOTE | 2021-12-17 17:24 | R.PN ---
PROGRESS NOTES ENCOUNTER DATE AND TIME: 12/17/2021 17:13 (CDT) NAME ALISHA LEE DATE OF : 1960 DATE OF ADMISSION: 12/15/2021 14:40 (CDT) Sepsis MSSA bacteremiaCHIEF COMPLAINT: Sepsis, bacteremia, debility SUBJECTIVE: Pt denied any Shortness of Breath. Pt denied any depression. WBC 10.0, Hgb 12.2, prealbumin 11.2, covid-19 is negative. Therapeutic exercises done with supervision. Self-propelled wheelchair 1000' and 8 steps with a rolla tor and contact guard assistance. VITAL SIGNS Temperature: 97.2 F SBP/DBP: 145/72 Pulse: 69 Resp: 16 MEDICATION ALLERGIES: No Known Drug Allergies (NKDA) ENVIRONMENTAL ALLERGIES: - Substance Allergies None Known - Other Allergies None Known NURSING: - Shower allowing shower PRECAUTIONS: - Fall Precaution SAFTY AND FALL ACTIVITIES OOB only with supervision THERAPIES: - Dietary and Nutrition Adequate Nutrition. Nutritional Education. Nutritional Supplements. Evaluate and Treat. - Occupational Therapy Cognitive Retraining. Patient needs Occupational Therapy for a daily minimum of 1.5 hours at least 5 out of 7 days, to improve Activities of Daily Living, including: Eating, Grooming, Bathing, Dressing, Toileting, Toilet Transfers, Community Reintegration, Higher functional activities, Adaptive Equipme nt, Splinting, Household Tasks, and Other activities as determined. Visual Perceptual Training. Evalu ate and Treat. Safety Awareness. Patient/Family Education. Household Tasks. Transfer Training. ADL Tr aining. - Speech Therapy Cognitive Training. Expressive Language Skills. Memory Strategies. Patient needs Speech Therapy for a daily minimum of 1.5 hours at least 5 out of 7 days, to improve: Swallowing, Cognition, Language Ski lls, and Compensatory Strategies. Receptive Language Skills. Speech Intelligibility Training. Evaluat e and Treat. - Physical Therapy Patient needs Physical Therapy for a daily minimum of 1.5 hours at least 5 out of 7 days, to improve: Mobility, Strengthening, Transfers, Stretching, ROM, Endurance, Ability to manage stairs, Gait, and Balance. Balance Training. Evaluate and Treat. Patient/Family Education. Transfer Training. Safety Aw areness. Gait Training. PHYSICAL EXAM - Gen Alert and awake Lying in bed No apparent distress Oriented to: person, time, and place - Skin No skin breakdown. No abnormalities - Eyes No abnormalities - ENMT No abnormalities - Neck No abnormalities - CVS RRR - Chest No abnormalities - Resp No wheezing - Abd +bowel sounds - GI Soft Deferred - No abnormalities - Ext No significant edema - MSK 4+/5 weakness in both lower extremities. - Neuro No focal deficits - Psych No abnormalities ASSESSMENT: Pt. is a 60 yo male of unknown race.On 12/06/[address] [facility] with diagnosis Sepsis MSSA bacteremia.His impairment category is Medically Complex Conditions 17 - Infections (17.1 ).Pre-morbidly, Pt. was independent/mod-I in Locomotion, Safety Awareness, Social Cognition, and Guero nce; and he had good Transfers Control, Sphincter Control, Self-Care, Communication, and Endurance.Cu rrently, he has deficits of Locomotion, Safety Awareness, Social Cognition, Balance, Transfers Contro l, Sphincter Control, Self-Care, Communication, and Endurance.Pt. is now referred to [facility] for acute in-patient rehabilitation in order to maximize patient's functional indep endence in activities of daily living, strength, ROM, and mobility.- Rehab Goal Patient has realistic goal of being discharged at assistance level 7-Ind to reside at Home with Pt s elf. MDM/PLAN: - Physical Therapy Gait dysfunction - to improve, our physical therapists will perform initial evaluation of pt's statu s upon admission and devise an individualized program for Gait Training, and Wheel Chair mobility Inability to transfer - to improve, our physical therapists will perform initial evaluation of pt's status upon admission and devise an individualized program for Bed mobility Need for home safety evaluation - to improve, our physical therapists will perform initial evaluatio n of pt's status upon admission and devise an individualized program for Home Evaluation Need in caregiver upon discharge - to improve, our physical therapists will perform initial evaluati on of pt's status upon admission and devise an individualized program for Caregiver Training New precaution - to improve, our physical therapists will perform initial evaluation of pt's status upon admission and devise an individualized program for Patient precaution education Edema - to improve, our physical therapists will perform initial evaluation of pt's status upon admis danielle and devise an individualized program for Elevation Training, and Lymphedema Therapy Poor balance - to improve, our physical therapists will perform initial evaluation of pt's status up on admission and devise an individualized program for Balance Training Poor endurance - to improve, our physical therapists will perform initial evaluation of pt's status upon admission and devise an individualized program for Endurance Training Weakness - to improve, our physical therapists will perform initial evaluation of pt's status upon a dmission and devise an individualized program for Aquatic Therapy, Neuromuscular Reeducation, and Str engthening Achieving independence - to improve, our physical therapists will perform initial evaluation of pt's status upon admission and devise an individualized program for Community Reintegration Activities - Occupational Therapy ADL deficits - to improve, our occupation therapists will perform initial evaluation of pt's status upon admission and devise an individualized program for Bathing, Bed mobility, Community Reintegratio n, Cooking, Dressing, Eating, Fine Motor Skills, Grooming, Homemaking, Kitchen Mobility, Laundry, Pat ient Education, Safety Awareness, Splinting - Positioning, Transfers(Toilet, Tub, Shower), and Wheel Chair Management Cognitive deficits - to improve, our occupation therapists will perform initial evaluation of pt's s tatus upon admission and devise an individualized program for Cognition - orientation Need for daycare provider - to improve, our occupation therapists will perform initial evaluation of pt's status upon admission and devise an individualized program for Caregiver Training Weakness - to improve, our occupation therapists will perform initial evaluation of pt's status upon admission and devise an individualized program for Aquatic Therapy, Balance, Endurance, UE ROM, and UE strengthening - Other See attached MAR (Medication Administration Record) - Diet Type Continue Regular - Diet - Liquid Texture Continue Regular - Tube Feed Continue N/A - Fall Precaution SAFTY AND FALL - Diet - Solid Texture Continue Regular - Shower allowing shower FUNCTIONAL STATUS: UPDATED AT WEEKLY TEAM CONFERENCE - Bladder Same accident frequency: 7-Ind - No accidents in the past 7 days - Bowel Same accident frequency: 7-Ind - No accidents in the past 7 days - Walking Same score based on distance walked: 0(N/A) Same score based on distance walked: 1(<=50ft) - Wheelchair Same score based on distance traveled: 0(N/A) FUNCTIONAL STATUS: - Self-Care A. Eating Ind B. Grooming Jose C. Bathing modA D. Dressing - Upper sup E. Dressing - Lower Jose F. Toileting Fabian - Sphincter Control G. Bladder control Jose H. Bowel control Jose - Transfers Control I. Bed/Chair/Wheelchair modA J. Toilet Fabian K. Tub/Shower modA - Locomotion L. Walk/Wheelchair (B) sup M. Stairs Dep - Communication N. Comprehension (B) Jose O. Expression (B) Ind - Social Cognition P. Social Interaction Ind Q. Problem Solving Jose R. Memory Ind - Endurance Good - Balance Good - Safety Awareness Good QI SCORES: - Self-Care A. Eating 03-Partial/moderate assistance B. Oral hygiene 03-Partial/moderate assistance C. Toileting hygiene 03-Partial/moderate assistance E. Shower/bathe self 03-Partial/moderate assistance F. Upper body dressing 03-Partial/moderate assistance G. Lower body dressing 03-Partial/moderate assistance H. Putting on/taking off footwear 88-Not attempted due to medical condition or safety concerns - Mobility A. Roll left and right 03-Partial/moderate assistance B. Sit to lying 03-Partial/moderate assistance C. Lying to sitting on side of bed 03-Partial/moderate assistance D. Sit to stand 03-Partial/moderate assistance E. Chair/pkb-nh-xjkep transfer 03-Partial/moderate assistance F. Toilet transfer 03-Partial/moderate assistance G. Car transfer 88-Not attempted due to medical condition or safety concerns I. Walk 10 feet 03-Partial/moderate assistance J. Walk 50 feet with two turns 88-Not attempted due to medical condition or safety concerns K. Walk 150 feet 88-Not attempted due to medical condition or safety concerns L. Walking 10 feet on uneven surfaces 88-Not attempted due to medical condition or safety concerns M. 1 step (curb) 88-Not attempted due to medical condition or safety concerns N. 4 steps 88-Not attempted due to medical condition or safety concerns O. 12 steps 88-Not attempted due to medical condition or safety concerns P. Picking up object 88-Not attempted due to medical condition or safety concerns R. Wheel 50 feet with two turns 88-Not attempted due to medical condition or safety concerns S. Wheel 150 feet 88-Not attempted due to medical condition or safety concerns - Bladder and Bowel Bladder continence Bowel continence - Endurance Fair - Balance Fair - Safety Awareness Fair CURRENT FUNC. DEFICITS: Self-Care, Mobility, Endurance, Balance, and Safety Awareness SIGNATURE PANEL: (CDT)
[2021-12-18] MEDS: OXACILLIN SODIUM 2 GM in NA CHLORIDE 0.9% 100 ML IV SCH ×6 (01:24→20:26)
[2021-12-18] MEDS: ACETAMINOPHEN 500 MG TAB PO PRN ×2 (01:28→11:45)
[2021-12-18] MEDS: carvediloL 25 MG TAB PO SCH ×2 (05:26→16:59)
[2021-12-18 05:27] LABS: Absolute Lymphocytes (CBC) 1.6 K/uL (0.7-4.9); Hematocrit 36.7 % (39.6-49.0); Lymphocytes % 19.5 % (15.3-44.8); MCV 87.1 fL (80-100); MPV 6.9 fL (7.6-11.3); RBC Red Blood Cell Count 4.21 M/uL (4.33-5.43)
[2021-12-18 05:47] LABS: Albumin 1.8 g/dL (3.4-5.0); Magnesium 2.1 mg/dL (1.8-2.4); Potassium 3.9 mmol/L (3.5-5.1); Prealbumin 11.1 mg/dL (20-40)
[2021-12-18] MEDS: LEVOTHYROXINE SOD 0.025 MG TAB PO SCH (06:47)
[2021-12-18] MEDS: PANTOPRAZOLE 40MG TABLET PO SCH (06:47)
[2021-12-18] MEDS: BACLOFEN 10 MG TAB PO SCH ×2 (07:41→20:25)
[2021-12-18] MEDS: GABAPENTIN 300 MG CAP PO SCH ×2 (07:41→20:25)
[2021-12-18] MEDS: NYSTATIN PWDR 100000 UNIT/GM TOP SCH ×2 (07:41→20:26)
[2021-12-18] MEDS: LOSARTAN POTASSIUM 50 MG TABLET PO SCH (07:42)
[2021-12-18] MEDS: APIXABAN 5 MG TABLET PO SCH ×2 (07:42→20:25)
[2021-12-18] MEDS: CRANBERRY FRUIT EXTRACT 400 MG CAP PO SCH ×2 (07:42→20:25)
[2021-12-18] MEDS: SODIUM CHLORIDE 0.9% 10ML INJ IV SCH ×2 (08:00→20:26)
[2021-12-18] MEDS ORDERED: FUROSEMIDE 40 MG TABLET PO SCH (12:00)
[2021-12-18] MEDS: FUROSEMIDE 40 MG TABLET PO SCH (13:57)
--- NOTE | 2021-12-18 17:39 | R.PN ---
PROGRESS NOTES ENCOUNTER DATE AND TIME: 12/18/2021 17:34 (CDT) NAME ALISHA LEE DATE OF : 1960 DATE OF ADMISSION: 12/15/2021 14:40 (CDT) Sepsis MSSA bacteremiaCHIEF COMPLAINT: Sepsis, bacteremia, debility SUBJECTIVE: Pt denied any Shortness of Breath. Pt denied any depression. WBC 8.4, Hgb 11.7, prealbumin 11.1, covid-19 is negative. Therapeutic exercises done with supervision. Ambulated 300' with standby asssistance. Self-propelled wheelchair 150' and 20' within parallel bars and SBA. VITAL SIGNS Temperature: 98.0 F SBP/DBP: 119/59 Pulse: 72 Resp: 15 MEDICATION ALLERGIES: No Known Drug Allergies (NKDA) ENVIRONMENTAL ALLERGIES: - Substance Allergies None Known - Other Allergies None Known NURSING: - Shower allowing shower PRECAUTIONS: - Fall Precaution SAFTY AND FALL ACTIVITIES OOB only with supervision THERAPIES: - Dietary and Nutrition Adequate Nutrition. Nutritional Education. Nutritional Supplements. Evaluate and Treat. - Occupational Therapy Cognitive Retraining. Patient needs Occupational Therapy for a daily minimum of 1.5 hours at least 5 out of 7 days, to improve Activities of Daily Living, including: Eating, Grooming, Bathing, Dressing, Toileting, Toilet Transfers, Community Reintegration, Higher functional activities, Adaptive Equipme nt, Splinting, Household Tasks, and Other activities as determined. Visual Perceptual Training. Evalu ate and Treat. Safety Awareness. Patient/Family Education. Household Tasks. Transfer Training. ADL Tr aining. - Speech Therapy Cognitive Training. Expressive Language Skills. Memory Strategies. Patient needs Speech Therapy for a daily minimum of 1.5 hours at least 5 out of 7 days, to improve: Swallowing, Cognition, Language Ski lls, and Compensatory Strategies. Receptive Language Skills. Speech Intelligibility Training. Evaluat e and Treat. - Physical Therapy Patient needs Physical Therapy for a daily minimum of 1.5 hours at least 5 out of 7 days, to improve: Mobility, Strengthening, Transfers, Stretching, ROM, Endurance, Ability to manage stairs, Gait, and Balance. Balance Training. Evaluate and Treat. Patient/Family Education. Transfer Training. Safety Aw areness. Gait Training. PHYSICAL EXAM - Gen Alert and awake Lying in bed No apparent distress Oriented to: person, time, and place - Skin No skin breakdown. No abnormalities - Eyes No abnormalities - ENMT No abnormalities - Neck No abnormalities - CVS RRR - Chest No abnormalities - Resp No wheezing - Abd +bowel sounds - GI Soft Deferred - No abnormalities - Ext No significant edema - MSK 4+/5 weakness in both lower extremities. - Neuro No focal deficits - Psych No abnormalities ASSESSMENT: Pt. is a 60 yo male of unknown race.On 12/06/2021 he was admitted to [facility] with diagnosis Sepsis MSSA bacteremia.His impairment category is Medically Complex Conditions 17 - Infections (17.1 ).Pre-morbidly, Pt. was independent/mod-I in Locomotion, Safety Awareness, Social Cognition, and [place] nce; and he had good Transfers Control, Sphincter Control, Self-Care, Communication, and Endurance.Cu rrently, he has deficits of Locomotion, Safety Awareness, Social Cognition, Balance, Transfers Contro l, Sphincter Control, Self-Care, Communication, and Endurance.Pt. is now referred to [facility] for acute in-patient rehabilitation in order to maximize patient's functional indep endence in activities of daily living, strength, ROM, and mobility.- Rehab Goal Patient has realistic goal of being discharged at assistance level 7-Ind to reside at Home with Pt s elf. MDM/PLAN: - Physical Therapy Gait dysfunction - to improve, our physical therapists will perform initial evaluation of pt's statu s upon admission and devise an individualized program for Gait Training, and Wheel Chair mobility Inability to transfer - to improve, our physical therapists will perform initial evaluation of pt's status upon admission and devise an individualized program for Bed mobility Need for home safety evaluation - to improve, our physical therapists will perform initial evaluatio n of pt's status upon admission and devise an individualized program for Home Evaluation Need in caregiver upon discharge - to improve, our physical therapists will perform initial evaluati on of pt's status upon admission and devise an individualized program for Caregiver Training New precaution - to improve, our physical therapists will perform initial evaluation of pt's status upon admission and devise an individualized program for Patient precaution education Edema - to improve, our physical therapists will perform initial evaluation of pt's status upon admi ssion and devise an individualized program for Elevation Training, and Lymphedema Therapy Poor balance - to improve, our physical therapists will perform initial evaluation of pt's status up on admission and devise an individualized program for Balance Training Poor endurance - to improve, our physical therapists will perform initial evaluation of pt's status upon admission and devise an individualized program for Endurance Training Weakness - to improve, our physical therapists will perform initial evaluation of pt's status upon a dmission and devise an individualized program for Aquatic Therapy, Neuromuscular Reeducation, and Str engthening Achieving independence - to improve, our physical therapists will perform initial evaluation of pt's status upon admission and devise an individualized program for Community Reintegration Activities - Occupational Therapy ADL deficits - to improve, our occupation therapists will perform initial evaluation of pt's status upon admission and devise an individualized program for Bathing, Bed mobility, Community Reintegratio n, Cooking, Dressing, Eating, Fine Motor Skills, Grooming, Homemaking, Kitchen Mobility, Laundry, Pat ient Education, Safety Awareness, Splinting - Positioning, Transfers(Toilet, Tub, Shower), and Wheel Chair Management Cognitive deficits - to improve, our occupation therapists will perform initial evaluation of pt's s tatus upon admission and devise an individualized program for Cognition - orientation Need for healthcare corporate account director - to improve, our occupation therapists will perform initial evaluation of pt's status upon admission and devise an individualized program for Caregiver Training Weakness - to improve, our occupation therapists will perform initial evaluation of pt's status upon admission and devise an individualized program for Aquatic Therapy, Balance, Endurance, UE ROM, and UE strengthening - Other See attached MAR (Medication Administration Record) - Diet Type Continue Regular - Diet - Liquid Texture Continue Regular - Tube Feed Continue N/A - Fall Precaution SAFTY AND FALL - Diet - Solid Texture Continue Regular - Shower allowing shower FUNCTIONAL STATUS: UPDATED AT WEEKLY TEAM CONFERENCE - Bladder Same accident frequency: 7-Ind - No accidents in the past 7 days - Bowel Same accident frequency: 7-Ind - No accidents in the past 7 days - Walking Same score based on distance walked: 0(N/A) Same score based on distance walked: 1(<=50ft) - Wheelchair Same score based on distance traveled: 0(N/A) FUNCTIONAL STATUS: - Self-Care A. Eating Ind B. Grooming Jose C. Bathing modA D. Dressing - Upper sup E. Dressing - Lower Jose F. Toileting Fabian - Sphincter Control G. Bladder control Jose H. Bowel control Jose - Transfers Control I. Bed/Chair/Wheelchair modA J. Toilet Fabian K. Tub/Shower modA - Locomotion L. Walk/Wheelchair (B) sup M. Stairs Dep - Communication N. Comprehension (B) Jose O. Expression (B) Ind - Social Cognition P. Social Interaction Ind Q. Problem Solving Jose R. Memory Ind - Endurance Good - Balance Good - Safety Awareness Good QI SCORES: - Self-Care A. Eating 03-Partial/moderate assistance B. Oral hygiene 03-Partial/moderate assistance C. Toileting hygiene 03-Partial/moderate assistance E. Shower/bathe self 03-Partial/moderate assistance F. Upper body dressing 03-Partial/moderate assistance G. Lower body dressing 03-Partial/moderate assistance H. Putting on/taking off footwear 88-Not attempted due to medical condition or safety concerns - Mobility A. Roll left and right 03-Partial/moderate assistance B. Sit to lying 03-Partial/moderate assistance C. Lying to sitting on side of bed 03-Partial/moderate assistance D. Sit to stand 03-Partial/moderate assistance E. Chair/vwz-hw-[id number] transfer 03-Partial/moderate assistance F. Toilet transfer 03-Partial/moderate assistance G. Car transfer 88-Not attempted due to medical condition or safety concerns I. Walk 10 feet 03-Partial/moderate assistance J. Walk 50 feet with two turns 88-Not attempted due to medical condition or safety concerns K. Walk 150 feet 88-Not attempted due to medical condition or safety concerns L. Walking 10 feet on uneven surfaces 88-Not attempted due to medical condition or safety concerns M. 1 step (curb) 88-Not attempted due to medical condition or safety concerns N. 4 steps 88-Not attempted due to medical condition or safety concerns O. 12 steps 88-Not attempted due to medical condition or safety concerns P. Picking up object 88-Not attempted due to medical condition or safety concerns R. Wheel 50 feet with two turns 88-Not attempted due to medical condition or safety concerns S. Wheel 150 feet 88-Not attempted due to medical condition or safety concerns - Bladder and Bowel Bladder continence Bowel continence - Endurance Fair - Balance Fair - Safety Awareness Fair CURRENT FUNC. DEFICITS: Self-Care, Mobility, Endurance, Balance, and Safety Awareness SIGNATURE PANEL: (CDT)
[2021-12-18] MEDS ORDERED: NA CHLORIDE 0.9% 100 ML ONE (18:16)
[2021-12-18] MEDS ORDERED: NA CHLORIDE 0.9% 1,000 ML ONE (20:05)
[2021-12-18] MEDS: LIDOCAINE 4% PATCH TOP SCH (20:25)
[2021-12-19] MEDS: OXACILLIN SODIUM 2 GM in NA CHLORIDE 0.9% 100 ML IV SCH ×6 (00:33→20:41)
[2021-12-19] MEDS: carvediloL 25 MG TAB PO SCH ×2 (05:33→16:59)
[2021-12-19] MEDS: PANTOPRAZOLE 40MG TABLET PO SCH (06:44)
[2021-12-19] MEDS: LEVOTHYROXINE SOD 0.025 MG TAB PO SCH (06:44)
[2021-12-19] MEDS: BACLOFEN 10 MG TAB PO SCH ×2 (07:36→20:41)
[2021-12-19] MEDS: NYSTATIN PWDR 100000 UNIT/GM TOP SCH ×2 (07:36→20:41)
[2021-12-19] MEDS: GABAPENTIN 300 MG CAP PO SCH ×2 (07:36→20:41)
[2021-12-19] MEDS: LOSARTAN POTASSIUM 50 MG TABLET PO SCH (07:36)
[2021-12-19] MEDS: APIXABAN 5 MG TABLET PO SCH ×2 (07:36→20:41)
[2021-12-19] MEDS: CRANBERRY FRUIT EXTRACT 400 MG CAP PO SCH (07:36)
[2021-12-19] MEDS: SODIUM CHLORIDE 0.9% 10ML INJ IV SCH ×2 (07:37→20:42)
--- NOTE | 2021-12-19 09:43 | P.RH.PN ---
Estimated Length of Stay: 11 Expected Discharge Date: 12/26/21 Discharge Disposition Plan: Home Family Support: Yes Vital Signs: Last Vital Signs Temp 98.2 F 12/19/21 08:58 Pulse 63 12/19/21 08:58 Resp 18 12/19/21 08:58 BP 154/73 H 12/19/21 08:58 Pulse Ox 90 L 12/19/21 08:58 Laboratory: Laboratory Last Values WBC 8.4 K/uL (4.3-10.9) D 12/18/21 05:11 RBC 4.21 M/uL (4.33-5.43) L 12/18/21 05:11 Hgb 11.7 g/dL (13.6-17.9) L 12/18/21 05:11 Hct 36.7 % (39.6-49.0) L 12/18/21 05:11 MCV 87.1 fL (80-100) 12/18/21 05:11 MCH 27.8 pg (27.0-35.0) 12/18/21 05:11 MCHC 31.9 g/dL (32.0-36.0) L 12/18/21 05:11 RDW 16.8 % (12.1-15.2) H 12/18/21 05:11 Plt Count 479 K/uL (152-406) H 12/18/21 05:11 MPV 6.9 fL (7.6-11.3) L 12/18/21 05:11 Neutrophils % 56.6 % (41.7-73.7) 12/18/21 05:11 Lymphocytes % 19.5 % (15.3-44.8) 12/18/21 05:11 Monocytes % 13.3 % (3.3-12.3) H 12/18/21 05:11 Eosinophils % 9.5 % (0-4.4) H 12/18/21 05:11 Basophils % 1.1 % (0-1.3) 12/18/21 05:11 Absolute Neutrophils 4.8 K/uL (1.8-8.0) 12/18/21 05:11 Absolute Lymphocytes 1.6 K/uL (0.7-4.9) 12/18/21 05:11 Absolute Monocytes 1.1 K/uL (0.1-1.3) 12/18/21 05:11 Absolute Eosinophils 0.8 K/uL (0-0.5) H 12/18/21 05:11 Absolute Basophils 0.1 K/uL (0-0.5) 12/18/21 05:11 Sodium 141 mmol/L (136-145) 12/18/21 05:11 Potassium 3.9 mmol/L (3.5-5.1) 12/18/21 05:11 Chloride 106 mmol/L (98-107) 12/18/21 05:11 Carbon Dioxide 35 mmol/L (21-32) H 12/18/21 05:11 Anion Gap 3.9 mEq/L (5.0-15.0) L 12/18/21 05:11 BUN 14 mg/dL (7-18) 12/18/21 05:11 Creatinine 0.84 mg/dL (0.55-1.3) 12/18/21 05:11 Est GFR (CKD-EPI) 100 ml/min (=/>90) 12/18/21 05:11 Glucose 89 mg/dL (74-106) 12/18/21 05:11 Calcium 8.3 mg/dL (8.5-10.1) L 12/18/21 05:11 Magnesium 2.1 mg/dL (1.8-2.4) 12/18/21 05:11 NT-Pro-B Natriuret Pep Cancelled 12/16/21 05:00 Albumin 1.8 g/dL (3.4-5.0) L 12/18/21 05:11 Prealbumin 11.1 mg/dL (20-40) L 12/18/21 05:11 Urine Color Yellow (Yellow) 12/15/21 18:40 Urine Appearance Clear (Clear) 12/15/21 18:40 Urine pH 7.0 (5.0-7.0) 12/15/21 18:40 Ur Specific [place] 1.025 (1.005-1.030) 12/15/21 18:40 Glucose (UA)(Auto) Negative (Negative) 12/15/21 18:40 Urine Ketones Negative (Negative) 12/15/21 18:40 Urine Blood 3+ (Negative) H 12/15/21 18:40 Urine Nitrite Negative (Negative) 12/15/21 18:40 Urine Bilirubin 1+ (Negative) H 12/15/21 18:40 Urine Urobilinogen >=8.0 mg/dL (0.2-1.0) 12/15/21 18:40 Ur Leukocyte Esterase Negative (Negative) 12/15/21 18:40 Urine RBC 5-10 /HPF (NONE SEEN) H 12/15/21 18:40 Urine WBC 20-50 /HPF (<5) H 12/15/21 18:40 Ur Squamous Epith Cells <5 /HPF (NONE SEEN) 12/15/21 18:40 Ur Urothelial Cells Cancelled 12/15/21 17:35 Calcium Oxalate Crystal Cancelled 12/15/21 17:35 Uric Acid Crystals Cancelled 12/15/21 17:35 Triple Phos Crystals Cancelled 12/15/21 17:35 Other Crystals Cancelled 12/15/21 17:35 Amorphous Sediment Cancelled 12/15/21 17:35 Glitter Cells Cancelled 12/15/21 17:35 Urine Bacteria <20 /HPF (NONE SEEN) 12/15/21 18:40 Hyaline Casts Cancelled 12/15/21 17:35 Fine Granular Casts Cancelled 12/15/21 17:35 Coarse Granular Casts Cancelled 12/15/21 17:35 Waxy Casts Cancelled 12/15/21 17:35 RBC Casts Cancelled 12/15/21 17:35 WBC Casts Cancelled 12/15/21 17:35 Urine Mucus Cancelled 12/15/21 17:35 Urine Other Cancelled 12/15/21 17:35 Urine Trichomonas Cancelled 12/15/21 17:35 Urine Yeast Cancelled 12/15/21 17:35 Ur Yeast w Hyphae Cancelled 12/15/21 17:35 Urine Yeast (Budding) Cancelled 12/15/21 17:35 Urine Sperm Cancelled 12/15/21 17:35 Urine Culture Reflexed Reflexed 12/15/21 18:40 Urine Total Volume Cancelled 12/15/21 17:35 Urine Total Protein 1+ (Negative) H 12/15/21 18:40 SARS-CoV-2 Rap RNA(RT-PCR) Negative (NEGATIVE) 12/15/21 15:20 Weight: 403 lb Wound Present: Yes Closed Surgical Incision Present: Yes Physician Update: Labs reviewed. Bed mobility, modified independent, transferring, wheelchair mobility and gait 150' with supervision to mod I. Parallel bars 40' standby assistance. Pain limiting his ambulation. Summary: Patient's care plan and joint terminal attack controller goals have been reviewed and revised as necessary. Please see the Rehabilitation Signature page for all necessary signatures.
[2021-12-19] MEDS: FUROSEMIDE 40 MG TABLET PO SCH (14:16)
[2021-12-19] MEDS: LIDOCAINE 4% PATCH TOP SCH ×2 (20:40→20:50)
[2021-12-19] MEDS: ACETAMINOPHEN 500 MG TAB PO PRN (20:50)
[2021-12-20] MEDS: OXACILLIN SODIUM 2 GM in NA CHLORIDE 0.9% 100 ML IV SCH ×6 (00:22→20:12)
[2021-12-20] MEDS: carvediloL 25 MG TAB PO SCH ×2 (05:08→17:23)
[2021-12-20] MEDS: LEVOTHYROXINE SOD 0.025 MG TAB PO SCH (06:31)
[2021-12-20] MEDS: PANTOPRAZOLE 40MG TABLET PO SCH (06:31)
[2021-12-20] MEDS: APIXABAN 5 MG TABLET PO SCH ×2 (07:17→20:14)
[2021-12-20] MEDS: SODIUM CHLORIDE 0.9% 10ML INJ IV SCH ×2 (08:00→20:14)
[2021-12-20] MEDS: GABAPENTIN 300 MG CAP PO SCH ×2 (08:23→20:14)
[2021-12-20] MEDS: BACLOFEN 10 MG TAB PO SCH ×2 (08:23→20:12)
[2021-12-20] MEDS: CRANBERRY FRUIT EXTRACT 400 MG CAP PO SCH ×2 (08:23→20:12)
[2021-12-20] MEDS: NYSTATIN PWDR 100000 UNIT/GM TOP SCH ×2 (08:24→20:12)
[2021-12-20] MEDS: LOSARTAN POTASSIUM 50 MG TABLET PO SCH (08:24)
[2021-12-20] MEDS: ACETAMINOPHEN 500 MG TAB PO PRN (14:32)
[2021-12-20] MEDS: FUROSEMIDE 40 MG TABLET PO SCH (14:32)
--- NOTE | 2021-12-20 16:29 | R.PN ---
PROGRESS NOTES ENCOUNTER DATE AND TIME: 12/20/2021 16:25 (CDT) NAME ALISHA LEE DATE OF : 1960 DATE OF ADMISSION: 12/15/2021 14:40 (CDT) Sepsis MSSA bacteremiaCHIEF COMPLAINT: Sepsis, bacteremia, debility SUBJECTIVE: Pt denied any Shortness of Breath. Pt denied any depression. WBC 8.4, Hgb 11.7, prealbumin 11.1, covid-19 is negative. Therapeutic exercises done with supervision. Self-propelled wheelchair 500' with standby assistance. VITAL SIGNS Temperature: 98.0 F SBP/DBP: 133/65 Pulse: 66 Resp: 16 MEDICATION ALLERGIES: No Known Drug Allergies (NKDA) ENVIRONMENTAL ALLERGIES: - Substance Allergies None Known - Other Allergies None Known NURSING: - Shower allowing shower PRECAUTIONS: - Fall Precaution SAFTY AND FALL ACTIVITIES OOB only with supervision THERAPIES: - Dietary and Nutrition Adequate Nutrition. Nutritional Education. Nutritional Supplements. Evaluate and Treat. - Occupational Therapy Cognitive Retraining. Patient needs Occupational Therapy for a daily minimum of 1.5 hours at least 5 out of 7 days, to improve Activities of Daily Living, including: Eating, Grooming, Bathing, Dressing, Toileting, Toilet Transfers, Community Reintegration, Higher functional activities, Adaptive Equipme nt, Splinting, Household Tasks, and Other activities as determined. Visual Perceptual Training. Evalu ate and Treat. Safety Awareness. Patient/Family Education. Household Tasks. Transfer Training. ADL Tr aining. - Speech Therapy Cognitive Training. Expressive Language Skills. Memory Strategies. Patient needs Speech Therapy for a daily minimum of 1.5 hours at least 5 out of 7 days, to improve: Swallowing, Cognition, Language Ski lls, and Compensatory Strategies. Receptive Language Skills. Speech Intelligibility Training. Evaluat e and Treat. - Physical Therapy Patient needs Physical Therapy for a daily minimum of 1.5 hours at least 5 out of 7 days, to improve: Mobility, Strengthening, Transfers, Stretching, ROM, Endurance, Ability to manage stairs, Gait, and Balance. Balance Training. Evaluate and Treat. Patient/Family Education. Transfer Training. Safety Aw areness. Gait Training. PHYSICAL EXAM - Gen Alert and awake Lying in bed No apparent distress Oriented to: person, time, and place - Skin No skin breakdown. No abnormalities - Eyes No abnormalities - ENMT No abnormalities - Neck No abnormalities - CVS RRR - Chest No abnormalities - Resp No wheezing - Abd +bowel sounds - GI Soft Deferred - No abnormalities - Ext No significant edema - MSK 4+/5 weakness in both lower extremities. - Neuro No focal deficits - Psych No abnormalities ASSESSMENT: Pt. is a 60 yo male of unknown race.On 12/06/2021 he was admitted to [facility] with diagnosis Sepsis MSSA bacteremia.His impairment category is Medically Complex Conditions 17 - Infections (17.1 ).Pre-morbidly, Pt. was independent/mod-I in Locomotion, Safety Awareness, Social Cognition, and [place] nce; and he had good Transfers Control, Sphincter Control, Self-Care, Communication, and Endurance.Cu rrently, he has deficits of Locomotion, Safety Awareness, Social Cognition, Balance, Transfers Contro l, Sphincter Control, Self-Care, Communication, and Endurance.Pt. is now referred to [facility] for acute in-patient rehabilitation in order to maximize patient's functional indep endence in activities of daily living, strength, ROM, and mobility.- Rehab Goal Patient has realistic goal of being discharged at assistance level 7-Ind to reside at Home with Pt s elf. MDM/PLAN: - Physical Therapy Gait dysfunction - to improve, our physical therapists will perform initial evaluation of pt's statu s upon admission and devise an individualized program for Gait Training, and Wheel Chair mobility Inability to transfer - to improve, our physical therapists will perform initial evaluation of pt's status upon admission and devise an individualized program for Bed mobility Need for home safety evaluation - to improve, our physical therapists will perform initial evaluatio n of pt's status upon admission and devise an individualized program for Home Evaluation Need in caregiver upon discharge - to improve, our physical therapists will perform initial evaluati on of pt's status upon admission and devise an individualized program for Caregiver Training New precaution - to improve, our physical therapists will perform initial evaluation of pt's status upon admission and devise an individualized program for Patient precaution education Edema - to improve, our physical therapists will perform initial evaluation of pt's status upon admi ssion and devise an individualized program for Elevation Training, and Lymphedema Therapy Poor balance - to improve, our physical therapists will perform initial evaluation of pt's status up on admission and devise an individualized program for Balance Training Poor endurance - to improve, our physical therapists will perform initial evaluation of pt's status upon admission and devise an individualized program for Endurance Training Weakness - to improve, our physical therapists will perform initial evaluation of pt's status upon a dmission and devise an individualized program for Aquatic Therapy, Neuromuscular Reeducation, and Str engthening Achieving independence - to improve, our physical therapists will perform initial evaluation of pt's status upon admission and devise an individualized program for Community Reintegration Activities - Occupational Therapy ADL deficits - to improve, our occupation therapists will perform initial evaluation of pt's status upon admission and devise an individualized program for Bathing, Bed mobility, Community Reintegratio n, Cooking, Dressing, Eating, Fine Motor Skills, Grooming, Homemaking, Kitchen Mobility, Laundry, Pat ient Education, Safety Awareness, Splinting - Positioning, Transfers(Toilet, Tub, Shower), and Wheel Chair Management Cognitive deficits - to improve, our occupation therapists will perform initial evaluation of pt's s tatus upon admission and devise an individualized program for Cognition - orientation Need for memory care program director - to improve, our occupation therapists will perform initial evaluation of pt's status upon admission and devise an individualized program for Caregiver Training Weakness - to improve, our occupation therapists will perform initial evaluation of pt's status upon admission and devise an individualized program for Aquatic Therapy, Balance, Endurance, UE ROM, and UE strengthening - Other See attached MAR (Medication Administration Record) - Diet Type Continue Regular - Diet - Liquid Texture Continue Regular - Tube Feed Continue N/A - Fall Precaution SAFTY AND FALL - Diet - Solid Texture Continue Regular - Shower allowing shower FUNCTIONAL STATUS: UPDATED AT WEEKLY TEAM CONFERENCE - Bladder Same accident frequency: 7-Ind - No accidents in the past 7 days - Bowel Same accident frequency: 7-Ind - No accidents in the past 7 days - Walking Same score based on distance walked: 0(N/A) Same score based on distance walked: 1(<=50ft) - Wheelchair Same score based on distance traveled: 0(N/A) FUNCTIONAL STATUS: - Self-Care A. Eating Ind B. Grooming Jose C. Bathing modA D. Dressing - Upper sup E. Dressing - Lower Jose F. Toileting Fabian - Sphincter Control G. Bladder control Jose H. Bowel control Jose - Transfers Control I. Bed/Chair/Wheelchair modA J. Toilet Fabian K. Tub/Shower modA - Locomotion L. Walk/Wheelchair (B) sup M. Stairs Dep - Communication N. Comprehension (B) Jose O. Expression (B) Ind - Social Cognition P. Social Interaction Ind Q. Problem Solving Jose R. Memory Ind - Endurance Good - Balance Good - Safety Awareness Good QI SCORES: - Self-Care A. Eating 03-Partial/moderate assistance B. Oral hygiene 03-Partial/moderate assistance C. Toileting hygiene 03-Partial/moderate assistance E. Shower/bathe self 03-Partial/moderate assistance F. Upper body dressing 03-Partial/moderate assistance G. Lower body dressing 03-Partial/moderate assistance H. Putting on/taking off footwear 88-Not attempted due to medical condition or safety concerns - Mobility A. Roll left and right 03-Partial/moderate assistance B. Sit to lying 03-Partial/moderate assistance C. Lying to sitting on side of bed 03-Partial/moderate assistance D. Sit to stand 03-Partial/moderate assistance E. Chair/alf-zh-vxtwz transfer 03-Partial/moderate assistance F. Toilet transfer 03-Partial/moderate assistance G. Car transfer 88-Not attempted due to medical condition or safety concerns I. Walk 10 feet 03-Partial/moderate assistance J. Walk 50 feet with two turns 88-Not attempted due to medical condition or safety concerns K. Walk 150 feet 88-Not attempted due to medical condition or safety concerns L. Walking 10 feet on uneven surfaces 88-Not attempted due to medical condition or safety concerns M. 1 step (curb) 88-Not attempted due to medical condition or safety concerns N. 4 steps 88-Not attempted due to medical condition or safety concerns O. 12 steps 88-Not attempted due to medical condition or safety concerns P. Picking up object 88-Not attempted due to medical condition or safety concerns R. Wheel 50 feet with two turns 88-Not attempted due to medical condition or safety concerns S. Wheel 150 feet 88-Not attempted due to medical condition or safety concerns - Bladder and Bowel Bladder continence Bowel continence - Endurance Fair - Balance Fair - Safety Awareness Fair CURRENT FUNC. DEFICITS: Self-Care, Mobility, Endurance, Balance, and Safety Awareness SIGNATURE PANEL: (CDT)
[2021-12-20] MEDS: LIDOCAINE 4% PATCH TOP SCH (20:14)
[2021-12-21] MEDS: OXACILLIN SODIUM 2 GM in NA CHLORIDE 0.9% 100 ML IV SCH ×6 (00:21→20:17)
[2021-12-21] MEDS: carvediloL 25 MG TAB PO SCH ×2 (05:17→16:56)
[2021-12-21] MEDS: LEVOTHYROXINE SOD 0.025 MG TAB PO SCH (06:37)
[2021-12-21] MEDS: PANTOPRAZOLE 40MG TABLET PO SCH (07:03)
[2021-12-21] MEDS: SODIUM CHLORIDE 0.9% 10ML INJ IV SCH ×2 (07:04→20:16)
[2021-12-21] MEDS: APIXABAN 5 MG TABLET PO SCH ×2 (08:23→20:15)
[2021-12-21] MEDS: GABAPENTIN 300 MG CAP PO SCH ×2 (08:23→20:15)
[2021-12-21] MEDS: NYSTATIN PWDR 100000 UNIT/GM TOP SCH ×2 (08:23→20:15)
[2021-12-21] MEDS: CRANBERRY FRUIT EXTRACT 400 MG CAP PO SCH ×2 (08:23→20:16)
[2021-12-21] MEDS: BACLOFEN 10 MG TAB PO SCH ×2 (08:23→20:15)
[2021-12-21] MEDS: LOSARTAN POTASSIUM 50 MG TABLET PO SCH (08:23)
[2021-12-21] MEDS: FUROSEMIDE 40 MG TABLET PO SCH (14:01)
[2021-12-21] MEDS: LIDOCAINE 4% PATCH TOP SCH (20:16)
[2021-12-21] MEDS ORDERED: NA CHLORIDE 0.9% 1,000 ML ONE (20:26)
[2021-12-22] MEDS: OXACILLIN SODIUM 2 GM in NA CHLORIDE 0.9% 100 ML IV SCH ×6 (00:13→20:13)
[2021-12-22] MEDS: LEVOTHYROXINE SOD 0.025 MG TAB PO SCH (05:46)
[2021-12-22] MEDS: carvediloL 25 MG TAB PO SCH ×2 (05:46→17:25)
[2021-12-22] MEDS: APIXABAN 5 MG TABLET PO SCH ×2 (07:31→20:12)
[2021-12-22] MEDS: BACLOFEN 10 MG TAB PO SCH ×2 (07:31→20:12)
[2021-12-22] MEDS: NYSTATIN PWDR 100000 UNIT/GM TOP SCH ×2 (07:31→20:12)
[2021-12-22] MEDS: CRANBERRY FRUIT EXTRACT 400 MG CAP PO SCH ×2 (07:31→20:12)
[2021-12-22] MEDS: PANTOPRAZOLE 40MG TABLET PO SCH (07:31)
[2021-12-22] MEDS: GABAPENTIN 300 MG CAP PO SCH ×2 (07:32→20:12)
[2021-12-22] MEDS: LOSARTAN POTASSIUM 50 MG TABLET PO SCH (07:32)
[2021-12-22] MEDS: SODIUM CHLORIDE 0.9% 10ML INJ IV SCH ×2 (08:00→20:12)
[2021-12-22] MEDS: FUROSEMIDE 40 MG TABLET PO SCH (13:39)
--- NOTE | 2021-12-22 18:19 | R.PN ---
PROGRESS NOTES ENCOUNTER DATE AND TIME: 12/22/2021 18:15 (CDT) NAME ALISHA LEE DATE OF : 1960 DATE OF ADMISSION: 12/15/2021 14:40 (CDT) Sepsis MSSA bacteremiaCHIEF COMPLAINT: Sepsis, bacteremia, debility SUBJECTIVE: Pt denied any Shortness of Breath. Pt denied any depression. WBC 8.4, Hgb 11.7, prealbumin 11.1, covid-19 is negative x 2. Therapeutic exercises done with supervision. Self-propelled wheelchair 250' with standby assistance. Ambulated 128' with supervision with standby assistance. VITAL SIGNS Temperature: 98.1 F SBP/DBP: 169/79 Pulse: 79 Resp: 16 MEDICATION ALLERGIES: No Known Drug Allergies (NKDA) ENVIRONMENTAL ALLERGIES: - Substance Allergies None Known - Other Allergies None Known NURSING: - Shower allowing shower PRECAUTIONS: - Fall Precaution SAFTY AND FALL ACTIVITIES OOB only with supervision THERAPIES: - Dietary and Nutrition Adequate Nutrition. Nutritional Education. Nutritional Supplements. Evaluate and Treat. - Occupational Therapy Cognitive Retraining. Patient needs Occupational Therapy for a daily minimum of 1.5 hours at least 5 out of 7 days, to improve Activities of Daily Living, including: Eating, Grooming, Bathing, Dressing, Toileting, Toilet Transfers, Community Reintegration, Higher functional activities, Adaptive Equipme nt, Splinting, Household Tasks, and Other activities as determined. Visual Perceptual Training. Evalu ate and Treat. Safety Awareness. Patient/Family Education. Household Tasks. Transfer Training. ADL Tr aining. - Speech Therapy Cognitive Training. Expressive Language Skills. Memory Strategies. Patient needs Speech Therapy for a daily minimum of 1.5 hours at least 5 out of 7 days, to improve: Swallowing, Cognition, Language Ski lls, and Compensatory Strategies. Receptive Language Skills. Speech Intelligibility Training. Evaluat e and Treat. - Physical Therapy Patient needs Physical Therapy for a daily minimum of 1.5 hours at least 5 out of 7 days, to improve: Mobility, Strengthening, Transfers, Stretching, ROM, Endurance, Ability to manage stairs, Gait, and Balance. Balance Training. Evaluate and Treat. Patient/Family Education. Transfer Training. Safety Aw areness. Gait Training. PHYSICAL EXAM - Gen Alert and awake Lying in bed No apparent distress Oriented to: person, time, and place - Skin No skin breakdown. No abnormalities - Eyes No abnormalities - ENMT No abnormalities - Neck No abnormalities - CVS RRR - Chest No abnormalities - Resp No wheezing - Abd +bowel sounds - GI Soft Deferred - No abnormalities - Ext No significant edema - MSK 4+/5 weakness in both lower extremities. - Neuro No focal deficits - Psych No abnormalities ASSESSMENT: Pt. is a 60 yo male of unknown race.On 12/06/2021 he was admitted to [facility] with diagnosis Sepsis MSSA bacteremia.His impairment category is Medically Complex Conditions 17 - Infections (17.1 ).Pre-morbidly, Pt. was independent/mod-I in Locomotion, Safety Awareness, Social Cognition, and Guero nce; and he had good Transfers Control, Sphincter Control, Self-Care, Communication, and Endurance.Cu rrently, he has deficits of Locomotion, Safety Awareness, Social Cognition, Balance, Transfers Contro l, Sphincter Control, Self-Care, Communication, and Endurance.Pt. is now referred to [facility] for acute in-patient rehabilitation in order to maximize patient's functional indep endence in activities of daily living, strength, ROM, and mobility.- Rehab Goal Patient has realistic goal of being discharged at assistance level 7-Ind to reside at Home with Pt s elf. MDM/PLAN: - Physical Therapy Gait dysfunction - to improve, our physical therapists will perform initial evaluation of pt's statu s upon admission and devise an individualized program for Gait Training, and Wheel Chair mobility Inability to transfer - to improve, our physical therapists will perform initial evaluation of pt's status upon admission and devise an individualized program for Bed mobility Need for home safety evaluation - to improve, our physical therapists will perform initial evaluatio n of pt's status upon admission and devise an individualized program for Home Evaluation Need in caregiver upon discharge - to improve, our physical therapists will perform initial evaluati on of pt's status upon admission and devise an individualized program for Caregiver Training New precaution - to improve, our physical therapists will perform initial evaluation of pt's status upon admission and devise an individualized program for Patient precaution education Edema - to improve, our physical therapists will perform initial evaluation of pt's status upon admi ssion and devise an individualized program for Elevation Training, and Lymphedema Therapy Poor balance - to improve, our physical therapists will perform initial evaluation of pt's status up on admission and devise an individualized program for Balance Training Poor endurance - to improve, our physical therapists will perform initial evaluation of pt's status upon admission and devise an individualized program for Endurance Training Weakness - to improve, our physical therapists will perform initial evaluation of pt's status upon a dmission and devise an individualized program for Aquatic Therapy, Neuromuscular Reeducation, and Str engthening Achieving independence - to improve, our physical therapists will perform initial evaluation of pt's status upon admission and devise an individualized program for Community Reintegration Activities - Occupational Therapy ADL deficits - to improve, our occupation therapists will perform initial evaluation of pt's status upon admission and devise an individualized program for Bathing, Bed mobility, Community Reintegratio n, Cooking, Dressing, Eating, Fine Motor Skills, Grooming, Homemaking, Kitchen Mobility, Laundry, Pat ient Education, Safety Awareness, Splinting - Positioning, Transfers(Toilet, Tub, Shower), and Wheel Chair Management Cognitive deficits - to improve, our occupation therapists will perform initial evaluation of pt's s tatus upon admission and devise an individualized program for Cognition - orientation Need for ambulatory care - to improve, our occupation therapists will perform initial evaluation of pt's status upon admission and devise an individualized program for Caregiver Training Weakness - to improve, our occupation therapists will perform initial evaluation of pt's status upon admission and devise an individualized program for Aquatic Therapy, Balance, Endurance, UE ROM, and UE strengthening - Other See attached MAR (Medication Administration Record) - Diet Type Continue Regular - Diet - Liquid Texture Continue Regular - Tube Feed Continue N/A - Fall Precaution SAFTY AND FALL - Diet - Solid Texture Continue Regular - Shower allowing shower FUNCTIONAL STATUS: UPDATED AT WEEKLY TEAM CONFERENCE - Bladder Same accident frequency: 7-Ind - No accidents in the past 7 days - Bowel Same accident frequency: 7-Ind - No accidents in the past 7 days - Walking Same score based on distance walked: 0(N/A) Same score based on distance walked: 1(<=50ft) - Wheelchair Same score based on distance traveled: 0(N/A) FUNCTIONAL STATUS: - Self-Care A. Eating Ind B. Grooming Jose C. Bathing modA D. Dressing - Upper sup E. Dressing - Lower Jose F. Toileting Fabian - Sphincter Control G. Bladder control Jose H. Bowel control Jose - Transfers Control I. Bed/Chair/Wheelchair modA J. Toilet Fabian K. Tub/Shower modA - Locomotion L. Walk/Wheelchair (B) sup M. Stairs Dep - Communication N. Comprehension (B) Jose O. Expression (B) Ind - Social Cognition P. Social Interaction Ind Q. Problem Solving Jose R. Memory Ind - Endurance Good - Balance Good - Safety Awareness Good QI SCORES: - Self-Care A. Eating 03-Partial/moderate assistance B. Oral hygiene 03-Partial/moderate assistance C. Toileting hygiene 03-Partial/moderate assistance E. Shower/bathe self 03-Partial/moderate assistance F. Upper body dressing 03-Partial/moderate assistance G. Lower body dressing 03-Partial/moderate assistance H. Putting on/taking off footwear 88-Not attempted due to medical condition or safety concerns - Mobility A. Roll left and right 03-Partial/moderate assistance B. Sit to lying 03-Partial/moderate assistance C. Lying to sitting on side of bed 03-Partial/moderate assistance D. Sit to stand 03-Partial/moderate assistance E. Chair/[id number] transfer 03-Partial/moderate assistance F. Toilet transfer 03-Partial/moderate assistance G. Car transfer 88-Not attempted due to medical condition or safety concerns I. Walk 10 feet 03-Partial/moderate assistance J. Walk 50 feet with two turns 88-Not attempted due to medical condition or safety concerns K. Walk 150 feet 88-Not attempted due to medical condition or safety concerns L. Walking 10 feet on uneven surfaces 88-Not attempted due to medical condition or safety concerns M. 1 step (curb) 88-Not attempted due to medical condition or safety concerns N. 4 steps 88-Not attempted due to medical condition or safety concerns O. 12 steps 88-Not attempted due to medical condition or safety concerns P. Picking up object 88-Not attempted due to medical condition or safety concerns R. Wheel 50 feet with two turns 88-Not attempted due to medical condition or safety concerns S. Wheel 150 feet 88-Not attempted due to medical condition or safety concerns - Bladder and Bowel Bladder continence Bowel continence - Endurance Fair - Balance Fair - Safety Awareness Fair CURRENT FUNC. DEFICITS: Self-Care, Mobility, Endurance, Balance, and Safety Awareness SIGNATURE PANEL: (CDT)
[2021-12-22] MEDS: LIDOCAINE 4% PATCH TOP SCH (20:12)
[2021-12-23] MEDS: OXACILLIN SODIUM 2 GM in NA CHLORIDE 0.9% 100 ML IV SCH ×6 (00:11→20:47)
[2021-12-23] MEDS: carvediloL 25 MG TAB PO SCH ×2 (05:30→17:13)
[2021-12-23] MEDS: CRANBERRY FRUIT EXTRACT 400 MG CAP PO SCH ×2 (07:11→20:47)
[2021-12-23] MEDS: LEVOTHYROXINE SOD 0.025 MG TAB PO SCH (07:11)
[2021-12-23] MEDS: NYSTATIN PWDR 100000 UNIT/GM TOP SCH ×2 (07:12→20:47)
[2021-12-23] MEDS: BACLOFEN 10 MG TAB PO SCH ×2 (07:12→20:47)
[2021-12-23] MEDS: PANTOPRAZOLE 40MG TABLET PO SCH (07:12)
[2021-12-23] MEDS: LOSARTAN POTASSIUM 50 MG TABLET PO SCH (07:12)
[2021-12-23] MEDS: APIXABAN 5 MG TABLET PO SCH ×2 (07:13→20:47)
[2021-12-23] MEDS: GABAPENTIN 300 MG CAP PO SCH ×2 (07:13→20:47)
[2021-12-23] MEDS: SODIUM CHLORIDE 0.9% 10ML INJ IV SCH ×2 (08:00→20:48)
[2021-12-23] MEDS: FUROSEMIDE 40 MG TABLET PO SCH (14:48)
--- NOTE | 2021-12-23 17:23 | R.PN ---
PROGRESS NOTES ENCOUNTER DATE AND TIME: 12/23/2021 11:09 (CDT) NAME ALISHA LEE DATE OF : 1960 DATE OF ADMISSION: 12/15/2021 14:40 (CDT) Sepsis MSSA bacteremiaCHIEF COMPLAINT: Sepsis, bacteremia, debility SUBJECTIVE: Pt denied any Shortness of Breath. Pt denied any depression. WBC 8.4, Hgb 11.7, prealbumin 11.1, covid-19 is negative x 2. Therapeutic exercises done with supervision. Self-propelled wheelchair 750' with modified independenc e. Ambulated 144' with modified independence in parallel bars. He will continue Oxacillin Na 2 grams in 100 ml, q 4 hrs up to 01/04/22. VITAL SIGNS Temperature: 98.0 F SBP/DBP: 169/85 Pulse: 60 Resp: 15 MEDICATION ALLERGIES: No Known Drug Allergies (NKDA) ENVIRONMENTAL ALLERGIES: - Substance Allergies None Known - Other Allergies None Known NURSING: - Shower allowing shower PRECAUTIONS: - Fall Precaution SAFTY AND FALL ACTIVITIES OOB only with supervision THERAPIES: - Dietary and Nutrition Adequate Nutrition. Nutritional Education. Nutritional Supplements. Evaluate and Treat. - Occupational Therapy Cognitive Retraining. Patient needs Occupational Therapy for a daily minimum of 1.5 hours at least 5 out of 7 days, to improve Activities of Daily Living, including: Eating, Grooming, Bathing, Dressing, Toileting, Toilet Transfers, Community Reintegration, Higher functional activities, Adaptive Equipme nt, Splinting, Household Tasks, and Other activities as determined. Visual Perceptual Training. Evalu ate and Treat. Safety Awareness. Patient/Family Education. Household Tasks. Transfer Training. ADL Tr marcie. - Speech Therapy Cognitive Training. Expressive Language Skills. Memory Strategies. Patient needs Speech Therapy for a daily minimum of 1.5 hours at least 5 out of 7 days, to improve: Swallowing, Cognition, Language Ski lls, and Compensatory Strategies. Receptive Language Skills. Speech Intelligibility Training. Evaluat e and Treat. - Physical Therapy Patient needs Physical Therapy for a daily minimum of 1.5 hours at least 5 out of 7 days, to improve: Mobility, Strengthening, Transfers, Stretching, ROM, Endurance, Ability to manage stairs, Gait, and Balance. Balance Training. Evaluate and Treat. Patient/Family Education. Transfer Training. Safety Aw areness. Gait Training. PHYSICAL EXAM - Gen Alert and awake Lying in bed No apparent distress Oriented to: person, time, and place - Skin No skin breakdown. No abnormalities - Eyes No abnormalities - ENMT No abnormalities - Neck No abnormalities - CVS RRR - Chest No abnormalities - Resp No wheezing - Abd +bowel sounds - GI Soft Deferred - No abnormalities - Ext No significant edema - MSK 4+/5 weakness in both lower extremities. - Neuro No focal deficits - Psych No abnormalities ASSESSMENT: Pt. is a 60 yo male of unknown race.On 12/06/2021 he was admitted to [facility] with diagnosis Sepsis MSSA bacteremia.His impairment category is Medically Complex Conditions 17 - Infections (17.1 ).Pre-morbidly, Pt. was independent/mod-I in Locomotion, Safety Awareness, Social Cognition, and Guero nce; and he had good Transfers Control, Sphincter Control, Self-Care, Communication, and Endurance.Cu rrently, he has deficits of Locomotion, Safety Awareness, Social Cognition, Balance, Transfers Contro l, Sphincter Control, Self-Care, Communication, and Endurance.Pt. is now referred to [facility] for acute in-patient rehabilitation in order to maximize patient's functional indep endence in activities of daily living, strength, ROM, and mobility.- Rehab Goal Patient has realistic goal of being discharged at assistance level 7-Ind to reside at Home with Pt s elf. MDM/PLAN: - Physical Therapy Gait dysfunction - to improve, our physical therapists will perform initial evaluation of pt's statu s upon admission and devise an individualized program for Gait Training, and Wheel Chair mobility Inability to transfer - to improve, our physical therapists will perform initial evaluation of pt's status upon admission and devise an individualized program for Bed mobility Need for home safety evaluation - to improve, our physical therapists will perform initial evaluatio n of pt's status upon admission and devise an individualized program for Home Evaluation Need in caregiver upon discharge - to improve, our physical therapists will perform initial evaluati on of pt's status upon admission and devise an individualized program for Caregiver Training New precaution - to improve, our physical therapists will perform initial evaluation of pt's status upon admission and devise an individualized program for Patient precaution education Edema - to improve, our physical therapists will perform initial evaluation of pt's status upon admi ssion and devise an individualized program for Elevation Training, and Lymphedema Therapy Poor balance - to improve, our physical therapists will perform initial evaluation of pt's status up on admission and devise an individualized program for Balance Training Poor endurance - to improve, our physical therapists will perform initial evaluation of pt's status upon admission and devise an individualized program for Endurance Training Weakness - to improve, our physical therapists will perform initial evaluation of pt's status upon a dmission and devise an individualized program for Aquatic Therapy, Neuromuscular Reeducation, and Str engthening Achieving independence - to improve, our physical therapists will perform initial evaluation of pt's status upon admission and devise an individualized program for Community Reintegration Activities - Occupational Therapy ADL deficits - to improve, our occupation therapists will perform initial evaluation of pt's status upon admission and devise an individualized program for Bathing, Bed mobility, Community Reintegratio n, Cooking, Dressing, Eating, Fine Motor Skills, Grooming, Homemaking, Kitchen Mobility, Laundry, Pat ient Education, Safety Awareness, Splinting - Positioning, Transfers(Toilet, Tub, Shower), and Wheel Chair Management Cognitive deficits - to improve, our occupation therapists will perform initial evaluation of pt's s tatus upon admission and devise an individualized program for Cognition - orientation Need for housekeeper child care - to improve, our occupation therapists will perform initial evaluation of pt's status upon admission and devise an individualized program for Caregiver Training Weakness - to improve, our occupation therapists will perform initial evaluation of pt's status upon admission and devise an individualized program for Aquatic Therapy, Balance, Endurance, UE ROM, and UE strengthening - Other See attached MAR (Medication Administration Record) - Diet Type Continue Regular - Diet - Liquid Texture Continue Regular - Tube Feed Continue N/A - Fall Precaution SAFTY AND FALL - Diet - Solid Texture Continue Regular - Shower allowing shower FUNCTIONAL STATUS: UPDATED AT WEEKLY TEAM CONFERENCE - Bladder Same accident frequency: 7-Ind - No accidents in the past 7 days - Bowel Same accident frequency: 7-Ind - No accidents in the past 7 days - Walking Same score based on distance walked: 0(N/A) Same score based on distance walked: 1(<=50ft) - Wheelchair Same score based on distance traveled: 0(N/A) FUNCTIONAL STATUS: - Self-Care A. Eating Ind B. Grooming Jose C. Bathing modA D. Dressing - Upper sup E. Dressing - Lower Jose F. Toileting Fabian - Sphincter Control G. Bladder control Jose H. Bowel control Jose - Transfers Control I. Bed/Chair/Wheelchair modA J. Toilet Fabian K. Tub/Shower modA - Locomotion L. Walk/Wheelchair (B) sup M. Stairs Dep - Communication N. Comprehension (B) Jose O. Expression (B) Ind - Social Cognition P. Social Interaction Ind Q. Problem Solving Jose R. Memory Ind - Endurance Good - Balance Good - Safety Awareness Good QI SCORES: - Self-Care A. Eating 03-Partial/moderate assistance B. Oral hygiene 03-Partial/moderate assistance C. Toileting hygiene 03-Partial/moderate assistance E. Shower/bathe self 03-Partial/moderate assistance F. Upper body dressing 03-Partial/moderate assistance G. Lower body dressing 03-Partial/moderate assistance H. Putting on/taking off footwear 88-Not attempted due to medical condition or safety concerns - Mobility A. Roll left and right 03-Partial/moderate assistance B. Sit to lying 03-Partial/moderate assistance C. Lying to sitting on side of bed 03-Partial/moderate assistance D. Sit to stand 03-Partial/moderate assistance E. Chair/lid-km-gukbk transfer 03-Partial/moderate assistance F. Toilet transfer 03-Partial/moderate assistance G. Car transfer 88-Not attempted due to medical condition or safety concerns I. Walk 10 feet 03-Partial/moderate assistance J. Walk 50 feet with two turns 88-Not attempted due to medical condition or safety concerns K. Walk 150 feet 88-Not attempted due to medical condition or safety concerns L. Walking 10 feet on uneven surfaces 88-Not attempted due to medical condition or safety concerns M. 1 step (curb) 88-Not attempted due to medical condition or safety concerns N. 4 steps 88-Not attempted due to medical condition or safety concerns O. 12 steps 88-Not attempted due to medical condition or safety concerns P. Picking up object 88-Not attempted due to medical condition or safety concerns R. Wheel 50 feet with two turns 88-Not attempted due to medical condition or safety concerns S. Wheel 150 feet 88-Not attempted due to medical condition or safety concerns - Bladder and Bowel Bladder continence Bowel continence - Endurance Fair - Balance Fair - Safety Awareness Fair CURRENT [facility]. DEFICITS: Self-Care, Mobility, Endurance, Balance, and Safety Awareness SIGNATURE PANEL: (CDT)
[2021-12-23] MEDS: LIDOCAINE 4% PATCH TOP SCH (20:48)
[2021-12-23] MEDS: ACETAMINOPHEN 500 MG TAB PO PRN (23:10)
[2021-12-24] MEDS: OXACILLIN SODIUM 2 GM in NA CHLORIDE 0.9% 100 ML IV SCH ×6 (00:18→20:57)
[2021-12-24 04:34] LABS: Absolute Lymphocytes (CBC) 1.5 K/uL (0.7-4.9); Hematocrit 37.6 % (39.6-49.0); MCV 85.8 fL (80-100); MPV 6.9 fL (7.6-11.3); RBC Red Blood Cell Count 4.39 M/uL (4.33-5.43)
[2021-12-24 05:06] LABS: Albumin 1.9 g/dL (3.4-5.0); Magnesium 2.2 mg/dL (1.8-2.4); Potassium 3.9 mmol/L (3.5-5.1); Prealbumin 13.1 mg/dL (20-40)
[2021-12-24] MEDS: carvediloL 25 MG TAB PO SCH ×2 (05:07→17:16)
[2021-12-24] MEDS: LEVOTHYROXINE SOD 0.025 MG TAB PO SCH (06:33)
[2021-12-24] MEDS ORDERED: OXACILLIN ONE (06:47)
[2021-12-24] MEDS: PANTOPRAZOLE 40MG TABLET PO SCH (06:52)
[2021-12-24] MEDS: GABAPENTIN 300 MG CAP PO SCH ×2 (07:29→20:00)
[2021-12-24] MEDS: LOSARTAN POTASSIUM 50 MG TABLET PO SCH (07:29)
[2021-12-24] MEDS: BACLOFEN 10 MG TAB PO SCH ×2 (07:30→20:00)
[2021-12-24] MEDS: CRANBERRY FRUIT EXTRACT 400 MG CAP PO SCH ×2 (07:30→20:00)
[2021-12-24] MEDS: NYSTATIN PWDR 100000 UNIT/GM TOP SCH ×2 (07:30→20:00)
[2021-12-24] MEDS: APIXABAN 5 MG TABLET PO SCH ×2 (07:30→20:00)
[2021-12-24] MEDS: SODIUM CHLORIDE 0.9% 10ML INJ IV SCH ×2 (07:30→20:01)
--- NOTE | 2021-12-24 09:45 | P.RH.PN ---
Estimated Length of Stay: 15 Expected Discharge Date: 12/30/21 Discharge Disposition Plan: Home Family Support: Yes Fpc Goal: Mobility, Transfers, Self Care Vital Signs: Last Vital Signs Temp 97.7 F 12/24/21 08:25 Pulse 67 12/24/21 08:25 Resp 18 12/24/21 08:25 BP 182/86 H 12/24/21 08:25 Pulse Ox 97 12/24/21 08:25 Laboratory: Laboratory Last Values WBC 6.3 K/uL (4.3-10.9) D 12/24/21 04:05 RBC 4.39 M/uL (4.33-5.43) 12/24/21 04:05 Hgb 12.0 g/dL (13.6-17.9) L 12/24/21 04:05 Hct 37.6 % (39.6-49.0) L 12/24/21 04:05 MCV 85.8 fL (80-100) 12/24/21 04:05 MCH 27.3 pg (27.0-35.0) 12/24/21 04:05 MCHC 31.8 g/dL (32.0-36.0) L 12/24/21 04:05 RDW 17.2 % (12.1-15.2) H 12/24/21 04:05 Plt Count 485 K/uL (152-406) H 12/24/21 04:05 MPV 6.9 fL (7.6-11.3) L 12/24/21 04:05 Neutrophils % 51.5 % (41.7-73.7) 12/24/21 04:05 Lymphocytes % 24.0 % (15.3-44.8) 12/24/21 04:05 Monocytes % 12.3 % (3.3-12.3) 12/24/21 04:05 Eosinophils % 11.0 % (0-4.4) H 12/24/21 04:05 Basophils % 1.2 % (0-1.3) 12/24/21 04:05 Absolute Neutrophils 3.3 K/uL (1.8-8.0) 12/24/21 04:05 Absolute Lymphocytes 1.5 K/uL (0.7-4.9) 12/24/21 04:05 Absolute Monocytes 0.8 K/uL (0.1-1.3) 12/24/21 04:05 Absolute Eosinophils 0.7 K/uL (0-0.5) H 12/24/21 04:05 Absolute Basophils 0.1 K/uL (0-0.5) 12/24/21 04:05 Sodium 140 mmol/L (136-145) 12/24/21 04:05 Potassium 3.9 mmol/L (3.5-5.1) 12/24/21 04:05 Chloride 105 mmol/L (98-107) 12/24/21 04:05 Carbon Dioxide 33 mmol/L (21-32) H 12/24/21 04:05 Anion Gap 5.9 mEq/L (5.0-15.0) 12/24/21 04:05 BUN 12 mg/dL (7-18) 12/24/21 04:05 Creatinine 0.98 mg/dL (0.55-1.3) 12/24/21 04:05 Est GFR (CKD-EPI) 89 ml/min (=/>90) L 12/24/21 04:05 Glucose 89 mg/dL (74-106) 12/24/21 04:05 Calcium 8.7 mg/dL (8.5-10.1) 12/24/21 04:05 Magnesium 2.2 mg/dL (1.8-2.4) 12/24/21 04:05 NT-Pro-B Natriuret Pep Cancelled 12/16/21 05:00 Albumin 1.9 g/dL (3.4-5.0) L 12/24/21 04:05 Prealbumin 13.1 mg/dL (20-40) L 12/24/21 04:05 Urine Color Yellow (Yellow) 12/15/21 18:40 Urine Appearance Clear (Clear) 12/15/21 18:40 Urine pH 7.0 (5.0-7.0) 12/15/21 18:40 Ur Specific [place] 1.025 (1.005-1.030) 12/15/21 18:40 Glucose (UA)(Auto) Negative (Negative) 12/15/21 18:40 Urine Ketones Negative (Negative) 12/15/21 18:40 Urine Blood 3+ (Negative) H 12/15/21 18:40 Urine Nitrite Negative (Negative) 12/15/21 18:40 Urine Bilirubin 1+ (Negative) H 12/15/21 18:40 Urine Urobilinogen >=8.0 mg/dL (0.2-1.0) 12/15/21 18:40 Ur Leukocyte Esterase Negative (Negative) 12/15/21 18:40 Urine RBC 5-10 /HPF (NONE SEEN) H 12/15/21 18:40 Urine WBC 20-50 /HPF (<5) H 12/15/21 18:40 Ur Squamous Epith Cells <5 /HPF (NONE SEEN) 12/15/21 18:40 Ur Urothelial Cells Cancelled 12/15/21 17:35 Calcium Oxalate Crystal Cancelled 12/15/21 17:35 Uric Acid Crystals Cancelled 12/15/21 17:35 Triple Phos Crystals Cancelled 12/15/21 17:35 Other Crystals Cancelled 12/15/21 17:35 Amorphous Sediment Cancelled 12/15/21 17:35 Glitter Cells Cancelled 12/15/21 17:35 Urine Bacteria <20 /HPF (NONE SEEN) 12/15/21 18:40 Hyaline Casts Cancelled 12/15/21 17:35 Fine Granular Casts Cancelled 12/15/21 17:35 Coarse Granular Casts Cancelled 12/15/21 17:35 Waxy Casts Cancelled 12/15/21 17:35 RBC Casts Cancelled 12/15/21 17:35 WBC Casts Cancelled 12/15/21 17:35 Urine Mucus Cancelled 12/15/21 17:35 Urine Other Cancelled 12/15/21 17:35 Urine Trichomonas Cancelled 12/15/21 17:35 Urine Yeast Cancelled 12/15/21 17:35 Ur Yeast w Hyphae Cancelled 12/15/21 17:35 Urine Yeast (Budding) Cancelled 12/15/21 17:35 Urine Sperm Cancelled 12/15/21 17:35 Urine Culture Reflexed Reflexed 12/15/21 18:40 Urine Total Volume Cancelled 12/15/21 17:35 Urine Total Protein 1+ (Negative) H 12/15/21 18:40 SARS-CoV-2 Rap RNA(RT-PCR) Negative (NEGATIVE) 12/22/21 05:15 Weight: 403 lb Wound Present: Yes Closed Surgical Incision Present: Yes Negative Pressure Wound Therapy Present: No Physician Update: Labs reviewed and are stable. Independent shower, bed and chair transfers. Set up assistance for upper body dressing, max assistannce for bathing. In parallel bars 64', 48', 32'. Independent bed mobility, sit to stand as well. Summary: Patient's care plan and senior living goals have been reviewed and revised as necessary. Please see the Rehabilitation Signature page for all necessary signatures.
[2021-12-24] MEDS: FUROSEMIDE 40 MG TABLET PO SCH (14:08)
[2021-12-24] MEDS: LIDOCAINE 4% PATCH TOP SCH (19:59)
[2021-12-25] MEDS: OXACILLIN SODIUM 2 GM in NA CHLORIDE 0.9% 100 ML IV SCH ×6 (00:32→20:02)
[2021-12-25] MEDS: carvediloL 25 MG TAB PO SCH ×2 (05:30→17:24)
[2021-12-25] MEDS: LEVOTHYROXINE SOD 0.025 MG TAB PO SCH (05:30)
[2021-12-25] MEDS: PANTOPRAZOLE 40MG TABLET PO SCH (07:19)
[2021-12-25] MEDS: LOSARTAN POTASSIUM 50 MG TABLET PO SCH (07:57)
[2021-12-25] MEDS: GABAPENTIN 300 MG CAP PO SCH ×2 (07:57→20:02)
[2021-12-25] MEDS: CRANBERRY FRUIT EXTRACT 400 MG CAP PO SCH ×2 (07:57→20:02)
[2021-12-25] MEDS: NYSTATIN PWDR 100000 UNIT/GM TOP SCH ×2 (07:57→20:02)
[2021-12-25] MEDS: BACLOFEN 10 MG TAB PO SCH ×2 (07:57→20:02)
[2021-12-25] MEDS: APIXABAN 5 MG TABLET PO SCH ×2 (07:58→20:02)
[2021-12-25] MEDS: SODIUM CHLORIDE 0.9% 10ML INJ IV SCH ×2 (07:59→20:35)
[2021-12-25] MEDS: FUROSEMIDE 40 MG TABLET PO SCH (13:52)
[2021-12-25] MEDS: LIDOCAINE 4% PATCH TOP SCH (20:03)
[2021-12-26] MEDS: OXACILLIN SODIUM 2 GM in NA CHLORIDE 0.9% 100 ML IV SCH ×6 (00:24→20:01)
[2021-12-26] MEDS: LEVOTHYROXINE SOD 0.025 MG TAB PO SCH (05:23)
[2021-12-26] MEDS: carvediloL 25 MG TAB PO SCH ×2 (05:23→18:59)
[2021-12-26] MEDS: SODIUM CHLORIDE 0.9% 10ML INJ IV SCH ×2 (08:00→19:59)
[2021-12-26] MEDS: GABAPENTIN 300 MG CAP PO SCH ×2 (08:34→19:56)
[2021-12-26] MEDS: PANTOPRAZOLE 40MG TABLET PO SCH (08:34)
[2021-12-26] MEDS: APIXABAN 5 MG TABLET PO SCH ×2 (08:34→19:56)
[2021-12-26] MEDS: BACLOFEN 10 MG TAB PO SCH ×2 (08:34→19:56)
[2021-12-26] MEDS: CRANBERRY FRUIT EXTRACT 400 MG CAP PO SCH ×2 (08:34→19:56)
[2021-12-26] MEDS: LOSARTAN POTASSIUM 50 MG TABLET PO SCH (08:34)
[2021-12-26] MEDS: NYSTATIN PWDR 100000 UNIT/GM TOP SCH ×2 (08:35→19:56)
[2021-12-26] MEDS ORDERED: NA CHLORIDE 0.9% 250 ML ONE (11:44)
[2021-12-26] MEDS: FUROSEMIDE 40 MG TABLET PO SCH ×2 (14:00→16:25)
[2021-12-26] MEDS: LIDOCAINE 4% PATCH TOP SCH ×2 (20:00→21:00)
[2021-12-27] MEDS: OXACILLIN SODIUM 2 GM in NA CHLORIDE 0.9% 100 ML IV SCH ×6 (00:50→20:03)
[2021-12-27] MEDS: LEVOTHYROXINE SOD 0.025 MG TAB PO SCH (06:00)
[2021-12-27] MEDS: carvediloL 25 MG TAB PO SCH ×2 (06:00→17:29)
[2021-12-27] MEDS ORDERED: OXACILLIN ONE (06:41)
[2021-12-27] MEDS: APIXABAN 5 MG TABLET PO SCH ×2 (07:27→19:20)
[2021-12-27] MEDS: SODIUM CHLORIDE 0.9% 10ML INJ IV SCH ×2 (08:00→19:21)
[2021-12-27] MEDS: GABAPENTIN 300 MG CAP PO SCH ×2 (08:16→19:20)
[2021-12-27] MEDS: PANTOPRAZOLE 40MG TABLET PO SCH (08:16)
[2021-12-27] MEDS: CRANBERRY FRUIT EXTRACT 400 MG CAP PO SCH ×2 (08:17→19:20)
[2021-12-27] MEDS: BACLOFEN 10 MG TAB PO SCH ×2 (08:17→19:20)
[2021-12-27] MEDS: LOSARTAN POTASSIUM 50 MG TABLET PO SCH (08:17)
[2021-12-27] MEDS: NYSTATIN PWDR 100000 UNIT/GM TOP SCH ×2 (08:18→19:21)
[2021-12-27] MEDS ORDERED: NA CHLORIDE 0.9% 100 ML ONE (09:37)
[2021-12-27] MEDS ORDERED: NA CHLORIDE 0.9% 250 ML ONE (11:28)
[2021-12-27] MEDS: FUROSEMIDE 40 MG TABLET PO SCH (14:45)
[2021-12-27] MEDS: LIDOCAINE 4% PATCH TOP SCH (19:21)
[2021-12-28] MEDS: OXACILLIN SODIUM 2 GM in NA CHLORIDE 0.9% 100 ML IV SCH ×6 (00:13→20:15)
[2021-12-28 04:26] LABS: Absolute Lymphocytes (CBC) 1.5 K/uL (0.7-4.9); Hematocrit 37.9 % (39.6-49.0); Lymphocytes % 21.1 % (15.3-44.8); MCV 86.6 fL (80-100); MPV 6.8 fL (7.6-11.3); RBC Red Blood Cell Count 4.37 M/uL (4.33-5.43)
[2021-12-28 04:39] LABS: Potassium 3.9 mmol/L (3.5-5.1)
[2021-12-28] MEDS: carvediloL 25 MG TAB PO SCH ×2 (05:01→17:27)
[2021-12-28] MEDS: LEVOTHYROXINE SOD 0.025 MG TAB PO SCH (06:27)
[2021-12-28] MEDS: PANTOPRAZOLE 40MG TABLET PO SCH (06:59)
[2021-12-28] MEDS: APIXABAN 5 MG TABLET PO SCH ×2 (07:31→20:15)
[2021-12-28] MEDS: SODIUM CHLORIDE 0.9% 10ML INJ IV SCH ×2 (08:00→20:15)
[2021-12-28] MEDS: CRANBERRY FRUIT EXTRACT 400 MG CAP PO SCH ×2 (08:29→20:15)
[2021-12-28] MEDS: LOSARTAN POTASSIUM 50 MG TABLET PO SCH (08:29)
[2021-12-28] MEDS: BACLOFEN 10 MG TAB PO SCH ×2 (08:29→20:15)
[2021-12-28] MEDS: GABAPENTIN 300 MG CAP PO SCH ×2 (08:29→20:15)
[2021-12-28] MEDS: NYSTATIN PWDR 100000 UNIT/GM TOP SCH ×2 (09:09→20:15)
--- NOTE | 2021-12-28 10:13 | R.PN ---
PROGRESS NOTES ENCOUNTER DATE AND TIME: 12/28/2021 10:12 (CDT) NAME ALISHA LEE DATE OF : 1960 DATE OF ADMISSION: 12/15/2021 14:40 (CDT) Sepsis MSSA bacteremiaCHIEF COMPLAINT: Sepsis, bacteremia, debility SUBJECTIVE: Pt denied any Shortness of Breath. Pt denied any depression. WBC 8.4, Hgb 11.7, prealbumin 11.1, covid-19 is negative x 2. Therapeutic exercises done with supervision. Self-propelled wheelchair 750' with modified independenc e. Ambulated 144' with modified independence in parallel bars. He will continue Oxacillin Na 2 grams in 100 ml, q 4 hrs up to 01/04/22. VITAL SIGNS Temperature: 98.0 F SBP/DBP: 169/85 Pulse: 60 Resp: 15 MEDICATION ALLERGIES: No Known Drug Allergies (NKDA) ENVIRONMENTAL ALLERGIES: - Substance Allergies None Known - Other Allergies None Known NURSING: - Shower allowing shower PRECAUTIONS: - Fall Precaution SAFTY AND FALL ACTIVITIES OOB only with supervision THERAPIES: - Dietary and Nutrition Adequate Nutrition. Nutritional Education. Nutritional Supplements. Evaluate and Treat. - Occupational Therapy Cognitive Retraining. Patient needs Occupational Therapy for a daily minimum of 1.5 hours at least 5 out of 7 days, to improve Activities of Daily Living, including: Eating, Grooming, Bathing, Dressing, Toileting, Toilet Transfers, Community Reintegration, Higher functional activities, Adaptive Equipme nt, Splinting, Household Tasks, and Other activities as determined. Visual Perceptual Training. Evalu ate and Treat. Safety Awareness. Patient/Family Education. Household Tasks. Transfer Training. ADL Tr marcie. - Speech Therapy Cognitive Training. Expressive Language Skills. Memory Strategies. Patient needs Speech Therapy for a daily minimum of 1.5 hours at least 5 out of 7 days, to improve: Swallowing, Cognition, Language Ski lls, and Compensatory Strategies. Receptive Language Skills. Speech Intelligibility Training. Evaluat e and Treat. - Physical Therapy Patient needs Physical Therapy for a daily minimum of 1.5 hours at least 5 out of 7 days, to improve: Mobility, Strengthening, Transfers, Stretching, ROM, Endurance, Ability to manage stairs, Gait, and Balance. Balance Training. Evaluate and Treat. Patient/Family Education. Transfer Training. Safety Aw areness. Gait Training. PHYSICAL EXAM - Gen Alert and awake Lying in bed No apparent distress Oriented to: person, time, and place - Skin No skin breakdown. No abnormalities - Eyes No abnormalities - ENMT No abnormalities - Neck No abnormalities - CVS RRR - Chest No abnormalities - Resp No wheezing - Abd +bowel sounds - GI Soft Deferred - No abnormalities - Ext No significant edema - MSK 4+/5 weakness in both lower extremities. - Neuro No focal deficits - Psych No abnormalities ASSESSMENT: Pt. is a 61 yo male of unknown race.On 12/06/2021 he was admitted to [facility] with diagnosis Sepsis MSSA bacteremia.His impairment category is Medically Complex Conditions 17 - Infections (17.1 ).Pre-morbidly, Pt. was independent/mod-I in Locomotion, Safety Awareness, Social Cognition, and Guero nce; and he had good Transfers Control, Sphincter Control, Self-Care, Communication, and Endurance.Cu rrently, he has deficits of Locomotion, Safety Awareness, Social Cognition, Balance, Transfers Contro l, Sphincter Control, Self-Care, Communication, and Endurance.Pt. is now referred to [facility] for acute in-patient rehabilitation in order to maximize patient's functional indep endence in activities of daily living, strength, ROM, and mobility.- Rehab Goal Patient has realistic goal of being discharged at assistance level 7-Ind to reside at Home with Pt s elf. MDM/PLAN: - Physical Therapy Gait dysfunction - to improve, our physical therapists will perform initial evaluation of pt's statu s upon admission and devise an individualized program for Gait Training, and Wheel Chair mobility Inability to transfer - to improve, our physical therapists will perform initial evaluation of pt's status upon admission and devise an individualized program for Bed mobility Need for home safety evaluation - to improve, our physical therapists will perform initial evaluatio n of pt's status upon admission and devise an individualized program for Home Evaluation Need in caregiver upon discharge - to improve, our physical therapists will perform initial evaluati on of pt's status upon admission and devise an individualized program for Caregiver Training New precaution - to improve, our physical therapists will perform initial evaluation of pt's status upon admission and devise an individualized program for Patient precaution education Edema - to improve, our physical therapists will perform initial evaluation of pt's status upon admi ssion and devise an individualized program for Elevation Training, and Lymphedema Therapy Poor balance - to improve, our physical therapists will perform initial evaluation of pt's status up on admission and devise an individualized program for Balance Training Poor endurance - to improve, our physical therapists will perform initial evaluation of pt's status upon admission and devise an individualized program for Endurance Training Weakness - to improve, our physical therapists will perform initial evaluation of pt's status upon a dmission and devise an individualized program for Aquatic Therapy, Neuromuscular Reeducation, and Str engthening Achieving independence - to improve, our physical therapists will perform initial evaluation of pt's status upon admission and devise an individualized program for Community Reintegration Activities - Occupational Therapy ADL deficits - to improve, our occupation therapists will perform initial evaluation of pt's status upon admission and devise an individualized program for Bathing, Bed mobility, Community Reintegratio n, Cooking, Dressing, Eating, Fine Motor Skills, Grooming, Homemaking, Kitchen Mobility, Laundry, Pat ient Education, Safety Awareness, Splinting - Positioning, Transfers(Toilet, Tub, Shower), and Wheel Chair Management Cognitive deficits - to improve, our occupation therapists will perform initial evaluation of pt's s tatus upon admission and devise an individualized program for Cognition - orientation Need for acute care assistant - to improve, our occupation therapists will perform initial evaluation of pt's status upon admission and devise an individualized program for Caregiver Training Weakness - to improve, our occupation therapists will perform initial evaluation of pt's status upon admission and devise an individualized program for Aquatic Therapy, Balance, Endurance, UE ROM, and UE strengthening - Other See attached MAR (Medication Administration Record) - Diet Type Continue Regular - Diet - Liquid Texture Continue Regular - Tube Feed Continue N/A - Fall Precaution SAFTY AND FALL - Diet - Solid Texture Continue Regular - Shower allowing shower FUNCTIONAL STATUS: UPDATED AT WEEKLY TEAM CONFERENCE - Bladder Same accident frequency: 7-Ind - No accidents in the past 7 days - Bowel Same accident frequency: 7-Ind - No accidents in the past 7 days - Walking Same score based on distance walked: 0(N/A) Same score based on distance walked: 1(<=50ft) - Wheelchair Same score based on distance traveled: 0(N/A) FUNCTIONAL STATUS: - Self-Care A. Eating Ind B. Grooming Jose C. Bathing modA D. Dressing - Upper sup E. Dressing - Lower Jose F. Toileting Fabian - Sphincter Control G. Bladder control Jose H. Bowel control Jose - Transfers Control I. Bed/Chair/Wheelchair modA J. Toilet Fabian K. Tub/Shower modA - Locomotion L. Walk/Wheelchair (B) sup M. Stairs Dep - Communication N. Comprehension (B) Jose O. Expression (B) Ind - Social Cognition P. Social Interaction Ind Q. Problem Solving Jose R. Memory Ind - Endurance Good - Balance Good - Safety Awareness Good QI SCORES: - Self-Care A. Eating 03-Partial/moderate assistance B. Oral hygiene 03-Partial/moderate assistance C. Toileting hygiene 03-Partial/moderate assistance E. Shower/bathe self 03-Partial/moderate assistance F. Upper body dressing 03-Partial/moderate assistance G. Lower body dressing 03-Partial/moderate assistance H. Putting on/taking off footwear 88-Not attempted due to medical condition or safety concerns - Mobility A. Roll left and right 03-Partial/moderate assistance B. Sit to lying 03-Partial/moderate assistance C. Lying to sitting on side of bed 03-Partial/moderate assistance D. Sit to stand 03-Partial/moderate assistance E. Chair/cti-nu-jxtvo transfer 03-Partial/moderate assistance F. Toilet transfer 03-Partial/moderate assistance G. Car transfer 88-Not attempted due to medical condition or safety concerns I. Walk 10 feet 03-Partial/moderate assistance J. Walk 50 feet with two turns 88-Not attempted due to medical condition or safety concerns K. Walk 150 feet 88-Not attempted due to medical condition or safety concerns L. Walking 10 feet on uneven surfaces 88-Not attempted due to medical condition or safety concerns M. 1 step (curb) 88-Not attempted due to medical condition or safety concerns N. 4 steps 88-Not attempted due to medical condition or safety concerns O. 12 steps 88-Not attempted due to medical condition or safety concerns P. Picking up object 88-Not attempted due to medical condition or safety concerns R. Wheel 50 feet with two turns 88-Not attempted due to medical condition or safety concerns S. Wheel 150 feet 88-Not attempted due to medical condition or safety concerns - Bladder and Bowel Bladder continence Bowel continence - Endurance Fair - Balance Fair - Safety Awareness Fair [facility]RENT [facility]. DEFICITS: Self-Care, Mobility, Endurance, Balance, and Safety Awareness SIGNATURE PANEL: (CDT)
[2021-12-28] MEDS: FUROSEMIDE 40 MG TABLET PO SCH (14:00)
[2021-12-28] MEDS: ACETAMINOPHEN 500 MG TAB PO PRN (16:57)
[2021-12-28] MEDS ORDERED: NA CHLORIDE 0.9% 250 ML ONE (19:38)
[2021-12-28] MEDS: LIDOCAINE 4% PATCH TOP SCH (20:15)
[2021-12-29] MEDS: OXACILLIN SODIUM 2 GM in NA CHLORIDE 0.9% 100 ML IV SCH ×6 (00:24→20:41)
[2021-12-29] MEDS: carvediloL 25 MG TAB PO SCH ×2 (05:17→17:16)
[2021-12-29] MEDS: LEVOTHYROXINE SOD 0.025 MG TAB PO SCH (06:34)
[2021-12-29] MEDS: PANTOPRAZOLE 40MG TABLET PO SCH (06:41)
[2021-12-29] MEDS: GABAPENTIN 300 MG CAP PO SCH ×2 (08:06→20:42)
[2021-12-29] MEDS: LOSARTAN POTASSIUM 50 MG TABLET PO SCH (08:06)
[2021-12-29] MEDS: BACLOFEN 10 MG TAB PO SCH ×2 (08:06→20:42)
[2021-12-29] MEDS: APIXABAN 5 MG TABLET PO SCH ×2 (08:06→20:42)
[2021-12-29] MEDS: SODIUM CHLORIDE 0.9% 10ML INJ IV SCH ×2 (08:06→20:43)
[2021-12-29] MEDS: CRANBERRY FRUIT EXTRACT 400 MG CAP PO SCH ×2 (08:06→20:42)
[2021-12-29] MEDS: NYSTATIN PWDR 100000 UNIT/GM TOP SCH ×2 (08:06→20:42)
[2021-12-29] MEDS: FUROSEMIDE 40 MG TABLET PO SCH (12:58)
--- NOTE | 2021-12-29 18:35 | R.PN ---
PROGRESS NOTES ENCOUNTER DATE AND TIME: 12/29/2021 18:31 (CDT) NAME ALISHA LEE DATE OF : 1960 DATE OF ADMISSION: 12/15/2021 14:40 (CDT) Sepsis MSSA bacteremiaCHIEF COMPLAINT: Sepsis, bacteremia, debility SUBJECTIVE: Pt denied any Shortness of Breath. Pt denied any depression. WBC 6.9, Hgb 12.2, prealbumin 13.1, covid-19 is negative x 2. Self-propelled wheelchair 750' with modified independence. He will continue Oxacillin Na 2 grams in 100 ml, q 4 hrs up to 01/04/22. VITAL SIGNS Temperature: 97.9 F SBP/DBP: 165/78 Pulse: 69 Resp: 16 MEDICATION ALLERGIES: No Known Drug Allergies (NKDA) ENVIRONMENTAL ALLERGIES: - Substance Allergies None Known - Other Allergies None Known NURSING: - Shower allowing shower PRECAUTIONS: - Fall Precaution SAFTY AND FALL ACTIVITIES OOB only with supervision THERAPIES: - Dietary and Nutrition Adequate Nutrition. Nutritional Education. Nutritional Supplements. Evaluate and Treat. - Occupational Therapy Cognitive Retraining. Patient needs Occupational Therapy for a daily minimum of 1.5 hours at least 5 out of 7 days, to improve Activities of Daily Living, including: Eating, Grooming, Bathing, Dressing, Toileting, Toilet Transfers, Community Reintegration, Higher functional activities, Adaptive Equipme nt, Splinting, Household Tasks, and Other activities as determined. Visual Perceptual Training. Evalu ate and Treat. Safety Awareness. Patient/Family Education. Household Tasks. Transfer Training. ADL Tr aining. - Speech Therapy Cognitive Training. Expressive Language Skills. Memory Strategies. Patient needs Speech Therapy for a daily minimum of 1.5 hours at least 5 out of 7 days, to improve: Swallowing, Cognition, Language Ski lls, and Compensatory Strategies. Receptive Language Skills. Speech Intelligibility Training. Evaluat e and Treat. - Physical Therapy Patient needs Physical Therapy for a daily minimum of 1.5 hours at least 5 out of 7 days, to improve: Mobility, Strengthening, Transfers, Stretching, ROM, Endurance, Ability to manage stairs, Gait, and Balance. Balance Training. Evaluate and Treat. Patient/Family Education. Transfer Training. Safety Aw areness. Gait Training. PHYSICAL EXAM - Gen Alert and awake Lying in bed No apparent distress Oriented to: person, time, and place - Skin No skin breakdown. No abnormalities - Eyes No abnormalities - ENMT No abnormalities - Neck No abnormalities - CVS RRR - Chest No abnormalities - Resp No wheezing - Abd +bowel sounds - GI Soft Deferred - No abnormalities - Ext No significant edema - MSK 4+/5 weakness in both lower extremities. - Neuro No focal deficits - Psych No abnormalities ASSESSMENT: Pt. is a 61 yo male of unknown race.On 12/06/2021 he was admitted to [facility] with diagnosis Sepsis MSSA bacteremia.His impairment category is Medically Complex Conditions 17 - Infections (17.1 ).Pre-morbidly, Pt. was independent/mod-I in Locomotion, Safety Awareness, Social Cognition, and Guero nce; and he had good Transfers Control, Sphincter Control, Self-Care, Communication, and Endurance.Cu rrently, he has deficits of Locomotion, Safety Awareness, Social Cognition, Balance, Transfers Contro l, Sphincter Control, Self-Care, Communication, and Endurance.Pt. is now referred to [facility] for acute in-patient rehabilitation in order to maximize patient's functional indep endence in activities of daily living, strength, ROM, and mobility.- Rehab Goal Patient has realistic goal of being discharged at assistance level 7-Ind to reside at Home with Pt s elf. MDM/PLAN: - Physical Therapy Gait dysfunction - to improve, our physical therapists will perform initial evaluation of pt's statu s upon admission and devise an individualized program for Gait Training, and Wheel Chair mobility Inability to transfer - to improve, our physical therapists will perform initial evaluation of pt's status upon admission and devise an individualized program for Bed mobility Need for home safety evaluation - to improve, our physical therapists will perform initial evaluatio n of pt's status upon admission and devise an individualized program for Home Evaluation Need in caregiver upon discharge - to improve, our physical therapists will perform initial evaluati on of pt's status upon admission and devise an individualized program for Caregiver Training New precaution - to improve, our physical therapists will perform initial evaluation of pt's status upon admission and devise an individualized program for Patient precaution education Edema - to improve, our physical therapists will perform initial evaluation of pt's status upon admi ssion and devise an individualized program for Elevation Training, and Lymphedema Therapy Poor balance - to improve, our physical therapists will perform initial evaluation of pt's status up on admission and devise an individualized program for Balance Training Poor endurance - to improve, our physical therapists will perform initial evaluation of pt's status upon admission and devise an individualized program for Endurance Training Weakness - to improve, our physical therapists will perform initial evaluation of pt's status upon a dmission and devise an individualized program for Aquatic Therapy, Neuromuscular Reeducation, and Str engthening Achieving independence - to improve, our physical therapists will perform initial evaluation of pt's status upon admission and devise an individualized program for Community Reintegration Activities - Occupational Therapy ADL deficits - to improve, our occupation therapists will perform initial evaluation of pt's status upon admission and devise an individualized program for Bathing, Bed mobility, Community Reintegratio n, Cooking, Dressing, Eating, Fine Motor Skills, Grooming, Homemaking, Kitchen Mobility, Laundry, Pat ient Education, Safety Awareness, Splinting - Positioning, Transfers(Toilet, Tub, Shower), and Wheel Chair Management Cognitive deficits - to improve, our occupation therapists will perform initial evaluation of pt's s tatus upon admission and devise an individualized program for Cognition - orientation Need for care management coordinator - to improve, our occupation therapists will perform initial evaluation of pt's status upon admission and devise an individualized program for Caregiver Training Weakness - to improve, our occupation therapists will perform initial evaluation of pt's status upon admission and devise an individualized program for Aquatic Therapy, Balance, Endurance, UE ROM, and UE strengthening - Other See attached MAR (Medication Administration Record) - Diet Type Continue Regular - Diet - Liquid Texture Continue Regular - Tube Feed Continue N/A - Fall Precaution SAFTY AND FALL - Diet - Solid Texture Continue Regular - Shower allowing shower FUNCTIONAL STATUS: UPDATED AT WEEKLY TEAM CONFERENCE - Bladder Same accident frequency: 7-Ind - No accidents in the past 7 days - Bowel Same accident frequency: 7-Ind - No accidents in the past 7 days - Walking Same score based on distance walked: 0(N/A) Same score based on distance walked: 1(<=50ft) - Wheelchair Same score based on distance traveled: 0(N/A) FUNCTIONAL STATUS: - Self-Care A. Eating Ind B. Grooming Jose C. Bathing modA D. Dressing - Upper sup E. Dressing - Lower Jose F. Toileting Fabian - Sphincter Control G. Bladder control Jose H. Bowel control Jose - Transfers Control I. Bed/Chair/Wheelchair modA J. Toilet Fabian K. Tub/Shower modA - Locomotion L. Walk/Wheelchair (B) sup M. Stairs Dep - Communication N. Comprehension (B) Jose O. Expression (B) Ind - Social Cognition P. Social Interaction Ind Q. Problem Solving Jose R. Memory Ind - Endurance Good - Balance Good - Safety Awareness Good QI SCORES: - Self-Care A. Eating 03-Partial/moderate assistance B. Oral hygiene 03-Partial/moderate assistance C. Toileting hygiene 03-Partial/moderate assistance E. Shower/bathe self 03-Partial/moderate assistance F. Upper body dressing 03-Partial/moderate assistance G. Lower body dressing 03-Partial/moderate assistance H. Putting on/taking off footwear 88-Not attempted due to medical condition or safety concerns - Mobility A. Roll left and right 03-Partial/moderate assistance B. Sit to lying 03-Partial/moderate assistance C. Lying to sitting on side of bed 03-Partial/moderate assistance D. Sit to stand 03-Partial/moderate assistance E. Chair/wbn-ca-wuiva transfer 03-Partial/moderate assistance F. Toilet transfer 03-Partial/moderate assistance G. Car transfer 88-Not attempted due to medical condition or safety concerns I. Walk 10 feet 03-Partial/moderate assistance J. Walk 50 feet with two turns 88-Not attempted due to medical condition or safety concerns K. Walk 150 feet 88-Not attempted due to medical condition or safety concerns L. Walking 10 feet on uneven surfaces 88-Not attempted due to medical condition or safety concerns M. 1 step (curb) 88-Not attempted due to medical condition or safety concerns N. 4 steps 88-Not attempted due to medical condition or safety concerns O. 12 steps 88-Not attempted due to medical condition or safety concerns P. Picking up object 88-Not attempted due to medical condition or safety concerns R. Wheel 50 feet with two turns 88-Not attempted due to medical condition or safety concerns S. Wheel 150 feet 88-Not attempted due to medical condition or safety concerns - Bladder and Bowel Bladder continence Bowel continence - Endurance Fair - Balance Fair - Safety Awareness Fair CURRENT [facility]. DEFICITS: Self-Care, Mobility, Endurance, Balance, and Safety Awareness SIGNATURE PANEL: (CDT)
[2021-12-29] MEDS: LIDOCAINE 4% PATCH TOP SCH (20:43)
[2021-12-30] MEDS: OXACILLIN SODIUM 2 GM in NA CHLORIDE 0.9% 100 ML IV SCH ×3 (00:23→08:04)
[2021-12-30] MEDS: LEVOTHYROXINE SOD 0.025 MG TAB PO SCH (05:30)
[2021-12-30] MEDS: carvediloL 25 MG TAB PO SCH (05:30)
[2021-12-30] MEDS: PANTOPRAZOLE 40MG TABLET PO SCH (07:31)
[2021-12-30 07:43] VITALS: BP 153/74; TEMP 97.4
[2021-12-30] MEDS: NYSTATIN PWDR 100000 UNIT/GM TOP SCH (08:04)
[2021-12-30] MEDS: CRANBERRY FRUIT EXTRACT 400 MG CAP PO SCH (08:05)
[2021-12-30] MEDS: SODIUM CHLORIDE 0.9% 10ML INJ IV SCH (08:05)
[2021-12-30] MEDS: GABAPENTIN 300 MG CAP PO SCH (08:05)
[2021-12-30] MEDS: BACLOFEN 10 MG TAB PO SCH (08:05)
[2021-12-30] MEDS: LOSARTAN POTASSIUM 50 MG TABLET PO SCH (08:05)
[2021-12-30] MEDS: APIXABAN 5 MG TABLET PO SCH (08:05)
--- NOTE | 2022-01-09 17:32 | R.DS ---
DISCHARGE SUMMARY FACILITY [facility] MR# [id number] NAME ALISHA LEE [address]ESS [address] [place] [address] PHONE DATE OF 1960 AGE 61 SSN# [id number] GENDER Male DEXTERITY Unknown dexterity MARITAL STATUS Unknown race ENCOUNTER PHYSICIAN Dr. Mauro Mcclellan M.D. REFERRING DOCTOR DEANNA LORD MD REFERRING FACILITY [facility] DISCHARGE DIAGNOSIS: - Medically Complex Conditions 17 - Infections (17.1) Sepsis MSSA bacteremia. DISCHARGE COMORBIDITIES: - Tier 3 Morbid (severe) obesity due to excess calories (E66.01) Sepsis, unspecified organism (A41.9) DATE OF ADMISSION 12/15/2021 14:40 (CDT) MEDICATION ALLERGIES: No Known Drug Allergies (NKDA) ENVIRONMENTAL ALLERGIES: - Substance Allergies None Known - Other Allergies None Known DISCHARGE MEDICATIONS: Other- ContinueSee attached MAR (Medication Administration Record). NURSING: - Shower allowing shower PRECAUTIONS: - Fall Precaution SAFTY AND FALL ACTIVITIES OOB only with supervision THERAPIES: - Dietary and Nutrition Adequate Nutrition Nutritional Education Nutritional Supplements Evaluate and Treat - Occupational Therapy Cognitive Retraining Patient needs Occupational Therapy for a daily minimum of 1.5 hours at least 5 out of 7 days, to impr ove Activities of Daily Living, including: Eating, Grooming, Bathing, Dressing, Toileting, Toilet Tra nsfers, Community Reintegration, Higher functional activities, Adaptive Equipment, Splinting, Househo ld Tasks, and Other activities as determined Visual Perceptual Training Evaluate and Treat Safety Awareness Patient/Family Education Household Tasks Transfer Training ADL Training - Speech Therapy Cognitive Training Expressive Language Skills Memory Strategies Patient needs Speech Therapy for a daily minimum of 1.5 hours at least 5 out of 7 days, to improve: S wallowing, Cognition, Language Skills, and Compensatory Strategies Receptive Language Skills Speech Intelligibility Training Evaluate and Treat - Physical Therapy Patient needs Physical Therapy for a daily minimum of 1.5 hours at least 5 out of 7 days, to improve: Mobility, Strengthening, Transfers, Stretching, ROM, Endurance, Ability to manage stairs, Gait, and Balance Balance Training Evaluate and Treat Patient/Family Education Transfer Training Safety Awareness Gait Training HISTORY OF PRESENT ILLNESS: Pt. is a 61 yo male of unknown race.On 12/06/2021 he was admitted to [facility] with diagnosis Sepsis MSSA bacteremia.His impairment category is Medically Complex Conditions 17 - Infections (17.1 ).Pre-morbidly, Pt. was independent/mod-I in Locomotion, Safety Awareness, Social Cognition, and [place] nce; and he had good Transfers Control, Sphincter Control, Self-Care, Communication, and Endurance.Cu rrently, he has deficits of Locomotion, Safety Awareness, Social Cognition, Balance, Transfers Contro l, Sphincter Control, Self-Care, Communication, and Endurance.Pt. is now referred to [facility] for acute in-patient rehabilitation in order to maximize patient's functional indep endence in activities of daily living, strength, ROM, and mobility.- Rehab Goal Patient has realistic goal of being discharged at assistance level 7-Ind to reside at Home with Pt s elf. Pt is 60 yo male with PMH of HTN, hypothyroidism, CHF, Afib, gastric sleeve, prior traumatic flank hernia repair (2019) with reoccurrence s/p repair 11/24/21 who presented to the ER 12/06 with increased flank pain. Pt noted with new purulence from surgical JABARI drain and decreased urine output and found to have leukocytosis 18.4, TONY with Cr 4 from baseline 1.[address] showing a 13.5 x16.3 x 8cm fluid collection with gas in the R posterior abdominal wall surgical site infection s/p drain placed 12/06. Wound and blood cultures were positive for MSSA and pigtail cath was inserted by IR. Case is complicated by Afib with RVR. PICC line placed 12/09/21 for antibiotic therapy. Per PT, pt demonstrates fair progress with functional mobility. Pt requires Min-Mod A x2 persons for transfers. PT indicates pt requires Mod A for bed mobility as well. Pt using rollator to take turning steps to WC, WC mobility 220ft with BLE for pushing. Barriers are BLE weakness/instability and body habitus. Pt noted with decrease in balance, strength, transfers, ambulation, functional mobility, activity tolerance and safety. Due to the decline in the patients condition he is not currently safe to remain in his current living arrangement due to reductions in balance, strength, endurance, and an inability to independently perform the necessary activities of daily living and self-care required. Pt is at risk for skin breakdown, DVT, pain, falls, stroke and infection. Our goal is for the patient to become stronger in order for him to safely return home and live independently. Patient would most directly benefit from aggressive 3 hours of daily therapy split between physical therapy and occupational therapy as well as speech therapy if warranted in the acute inpatient rehab setting.He is medically stable with relatively stable labs. He will require 24 hour nursing, doctor supervision SPT) due to his current medical condition and PHM. The patient is reasonably expected to participate in 3 hours of therapy a day/15 hours per week and receive care with an intensive interdisciplinary approach. COVID-19 screening performed; Patient denies new onset of fever, cough, difficulty breathing, sore throat, body aches and non-allergy nasal congestion in the past 24 hours. Patient denies travel outside of [place] in the past 14 days. Patient denies any contact with someone who has a confirmed diagnosis of or is under investigation for COVID-19 in the past 14 days.HOSPITAL COURSE: DIET - LIQUID TEXTURE: On 12/11/2021 Pt was upgraded to Regular Diet - Liquid Texture. DIET - SOLID TEXTURE: On 12/11/2021 Pt was upgraded to Regular Diet - Solid Texture. DIET TYPE: On 12/11/2021 Pt was upgraded to Regular Diet Type. FALL PRECAUTION: On 12/11/2021 the following precautions were added for the patient: Fall Precaution - SAFTY AND FALL. On 12/16/2021 the following precautions were added for the patient: Fall Precaution - SAFTY AND FALL . On 12/17/2021 the following precautions were removed for the patient: Fall Precaution - SAFTY AND FA LL. On 12/18/2021 the following precautions were added for the patient: Fall Precaution - SAFTY AND FALL . The following precautions were removed for the patient: Fall Precaution - SAFTY AND FALL, and Fall Pr ecaution - SAFTY AND FALL. TUBE FEED: On 12/11/2021 Pt was changed to N/A Tube Feed. DISCHARGE PHYSICAL EXAM - Gen Alert and awake Lying in bed No apparent distress Oriented to: person, time, and place - Skin No skin breakdown. No abnormalities - Eyes No abnormalities - ENMT No abnormalities - Neck No abnormalities - CVS RRR - Chest No abnormalities - Resp No wheezing - Abd +bowel sounds - GI Soft Deferred - No abnormalities - Ext No significant edema - MSK 4+/5 weakness in both lower extremities. - Neuro No focal deficits - Psych No abnormalities FUNCTIONAL STATUS: - Self-Care A. Eating 7-Ind B. Grooming 6-Jose C. Bathing 5-sup D. Dressing - Upper 6-Jose E. Dressing - Lower 6-Jose F. Toileting 5-sup - Sphincter Control G. Bladder control 6-Jose H. Bowel control 6-Jose - Transfers Control I. Bed/Chair/Wheelchair 5-sup J. Toilet 5-sup K. Tub/Shower 5-sup - Locomotion L. Walk/Wheelchair (B) 5-sup M. Stairs 3-modA - Communication N. Comprehension (B) 6-Jose O. Expression (B) 7-Ind - Social Cognition P. Social Interaction 7-Ind Q. Problem Solving 6-Jose R. Memory 7-Ind - Endurance Good - Balance Good - Safety Awareness Good QI SCORES: - Self-Care A. Eating 03-Partial/moderate assistance B. Oral hygiene 03-Partial/moderate assistance C. Toileting hygiene 03-Partial/moderate assistance E. Shower/bathe self 03-Partial/moderate assistance F. Upper body dressing 03-Partial/moderate assistance G. Lower body dressing 03-Partial/moderate assistance H. Putting on/taking off footwear 88-Not attempted due to medical condition or safety concerns - Mobility A. Roll left and right 03-Partial/moderate assistance B. Sit to lying 03-Partial/moderate assistance C. Lying to sitting on side of bed 03-Partial/moderate assistance D. Sit to stand 03-Partial/moderate assistance E. Chair/scd-wi-envvc transfer 03-Partial/moderate assistance F. Toilet transfer 03-Partial/moderate assistance G. Car transfer 88-Not attempted due to medical condition or safety concerns I. Walk 10 feet 03-Partial/moderate assistance J. Walk 50 feet with two turns 88-Not attempted due to medical condition or safety concerns K. Walk 150 feet 88-Not attempted due to medical condition or safety concerns L. Walking 10 feet on uneven surfaces 88-Not attempted due to medical condition or safety concerns M. 1 step (curb) 88-Not attempted due to medical condition or safety concerns N. 4 steps 88-Not attempted due to medical condition or safety concerns O. 12 steps 88-Not attempted due to medical condition or safety concerns P. Picking up object 88-Not attempted due to medical condition or safety concerns R. Wheel 50 feet with two turns 88-Not attempted due to medical condition or safety concerns S. Wheel 150 feet 88-Not attempted due to medical condition or safety concerns - Bladder and Bowel Bladder continence Bowel continence - Endurance Fair - Balance Fair - Safety Awareness Fair DISCHARGE INSTRUCTIONS: - N/A Eliquis 5 mg twice daily. DISCHARGE PLAN, FOLLOW UP CARE PROVISIONS: - Estimated Length of Stay (days) 13. - Consensus on plan Discharge plan has been discussed with primary caregiver. Patient/Family is in agreement with the julissa n. Primary caregiver is in agreement with the plan. - Patient/Family Goals Return home independently. - Planned Living Setting Upon Discharge Home, to live alone. Transitional Living. Primary caregiver: Pt self. SIGNATURE PANEL: (CDT)
== END 2021-12-30 11:15 | disposition home or self-care (01) | DRG 948 ==
LOC: 5TH 12-15 14:40
PROVIDERS: ADMIT Psychiatry & Neurology Neurology with Special Qualifications in Child Neurology; ATTEND Psychiatry & Neurology Neurology with Special Qualifications in Child Neurology
DX: R53.81 Other malaise (principal); Z68.43 Body mass index [BMI] 50.0-59.9, adult; E03.9 Hypothyroidism, unspecified; Z98.84 Bariatric surgery status; I48.91 Unspecified atrial fibrillation; E66.01 Morbid (severe) obesity due to excess calories; I11.0 Hypertensive heart disease with heart failure; I50.9 Heart failure, unspecified; Z20.822 Contact with and (suspected) exposure to COVID-19
CPT/HCPCS: 36415; 80048; 81003; 81015; 82040; 83735; 83880; 84134; 85025; 87086; 87088; 94010; 97110; 97116; 97161; 97165; 97530; 97542; J2001; J2700; J7030; J7050; U0003

== ENCOUNTER 2021-12-31 10:29 | Emergency (ER) | payer OTHER ==
--- OUTSIDE RECORDS SUMMARY | 2021-12-31 10:36 | XMS REPORT | Continuity of Care Document ---
:1960 Author Organization [facility] t Address [address] [place] [address] Care Team Providers Name Role Phone Reyes Escobedo DO Primary Care Physician Darlene Escobedo Attending Clinician Unavailable WALESKA GAMEZ Attending Clinician Unavailable RISA Attending Clinician Unavailable RADHA Attending Clinician Unavailable Cedrick Bermeo Attending Clinician PARAS BHATT Attending Clinician Unavailable PARAS BHATT Attending Clinician Unavailable MESFIN Attending Clinician Unavailable NATASHA Attending Clinician Unavailable JIM Attending Clinician Unavailable WALESKA GAMEZ Admitting Clinician Unavailable YVES GARRISON Admitting Clinician Unavailable PARAS BHATT Admitting Clinician Unavailable Payers Payer Name Policy Type Policy Number Effective Date Expiration Date S polo MEDICARE A B [id number] 2010 00:00:00 Problems Condition Condition Condition Status [...] Propensi Active Other (See 2019-07 Chest Ba [facility] ty to Comments) 0-28 pain College adverse 00:00: of reaction 00 Medicin s to e drug HYDROCOD Allergy Active High Other 2019-[address] [facility] Hydrocod Propensi Active Other [facility] ty to 6-02 reaction( College adverse 00:00: s): of reaction 00 Nausea/Vo Medic in s to miting e drug HYDROCOD Allergy Active [facility] NO KNOWN Allergy Active [facility] ALLERGIE [facility] Social History Social Habit Start Date Stop Date Quantity Comments Source History [facility] ge Alcohol Std Drinks of Med icine History [facility] ge Alcohol Binge of Medicine History [facility] ge Alcohol Comment of Medici ne History of tobacco Cigarette Smoker [facility] use of Medicine Cigarettes smoked 2021-12-04 2021-12-04 [facility] current (pack per 00:00:00 00:00:00 of Spodly day) - Reported Cigarette 2021-12-04 2021-12-04 [facility] pack-years 00:00:00 00:00:00 of Medicine Tobacco use and 2021-12-04 2021-12-04 Smokeless tobacco [facility] exposure 00:00:00 00:00:00 non-user of Medicine Alcohol intake 2021-12-04 2021-12-04 Lifetime [facility]ge 00:00:00 00:00:00 non-drinker of Medicine (finding) History [facility] 2021-10-14 2021-10-14 1 [facility] ge Alcohol Frequency 00:00:00 00:00:00 of Spodly Sex Ass[birth year] At [birth year] M [facility] 00:00:00 00:00:00 of Medicine Smoking Status Start Date Stop Date Source Ex-smoker (finding) [facility] Smokes tobacco daily 2021-12-04 00:00:[address] [facility] Medications Ordered Filled Start Stop Current Ordering [...] 300 [facility] (NEURONTIN) 3-22 mg by [facility] 300 MG 00:00: mouth of capsule 00 daily. Medicin e gabapentin Yes 300mg Take 300 [facility] (NEURONTIN) 3-22 mg by [facility] 300 MG 00:00: mouth of capsule 00 daily. Medicin e clonidine Yes .2mg Take 0.2 [facility] (CATAPRESS) 3-09 mg by College 0.2 MG 00:00: mouth of tablet 00 daily. Medicin e clonidine Yes .2mg Take 0.2 [facility] (CATAPRESS) 3-09 mg by College 0.2 MG 00:00: mouth of tablet 00 daily. Medicin e amlodipine Yes 10mg Take 10 mg [facility] (NORVASC) 3-07 by mouth Colleg e 10 MG 00:00: daily. of tablet 00 Medicin e baclofen Yes 10mg Take 10 mg [facility] (LIORESAL) 3-07 by mouth Colle ge 10 MG 00:00: daily. of tablet 00 Medicin e amlodipine 2021-0 Yes 10mg Take 10 mg [facility] (NORVASC) 3-07 by mouth Colleg e 10 MG 00:00: daily. of tablet 00 Medicin e baclofen 2021-0 Yes 10mg Take 10 mg [facility] (LIORESAL) 3-07 by mouth Colle ge [...] hydrochloro 2021-0 Yes 25mg Take 25 mg [facility] thiazide 2-07 by mouth College (HYDRODIURI 00:00: daily. of L) 25 MG 00 Medicin tablet e levothyroxi 2021-0 Yes 25ug Take 25 [facility] ne 2-06 mcg by [facility] (SYNTHROID) 00:00: mouth of 25 MCG 00 daily. Medicin tablet e meloxicam 2021-0 Yes 15mg Take 15 mg [facility] (MOBIC) 15 2-06 by mouth Colle ge MG tablet 00:00: daily. of 00 Medicin e levothyroxi 2021-0 Yes 25ug Take 25 [facility] ne 2-06 mcg by [facility] (SYNTHROID) 00:00: mouth of 25 MCG 00 daily. Medicin tablet e meloxicam 2021-0 Yes 15mg Take 15 mg [facility] (MOBIC) 15 2-06 by mouth Colle ge MG tablet 00:00: daily. of 00 Medicin e pantoprazol 2021-0 Yes 40mg Take 40 mg [facility] e 1-10 by mouth College (PROTONIX) 00:00: daily. of 40 MG 00 Medicin tablet e pantoprazol 2021-0 Yes 40mg Take 40 mg [facility] e 1-10 by mouth [facility] (PROTONIX) 00:00: daily. of 40 MG 00 Medicin tablet e clonidine 2019-07 Yes TK 1 T PO [facility] (CATAPRESS) 0-19 TID College 0.2 MG [...] TK 1 C PO [facility] (NEURONTIN) 9-24 BID College 300 MG 00:00: of capsule 00 Medicin e pantoprazol 2020-0 Yes TK 1 T PO [facility] e 9-19 QD College (PROTONIX) 00:00: of 40 MG 00 Medicin tablet e levothyroxi 2019-0 Yes TK 1 T PO [facility] ne 9-18 QD IN THE College (SYNTHROID) 00:00: MORNING of 25 MCG 00 OES Medicin tablet e hydrochloro 2020-0 Yes TK 1 T PO [facility] thiazide 9 QD College (HYDRODIURI 00:00: of L) 25 MG 00 Medicin tablet e carvedilol 2020-0 Yes [facility] (COREG) 25 9- College MG tablet 00:00: of 00 Medicin e losartan 2020-0 2021- No [facility] (COZAAR) 9 05-26 College 100 MG 00:00: 00:00 of tablet 00 :00 Medicin e potassium 2020-0 Yes TK 1 T PO [facility] chloride 8-31 QD College (KDUR) 10 00:00: of MEQ tablet 00 Medicin e meloxicam 2020-0 Yes TK 1 T PO [facility] (MOBIC) 15 8-19 QD College MG [...] Tablet 00 DAILY Lisinopril Lisinopril Yes EBONY TUNG TAKE 1 UT 40 MG Oral 40 MG Oral 5-05 M.D. TABLET BY [facility] Tablet Tablet 00:00: MOUTH ans 00 TWICE DAILY Protonix Protonix Yes Jamie 1 tablet C [facility] Immunizations Ordered Immunization Filled Immunization Date Status Commen ts Source Name Name Son Cline - 2019-04-18 Completed Common Spiri t multidose vial multidose vial 00:00:00 [facility] Vital Signs Vital Name Observation Time Observation Value Comments Source WEIGHT 2021-12-08 06:00:00 182.97 kg HEIGHT 2021-12-06 04:41:00 182.9 cm WEIGHT 2021-12-06 04:41:00 181.439 kg WEIGHT 2021-12-08 06:00:00 182.97 kg HEIGHT 2021-12-06 04:41:00 182.9 cm WEIGHT 2021-12-06 04:41:00 181.439 kg Systolic blood 2021-12-04 18:58:00 99 mm[Hg] [facility] pressure Medicine Diastolic blood 2021-12-04 18:58:00 46 mm[Hg] [facility] pressure Medicine Heart rate 2021-12-04 18:58:00 72 /min [facility] Body temperature 2021-12-04 18:58:00 36.72 Radha [facility] Body height 2021-12-04 18:58:00 182.9 cm [facility] Body weight 2021-12-04 18:58:00 181.439 kg [facility] BMI 2021-12-04 18:58:00 54.25 kg/m2 [facility] HEIGHT 2021-11-24 08:28:00 182.9 cm WEIGHT 2021-11-24 08:28:00 185.1 kg HEIGHT 2021-11-21 10:36:00 182.9 cm WEIGHT 2021-11-21 10:36:00 181.439 kg HEIGHT 2021-11-24 08:28:00 182.9 cm WEIGHT 2021-11-24 08:28:00 185.1 kg HEIGHT 2021-11-21 10:36:00 182.9 cm WEIGHT 2021-11-21 10:36:00 181.439 kg Systolic blood 2021-10-14 15:37:00 131 mm[Hg] [facility] Medicine Diastolic blood 2021-10-14 15:37:00 92 mm[Hg] [facility] Medicine Heart rate 2021-10-14 15:37:00 104 /min [facility] Body temperature 2021-10-14 15:37:00 36.44 Radha [facility] Respiratory rate 2021-10-14 15:37:00 16 /min [facility] Body height 2021-10-14 15:37:00 182.9 cm [facility] Body weight 2021-10-14 15:37:00 18.597 kg [facility] BMI 2021-10-14 15:37:00 5.56 kg/m2 [facility] HEIGHT 2020-04-25 00:14:00 182.9 cm WEIGHT 2020-04-25 00:14:00 163.29 kg HEIGHT 2020-04-24 13:28:00 182.9 cm WEIGHT 2020-04-24 13:28:00 163.295 kg HEIGHT 2020-04-25 00:14:00 182.9 cm WEIGHT 2020-04-25 00:14:00 163.29 kg HEIGHT 2020-04-24 13:28:00 182.9 cm WEIGHT 2020-04-24 13:28:00 163.295 kg Procedures Procedure Date / Time Performed Performing Clinician Sour e Post Op Promis 29 Survey 2020-01-02 00:00:00 [facility] Plan of Care Planned Activity Planned Date Details Comments Source Future Scheduled 2021-12-04 BMI FOLLOW UP PLAN [facility] Test 14:02:51 [code = BMI FOLLOW UP of Med icine PLAN] Future Scheduled 2021-12-04 Screening for malignant [facility] Test 13:57:17 neoplasm of colon of Medicin e (procedure) [code = 695168969] Future Scheduled 2021-12-04 COVID-19 Vaccine (#1) Ba [facility] College Test 13:57:17 [code = COVID-19 of Medicine Vaccine (#1)] Future Scheduled 2021-12-04 Pneumococcal Combined Ba [facility] Test 13:57:17 (1 - PCV) [code = of Medicin e Pneumococcal Combined (1 - PCV)] Future Scheduled 2021-12-04 TETANUS SHOT (ADULT) [facility] Test 13:57:17 [code = TETANUS SHOT of Medi cine (ADULT)] Future Scheduled 2021-12-04 Hepatitis C screening Ba [facility] Test 13:57:17 (procedure) [code = of Medic ine 550625336] Future Scheduled 2021-12-04 Human immunodeficiency B [facility] Test 13:57:17 virus screening of Medicine (procedure) [code = 526349642] Future Scheduled 2021-12-04 ZOSTER VACCINE (1 of 2) [facility] Test 13:57:17 [code = ZOSTER VACCINE of Me dicine (1 of 2)] Future Scheduled 2021-12-04 MEDICARE AWV (Initial) B [facility] Test 13:57:17 [code = MEDICARE AWV of Medi cine (Initial)] Future Scheduled 2021-12-04 FLU VACCINE > 6 MONTHS B [facility] Test 13:57:17 [code = FLU VACCINE > 6 of M edicine MONTHS] Diagnostic Test 2021-12-04 CT CHEST ABDOMEN PELVIS Expected: B [facility] Pending 00:00:00 WO CONTRAST [code = 12/04/2021, of Medic ine 13473] Expires: 12/04/2022 Future Scheduled 2021-11-06 Screening for malignant [facility] Test 18:29:43 neoplasm of colon of Medicin e (procedure) [code = 187142656] Future Scheduled 2021-11-06 COVID-19 Vaccine (1) [facility] College Test 18:29:43 [code = COVID-19 of Medicine Vaccine (1)] Future Scheduled 2021-11-06 Pneumococcal Combined Ba [facility] Test 18:29:43 (1 of 2 - PPSV23) [code of M edicine = Pneumococcal Combined (1 of 2 - PPSV23)] Future Scheduled 2021-11-06 TETANUS SHOT (ADULT) [facility] Test 18:29:43 [code = TETANUS SHOT of Medi cine (ADULT)] Future Scheduled 2021-11-06 BMI FOLLOW UP PLAN [facility] Test 18:29:43 [code = BMI FOLLOW UP of Med icine PLAN] Future Scheduled 2021-11-06 Hepatitis C screening Ba [facility] Test 18:29:43 (procedure) [code = of Medic ine [id number]] Future Scheduled 2021-11-06 Human immunodeficiency B [facility] Test 18:29:43 virus screening of Medicine (procedure) [code = 487837698] Future Scheduled 2021-11-06 MEDICARE AWV (Initial) B [facility] Test 18:29:43 [code = MEDICARE AWV of Medi cine (Initial)] Future Scheduled 2021-11-06 ZOSTER VACCINE (1 of 2) [facility] Test 18:29:43 [code = ZOSTER VACCINE of Me dicine (1 of 2)] Future Scheduled 2021-11-06 FLU VACCINE > 6 MONTHS B [facility] Test 18:29:43 [code = FLU VACCINE > 6 of M edicine MONTHS] Encounters Start End Encounter Admission Attending Care Care Encounter Source Date/Time Date/Time Type Type Clinicians Facility Department ID 2021-12-01 [facility] 2021-11-13 [facility] 09[facility]53:00 Jamie [facility] 2021-08-06 [facility] 14:30:16 [facility] 2021-08-06 [facility] 13:55:13 Jamie [facility] 2021-08-06 [facility] 13:53:10 Jamie [facility] 2021-08-06 Outpatient Escobedo, [facility] Common 12:35:34 Jamie [facility] 2021-08-06 [facility] [id number] Common 12:34:49 Jamie [facility] 2021-08-06 Outpatient Escobedo, [facility] [id number] Common 12:29:08 Jamie [id number] [facility] 2021-08-06 Outpatient Escobedo, [facility] [id number] Common 12:07:59 Jamie [id number] [facility] 2021-08-06 Outpatient Escobedo, [facility] [id number] Common 12:07:03 Jamie [id number] [facility] 2021-08-06 Outpatient Escobedo, [facility] [id number] Common 12:05:38 Jamie [id number] [facility] 2021-08-06 Outpatient Escobedo, [facility] [id number] Common 11:55:06 Jamie [id number] [facility] 2021-08-06 Outpatient Escobedo, [facility] [id number] Common 11:30:54 Jamie [id number] [facility] 2021-08-06 Outpatient Escobedo, [facility] [id number] Common 11:17:40 Jamie [id number] [facility] 2021-08-06 Outpatient Escobedo, [facility] [id number] Common 11:00:20 Jamie [id number] [facility] 2021-08-06 Outpatient Escobedo, [facility] [id number] Common 10:58:28 Jamie [id number] [facility] 2021-04-16 Inpatient TONEVA, [facility] Surgery [id number] [facility] 10:44:49 ELBA 2021-12-06 2021-12-15 Inpatient ER RISA, [facility] Emergency [id number] [facility] 04:30:00 13:26:00 DEANNA 2021-12-13 2021-12-13 Outpatient [facility] [id number] [facility] 11:45:00 23:59:00 Colleg e of Medicin e 2021-12-06 2021-12-06 Outpatient [facility] [id number] [facility] 00:00:00 23:59:00 Colleg e of Medicin e 2021-12-05 2021-12-05 ambulatory [facility] [id number] Common 00:00:00 00:00:00 [facility] 2021-12-04 2021-12-04 Office MICHELLE Bee [id number] [facility] 13:30:00 13:45:00 Visit Emily Philip AMBULATOR [id number] College Y [id number] of [id number] [facility] 815 e 2021-12-04 2021-12-04 ambulatory [facility] [id number] Common 00:00:00 00:00:00 [facility] 2021-11-27 2021-11-27 ambulatory [facility] [id number] Common 00:00:00 00:00:00 [facility] 2021-11-24 2021-11-26 Inpatient TAYLOR BHATT [facility] Surgery [id number] [facility] 07:40:00 12:03:00 TEN 2021-11-21 2021-11-21 Outpatient [facility] [id number] [facility] 11:00:45 23:59:00 2021-10-14 2021-10-14 Office MICHELLE BHATT [id number] [facility] 10:29:14 13:29:01 Visit TEN AMBULATOR [id number] College Y [id number] of [id number] [facility] 815 e 2021-07-15 2021-07-15 ambulatory [facility]C [facility] [id number] Common 00:00:00 00:00:00 [facility] 2021-04-07 2021-04-07 Outpatient [facility] [id number] Common 00:00:00 00:00:00 [facility] 2021-03-28 2021-03-28 Outpatient [facility] [id number] Common 00:00:00 00:00:00 [facility] 2020-12-26 2020-12-26 Outpatient [facility] [id number] Common 00:00:00 00:00:00 [facility] 2020-09-10 2020-09-10 Outpatient [facility] [id number] Common 00:00:00 00:00:00 [facility] 2020-09-01 2020-09-01 Outpatient [facility] [id number] Common 00:00:00 00:00:00 [facility] 2020-08-20 2020-08-20 Outpatient [facility] [id number] Common 00:00:00 00:00:00 [facility] 2020-08-20 2020-08-20 Outpatient [facility] [id number] Common 00:00:00 00:00:00 [facility] 2020-06-04 2020-06-04 Outpatient [facility] [id number] Common 00:00:00 00:00:00 [facility] 2020-06-03 2020-06-03 Outpatient [facility] [id number] Common 00:00:00 00:00:00 [facility] 2020-05-30 2020-05-30 AppointDELFINO [facility] [id number] [place] 10:30:00 10:30:00 t; JENY TOURE, Trauma Ph [facility] [place] FERMIN. [facility] 2020-05-27 2020-05-27 Outpatient [facility] [id number] Common 00:00:00 00:00:00 [facility] 2020-04-30 2020-04-30 Outpatient [facility]LMLC ST[facility] [id number] Common 00:00:00 00:00:00 [facility] 2020-04-24 2020-04-24 Emergency ER [facility] Emergency [id number] [facility] 13:14:00 13:14:00 2020-04-23 2020-04-23 Outpatient [facility]C ST[facility] [id number] Common 00:00:00 00:00:00 [facility] 2020-04-11 2020-04-11 Outpatient [facility] ST[facility] [id number] Common 00:00:00 00:00:00 [facility] 2020-03-29 2020-03-29 [facility] [id number] Common 14:46:00 14:46:[address] [facility] 2020-03-29 2020-03-29 [facility] [id number] Common 07:03:00 07:03:[address] [facility] 2020-02-29 2020-02-29 Appointmen DELFINO TOURE [facility] [id number] [place] 10:45:00 10:45:00 t; JENY TOURE, Ph Penny Rodriguez MBuzz 2020-02-05 2020-02-05 [facility] [id number] Common 10:14:00 10:14:[address] [facility] 2020-01-22 2020-01-22 [facility] [id number] Common 16:15:00 16:15:[address] [facility] 2020-01-18 [facility] UTP [id number] [place] 09:00:00 09:00:00 t; JENY TOURE, Penny Rhodes M.DClarita 2019-12-28 2019[facility] UTP [id number] [place] 10:15:00 10:15:00 t; JULIANA SHEIKH [facility] hammad FERNANDEZ APRN 2019-12-06 2019-12-[facility] MESFIN [facility] UTP [id number] [place] 10:30:00 10:30:00 t; JENY TOURE, Penny Rhodes M.D. 2019-12-03 2019-12-[facility] DELFINO [facility]RE [id number] [place] 12:30:00 12:30:00 t; JENY TOURE, Penny Rhodes MBuzz 2019-10-24 2019-10-24 [facility] [id number] Common 08:30:00 08:30:[address] [facility] 2019-07-25 2019-07-25 [facility] [id number] Common 08:45:00 08:45:[address] [facility] 2019-07-17 2019-07-17 [facility] [id number] Common 16:35:00 16:35:[address] [facility] 2019-04-18 2019-04-18 [facility] [id number] Common 08:15:00 08:15:[address] [facility] 2019-01-17 2019-01-17 [facility] [id number] Common 08:15:00 08:15:[address] [facility] 2018-10-18 2018-10-18 [facility] [id number] Common 08:15:00 08:15:[address] [facility] 2018-08-24 2018-08-24 [facility] [id number] Common 08:30:00 08:30:[address] [facility] 2018-07-20 2018-07-20 [facility] [id number] Common 08:15:00 08:15:[address] [facility] Results Test Description Test Time Test Comments Results Result Comments Source MAGNESIUM 2021-12-15 06:00:00 Test Item Value Reference Range Interpretation Comme nts MAGNESIUM (BEAKER) (test code = 627) 1.8 mg/dL 1.6-2.6 Router Tender ID - [id number] 06:00:00 Test Item Value Reference Range Interpretation Comments PHOSPHORUS (BEAKER) (test code = 4.1 mg/dL 2.3-4.7 604) Router Tender ID - DBBASIC METABOLIC [id number] 05:59:59 Test Item Value Reference Range Interpretation [...] S NOT APPLICABLE FOR DIALYSIS PATIEN TS. Router Tender ID - DBCBC W/PLT COUNT & AUTO [id number] 05:27:40 Test Item Value Reference Range Interpretation [...] H PERCENT (BEAKER) (test code = 2801) [id number] 05:17:40 Test Item Value Reference Range Interpretation Comments PHOSPHORUS (BEAKER) (test code = 4.1 mg/dL 2.3-4.7 604) Router Tender ID - PIAYA LBASIC METABOLIC [id number] 05:17:39 Test Item Value Reference Range Interpretation [...] S NOT APPLICABLE FOR DIALYSIS PATIEN TS. Router Tender ID - GEORGE [id number] 05:17:39 Test Item Value Reference Range Interpretation Comments MAGNESIUM (BEAKER) (test code = 2.0 mg/dL 1.6-2.6 627) Router Tender ID - GEORGE LCBC W/PLT COUNT & AUTO [id number] 04:53:31 Test Item Value Reference Range Interpretation [...] PERCENT (BEAKER) (test code = 2801) SARS-COV2/RT-PCR ([facility])2021-12-13 14:19:28 Test Item Value Reference Range Interpretation Comments SARS-COV2/RT-PCR Negative Negative The SARS-Co V-2 target (test code = nucleic acids a re not [id number]) detected in thi s specimen. Negative result [...] revoked sooner. Fact Sheet for Healthcare Providers: https://www.BidAway.com.com/Documents/Xpert%20Xpress%20SARS%20CoV-2/Fact%20Sheets/302-3802%20SARS-COV -2%20HEALTHCARE%20PROVIDERS%20FACT%20SHEET.pdf Fact Sheet for Healthcare Patients: https://www.SceneChat/Documents/Xpert %20Xpress%20SARS%20CoV-2/Fact%20Sheets/302-3801%21LXXQ-NUS-8%20PATIENT%20FACT%20 SHEET.[id number] 08:43:42 Test Item Value Reference Range Interpretation Comments MAGNESIUM (BEAKER) (test code = 2.0 mg/dL 1.6-2.6 627) Router Tender ID - ANT [id number] 08:43:42 Test Item Value Reference Range Interpretation Comments PHOSPHORUS (BEAKER) (test code = 4.0 mg/dL 2.3-4.7 604) Router Tender ID - ANT MBASIC METABOLIC [id number] 08:43:41 Test Item Value Reference Range Interpretation [...] S NOT APPLICABLE FOR DIALYSIS PATIEN TS. Router Tender ID - ANT MCBC W/PLT COUNT & AUTO [id number] 08:15:16 Test Item Value Reference Range Interpretation [...] PERCENT (BEAKER) (test code = 2801) BLOOD [id number] 08:01:38 Test Item Value Reference Range Interpretation Comments CULTURE (BEAKER) (test No growth in 5 days code = 1095) The specimen volume collected for this blood culture was below the optimum (10 mL per bottle or 20 mL total). Use of lower volumes may adversely affect recovery and/or detection times of some organisms.BLOOD [id number] 08:01:38 Test Item Value Reference Range Interpretation Comments CULTURE (BEAKER) (test No growth in 5 days code = 1095) SARS-COV2/RT-PCR ([facility])2021-12-13 05:35:17 Test Item Value Reference Range Interpretation Comments SARS-COV2/RT-PCR (test Negative Not Detected, Negative, code = 2390416) See external report for linked test SARS-COV-2 PERFORMING LAB [facility] KARLA (test code = 2876823) Negative result for this test determines that [...] 564(g) of the Act.Fact Sheet for Healthcare Providers:https://www.[employer]/sites/default/files/product/documents/Fact_Shejose mcmillans_OZ_Vxknldvao_Ztzq_QWGQ-AsY-9.pdfFact Sheet for Healthcare Patients:https://www.[employer]/sites/default/files/product/ documents/Ezqv_Twwvu_Ivmwyinj_Yeib_YEQF-YjQ-0.pdfPerforming Laboratory:[facility] [facility] Hospital[facility] [place] [id number] 13:10:59 Test Item Value Reference Range Interpretation Comments PARTIAL THROMBOPLASTIN TIME 35.2 seconds 22.5-36.0 (BEAKER) (test code = 760) [id number] 06:01:17 Test Item Value Reference Range Interpretation Comments MAGNESIUM (BEAKER) (test code = 1.9 mg/dL 1.6-2.6 627) Router Tender ID - [id number] 06:01:17 Test Item Value Reference Range Interpretation Comments PHOSPHORUS (BEAKER) (test code = 4.1 mg/dL 2.3-4.7 604) Router Tender ID - BSBASIC METABOLIC [id number] 06:01:16 Test Item Value Reference Range Interpretation [...] S NOT APPLICABLE FOR DIALYSIS PATIEN TS. Router Tender ID - [id number] 05:23:02 Test Item Value Reference Range Interpretation Comments PARTIAL THROMBOPLASTIN TIME 37.7 seconds 22.5-36.0 H (BEAKER) (test code = 760) CBC W/PLT COUNT & AUTO [id number] 05:14:05 Test Item Value Reference Range Interpretation [...] H PERCENT (BEAKER) (test code = 2801) [id number] 21:19:52 Test Item Value Reference Range Interpretation Comments PARTIAL THROMBOPLASTIN TIME 41.7 seconds 22.5-36.0 H (BEAKER) (test code = 760) [id number] 14:28:16 Test Item Value Reference Range Interpretation Comments PARTIAL THROMBOPLASTIN TIME 34.2 seconds 22.5-36.0 (BEAKER) (test code = 760) [id number] 07:02:11 Test Item Value Reference Range Interpretation Comments MAGNESIUM (BEAKER) (test code = 1.8 mg/dL 1.6-2.6 627) Router Tender ID - [id number] 07:02:11 Test Item Value Reference Range Interpretation Comments PHOSPHORUS (BEAKER) (test code = 4.1 mg/dL 2.3-4.7 604) Router Tender ID - BSBASIC METABOLIC [id number] 07:02:10 Test Item Value Reference Range Interpretation [...] S NOT APPLICABLE FOR DIALYSIS PATIEN TS. Router Tender ID - BSCBC W/PLT COUNT & AUTO [id number] 06:45:07 Test Item Value Reference Range Interpretation [...] H PERCENT (BEAKER) (test code = 2801) [id number] 05:45:02 Test Item Value Reference Range Interpretation Comments PHOSPHORUS (BEAKER) (test code = 4.1 mg/dL 2.3-4.7 604) Router Tender ID - GEORGE LBASIC METABOLIC [id number] 05:45:01 Test Item Value Reference Range Interpretation [...] S NOT APPLICABLE FOR DIALYSIS PATIEN TS. Router Tender ID - GEORGE [id number] 05:45:01 Test Item Value Reference Range Interpretation Comments MAGNESIUM (BEAKER) (test code = 1.9 mg/dL 1.6-2.6 627) Router Tender ID - GEORGE LCBC W/PLT COUNT & AUTO [id number] 05:34:22 Test Item Value Reference Range Interpretation [...] 0-1 H PERCENT (BEAKER) (test code = 5811) BLOOD [id number] 12:45:16 Test Item Value Reference Range Interpretation [...] gram 1123) positive cocci in clusters BLOOD [id number] 12:44:00 Test Item Value Reference Interpretation Comments [...] cocci in clusters WOUND CULTURE + GRAM [id number] 10:19:27 Test Item Value Reference Interpretation Comments [...] (BEAKER) (test code = cocci in clusters 367122) HEPATITIS C [id number] 05:36:45 Test Item Value Reference Range Interpretation Comments HEPATITIS C ANTIBODY (BEAKER) Nonreactive Nonreactive (test code = 367) Router Tender ID - DBHIV-1 ANTIGEN WITH HIV-1/2 [id number] 05:36:45 Test Item Value Reference Range Interpretation Comments HIV-1 ANTIGEN WITH HIV 1\\T\\2 Nonreactive Nonreactive ANTIBODY (2) (BEAKER) (test code = 2586) Router Tender ID - [id number] 05:17:37 Test Item Value Reference Range Interpretation Comments MAGNESIUM (BEAKER) (test code = 2.0 mg/dL 1.6-2.6 627) Router Tender ID - GEORGE [id number] 05:17:37 Test Item Value Reference Range Interpretation Comments PHOSPHORUS (BEAKER) (test code = 3.6 mg/dL 2.3-4.7 604) Router Tender ID - GEORGE LBASIC METABOLIC [id number] 05:17:36 Test Item Value Reference Range Interpretation [...] S NOT APPLICABLE FOR DIALYSIS PATIEN TS. Router Tender ID - GEORGE LCBC W/PLT COUNT & AUTO [id number] 04:59:21 Test Item Value Reference Range Interpretation [...] = 2858) TOTAL COUNTED (BEAKER) (test code = 100 1351) PLT MORPHOLOGY (BEAKER) (test code Normal = 486) SMUDGE CELLS (BEAKER) (test code = Present 1371) HYPERSEGMENTATION Present (CELLAVISION)(BEAKER) (test code = 3565) POLYCHROMATOPHILLIC RBCS(BEAKER) 1+ few (test code = 478) POIKILOCYTES (BEAKER) (test code = 1+ few 966) PLATELET CONCENTRATION Increased (CELLAVISION)(BEAKER) (test code = 3438) Router Tender ID - Patsy OverholtUser comments: Slide comments:CBC W/PLT COUNT & AUTO [id number] 07:17:12 Test Item Value Reference Range Interpretation [...] 0-0 (BEAKER) (test code = 413) POCT-GLUCOSE [id number] 05:50:00 Test Item Value Reference Range Interpretation Comments POC-GLUCOSE METER 108 mg/dL 70-110 : TESTED A T [facility] 6720 (BEAKER) (test code = [place], 1538) [address]: Router Tender/Techni faiza ID = [id number] for Wade More [id number] 04:18:25 Test Item Value Reference Range Interpretation Comments PHOSPHORUS (BEAKER) (test code = 2.7 mg/dL 2.3-4.7 604) Router Tender ID - ROWENA WBASIC METABOLIC [id number] 04:18:24 Test Item Value Reference Range Interpretation [...] S NOT APPLICABLE FOR DIALYSIS PATIEN TS. Router Tender ID - ROWENA [id number] 04:18:24 Test Item Value Reference Range Interpretation Comments MAGNESIUM (BEAKER) (test code = 1.9 mg/dL 1.6-2.6 627) Router Tender ID - ROWENA WPOCT-GLUCOSE [id number] 01:43:19 Test Item Value Reference Range Interpretation Comments POC-GLUCOSE METER 102 mg/dL 70-110 : [facility] ([facility] (test code = TISHA Jo Ann [place], 1538) [address]: Router Tender/Techni faiza ID = [id number] for Wade More CBC (HEMOGRAM ONLY)2021-12-07 19:05:19 [...] 0-0 (BEAKER) (test code = 413) POCT-GLUCOSE [id number] 16:08:34 Test Item Value Reference Range Interpretation Comments POC-GLUCOSE METER 92 mg/dL 70-110 : TESTED A T [facility] 6720 (BEAKER) (test code = [place], 1538) [address]: Router Tender/Techni faiza ID = [id number] for Katharine Cohn [id number] 15:02:30 Test Item Value Reference Range Interpretation Comments PHOSPHORUS (BEAKER) 2.7 mg/dL 2.3-4.7 Specimen slightly (test code = 604) hemolyzed Router Tender ID - ROWENA WBASIC METABOLIC [id number] 15:02:30 Test Item Value Reference Range Interpretation [...] S NOT APPLICABLE FOR DIALYSIS PATIEN TS. Router Tender ID - ROWENA [id number] 15:02:29 Test Item Value Reference Range Interpretation Comments MAGNESIUM (BEAKER) 2.1 mg/dL 1.6-2.6 Specimen slightly (test code = 627) hemolyzed Router Tender ID - ROWENA WVANCOMYCIN LEVEL, [id number] 12:15:03 Test Item Value Reference Range Interpretation Comments VANCOMYCIN RANDOM (BEAKER) (test 9.3 ug/mL code = 523) Reference Range: No NormalsOperator ID - ROWENA WPOCT-GLUCOSE [id number] 12:03:27 Test Item Value Reference Range Interpretation Comments POC-GLUCOSE METER 102 mg/dL 70-110 : TESTED A T [facility] 6720 (BEAKER) (test code = [place], 1538) [address]: Router Tender/Techni faiza ID = [id number] for Po Reina ramirez (CELLAVISION MANUAL DIFF)2021-12-07 [...] CONCENTRATION Increased (CELLAVISION)(BEAKER) (test code = 3438) Router Tender ID - Nita comments: Slide comments:CBC W/PLT COUNT & AUTO [id number] 09:39:30 Test Item Value Reference Range Interpretation [...] (BEAKER) (test code = 413) BASIC METABOLIC [id number] 07:37:10 Test Item Value Reference Range Interpretation [...] S NOT APPLICABLE FOR DIALYSIS PATIEN TS. Router Tender ID - ROWENA WHEPATIC FUNCTION [id number] 07:37:10 Test Item Value Reference Range Interpretation [...] Specimen slightly (test code = 347) hemolyzed Router Tender ID - ROWENA WCREATININE, RANDOM [id number] 04:23:33 Test Item Value Reference Range Interpretation Comments CREATININE URINE (BEAKER) (test 142.4 mg/dL code = 375) Reference Range: No NormalsOperator ID - [id number], RANDOM URINE 2021-12-07 04:14:09 Test Item Value Reference Range Interpretation Comments SODIUM URINE (BEAKER) (test code = 51 meq/L 243) Reference Range: No NormalsOperator ID - [id number], RANDOM URINE 2021-12-07 02:07:41 Test Item Value Reference Range Interpretation Comments CREATININE URINE (BEAKER) (test 251.9 mg/dL code = 375) Reference Range: No NormalsOperator ID - [id number], RANDOM URINE 2021-12-07 02:07:25 Test Item Value Reference Range Interpretation Comments SODIUM URINE (BEAKER) (test code = < meq/L 243) Reference Range: No NormalsOperator ID - [id number] CULTURE IDENTIFICATION [id number] 01:49:48 Test Item Value Reference Interpretation Comments Range LISTERIA MONOCYTOGENES Not Not detected (test code = 20160413) detected STAPHYLOCOCCUS (test Detected Not detected A code = 3772181) STAPHYLOCOCCUS AUREUS Detected Not detected A Methic illin-susceptible (test code = 20160617) S. aur eus (MSSA)First-bharti e therapy: Cefazolin or Ox acillin (Oxacillin pref erred if MEDICAL PROGRAM SPECIALIST involvement ) ID CONSULTATION REQUIREDStaphyl ococcus aureus DETECTED MecA NOT DETECTED Refere nce Range: Not Detected STREPTOCOCCUS (test Not Not detected code = 20160618) detected STREPTOCOCCUS Not Not detected AGALACTIAE (GROUP B) detected (test code = 3085247) STREPTOCOCCUS Not Not detected PNEUMONIAE (test code detected = 5972017) STREPTOCOCCUS PYOGENES Not Not detected (GROUP A) (test code = detected 1635513) ACINETOBACTER Not Not detected BAUMANNII (test code = detected 2829927) HAEMOPHILUS INFLUENZAE Not Not detected (test code = 3756793) detected NEISSERIA MENINGITIDIS Not Not detected (test code = 9303236) detected ENTEROBACTERIACEAE Not Not detected (test code = 3415044) detected ENTEROBACTER CLOACOE Not Not detected COMPLEX (test code = detected 8259150) KLEBSIELLA OXYTOCA Not Not detected (test code = 4471710) detected KLEBSIELLA PNEUMONIAE Not Not detected (test code = 0) detected PROTEUS (test code = Not Not detected 7745883) detected SERRATIA MARCESCENS Not Not detected (test code = 2969894) detected ARCHANA ALBICANS (test Not Not detected code = 1063644) detected ARCHANA GLABRATA (test Not Not detected code = 1611203) detected ARCHANA KRUSEI (test Not Not detected code = 6591543) detected ARCHANA PARAPSILOSIS Not Not detected (test code = 8120777) detected ARCHANA TROPICALIS Not Not detected (test code = 1061111) detected ESCHERICHIA COLI (test Not Not detected code = 2776748) detected METHICILLIN-RESISTANCE Not Not detected Note: Antimicrobial GENE (test code = detected resistance can occur via 6720311) multiple mechan isms. A Not Detected re sult for the FilmArray antimicrobial r esistance gene assays cantrell s not indicate antimi crobial susceptibility. Subculturing is required for species identification and susceptibility testing of isolates. VANCOMYCIN-RESISTANCE GENE (test code = 7209579) CARBAPENEM-RESISTANCE GENE (test code = 6467657) ENTEROCOCCUS-BEAKER Not Not detected (test code = 7524545) detected PSEUDOMONAS Not Not detected AERUGINOSA-BEAKER detected (test code = 4317317) Other bacteria and resistance markers not targeted by this PCR panel cannot be excluded; therefore clinical correlation and follow up of serology, culture results, and other molecular studies is required. The results are not intended to be used as the sole means for clinical diagnosis or patient management decisions. This sample was tested at the [facility] using the [employer] Blood Culture ID Panel. It is FDA cleared and has been verified and approved by the [facility] for clinical use. This laboratory is CLIA-certified and College ofAmerican Pathologists (CAP)-accredited to perform high complexity testing.LACTIC ACID, [id number] 00:31:47 Test Item Value Reference Range Interpretation Comments LACTATE BLOOD VENOUS (2) (BEAKER) 0.86 mmol/L 0.50-2.20 (test code = 2872) Router Tender ID - ROWENA WT4, [id number] 22:16:28 Test Item Value Reference Range Interpretation Comments FREE T4 (BEAKER) (test code = 655) 0.85 ng/dL 0.70-1.48 Router Tender ID - CASSI WTSH/FREE T4 IF [id number] 21:29:01 Test Item Value Reference Range Interpretation Comments THYROID STIMULATING HORMONE 0.275 uIU/mL 0.350-4.940 L (BEAKER) (test code = 772) Router Tender ID - CASSI WLACTIC ACID, [id number] 21:12:20 Test Item Value Reference Range Interpretation Comments LACTATE BLOOD VENOUS (2) (BEAKER) 0.95 mmol/L 0.50-2.20 (test code = 2872) Router Tender ID Tulio YE WBASIC METABOLIC [id number] 21:01:29 Test Item Value Reference Range Interpretation [...] S NOT APPLICABLE FOR DIALYSIS PATIEN TS. Router Tender ID Tulio YE [id number] 21:01:01 Test Item Value Reference Range Interpretation Comments PHOSPHORUS (BEAKER) (test code = 5.2 mg/dL 2.3-4.7 H 604) Router Tender ALONSO YE WCREATINE KINASE (CK)2021-12-06 21:01:01 Test Item Value Reference Range Interpretation Comments CREATINE KINASE TOTAL (BEAKER) (test 47 U/L 29-200 code = 380) Router Tender ID Tulio YE [id number] 21:01:00 Test Item Value Reference Range Interpretation Comments MAGNESIUM (BEAKER) (test code = 2.2 mg/dL 1.6-2.6 627) Router Tender ID Tulio YE WCBC W/PLT COUNT & AUTO [id number] 20:47:19 Test Item Value Reference Range Interpretation [...] 0-0 (BEAKER) (test code = 413) CALCIUM, [id number] 20:40:31 Test Item Value Reference Range Interpretation Comments CALCIUM IONIZED (BEAKER) (test 1.17 mmol/L 1.12-1.27 code = 698) PH, BLOOD (BEAKER) (test code = 7.33 1810) [id number] 13:54:06 Test Item Value Reference Range Interpretation Comments PARTIAL THROMBOPLASTIN TIME 35.1 seconds 22.5-36.0 (BEAKER) (test code = 760) PROTHROMBIN [id number] 13:53:24 Test Item Value Reference Range Interpretation Comments PROTIME (BEAKER) 16.0 seconds 11.9-14.2 H (test code = 759) INR (BEAKER) (test 1.30 See_Comment [Automat ed message] code = 370) The system [employer] generated this result transmitted ref erence range: <=5.90. The reference range was not used to int erpret this result as normal/abnormal . RECOMMENDED COUMADIN/WARFARIN INR THERAPY RANGESSTANDARD DOSE: 2.0 - 3.0 Includes: PROPHYLAXIS forvenous thrombosis, systemic embolization; TREATMENT for venous thrombosis and/or pulmonary embolus.HIGH RISK: Target INR is 2.5-3.5 for patients with mechanical heart valves.SARS-COV2/RT-PCR ([facility]) 2021-12-06 08:56:40 Test Item Value Reference Range Interpretation Comments SARS-COV2/RT-PCR Negative Negative The SARS-Co V-2 target (test code = nucleic acids a re not 2662622) detected in thi s specimen. Negative result [...] revoked sooner. Fact Sheet for Healthcare Providers: https://www.Uplike/Documents/Xpert%20Xpress%20SARS%20CoV-2/Fact%20Sheets/185-8902%20SARS-COV -2%20HEALTHCARE%20PROVIDERS%20FACT%20SHEET.pdf Fact Sheet for Healthcare Patients: https://www.imagine.Rysto/Documents/Xpert %20Xpress%20SARS%20CoV-2/Fact%20Sheets/860-3801%85MZXQ-LLO-9%20PATIENT%20FACT%20 SHEET.pdfURINALYSIS W/ REFLEX URINE [id number] 08:49:59 Test Item Value Reference Range Interpretation Comments COLOR (BEAKER) (test code = 470) Emmons CLARITY (BEAKER) (test code = 469) Hazy [...] = 1584) SOURCE(BEAKER) (test code = 2795) Router Tender ID - [auto]Router Tender ID - tech(CELLAVISION MANUAL DIFF)2021-12-06 08:38:46 Test [...] K/uL 0.00-0.00 H (CELLAVISION)(BEAKER) (test code = 3548) TOTAL COUNTED (BEAKER) (test code 100 = [...] PLATELET CONCENTRATION Increased (CELLAVISION)(BEAKER) (test code = 5568) Router Tender ID - Reza Dominguez comments: Slide comments:CBC W/PLT COUNT & AUTO [id number] 08:38:45 Test Item Value Reference Range Interpretation [...] (BEAKER) (test code = 413) COMPREHENSIVE METABOLIC [id number] 06:57:10 Test Item Value Reference Range Interpretation [...] S NOT APPLICABLE FOR DIALYSIS PATIEN TS. Router Tender ID - ANT [id number] 06:57:10 Test Item Value Reference Range Interpretation Comments LIPASE (BEAKER) (test code = 749) < U/L 8-78 L Router Tender ID - ANT MLACTIC ACID, [id number] 06:31:22 Test Item Value Reference Range Interpretation Comments LACTATE BLOOD VENOUS 1.01 mmol/L 0.50-2.20 Specime n slightly (2) (BEAKER) (test hemolyzed code = 2462) Router Tender ID - ANT MHEMOGLOBIN [id number] 14:27:51 Test Item Value Reference Range Interpretation [...] 5.7- 6.4% indicates increased risk for diabetes (prediabetes)."Router Tender ID - ADMCBC W/PLT COUNT & AUTO [id number] 06:35:41 Test Item Value Reference Range Interpretation [...] 0-1 PERCENT (BEAKER) (test code = 2801) [id number] 05:04:53 Test Item Value Reference Range Interpretation Comments PHOSPHORUS (BEAKER) (test code = 2.9 mg/dL 2.3-4.7 604) Router Tender ALONSO COBB GBASIC METABOLIC [id number] 05:04:52 Test Item Value Reference Range Interpretation [...] S NOT APPLICABLE FOR DIALYSIS PATIEN TS. Router Tender ID Tulio COBB [id number] 05:04:52 Test Item Value Reference Range Interpretation Comments MAGNESIUM (BEAKER) (test code = 2.2 mg/dL 1.6-2.6 627) Router Tender ID - REZA GBASIC METABOLIC [id number] 14:02:20 Test Item Value Reference Range Interpretation [...] S NOT APPLICABLE FOR DIALYSIS PATIEN TS. Router Tender ID - DBHEMOGLOBIN [id number] 09:44:42 Test Item Value Reference Range Interpretation [...] 5.7- 6.4% indicates increased risk for diabetes (prediabetes)."Router Tender ID - ADM [id number] 05:43:52 Test Item Value Reference Range Interpretation Comments PHOSPHORUS (BEAKER) (test code = 4.6 mg/dL 2.3-4.7 604) Router Tender ID - PIAYA LBASIC METABOLIC [id number] 05:43:51 Test Item Value Reference Range Interpretation [...] S NOT APPLICABLE FOR DIALYSIS PATIEN TS. Router Tender ID - GEORGE [id number] 05:43:51 Test Item Value Reference Range Interpretation Comments MAGNESIUM (BEAKER) (test code = 2.0 mg/dL 1.6-2.6 627) Router Tender ID - GEORGE LCBC (HEMOGRAM ONLY)2021-11-25 05:11:19 [...] (BEAKER) (test code = 413) BASIC METABOLIC [id number] 09:35:09 Test Item Value Reference Range Interpretation [...] S NOT APPLICABLE FOR DIALYSIS PATIEN TS. Router Tender ID - RMCBC W/PLT COUNT & AUTO [id number] 09:19:15 Test Item Value Reference Range Interpretation [...] (test code = 2801) TSH/FREE T4 IF [id number] 12:43:00 Test Item Value Reference Range Interpretation Comments THYROID STIMULATING HORMONE 2.134 uIU/mL 0.350-4.940 (BEAKER) (test code = 772) Router Tender ID - DAMARIS OCT-GLUCOSE [id number] 11:32:00 Test Item Value Reference Range Interpretation Comments POC-GLUCOSE METER 76 mg/dL 70-110 : TESTED A T [facility] 6720 (BEAKER) (test code = [place], 1538) [address]: Router Tender/Techni faiza ID = [id number] for ORACIO GILBERT RAD, CHEST, 1 VIEW, NON [id number] 08:39:00Reason for exam:->Post-opShould this be performed at the bedside?->Yes [facility] 1960 Sex: MFINAL REPORT [...] MDReport Verified Date/Time: 04/29/2020 08:39:51 Reading Location: [facility] Radiology Reading Room POCT-GLUCOSE [id number] 07:14:00 Test Item Value Reference Range Interpretation Comments POC-GLUCOSE METER 106 mg/dL 70-110 : TESTED A T [facility] 6720 (BEAKER) (test code = [place], 1538) [address]: Router Tender/Techni faiza ID = [id number] for ORACIO BURNHAM BASIC METABOLIC [id number] 06:30:00 Test Item Value Reference Range Interpretation [...] S NOT APPLICABLE FOR DIALYSIS PATIEN TS. Router Tender ID - [id number] 06:30:00 Test Item Value Reference Range Interpretation Comments MAGNESIUM (BEAKER) (test code = 1.7 mg/dL 1.6-2.6 627) Router Tender ID - [id number] 06:30:00 Test Item Value Reference Range Interpretation Comments PHOSPHORUS (BEAKER) (test code = 3.4 mg/dL 2.3-4.7 604) Router Tender ID - DBCBC W/PLT COUNT & AUTO [id number] 06:03:00 Test Item Value Reference Range Interpretation [...] PERCENT (BEAKER) (test code = 2801) POCT-GLUCOSE [id number] 20:53:00 Test Item Value Reference Range Interpretation Comments POC-GLUCOSE METER 130 mg/dL 70-110 H : TESTED A T [facility] 6720 (BEAKER) (test code = [facility], 1538) 24[address]: Router Tender/Techni faiza ID = [id number] for AN NOR, FELICIA POCT-GLUCOSE [id number] 16:39:00 Test Item Value Reference Range Interpretation Comments POC-GLUCOSE METER 114 mg/dL 70-110 H : TESTED A T [facility] 6720 (BEAKER) (test code = [facility], 1538) 269[address]: Router Tender/Techni faiza ID = [id number] for RA MOS, [place] POCT-GLUCOSE [id number] 11:46:00 Test Item Value Reference Range Interpretation Comments POC-GLUCOSE METER 127 mg/dL 70-110 H : TESTED A T [facility] 6720 (BEAKER) (test code = [facility], 1538) 759[address]: Router Tender/Techni faiza ID = [id number] for RA MOS, [place] RAD, CHEST, 1 VIEW, NON [id number] 10:55:00Reason for exam:->Post-opShould this be performed at the bedside?->Yes [facility] 1960 Sex: MFINAL REPORT [...] alveolar pulmonary edema as above. Signed: Juan Lamb Verified Date/Time: 04/28/2020 10:55:02 Reading Location: [address] Consult Reading Room POCT- GLUCOSE [id number] 08:05:00 Test Item Value Reference Range Interpretation Comments POC-GLUCOSE METER 117 mg/dL 70-110 H : TESTED A T [facility] 6720 (BEAKER) (test code = MADDIRADHA Cherry [facility], 1538) [address]: Router Tender/Techni faiza ID = [id number] for RA MOS, [place] BASIC METABOLIC [id number] 06:49:00 Test Item Value Reference Range Interpretation [...] S NOT APPLICABLE FOR DIALYSIS PATIEN TS. Router Tender ID - [id number] 06:46:00 Test Item Value Reference Range Interpretation Comments MAGNESIUM (BEAKER) (test code = 1.8 mg/dL 1.6-2.6 627) Router Tender ID - [id number] 06:46:00 Test Item Value Reference Range Interpretation Comments PHOSPHORUS (BEAKER) (test code = 3.2 mg/dL 2.3-4.7 604) Router Tender ID - EDASICBC W/PLT COUNT & AUTO [id number] 06:02:00 Test Item Value Reference Range Interpretation [...] (BEAKER) (test code = 2801) LACTIC ACID, [id number] 05:52:00 Test Item Value Reference Range Interpretation Comments LACTATE BLOOD VENOUS (2) (BEAKER) 0.61 mmol/L 0.50-2.20 (test code = 2872) Router Tender ID - DBRAD, CHEST, 1 VIEW, NON [id number] 01:01:00Reason for exam:- >oxygen requirementsShould this be performed at the bedside?->Yes [facility] 1960 Sex: MFINAL REPORT [...] Larisa Barclay Verified Date/Time: 04/28/2020 01:01:46 -GLUCOSE [id number] 22:33:00 Test Item Value Reference Range Interpretation Comments POC-GLUCOSE METER 106 mg/dL 70-110 : TESTED A T [facility] 6720 (BEAKER) (test code = [place], 1538) [address]: Router Tender/Techni faiza ID = [id number] for AN FELICIA MALIK RAD, CHEST, 1 VIEW, NON [id number] 18:29:00Reason for exam:->chest tube removalShould this be performed at the bedside?->Yes [facility] 1960 Sex: MFINAL REPORT [...] Larisa Barclay Verified Date/Time: 04/27/2020 18:29:02 -GLUCOSE [id number] 17:29:00 Test Item Value Reference Range Interpretation Comments POC-GLUCOSE METER 106 mg/dL 70-110 : TESTED A T [facility] 6720 ([employer]) (test code = [facility], 1538) [address]: Router Tender/Techni faiza ID = [id number] for FE LDER, FADUMO POCT-GLUCOSE [id number] 12:00:00 Test Item Value Reference Range Interpretation Comments POC-GLUCOSE METER 102 mg/dL 70-110 : TESTED A T [facility] 6720 ([employer]) (test code = [facility] [employer] [facility], 1538) 78046: Router Tender/Techni faiza ID = [id number] for FE LDER, FADUMO RAD, CHEST, 1 VIEW, NON [id number] 09:47:00Reason for exam:->Post-opShould this be performed at the bedside?->Yes [facility] : 1960 Sex: MFINAL REPORT AP view of the chest dated 04/27/2020 COMPARISON: 2019 CLINICAL INFORMATION: Post-op Comment: Heart is normal in size. Pulmonary vasculature is unremarkable. Subsegmental atelectasis is seen in both lung bases. The rest of lungs are clear. No pulmonary infiltrate or pleural effusion is present. Right hemidiaphragm is elevated. Impression: Bibasilar subsegmental atelectasis. Signed: Pauline Velazquezepblake Verified Date/Time: 04/27/2020 09:47:16 Reading Location: [facility] C013X Ortho Consult Reading Room POCT-GLUCOSE [id number] 08:14:00 Test Item Value Reference Range Interpretation Comments POC-GLUCOSE METER 142 mg/dL 70-110 H : TESTED A T BSC 6720 (BEAKER) (test code = TISHA Cherry [facility], 1538) 82054: Router Tender/Techni faiza ID = [id number] for FE LDER, FADUMO CBC W/PLT COUNT & AUTO [id number] 04:22:00 Test Item Value Reference Range Interpretation [...] PERCENT (BEAKER) (test code = 2801) TROPONIN [id number] 04:19:00 Test Item Value Reference Range Interpretation [...] failure, acidosis, acute neurological disease, and persistent tachyarrhythmia.Router Tender ID - EDASIBASIC METABOLIC PANEL 2020-04-27 04:11:00 [...] S NOT APPLICABLE FOR DIALYSIS PATIEN TS. Router Tender ID - [id number] 04:10:00 Test Item Value Reference Range Interpretation Comments MAGNESIUM (BEAKER) (test code = 1.9 mg/dL 1.6-2.6 627) Router Tender ID - [id number] 04:10:00 Test Item Value Reference Range Interpretation Comments PHOSPHORUS (BEAKER) (test code = 3.0 mg/dL 2.3-4.7 604) Router Tender ID - EDASIPOCT-GLUCOSE [id number] 22:13:00 Test Item Value Reference Range Interpretation Comments POC-GLUCOSE METER 131 mg/dL 70-110 H : TESTED A T [facility] 6720 (BEAKER) (test code = TISHA Cherry [facility], 1538) 01172: Router Tender/Techni faiza ID = [id number] for CH [place] TROPONIN [id number] 19:14:00 Test Item Value Reference Range Interpretation [...] failure, acidosis, acute neurological disease, and persistent tachyarrhythmia.Router Tender ID - DBBLOOD GAS, VENOUS 2020-04-26 14:18:00 [...] (BEAKER) (test code = 1819) 21.0 POCT-GLUCOSE [id number] 12:22:00 Test Item Value Reference Range Interpretation Comments POC-GLUCOSE METER 138 mg/dL 70-110 H : TESTED A T [facility] 6720 (BEAKER) (test code = TISHA Cherry [facility], 1538) [address]22[address]: Router Tender/Techni faiza ID = [id number] for URI LI TROPONIN [id number] 11:46:00 Test Item Value Reference Range Interpretation [...] failure, acidosis, acute neurological disease, and persistent tachyarrhythmia.Router Tender ID - ROBYN, CHEST, 1 VIEW, NON [id number] 09:07:00Reason for exam:->Post-opShould this be performed at the bedside?->Yes [facility] 1960 Sex: MFINAL REPORT CHEST AP PORTABLE COMPARISON STUDY: 04/25/2020 History pr ovided: Postop evaluation Degree of inspiration is poor. Coarsened interstitial markings persist predominating in the left lung, with atelectatic change at the right base. Signed: Ramos Izaguirre MDReportVerified Date/Time: 04/26/2020 09:07:44 Reading Location: [facility] Diagnostic Imaging Reading Room - [facility] 1.310.12 -GLUCOSE [id number] 07:56:00 Test Item Value Reference Range Interpretation Comments POC-GLUCOSE METER 100 mg/dL 70-110 : TESTED A T [facility] 6720 (BEAKER) (test code = TISHA Jo Ann [facility], 1538) [address]327: Router Tender/Techni faiza ID = [id number] for URI LI BASIC METABOLIC [id number] 06:10:00 Test Item Value Reference Range Interpretation [...] S NOT APPLICABLE FOR DIALYSIS PATIEN TS. Router Tender ID - [id number] 06:10:00 Test Item Value Reference Range Interpretation Comments MAGNESIUM (BEAKER) (test code = 1.8 mg/dL 1.6-2.6 627) Router Tender ID - [id number] 06:10:00 Test Item Value Reference Range Interpretation Comments PHOSPHORUS (BEAKER) (test code = 4.5 mg/dL 2.3-4.7 604) Router Tender ID - EDASICBC W/PLT COUNT & AUTO [id number] 05:17:00 Test Item Value Reference Range Interpretation [...] PERCENT (BEAKER) (test code = 2801) POCT-GLUCOSE [id number] 23:05:00 Test Item Value Reference Range Interpretation Comments POC-GLUCOSE METER 135 mg/dL 70-110 H : TESTED A T [facility] 6720 (BEAKER) (test code = TISHA [place], 1538) [address]: Router Tender/Techni faiza ID = [id number] for SINGH CONROY SHARDA (CELLAVISION MANUAL DIFF)2020-04-25 21:58:00 Test Item Value [...] CONCENTRATION Adequate (CELLAVISION)(BEAKER) (test code = 3438) Router Tender ID - Corina Flores comments: Slide comments:BASIC [...] S NOT APPLICABLE FOR DIALYSIS PATIEN TS. Router Tender ALONSO CAIN MSpecimen slightly ictericCBC W/PLT COUNT & AUTO [id number] 21:35:00 Test Item Value Reference Range Interpretation [...] = 413) RAD, CHEST, 1 VIEW, NON [id number] 19:36:00Reason for exam:->Post-opShould this be performed at the bedside?->Yes [facility] 1960 Sex: MFINAL REPORT [...] Martin Verified Date/Time: 04/25/2020 19:36:02 Reading Location: [address] Transitional Reading Room 07:36 PMPOCT-GLUCOSE [id number] 19:00:00 Test Item Value Reference Range Interpretation Comments POC-GLUCOSE METER 118 mg/dL 70-110 H : TESTED A T [facility] 6720 (BEAKER) (test code = TISHA [place], 1538) 330[address]: Router Tender/Techni faiza ID = [id number] for JING [place] BASIC METABOLIC [id number] 06:01:00 Test Item Value Reference Range Interpretation [...] S NOT APPLICABLE FOR DIALYSIS PATIEN TS. Router Tender ID - ANT [id number] 06:01:00 Test Item Value Reference Range Interpretation Comments MAGNESIUM (BEAKER) (test code = 2.0 mg/dL 1.6-2.6 627) Router Tender ID - ANT [id number] 06:01:00 Test Item Value Reference Range Interpretation Comments PHOSPHORUS (BEAKER) (test code = 4.6 mg/dL 2.3-4.7 604) Router Tender ID - ANT MHEPATIC FUNCTION [id number] 06:01:00 Test Item Value Reference Range Interpretation [...] (test code = 15 U/L 6-55 347) Router Tender ID - ANT MCBC W/PLT COUNT & AUTO [id number] 05:43:00 Test Item Value Reference Range Interpretation [...] (BEAKER) (test code = 2801) LACTIC ACID, [id number] 05:38:00 Test Item Value Reference Range Interpretation Comments LACTATE BLOOD VENOUS 0.77 mmol/L 0.50-2.20 Specime n slightly (2) (BEAKER) (test hemolyzed code = 2872) Router Tender ID - ANT MSARS-COV2/RT-PCR ([facility])2020-04-25 01:59:00 Test Item Value Reference Range Interpretation Comments SARS-COV2/RT-PCR (test Negative Not Detected, Negative, code = 2356714) See external report for linked test SARS-COV-2 PERFORMING LAB [facility] KARLA (test code = 0252590) Negative result for this test determines that [...] 564(g) of the Act.Fact Sheet for Healthcare Providers:https://www.Aprimoidel.com/sites/default/files/product/documents/Fact_Shee k_SM_Rrdlvssor_Syaq_AAYF-EfJ-5.pdfFact Sheet for Healthcare Patients:https://www.[employer]prim[employer]el.com/sites/default/files/product/ documents/Ovhu_Lrcqm_Ldyxorzn_Udbl_HZKK-RhU-8.pdfPerforming Laboratory:[facility], [place] [address]IS, [id number] 17:24:00Unlisted Reason for Exam - Click Yes and Enter Reason Below->No [facility] : 1960 Sex: MFINAL REPORT [...] Diverticulosis without diverticulitis.3. Hiatal hernia. Signed: Pauline Velazquezort Verified Date/Time: 04/24/2020 17:24:07 Reading Location: [address] Body Reading Room REHENSIVE METABOLIC [id number] 15:38:00 Test Item Value Reference Range Interpretation [...] 1092) DATA TO CALCULA TE ESTIMATED GFR. Router Tender ID - [id number] 15:31:00 Test Item Value Reference Range Interpretation Comments LIPASE (BEAKER) (test code = 749) 14 U/L 8-78 Router Tender ID - [id number] 15:29:00 Test Item Value Reference Range Interpretation [...] mechanical heart valves.CBC W/PLT COUNT & AUTO [id number] 15:12:00 Test Item Value Reference Range Interpretation [...]
[2021-12-31] MEDS ORDERED: ALTEPLASE 2 MG/VIAL IV ONE (11:15)
[2021-12-31] MEDS ORDERED: WATER FOR INJ,STERILE 10 ML ONE (11:18)
--- NOTE | 2021-12-31 13:14 | EDPHYS ---
Physician Documentation [facility] Name: Jeb Franklin Age: 61 yrs Sex: Male : 1960 Arrival Date: 12/31/2021 Time: 10:31 Bed 11 Private MD: [facility] ED Physician Jean Mays HPI: 12/31 11:56 This 61 yrs old Male presents to ER via Wheelchair with complaints of Picc Line Problem.rn 11:56 Pt reports problem with PICC line, last used this AM, was hard to flush, tried rn withdrawing, not working. No other complaints. . Onset: The symptoms/episode began/occurred this morning. Severity of symptoms: At their worst the symptoms were mild in the emergency department the symptoms are unchanged. The patient has not experienced similar symptoms in the past. The patient has not recently seen a physician. Historical: - Allergies: 11:00 Codeine; ss - PMHx: 11:00 Hypertension; ss - Immunization history:: Adult Immunizations up to date. - Family history:: not pertinent. - Hospitalizations: : No recent hospitalization is reported. ROS: 11:56 Constitutional: Negative for fever, chills, and weight loss, Neck: Negative for injury, rn pain, and swelling, Cardiovascular: Negative for chest pain, palpitations, and edema, Respiratory: Negative for shortness of breath, cough, wheezing, and pleuritic chest pain, MS/Extremity: + PICC line not working Exam: 11:56 Constitutional: This is a well developed, well nourished patient who is awake, alert, rn and in no acute distress. Cardiovascular: Regular rate and rhythm. No pulse deficits. MS/ Extremity: Pulses equal, no cyanosis. Neurovascular intact. Full, normal range of motion. Equal circumference. RUE PICC line, dressed, no gross abnormalities Vital Signs: 10:58 BP 112 / 69; Pulse 57; Resp 17; Temp 99.0(TE); Pulse Ox 92% on R/A; ss MDM: 11:02 Patient medically screened. rn 13:12 Differential Diagnosis PICC line clogged. Data reviewed: vital signs, nurses notes, and rn as a result, I will discharge patient. Counseling: I had a detailed discussion with the patient and/or guardian regarding: the historical points, exam findings, and any diagnostic results supporting the discharge/admit diagnosis, the need for outpatient follow up, to return to the emergency department if symptoms worsen or persist or if there are any questions or concerns that arise at home. Special discussion: I discussed with the patient/guardian in detail that at this point there is no indication for admission to the hospital. It is understood, however, that if the symptoms persist or worsen the patient needs to return immediately for re-evaluation. Administered Medications: 11:30 Drug: Activase (alteplase) {Co-Signature: anjali (Fatuma Andres RN).} Volume: 2 ml; Route: iw IV Thrombolytics; Disposition Summary: 12/31/21 13:13 Discharge Ordered Location: Home rn Problem: new rn Symptoms: have improved rn Condition: Stable rn Diagnosis - PICC line mechanical malfunction rn Followup: rn - With: Private Physician - When: As needed - Reason: Recheck today's complaints, Re-evaluation by your physician Discharge Instructions: - Discharge Summary Sheet rn - PICC Home Care Guide rn Forms: - Medication Reconciliation Form rn - Thank You Letter rn - Antibiotic furniture assembler - Prescription Opioid Use rn Signatures: Rachel Zimmerman, RN RN Jean Allen MD MD rn Smirch, Shelby, RN RN ss Shelby Smirch RN ss
--- NOTE | 2021-12-31 13:14 | ER ---
Nurse's Notes [facility] Name: Jeb Franklin Age: 61 yrs Sex: Male : 1960 Arrival Date: 12/31/2021 Time: 10:31 Bed 11 Private MD: Jamie Escobedo Diagnosis: PICC line mechanical malfunction Presentation: 12/31 10:58 Chief complaint: Patient states: "PICC line is clogged" Pt self administers Oxacillin ss at home, and states that he was able to give himself his infusion at 0500 this morning, but was unable to flush it. Coronavirus screen: Client denies travel out of the [place] in the last 14 days. Ebola Screen: Patient denies exposure to infectious person. Patient denies travel to an Ebola-affected area in the 21 days before illness onset. Initial Sepsis Screen: Does the patient meet any 2 criteria? No. Patient's initial sepsis screen is negative. Does the patient have a suspected source of infection? No. Patient's initial sepsis screen is negative. Risk Assessment: Do you want to hurt yourself or someone else? Patient reports no desire to harm self or others. Onset of symptoms was December 31, 2021. 10:58 Method Of Arrival: Wheelchair ss 10:58 Acuity: CHEPE 4 ss Historical: - Allergies: 11:00 Codeine; ss - PMHx: 11:00 Hypertension; ss - Immunization history:: Adult Immunizations up to date. - Family history:: not pertinent. - Hospitalizations: : No recent hospitalization is reported. Screenin:12 Abuse screen: Denies threats or abuse. Denies injuries from another. Nutritional iw screening: No deficits noted. Tuberculosis screening: No symptoms or risk factors identified. Fall Risk None identified. Assessment: 11:30 Reassessment: cathflo 2.2 mg administered to both ports. iw 12:12 Reassessment: unable to aspirate blood from either port. iw Vital Signs: 10:58 BP 112 / 69; Pulse 57; Resp 17; Temp 99.0(TE); Pulse Ox 92% on R/A; ss ED Course: 10:31 Patient arrived in ED. mr 10:31 Jamie Escobedo, is Private Physician. mr 11:00 Triage completed. ss 11:00 Arm band placed on left wrist. ss 11:02 Jean Mays MD is Attending Physician. rn 11:35 Rachel Zimmerman RN is Primary Nurse. iw Administered Medications: 11:30 Drug: Activase (alteplase) {Co-Signature: anjali (Fatuma Andres RN).} Volume: 2 ml; Route: iw IV Thrombolytics; Outcome: 13:13 Discharge ordered by . rn 13:42 Patient left the ED. iw Signatures: Joselin Carnes mr Rachel Zimmerman, [place] RN Jean Mays MD MD rn Smirch, Shelby, RN RN Fatuma alba
[2021-12-31 13:52] VITALS: BP 112/69; TEMP 99; O2SAT 92
== END 2021-12-31 13:42 | disposition home or self-care (01) ==
LOC: ER 10:29
DX: T82.594A Other mechanical complication of infusion catheter, initial encounter (principal); I10 Essential (primary) hypertension; Z88.5 Allergy status to narcotic agent
CPT/HCPCS: 92977; 99291; 99292; J2997